=== PATIENT | male | born 1960 | race Caucasian/White ===

== ENCOUNTER 2017-12-11 11:40 | Outpatient (CLI) | payer BC, SELFPAY ==
[2017-12-11 12:21] LABS: Abs Immature Grans 0.02 k/cumm (0.0-0.09); Absolute Basophil Count 0.03 k/cumm (0.0-0.2); Absolute Eosinophil Count 0.34 k/cumm (0.0-0.7); Absolute Monocyte Count 0.47 k/cumm (0.11-0.7); Absolute Neutrophil Count 3.47 k/cumm (1.2-6.7); Basophils % 0.5; Eosinophils % 5.6; HCT 42.6 % (40.0-50.0); HGB 14.7 g/dL (13.5-17.5); Immature Grans % 0.3; Lymphocytes % 28.2; Mean Corp. HGB Concentration 34.5 g/dL (32.0-36.0); Mean Corpuscular Hemoglobin 29.2 pg (27.0-33.0); Mean Corpuscular Volume 84.5 fL (80-95); Mean Platelet Volume 9.6 fL (8.0-11.0); Monocytes % 7.8; Neutrophils % 57.6; Platelet Count 201 x1000/uL (130-400); RBC 5.04 m/cumm (4.50-6.00); RBC Distribution Width 13.1 % (11.8-14.1); White Blood Cell Count 6.03 k/cumm (4.4-10.8)
[2017-12-11 12:29] LABS: ALT 43 U/L (12-78); AST 27 U/L (15-37); Albumin 3.4 g/dL (3.4-5.0); Alkaline Phosphatase 74 U/L (46-116); Anion Gap 10.7 mmol/L (3-11); BUN 16 mg/dL (7-18); Bilirubin, Total 0.4 mg/dL (0.2-1.0); CO2 25.3 mmol/L (21.0-32.0); CREATININE 1.02 mg/dL (0.70-1.30); Calcium 8.6 mg/dL (8.5-10.1); Chloride 103 mmol/L (98-107); Glucose 123 mg/dL (70-100); Potassium 3.4 mmol/L (3.5-5.1); Sodium 139 mmol/L (136-145)
[2017-12-12 10:39] LABS: PSA, Diagnostic 0.3 ng/ml (0-3.5)
== END 2017-12-11 12:00 ==
PROVIDERS: PCP Emergency Medicine; Visit Provider Internal Medicine
DX: C61 Malignant neoplasm of prostate (principal)
CPT/HCPCS: 36415; 80053; 84153; 85025

== ENCOUNTER 2018-10-04 11:16 | Emergency (ER) | payer BC, SELFPAY ==
[2018-10-04 11:27] VITALS: BP 130/84; PULSE 79; RESP 18; TEMP 36.7; O2SAT 95
--- NOTE | 2018-10-04 12:09 | W.ED.GENAD ---
Discharge Plan Disposition Patient Disposition: HOME Condition: Stable Discharge Details Chief Complaint: Cellulitis Clinical Impression: Dyshidrotic eczema Primary Care Provider: Mamadou Ruiz ED Provider: Andre French Home Meds and New Rx's Prescriptions: New prednisone 20 mg tablet 20 mg PO DAILY Qty: 23 RF: 0 amoxicillin 500 mg capsule 500 mg PO TID 5 Days Qty: 15 RF: 0 No Action multivitamin 1 EACH capsule 1 ea PO DAILY Qty: 2 RF: 0 Discharge Instructions Instructions: Dyshidrotic Eczema (ED), Dermatitis (ED) Additional Instructions: Please follow-up with your primary care provider for reassessment in 1 week. Feel free to return the emergency department for any new or significant worsening of symptoms otherwise take medications as prescribed. Referrals: Mamadou Ruiz, [Primary Care Provider] - 1 week Discharge Data Discharge Date/Time-TO BE ENTERED AT DEPARTURE: 10/04/18 13:05 Medical Decision Making Patient presents emergency department chief complaint of bilateral foot rash. Patient states that this started after power washing a chimney. Patient has right vesicles with clear drainage, some cracking and fissuring of the bilateral lateral aspects of the foot, desquamination of the tissue around the dorsal aspect. Dyshidrotic of the feet with possible cellulitis. Given exposure to wet moist environment also concern for fungal infection. Reviewed patient's previous records given that he states that this occurred approximately 10 years ago and was very difficult to treat. Review of those records shows that patient was on steroids which helped his symptoms. Plan to place patient on prednisone, treat cellulitis with amoxicillin 500 mg 3 times daily, and give patient single dose of fluconazole. Return precautions discussed. after discussion of diagnosis and plan of care patient has no further needs, questions, or concerns and states clear understanding to return to the emergency department for any worsening symptoms. HPI General Mode of arrival: ambulatory. Date/Time Provider Initiated Documentation: 10/04/18 11:36. Limitations to Documentation: no limitations. Information obtained by: patient and RN notes reviewed. History of Present Illness 58 year old M presents to the emergency department with the chief complaint of foot rash, described as severe, with intensity rated at 7. Quality is described as burning (itching) and aching, and is localized to the lower extremity. Patient started experiencing this week(s) (1) and it has been constant. Patient notes no other symptoms.. Patient did receive the following treatments prior to arrival, none Related Data Home Medications Medication Instructions Recorded Confirmed multivitamin 1 ea PO DAILY #2 11/17/13 10/04/18 amoxicillin 500 mg PO TID 5 Days #15 cap 10/04/18 prednisone 20 mg PO DAILY #23 tab 10/04/18 Previous Rx's Medication Instructions Recorded amoxicillin 500 mg PO TID 5 Days #15 cap 10/04/18 prednisone 20 mg PO DAILY #23 tab 10/04/18 Allergies Allergy/AdvReac Type Severity Reaction Status Date / Time Iodinated Contrast Media Allergy Severe Anaphylaxsi Unverified 10/04/18 11:31 [Iodinated Contrast Media - s IV Dye] shellfish derived Allergy Severe Anaphylaxsi Unverified 10/04/18 11:31 s Sulfa (Sulfonamide Allergy Intermediate Skin Rash Unverified 10/04/18 11:31 Antibiotics) General Stated Complaint: Cellulitis ELISA: 3 Review of Systems Constitutional Denies fever(s) Cardiovascular Denies chest pain Respiratory Denies cough Integumentary/Breasts Reports as per HPI [facility] Medical History Malignant neoplasm prostate Sciatica Surgical History Steroid Injection Social History Smoking/Tobacco Use Status: Former Tobacco Use Alcohol Intake: former Drug use: Never Substance use type: does not use Do you feel safe at home: Yes Exam Const General: cooperative, no acute distress and not ill appearing Orientation: alert, awake and oriented x3 HENMT Mouth: moist mucous membranes Resp Effort & Inspection: normal respiratory effort, able to speak in complete sentences and no respiratory distress Cardio Rate: regular rate Rhythm: regular rhythm Skin Rashes: rashes noted lichenification bilateral plantar foot arrangement, borders irregular, color red, surface erythematous, flaking, peeling, scaly and with discharge and tender Extrem General: normal exam except as noted Course Vital Signs Temperature 36.7 C 10/04/18 11:27 Pulse 79 10/04/18 11:27 Respiratory Rate 18 10/04/18 11:27 Blood Pressure 130/84 10/04/18 11:27 Pulse Oximetry 95 10/04/18 11:27 Temperature 36.7 C 10/04/18 11:27 Temperature Source Skin 10/04/18 11:27 Pulse 79 10/04/18 11:27 Respiratory Rate 18 10/04/18 11:27 Respiratory Effort Non-Labored 10/04/18 11:31 Blood Pressure 130/84 10/04/18 11:27 Blood Pressure Position Sitting 10/04/18 11:27 Pulse Oximetry 95 10/04/18 11:27 Oxygen Delivery Method Room Air 10/04/18 11:27 Oxygen Flow Rate 0 10/04/18 11:27 Pain Level 4 10/04/18 11:27
[2018-10-04] MEDS: Fluconazole 150 MG TAB PO (12:47)
[2018-10-04] MEDS: Amoxicillin 500 MG CAP PO (12:47)
[2018-10-04] MEDS: predniSONE 20 MG TAB 60 MG PO (12:47)
== END 2018-10-04 13:05 | disposition home or self-care (01) ==
PROVIDERS: Emergency Provider Nurse Practitioner Family; PCP Emergency Medicine
DX: L30.1 Dyshidrosis [pompholyx] (principal)
CPT/HCPCS: 99283; J7512

== ENCOUNTER 2018-10-24 19:48 | Emergency (ER) | payer BC, SELFPAY ==
[2018-10-24 19:55] VITALS: BP 148/76; PULSE 110; RESP 18; TEMP 37.9; O2SAT 99
--- NOTE | 2018-10-24 20:06 | W.ED.GENAD ---
Discharge Plan Disposition Patient Disposition: HOME Condition: Stable Discharge Details Chief Complaint: Cellulitis Clinical Impression: Cellulitis of leg, right Primary Care Provider: Mamadou Ruiz ED Provider: Peter Fitzpatrick Home Meds and New Rx's Prescriptions: New amoxicillin-pot clavulanate [Augmentin] 875-125 mg tablet 1 tab PO BID Qty: 14 RF: 0 prednisone 20 mg tablet 60 mg PO DAILY 5 Days Qty: 15 RF: 0 No Action multivitamin 1 EACH capsule 1 ea PO DAILY Qty: 2 RF: 0 Discharge Instructions Instructions: Cellulitis (ED) Additional Instructions: follow up with your primary care provider within 1 week if redness spreads up the leg, you have severe pain, weakness or persistent high fevers return to the emergency department Medical Decision Making 58 yo male who denies chronic medical problems comes in with red rash on right mid lower leg since yesterday. He was tx'd with prednisone, fluconazole and amoxicillin for a rash on his left foot that has improved but still has some scaling rash on the left foot. He is on his feet a lot at work and his shoes seem very worn down. I suspect some time of contact dermatitis of the left foot. Starting yesterday he began with a red rash on his right mid leg that is warm, red and is about 5x6cm in size. He has no crepitus or severe pain with palpation to the area to suggest nec fasc. Could be dermatitis but given warmth will tx as cellulitis. He is noted to have a temperature here and states he was working hard all day so could be from this but will obtain lab work and give IVF and dose of IV abx while this is pending. pt feeling better and HR on my exma no 80 and bp 130/82. His labs show mild wbc of 14 and lactate 2.0. He feels well and would like to be discharged. Given HD stability and lactate not over 2 and wbc could be from recent prednisone feel this is reasonable, I will start on augmentin and advised f/u with pcp next week and return if worsening. He understands these instructions and knows to return if he has worsening pain weakness or redness that is spreading. Differential Diagnosis cellulitis, fungal infection, abscess, contact dermatitis Medical Records Medical records reviewed: Yes I reviewed the patient's medical records. Lab Data Lab results reviewed: Yes I reviewed the patient's lab results. HPI General Mode of arrival: ambulatory. Date/Time Provider Initiated Documentation: 10/24/18 19:53. Limitations to Documentation: no limitations. Information obtained by: patient. History of Present Illness 58 year old M presents to the emergency department with the chief complaint of right leg rash, described as moderate, Quality is described as aching, Patient reports no radiation. Patient started experiencing this day(s) (1) and it has been constant. No relieving factors improve symptom(s), No exacerbating factors reported . Patient did receive the following treatments prior to arrival, none Related Data Home Medications Medication Instructions Recorded Confirmed multivitamin 1 ea PO DAILY #2 11/17/10/24/18 amoxicillin-pot clavulanate 1 tab PO BID #14 tab 10/24/18 [Augmentin] prednisone 60 mg PO DAILY 5 Days #15 tab 10/24/18 Previous Rx's Medication Instructions Recorded amoxicillin-pot clavulanate 1 tab PO BID #14 tab 10/24/18 [Augmentin] prednisone 60 mg PO DAILY 5 Days #15 tab 10/24/18 Allergies Allergy/AdvReac Type Severity Reaction Status Date / Time Iodinated Contrast Media Allergy Severe Anaphylaxsi Unverified 10/24/18 19:54 [Iodinated Contrast Media - s IV Dye] shellfish derived Allergy Severe Anaphylaxsi Unverified 10/24/18 19:54 s Sulfa (Sulfonamide Allergy Intermediate Skin Rash Unverified 10/24/18 19:54 Antibiotics) General Stated Complaint: Cellulitis ELISA: 3 Review of Systems Review of Systems All systems reviewed & are unremarkable except as noted in HPI and below Constitutional Denies chills and Denies fever(s) Cardiovascular Denies chest pain and Denies dyspnea Respiratory Denies cough and Denies dyspnea Gastrointestinal Denies abdominal pain, Denies nausea and Denies vomiting Genitourinary Denies dysuria Musculoskeletal Denies joint swelling [facility] Social History Smoking/Tobacco Use Status: Former Tobacco Use Alcohol Intake: former Drug use: Never Substance use type: does not use Do you feel safe at home: Yes Do you feel safe in your relationship?: Yes Exam Const General: no acute distress Orientation: alert HENMT Head: normal to inspection Ears: external ears normal General nose exam: external nose normal Mouth: moist mucous membranes Eyes General: appearance normal, both eyes and all related structures Neck Neck: normal visual inspection Resp Effort & Inspection: normal respiratory effort and able to speak in complete sentences Cardio Rate: regular rate Skin General skin exam: elasticity normal Neuro General: alert and oriented x3 Extrem General: normal to inspection Psych Mental Status: mental status grossly normal Course Vital Signs Temperature 37.9 C H 10/24/18 19:55 Pulse 110 H 10/24/18 19:55 Respiratory Rate 18 10/24/18 19:55 Blood Pressure 148/76 H 10/24/18 19:55 Pulse Oximetry 99 10/24/18 19:55 Temperature 37.9 C H 10/24/18 19:55 Temperature Source Skin 10/24/18 19:55 Pulse 110 H 10/24/18 19:55 Respiratory Rate 18 10/24/18 19:55 Respiratory Effort Non-Labored 10/24/18 19:58 Blood Pressure 148/76 H 10/24/18 19:55 Blood Pressure Position Sitting 10/24/18 19:55 Pulse Oximetry 99 10/24/18 19:55 Oxygen Delivery Method Room Air 10/24/18 19:55 Oxygen Flow Rate 0 10/24/18 19:55 Pain Level 6 10/24/18 19:55
[2018-10-24] MEDS: Acetaminophen 500 MG TAB 1000 MG PO (20:12)
[2018-10-24] MEDS: Normal Saline 1,000 ML 1000 ML IV (20:34)
[2018-10-24 20:47] LABS: Abs Immature Grans 0.04 k/cumm (0.0-0.09); Absolute Basophil Count 0.03 k/cumm (0.0-0.2); Absolute Eosinophil Count 0.04 k/cumm (0.0-0.7); Absolute Lymphocyte Count 1.02 k/cumm (1.2-3.4); Absolute Monocyte Count 0.72 k/cumm (0.11-0.7); Absolute Neutrophil Count 12.77 k/cumm (1.2-6.7); Basophils % 0.2; Eosinophils % 0.3; HCT 44.5 % (40.0-50.0); HGB 15.3 g/dL (13.5-17.5); Immature Grans % 0.3; Mean Corp. HGB Concentration 34.4 g/dL (32.0-36.0); Mean Corpuscular Hemoglobin 29.5 pg (27.0-33.0); Mean Corpuscular Volume 85.9 fL (80-95); Monocytes % 4.9; Neutrophils % 87.3; Platelet Count 189 x1000/uL (130-400); RBC 5.18 m/cumm (4.50-6.00); RBC Distribution Width 13.4 % (11.8-14.1); White Blood Cell Count 14.63 k/cumm (4.4-10.8)
[2018-10-24 20:54] LABS: PTT Activated 23.4 sec (21.0-31.4); Prothrombin Time 10.3 sec (9.3-11.0)
[2018-10-24 20:57] LABS: ALT 30 U/L (16-63); AST 23 U/L (15-37); Albumin 3.5 g/dL (3.4-5.0); Alkaline Phosphatase 75 U/L (46-116); Anion Gap 10.1 mmol/L (3-11); BUN 16 mg/dL (7-18); Bilirubin, Total 0.4 mg/dL (0.2-1.0); CO2 25.9 mmol/L (21.0-32.0); CREATININE 1.41 mg/dL (0.70-1.30); Calcium 8.9 mg/dL (8.5-10.1); Chloride 104 mmol/L (98-107); Estimated GFR 51.27 (mL/min/1.73m2); Glucose 106 mg/dL (70-100); Potassium 3.7 mmol/L (3.5-5.1); Sodium 140 mmol/L (136-145); Total Protein 7.5 g/dL (6.4-8.2)
[2018-10-24] MEDS: cefTRIAXone 2 GM/50 ML BAG IVPB (20:57)
[2018-10-24 21:38] VITALS: BP 132/71; PULSE 99; RESP 16; TEMP 38.6; O2SAT 99
[2018-10-24] MEDS: Ibuprofen 600 MG TAB PO (21:42)
== END 2018-10-24 21:45 | disposition home or self-care (01) ==
PROVIDERS: Emergency Provider Emergency Medicine; PCP Emergency Medicine
DX: L03.115 Cellulitis of right lower limb (principal); R50.9 Fever, unspecified
CPT/HCPCS: 36415; 80053; 87040; 96361; 96365; 99284; 83605; 83735; 85025; 85610; 85730; J3490

== ENCOUNTER 2018-11-10 17:38 | Inpatient (IN) | payer BC, SELFPAY ==
[2018-11-10 17:40] VITALS: BP 156/86; PULSE 104; RESP 16; TEMP 36.9; O2SAT 97
--- NOTE | 2018-11-10 17:47 | ED.GENADUL_ITS ---
Discharge Plan Disposition Patient Disposition: [facility] INPATIENT Condition: Fair Discharge Details Chief Complaint: Cellulitis Clinical Impression: Cellulitis Primary Care Provider: Mamadou Ruiz ED Provider: Alexa Song Home Meds and New Rx's Prescriptions: No Action multivitamin 1 EACH capsule 1 ea PO DAILY Qty: 2 RF: 0 Medical Decision Making Patient rosa 58 year old male with hx of prostate ca, presenting today with c/c of recurrent RLE cellulitis. Patient states that he was feeling poorly this weekend, no known fevers, and then began noting small area of erythema to anterior RLE last night. Reports that today around 1600, he had to stop working secondary to the pain right lower extremity. He was at that time they noted swelling and circumferential erythema and discomfort to the right lower extremity. None exam, patient appears nontoxic. To be tachycardic at 104. He does have circumferential erythema and tenderness to palpation. No area of fluctuance. No crepitus palpated. Has 2+ distal pulses, sensation is intact. He does have bilateral peeling of the feet. There are cracks that are open on the dorsal aspect of the right foot which may be the area of source of infection. However, the area of erythema does seem to skip the dorsum of the foot. Given the progression of the cellulitis, I am concerned for possible aggressive source. I do not see any evidence at this time for necrotizing fasciitis but again, given the rapid progression I feel that imaging is appropriate. Plan for x-ray and laboratory evaluation. Patient will begin on IV clindamycin. Reviewed labs when the patient is here recently. At that time, his white count was elevated at 14, lactate was elevated 2. He was also noted to have a bump in his creatinine to 1.4 which is very atypical for the patient. Patient received IV hydration, IV clindamycin. White count is normal, normal lactate. Again the creatinine is noted to be elevated at 1.54. We will UA to evaluate for any albuminuria lower proteins. Consulted with hospitalist regarding admission for cellulitis. He agrees to admission. Patient agrees to admission as well. Patient transferred to the medical surgical floor for continued IV antibiotics and monitoring. HPI General Mode of arrival: ambulatory . Date/Time Provider Initiated Documentation: 11/10/18 17:47 . Limitations to Documentation: no limitations . Information obtained by: patient and RN notes reviewed . History of Present Ill ness 58 year old M presents to the emergency department with the chief complaint of RLE pain, erythema, described as moderate, Quality is described as aching, and is localized to the right and lower extremity. Patient started experiencing this day(s) (1) and it has been constant. No relieving factors improve symptom(s), Movement worsens symptoms . Patient notes no other symptoms.. Patient did receive the following treatments prior to arrival, none Related Data Home Medications Medication Instructions Recorded Confirmed multivitamin 1 ea PO DAILY #2 11/17/13 11/10/18 Allergies Allergy/AdvReac Type Severity Reaction Status Date / Time Iodinated Contrast Media Allergy Severe Anaphylaxsi Unverified 11/10/18 17:44 [Iodinated Contrast Media - s IV Dye] shellfish derived Allergy Severe Anaphylaxsi Unverified 11/10/18 17:44 s Sulfa (Sulfonamide Allergy Intermediate Skin Rash Unverified 11/10/18 17:44 Antibiotics) General Stated Complaint: Cellulitis ELISA: 3 Review of Systems Constitutional Constitutional: Reports as per HPI, Denies chills, Denies fever(s), Denies headache(s) and Denies weakness ENT Ears, Nose, Mouth, and Throat: Denies headache(s) Cardiovascular Cardiovascular: Reports as per HPI Respiratory Respiratory: Reports as per HPI and Denies cough Musculoskeletal Musculoskeletal: Reports as per HPI and Denies tingling Integumentary/Breasts Skin/Breast: Reports as per HPI, Reports erythema, Reports rash and Denies wounds Neurologic Neurologic: Reports as per HPI, Denies headache(s), Denies tingling, Denies pare sthesias and Denies weakness [facility] Medical History Malignant neoplasm prostate Sciatica Surgical History Steroid Injection [facility];Lumbar epidural steroid injection;04/04/17 Social History Smoking/Tobacco Use Status: Current every day Tobacco Type: smokeless tobacco Alcohol Intake: former Drug use: Never Substance use type: does not use Do you feel safe at home: Yes Do you feel safe in your relationship?: Yes Exam Const General: cooperative, healthy appearing, comfortable, no acute distress, well developed and well groomed Nutritional Appearance: average body habitus and well nourished Orientation: alert and awake Resp Effort & Inspection: normal respiratory effort, able to speak in complete sentences and no respiratory distress Auscultation: clear to auscultation bilaterally Cardio Rate: regular rate Rhythm: regular rhythm Heart Sounds: S1 normal and S2 normal Skin General skin exam: crusts (bilateral feet L>R with superficial open cracks to the dorsal right foot), erythema (erythema to RLE as drawn below), no fluctuance and no induration Full body images: 1. 2. area of erythema, warmth, tenderness. Neuro General: alert and awake Cognition: normal cognition Speech: speech normal Gait: normal gait Motor: muscle tone normal throughout Sensory Exam: no sensory deficits noted Extrem Right lower extremity: abnormal to inspection (as above, 2+ distal pulses, sensation intact) Psych Appearance: grossly normal and well kempt Mental Status: mental status grossly normal Speech and Movement: speech and movement normal Course Vital Signs Vital signs: Vital Signs Temperature 36.9 C 11/10/18 17:40 Pulse 104 H 11/10/18 17:40 Respiratory Rate 16 11/10/18 17:40 Blood Pressure 156/86 H 11/10/18 17:40 Pulse Oximetry 97 11/10/18 17:40 Temperature 36.9 C 11/10/18 17:40 Temperature Source Skin 11/10/18 17:40 Pulse 104 H 11/10/18 17:40 Respiratory Rate 16 11/10/18 17:40 Respiratory Effort Non-Labored 11/10/18 17:42 Blood Pressure 156/86 H 11/10/18 17:40 Blood Pressure Position Sitting 11/10/18 17:40 Pulse Oximetry 97 11/10/18 17:40 Oxygen Delivery Method Room Air 11/10/18 17:40 Oxygen Flow Rate 0 11/10/18 17:40
--- NOTE | 2018-11-10 18:08 | DI.RAD_ITS ---
EXAM: XR TIB/FIB RT INDICATION: cellulitis. TECHNIQUE: 2D digital imaging was performed. FINDINGS: There is no evidence of an acute fracture or dislocation. The soft tissues are normal. Note is made o f vascular calcifications. IMPRESSION: No definite bony abnormality is seen.
[2018-11-10 18:27] LABS: Lactate 1.3 mmol/L (0.6-1.4)
[2018-11-10] MEDS: CLINDAMYCIN 600 MG/50 ML BAG 100 MG IVPB (18:29)
[2018-11-10] MEDS: Normal Saline 1,000 ML 1000 ML IV (18:29)
[2018-11-10 18:30] LABS: Abs Immature Grans 0.01 k/cumm (0.0-0.09); Absolute Basophil Count 0.04 k/cumm (0.0-0.2); Absolute Eosinophil Count 0.14 k/cumm (0.0-0.7); Absolute Monocyte Count 0.85 k/cumm (0.11-0.7); Absolute Neutrophil Count 6.56 k/cumm (1.2-6.7); Basophils % 0.4; Eosinophils % 1.5; HCT 43.8 % (40.0-50.0); Immature Grans % 0.1; Lymphocytes % 17.4; Mean Corp. HGB Concentration 34.2 g/dL (32.0-36.0); Mean Corpuscular Hemoglobin 29.2 pg (27.0-33.0); Mean Corpuscular Volume 85.4 fL (80-95); Mean Platelet Volume 9.6 fL (8.0-11.0); Monocytes % 9.2; Neutrophils % 71.4; Platelet Count 275 x1000/uL (130-400); RBC 5.13 m/cumm (4.50-6.00); RBC Distribution Width 13.2 % (11.8-14.1)
--- NOTE | 2018-11-10 18:52 | DI.VRAD_ITS ---
Addendum created by Pieter Horn MD on 11/10/2018 7:28:01 PM EDT Soft tissue calcifications and the radiographs are essentially unchanged from a prior study dated 03/07/2012. Initial report created on 11/10/2018 6:52:18 PM EDT PROCEDURE INFORMATION: Exam: XR Right Tibia and Fibula Exam date and time: 11/10/2018 6:10 PM Clinical history: 58 years old, male; Other: Cellulitis TECHNIQUE: Imaging protocol: XR Right tibia and fibula. Views: 2 views. COMPARISON: CR RIGHT TIB/FIB 03/07/2012 10:39 AM FINDINGS: Bones/joints: No recent fracture or dislocation is identified. Soft tissues: Normal. Vasculature: Vascular calcifications are present. IMPRESSION: No definite osseous abnormality is identified. Dictated and Authenticated by: Pieter Horn MD. Ordering:SILVANO Liu MD
[2018-11-10 18:53] LABS: ALT 32 U/L (16-63); AST 20 U/L (15-37); Albumin 3.6 g/dL (3.4-5.0); Alkaline Phosphatase 74 U/L (46-116); Anion Gap 9.9 mmol/L (3-11); BUN 19 mg/dL (7-18); Bilirubin, Total 0.3 mg/dL (0.2-1.0); CO2 24.1 mmol/L (21.0-32.0); CREATININE 1.54 mg/dL (0.70-1.30); Calcium 8.9 mg/dL (8.5-10.1); Chloride 106 mmol/L (98-107); Estimated GFR 46.31 (mL/min/1.73m2); Glucose 86 mg/dL (70-100); Potassium 3.7 mmol/L (3.5-5.1); Sodium 140 mmol/L (136-145); Total Protein 8.1 g/dL (6.4-8.2)
[2018-11-10 19:49] VITALS: BP 130/76; PULSE 80; RESP 18; O2SAT 99
--- NOTE | 2018-11-10 20:49 | W.PM.HP.N ---
Date of service: 11/10/18 Time of Service: 20:49 Assessment and Plan Assessment and plan (1) Cellulitis of leg, right: Start date: 11/10/18 Status: Acute Assessment and plan: Patient has had recurrent cellulitis of the right leg over the last 3 weeks now with an acute onset of painful swelling his right mid calf involving the skin and not appearing to have advancing necrotizing fasciitis at this time with quick response to IV clindamycin. The source of his infection might be the severe eczema of his feet. We will continue IV clindamycin high dose and convert to oral thrapy once he stabilizes. It appears he will not require surgical consultation at this time. (2) Chronic eczema of foot: Status: Chronic Assessment and plan: This is been recurrent over the last several months and the patient needs to consider dermatological evaluation. History of Present Illness History of Present Illness Chief Complaint: Painful swollen right calf and leg, sudden onset Narrative: This is a 58-year-old gentleman who does pravin who had a red swollen leg about 2 to 3 weeks ago for which she was seen in the ED and treated with Augmentin and prednisone. This seemed to clear and had improved for several days but then began to recur the evening prior to admission with a red spot on his leg which became very painful with acute hard swelling above the level of his sock on the right leg with circumferential reddness around his entire mid calf. He does have scaly and slightly ulcerated soles of his feet which began this last winter when the snow fell into his boot and rubbed him raw. He also has a history of possible eczema. He is on minimal meds with a history of prostate cancer but with no history of diabetes or peripheral vascular disease. In the ED there was some concern of early necrotizing fasciitis but the patient did respond well to his first dose of IV clindamycin. His pain was decreasing and the rash was softer with less hard swelling at the time I saw him. 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 He denied any fever or chills. He did feel poorly this weekend. Review of Systems Review of Systems Narrative: 13 point review of systems otherwise unrevealing or stable. [facility] Medical History Malignant neoplasm prostate Sciatica Surgical History Steroid Injection Pain Clinic;Lumbar epidural steroid injection;04/04/17 Social History Smoking/Tobacco Use Status: Current every day Tobacco Type: smokeless tobacco Alcohol Intake: former Drug use: Never Substance use type: does not use Do you feel safe at home: Yes Do you feel safe in your relationship?: Yes Meds Home Medications and Allergies Home Medications Medication Instructions Recorded Confirmed Type multivitamin 1 ea PO DAILY #2 11/17/13 11/10/18 History Allergies Allergy/AdvReac Type Severity Reaction Status Date / Time Iodinated Contrast Media Allergy Severe Anaphylaxsi Unverified 11/10/18 17:44 [Iodinated Contrast Media - s IV Dye] shellfish derived Allergy Severe Anaphylaxsi Unverified 11/10/18 17:44 s Sulfa (Sulfonamide Allergy Intermediate Skin Rash Unverified 11/10/18 17:44 Antibiotics) Exam Narrative Exam Narrative: General: Patient appears older than stated age and is unkempt but in no acute distress and alert and oriented x3. HEENT: Normocephalic with eyes revealing pupils equal and reactive to light symmetrically and extraocular movement intact. Oral mucosa is pink and moist. He has poor dentition. Neck: Supple without JVD. Back: No CVA tenderness. Lungs: Fair aeration with no focalizing rales or rhonchi. Heart: Regular rate and rhythm without murmurs or gallops. Abdomen: Soft, nontender with no palpable masses or hepatosplenomegaly. Bowel sounds positive in all quadrants. Genitalia/rectal: Not examined. Extremities: Right calf has edema which is less hard and less erythematous but tender to touch over the tibial area and medial calf centrally. Negative Homans sign. Peripheral pulses intact. No clubbing or cyanosis. No swelling over left calf and foot. Both feet have scaly, slightly ulcerative and thickened skin on the soles. No bleeding. Joints have fair range of motion. Skin: Erythema and tenderness over right leg as described with scaly soles of the feet bilaterally. No other rashes noted but unkempt skin. Warm and dry. Neuro: Motor without focalizing deficits and cranial nerves II through XII grossly intact. Psych: Normal thought processes with remote and recent memory intact. Mood normal. Results Imaging Imaging Studies: Exam(s) Addendum created by Pieter Horn MD on 11/10/2018 7:28:01 PM EDT Soft tissue calcifications and the radiographs are essentially unchanged from a prior study dated 03/07/2012. Initial report created on 11/10/2018 6:52:18 PM EDT PROCEDURE INFORMATION: Exam: XR Right Tibia and Fibula Exam date and time: 11/10/2018 6:10 PM Clinical history: 58 years old, male; Other: Cellulitis TECHNIQUE: Imaging protocol: XR Right tibia and fibula. Views: 2 views. COMPARISON: CR RIGHT TIB/FIB 03/07/2012 10:39 AM FINDINGS: Bones/joints: No recent fracture or dislocation is identified. Soft tissues: Normal. Vasculature: Vascular calcifications are present. IMPRESSION: No definite osseous abnormality is identified. Dictated and Authenticated by: Pieter Horn MD. Labs Result diagrams: 11/10/18 18:19 11/10/18 18:19 Labs: Laboratory Results - last 24 hr 11/10/18 11/10/18 11/10/18 18:19 18:19 18:19 WBC 9.20 RBC 5.13 Hgb 15.0 Hct 43.8 MCV 85.4 MCH 29.2 MCHC 34.2 RDW 13.2 Plt Count 275 MPV 9.6 Immature Gran % 0.1 Neutrophils % 71.4 Lymphocytes % 17.4 Monocytes % 9.2 Eosinophils % 1.5 Basophils % 0.4 Absolute Neutrophils 6.56 Absolute Lymphocytes 1.60 Absolute Monocytes 0.85 H Absolute Eosinophils 0.14 Absolute Basophils 0.04 Sodium 140 Potassium 3.7 Chloride 106 Carbon Dioxide 24.1 Anion Gap 9.9 BUN 19 H Creatinine 1.54 H Estimated GFR/1.73 m2 46.31 Glucose 86 Lactate 1.3 Calcium 8.9 Total Bilirubin 0.3 AST 20 ALT 32 Alkaline Phosphatase 74 Total Protein 8.1 Albumin 3.6 Last Vital Signs Temp 36.9 C 11/10/18 17:40 Pulse 80 11/10/18 19:49 Resp 18 11/10/18 19:49 BP 130/76 11/10/18 19:49 Pulse Ox 99 11/10/18 19:49
[2018-11-10 21:06] LABS: Bilirubin Negative (Negative); Blood Negative (Negative); Clarity Clear (Clear); Glucose Negative (Negative); Ketones Negative (Negative); Leukocyte Esterase Negative (Negative); Nitrite Negative (Negative); Specific Gravity >= 1.030 (1.005-1.025); Urobilinogen 0.2 EU/dL (Up TO 0.2); pH 5.5 (5-8)
[2018-11-10 21:14] LABS: Magnesium 2.3 mg/dL (1.8-2.4)
[2018-11-10 21:18] LABS: Epithelial Cells Negative HPF (Negative); RBC 0-2 (0-2); WBC Negative HPF (0-5)
[2018-11-10 21:19] LABS: Bacteria Negative HPF (Negative); C & S Indicated? No; Casts Negative LPF (Negative); Crystals Few Calcium Oxalate HPF (Negative); Mucus Heavy (Negative)
[2018-11-10 21:34] VITALS: BP 129/80; PULSE 83; RESP 18; TEMP 36.7; O2SAT 97
[2018-11-10 21:50] VITALS: BP 129/80; PULSE 83; RESP 18; TEMP 36.7; O2SAT 97
[2018-11-10 22:27] VITALS: BP 129/80; PULSE 83; RESP 18; TEMP 36.7; O2SAT 97
[2018-11-10] MEDS: Heparin 5,000 UNITS/ML VIAL 5000 UNITS SC (23:35)
[2018-11-10] MEDS: Normal Saline 1,000 ML 125 ML IV (23:35)
[2018-11-11] MEDS: CLINDAMYCIN 600 MG/50 ML BAG 100 MG IVPB ×4 (01:23→18:16)
[2018-11-11 04:41] VITALS: BP 98/59; PULSE 59; RESP 16; TEMP 35.8; O2SAT 96
[2018-11-11 06:56] LABS: HCT 37.6 % (40.0-50.0); HGB 12.8 g/dL (13.5-17.5); Mean Corpuscular Hemoglobin 29.8 pg (27.0-33.0); Mean Corpuscular Volume 87.4 fL (80-95); Mean Platelet Volume 9.8 fL (8.0-11.0); Platelet Count 230 x1000/uL (130-400); RBC Distribution Width 13.1 % (11.8-14.1)
[2018-11-11] MEDS: Heparin 5,000 UNITS/ML VIAL 5000 UNITS SC ×3 (06:56→21:16)
[2018-11-11 07:00] VITALS: BP 116/72; PULSE 48; RESP 18; TEMP 36.6; O2SAT 97
[2018-11-11 07:16] LABS: ALT 25 U/L (16-63); AST 16 U/L (15-37); Albumin 2.6 g/dL (3.4-5.0); Alkaline Phosphatase 55 U/L (46-116); Anion Gap 8.5 mmol/L (3-11); BUN 16 mg/dL (7-18); Bilirubin, Total 0.4 mg/dL (0.2-1.0); CO2 22.5 mmol/L (21.0-32.0); CREATININE 1.02 mg/dL (0.70-1.30); Calcium 7.9 mg/dL (8.5-10.1); Chloride 109 mmol/L (98-107); Glucose 99 mg/dL (70-100); Potassium 3.9 mmol/L (3.5-5.1); Sodium 140 mmol/L (136-145); Total Protein 6.2 g/dL (6.4-8.2)
[2018-11-11] MEDS: Normal Saline 1,000 ML 125 ML IV ×2 (08:58→17:37)
[2018-11-11 11:00] VITALS: BP 115/74; PULSE 58; RESP 16; TEMP 35.9; O2SAT 95
--- NOTE | 2018-11-11 11:28 | PHARADMIT ---
Admission Pharmacy Clinical Review cellulitis right lower extremity Code Status Full Code Current Weight 86.636 kg Renally Cleared and Narrow Therapeutic Index Meds Crcl ~79 mL/min current meds okay QTc Value / Action Taken n/a BP Control, Fever BP 116/72 afebrile Electrolytes reviewed Cl 109 DVT Prophylaxis heparin Opiate Usage / Scheduled Bowel Regimen Ordered prn/prn Plt/SCr for Heparin / Enoxaparin plt 230 SCr 1.02 INR for Warfarin n/a H/H stable, WBC/Bands h/h 12.8/37.6 Antibiotic appropriateness clindamycin Cultures and Sensitivities none Surgical ABX d/c within 24 hr n/a DM control / Insulin Dosing BG 99 none Heart Failure (Check EF%) (CANDE's, B-Block, Diuretics) none IV to PO Switch n/a Home Meds Reviewed yes Home Meds Not Ordered multivitamin Comments failed out pt tx per morning report pt reports pain with ambulation but refusing pain meds per nursing report
[2018-11-11 15:35] VITALS: BP 131/87; PULSE 53; RESP 18; TEMP 36.2; O2SAT 99
--- NOTE | 2018-11-11 16:16 | CHAPLAIN ---
I had a short visit with Altaf. He was resting in bed. He said he didn't ask any friends or relatives to visit because he wasn't sure how long he'd be here. He hasn't spoke with the physician yet today and is waiting to do that.
--- NOTE | 2018-11-11 17:54 | W.PM.PROGNOT ---
Date of Service Date of service: 11/11/18 Time of Service: 17:55 Assessment and Plan Assessment and plan (1) Cellulitis of leg, right: Status: Acute Assessment and plan: Having failed outpatient therapy (augmentin, prednisone). Improving with clindamycin IV. Continue clindamycin and add probiotics. (2) Chronic eczema of foot: Status: Suspected Assessment and plan: I am not sure this is eczema. Podiatry is being consulted for wound care recommendations. Will need dermatology referral. Subjective Subjective Interval history since last seen: Mr Payne states he feels a lot better. Denies dizziness, chest pain, shortness of breath, nausea, vomiting. RLE is not as red, swollen, or hurt as much. Exam Narrative Exam Narrative: General: middle-aged male, A&Ox3, laying comfortably in bed HEENT: EOMI, MMM Heart: RRR, no m/r/g Lungs: CTAB GI: abdomen is soft, nontender, nondistended Extremities: RLE with erythema over tibial surface and calf, signficantly receded from previously circumscribed borders. Psoriatic-appearing plaque over R knee. B feet with wounds, L>R, none appearing infected, but nonhealing. Objective Objective Clinical Data: Abnormal lab results 11/10/18 11/10/18 11/10/18 Range/Units 18:19 18: 20:50 RBC (4.50-6.00) m/cumm Hgb (13.5-17.5) g/dL Hct (40.0-50.0) % Absolute Monocytes 0.85 H (0.11-0.7) k/cumm Chloride (98-107) mmol/L BUN 19 H (7-18) mg/dL Creatinine 1.54 H (0.70-1.30) mg/dL Calcium (8.5-10.1) mg/dL Total Protein (6.4-8.2) g/dL Albumin (3.4-5.0) g/dL Ur Specific [place] >= 1.030 H (1.005-1.025) Urine Protein 30 H (Negative) mg/dL 11/11/18 11/11/18 Range/Units 06:20 06:30 RBC 4.30 L (4.50-6.00) m/cumm Hgb 12.8 L D (13.5-17.5) g/dL Hct 37.6 L (40.0-50.0) % Absolute Monocytes (0.11-0.7) k/cumm Chloride 109 H (98-107) mmol/L BUN (7-18) mg/dL Creatinine (0.70-1.30) mg/dL Calcium 7.9 L (8.5-10.1) mg/dL Total Protein 6.2 L (6.4-8.2) g/dL Albumin 2.6 L (3.4-5.0) g/dL Ur Specific [place] (1.005-1.025) Urine Protein (Negative) mg/dL Vital Signs Temperature 36.2 C L 11/11/18 15:35 Temperature Source Tympanic 11/11/18 15:35 Pulse 53 L 11/11/18 15:35 Pulse Rhythm Regular 11/11/18 08:18 Respiratory Rate 18 11/11/18 15:35 Respiratory Effort 11/11/18 08:18 Respiratory Depth Normal 11/11/18 08:18 Respiratory Pattern Normal 11/11/18 08:18 Blood Pressure 131/87 11/11/18 15:35 Blood Pressure Position Sitting 11/10/18 17:40 Pulse Oximetry 99 11/11/18 15:35 Oxygen Delivery Method Room Air 11/11/18 15:35 Oxygen Flow Rate 0 11/11/18 15:35 Pain Level 0 11/11/18 11:00 Intake & Output 11/10/18 11/11/18 11/11/18 23:59 11:59 23:59 Intake Total 1050 / 1050 1580 / 2820 1240 / 2820 Balance 1050 / 1050 1580 / 2820 1240 / 2820 Weight 86.636 kg Intake: IV 1050 / 1050 1100 / 2100 1000 / 2100 Oral 480 / 720 240 / 720 Other: Urine Appearance Clear Clear Laboratory Results WBC 5.30 k/cumm (4.4-10.8) D 11/11/18 06:20 RBC 4.30 m/cumm (4.50-6.00) L 11/11/18 06:20 Hgb 12.8 g/dL (13.5-17.5) L D 11/11/18 06:20 Hct 37.6 % (40.0-50.0) L 11/11/18 06:20 MCV 87.4 fL (80-95) 11/11/18 06:20 MCH 29.8 pg (27.0-33.0) 11/11/18 06:20 MCHC 34.0 g/dL (32.0-36.0) 11/11/18 06:20 RDW 13.1 % (11.8-14.1) 11/11/18 06:20 Plt Count 230 x1000/uL (130-400) 11/11/18 06:20 MPV 9.8 fL (8.0-11.0) 11/11/18 06:20 Immature Gran % 0.1 11/10/18 18:19 Neutrophils % 71.4 11/10/18 18:19 Lymphocytes % 17.4 11/10/18 18:19 Monocytes % 9.2 11/10/18 18:19 Eosinophils % 1.5 11/10/18 18: Basophils % 0.4 11/10/18 18:19 Absolute Neutrophils 6.56 k/cumm (1.2-6.7) 11/10/18 18:19 Absolute Lymphocytes 1.60 k/cumm (1.2-3.4) 11/10/18 18:19 Absolute Monocytes 0.85 k/cumm (0.11-0.7) H 11/10/18 18:19 Absolute Eosinophils 0.14 k/cumm (0.0-0.7) 11/10/18 18: Absolute Basophils 0.04 k/cumm (0.0-0.2) 11/10/18 18:19 Sodium 140 mmol/L (136-145) 11/11/18 06:30 Potassium 3.9 mmol/L (3.5-5.1) 11/11/18 06:30 Chloride 109 mmol/L (98-107) H 11/11/18 06:30 Carbon Dioxide 22.5 mmol/L (21.0-32.0) 11/11/18 06:30 Anion Gap 8.5 mmol/L (3-11) 11/11/18 06:30 BUN 16 mg/dL (7-18) 11/11/18 06:30 Creatinine 1.02 mg/dL (0.70-1.30) D 11/11/18 06:30 Estimated GFR/1.73 m2 >= 60.00 (mL/min/1.73m2) 11/11/18 06:30 Glucose 99 mg/dL (70-100) 11/11/18 06:30 Lactate 1.3 mmol/L (0.6-1.4) 11/10/18 18:19 Calcium 7.9 mg/dL (8.5-10.1) L 11/11/18 06:30 Magnesium 2.3 mg/dL (1.8-2.4) 11/10/18 18:10 Total Bilirubin 0.4 mg/dL (0.2-1.0) 11/11/18 06:30 AST 16 U/L (15-37) 11/11/18 06:30 ALT 25 U/L (16-63) 11/11/18 06:30 Alkaline Phosphatase 55 U/L (46-116) 11/11/18 06:30 Total Protein 6.2 g/dL (6.4-8.2) L 11/11/18 06:30 Albumin 2.6 g/dL (3.4-5.0) L 11/11/18 06:30 Urine Color Yellow (Yellow) 11/10/18 20:50 Urine Clarity Clear (Clear) 11/10/18 20:50 Urine pH 5.5 (5-8) 11/10/18 20:50 Ur Specific [place] >= 1.030 (1.005-1.025) H 11/10/18 20:50 Urine Protein 30 mg/dL (Negative) H 11/10/18 20:50 Urine Ketones Negative mg/dL (Negative) 11/10/18 20:50 Urine Blood Negative (Negative) 11/10/18 20:50 Urine Nitrite Negative (Negative) 11/10/18 20:50 Urine Bilirubin Negative (Negative) 11/10/18 20:50 Urine Urobilinogen 0.2 EU/dL (Up TO 0.2) 11/10/18 20:50 Ur Leukocyte Esterase Negative (Negative) 11/10/18 20:50 Urine RBC 0-2 (0-2) 11/10/18 20:50 Urine WBC Negative HPF (0-5) 11/10/18 20:50 Ur Epithelial Cells Negative HPF (Negative) 11/10/18 20:50 Urine Crystals Few calcium oxalate HPF (Negative) 11/10/18 20:50 Urine Bacteria Negative HPF (Negative) 11/10/18 20:50 Urine Casts Negative LPF (Negative) 11/10/18 20:50 Urine Mucus Heavy (Negative) 11/10/18 20:50 Ur Culture Indicated? No 11/10/18 20:50 Urine Glucose Negative mg/dL (Negative) 11/10/18 20:50
--- NOTE | 2018-11-11 18:42 | W.PODCONSULT ---
Date of service: 11/11/18 Time of Service: 18:42 History of Present Illness History of Present Illness Chief Complaint: Chronic rash both feet Narrative: 58-year-old white male who was admitted through the ER for cellulitis of his right leg receiving IV antibiotics bedrest. I have been asked to evaluate 9 healing chronic dermatitis both feet. Altaf indicates that he has had this problem in his feet for approximately 10 to 12 years. He has been seen previously by dermatology possibly Dr. Adkins. He believes he was diagnosed with psoriasis. He has been treated previously with multiple creams with improvement over time. He is complaining of pain associated with a fissure under the left great toe and along the medial aspect of the left heel. He indicates that the activity between his toes has only recently started and does cause some itching. 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 [facility] Medical History Malignant neoplasm prostate Sciatica Surgical History Steroid Injection Pain Clinic;Lumbar epidural steroid injection;04/04/17 Social History Smoking/Tobacco Use Status: Current every day Tobacco Type: smokeless tobacco Alcohol Intake: former Drug use: Never Substance use type: does not use Do you feel safe at home: Yes Do you feel safe in your relationship?: Yes Exam Narrative Exam Narrative: Altaf is seen at bedside. He is resting comfortably. He states he is feeling much better since his admission. He is receiving clindamycin 600 mg IV every 6 hours. Vitals appear stable with a BP of 131/87, pulse 53, respiration 18, temp 36.2, O2 sat 99% room air. Labs reveal normal WBC at 5.3, RBCs low at 4.3 hemoglobin low at 12.8 hematocrit low at 37.6 Vascular exam: DP and PT pulses are easily palpable at the ankle graded 2/4. No peripheral edema or is noted in the left lower extremity. Erythema and warmth is noted affecting the midportion of the right calf circumferentially but apparently has shown significant regression of infection based on indelible markings. His calves is soft to palpation although very tender. No fluid accumulations are appreciated. RUDY studies were performed earlier and are elevated in the 1.22 and 1.23 respectively consistent with radiologic evidence of calcification of blood vessels. He has good capillary return within the toes themselves and there is no clinical findings of ischemia. Dermatologic exam toenails are generally benign with the exception of the right great nail which shows yellowish discoloration and thickness possibly consistent with onychomycosis. He has crusting peeling and superficial fissuring affecting the flexion crease of his left hallux and along the plantar and medial aspects of his left heel and arch. Similar findings are noted dorsally on the right foot and to a lesser extent medial arch and heel of his right lower extremity. There is no active drainage or signs of bacterial infection. v he does have crusting and some maceration of the webspaces right foot greater than left. n no active signs of bacterial infection at this level. He has scaling appreciated over both knees right greater than left with a silvery appearance. Negative findings on his elbows or periauricular regions. Muscular exam: Muscle groups of 5 out of 5 bilaterally. Skeletal exam is grossly benign at this time without any acute findings. Radiograph was noted from his right lower extremity which is free of any fractures or dislocations the ankle appears to be well-maintained. Neurologically he appears to be grossly intact, toes are downgoing. Impressions: Chronic dermatitis. Differential includes chronic eczema. Contact dermatitis from chemical exposure Tinea pedis Plan: Definitive diagnosis can be obtained through punch biopsies of his lesions but based on his current infection in his right leg I have opted not to open his skin. We will begin with empiric treatment utilizing ketoconazole for what I believed to be tinea pedis between the toes and betamethasone valerate for the eczematous dermatitis. We should start to see improvement within 48 to 72 hours if indeed I have chosen the best agents for him. I will continue to check on him episodically while he remains in house happy to see him in the office upon discharge. Thank you for the consultation. Results Last Vital Signs Temp 36.2 C L 11/11/18 15:35 Pulse 53 L 11/11/18 15:35 Resp 18 11/11/18 15:35 BP 131/87 11/11/18 15:35 Pulse Ox 99 11/11/18 15:35 Labs Result diagrams: 11/11/18 06:20 11/11/18 06:30 Labs: Laboratory Results - last 24 hr 11/10/18 11/10/18 11/10/18 18:10 18:19 20:50 WBC RBC Hgb Hct MCV MCH MCHC RDW Plt Count MPV Sodium 140 Potassium 3.7 Chloride 106 Carbon Dioxide 24.1 Anion Gap 9.9 BUN 19 H Creatinine 1.54 H Estimated GFR/1.73 m2 46.31 Glucose 86 Calcium 8.9 Magnesium 2.3 Total Bilirubin 0.3 AST 20 ALT 32 Alkaline Phosphatase 74 Total Protein 8.1 Albumin 3.6 Urine Color Yellow Urine Clarity Clear Urine pH 5.5 Ur Specific [place] >= 1.030 H Urine Protein 30 H Urine Ketones Negative Urine Blood Negative Urine Nitrite Negative Urine Bilirubin Negative Urine Urobilinogen 0.2 Ur Leukocyte Esterase Negative Urine RBC 0-2 Urine WBC Negative Ur Epithelial Cells Negative Urine Crystals Few calcium oxalate Urine Bacteria Negative Urine Casts Negative Urine Mucus Heavy Ur Culture Indicated? No Urine Glucose Negative 11/11/18 11/11/18 06:20 06:30 WBC 5.30 D RBC 4.30 L Hgb 12.8 L D Hct 37.6 L MCV 87.4 MCH 29.8 MCHC 34.0 RDW 13.1 Plt Count 230 MPV 9.8 Sodium 140 Potassium 3.9 Chloride 109 H Carbon Dioxide 22.5 Anion Gap 8.5 BUN 16 Creatinine 1.02 D Estimated GFR/1.73 m2 >= 60.00 Glucose 99 Calcium 7.9 L Magnesium Total Bilirubin 0.4 AST 16 ALT 25 Alkaline Phosphatase 55 Total Protein 6.2 L Albumin 2.6 L Urine Color Urine Clarity Urine pH Ur Specific [place] Urine Protein Urine Ketones Urine Blood Urine Nitrite Urine Bilirubin Urine Urobilinogen Ur Leukocyte Esterase Urine RBC Urine WBC Ur Epithelial Cells Urine Crystals Urine Bacteria Urine Casts Urine Mucus Ur Culture Indicated? Urine Glucose
[2018-11-11 19:02] VITALS: BP 131/87; PULSE 74; RESP 18; TEMP 36.2; O2SAT 99
--- NOTE | 2018-11-11 19:07 | INITIAL_ITS ---
- If Service Date Differs Date of service: 11/11/18 Time of Service: 19:07 Care Management Initial Assess REASON FOR HOSPITALIZATION:: Cellulitis right LE PAST MEDICAL HISTORY/PAST SURGICAL HISTORY:: Malignant neoplasm prostate. Sciatica. Pain Clinic;Lumbar epidural steroid injection;04/04/17 PREVIOUS FUNCTIONAL STATUS/SOCIAL/FAMILY SUPPORTS:: Altaf lives in his own home with his son and his son's family in [place], [place]. He works fulltime for [employer]. He is independent with ADL's and all activities including transportation. CURRENT FUNCTIONAL STATUS:: Altaf is alert and engaged he states he was on oral abx for seven days he completed them. He states then the swelling reoccured and he returned to the ED for treatment. He is now on IV abx and the redness has improved. He wants to return to work as soon as he is able. ADVANCE DIRECTIVES:: None on file he is interested in reviewing the forms. CM to provide and offered to assist in completion when he is ready. Has patient been provided with information about the portal?: Yes Did the patient sign up for the portal?: No CODE STATUS:: Full Code INSURANCE COVERAGE / FINANCIAL ISSUES:: BCBS CURRENT HOME/COMMUNITY SERVICES/EQUIPMENT:: None PRIMARY CARE PHYSICIAN:: POTENTIAL DISCHARGE NEEDS:: Follow up with primary care as directed. PATIENT/FAMILY EDUCATION NEEDS:: Discharge education, limitations and follow up plan of care including ask me three and self management. ANTICIPATED BARRIERS TO DISCHARGE:: None TRANSPORTATION:: Altaf's car is at [facility] and he will transport himself home. PLAN:: Altaf is rec. IV abx. He will be discharged home when medically ready. Anticipate no additional services at time of discharge. CM to continue to provide support.
[2018-11-11 23:34] VITALS: BP 116/65; PULSE 63; RESP 17; TEMP 36.9; O2SAT 97
[2018-11-12] MEDS: CLINDAMYCIN 600 MG/50 ML BAG 100 MG IVPB ×4 (00:02→17:31)
[2018-11-12 03:50] VITALS: BP 113/60; PULSE 60; RESP 16; TEMP 36.7; O2SAT 98
[2018-11-12] MEDS: Heparin 5,000 UNITS/ML VIAL 5000 UNITS SC ×3 (06:11→21:42)
[2018-11-12 07:32] LABS: Abs Immature Grans 0.01 k/cumm (0.0-0.09); Absolute Basophil Count 0.05 k/cumm (0.0-0.2); Absolute Eosinophil Count 0.32 k/cumm (0.0-0.7); Absolute Lymphocyte Count 1.45 k/cumm (1.2-3.4); Absolute Monocyte Count 0.37 k/cumm (0.11-0.7); Basophils % 1.3; HCT 37.8 % (40.0-50.0); HGB 12.8 g/dL (13.5-17.5); Immature Grans % 0.3; Lymphocytes % 36.3; Mean Corp. HGB Concentration 33.9 g/dL (32.0-36.0); Mean Corpuscular Hemoglobin 29.6 pg (27.0-33.0); Mean Corpuscular Volume 87.3 fL (80-95); Mean Platelet Volume 10.1 fL (8.0-11.0); Monocytes % 9.3; Neutrophils % 44.8; Platelet Count 221 x1000/uL (130-400); RBC 4.33 m/cumm (4.50-6.00); RBC Distribution Width 13.4 % (11.8-14.1)
[2018-11-12 07:34] LABS: Absolute Neutrophil Count 1.79 k/cumm (1.2-6.7)
[2018-11-12 07:35] VITALS: BP 111/75; PULSE 58; RESP 17; TEMP 36.1; O2SAT 97
[2018-11-12 07:52] LABS: Anion Gap 7.2 mmol/L (3-11); BUN 12 mg/dL (7-18); CO2 23.8 mmol/L (21.0-32.0); CREATININE 0.99 mg/dL (0.70-1.30); Calcium 8.2 mg/dL (8.5-10.1); Chloride 108 mmol/L (98-107); Glucose 91 mg/dL (70-100); Sodium 139 mmol/L (136-145)
[2018-11-12] MEDS: Ketoconazole 2% CREAM 15 GM TUBE TP (08:25)
[2018-11-12 11:25] VITALS: BP 125/79; PULSE 57; RESP 16; TEMP 36.9; O2SAT 96
[2018-11-12] MEDS: Normal Saline Flush 10 ML SYR IVP (12:31)
[2018-11-12 16:00] VITALS: BP 118/70; PULSE 60; RESP 18; TEMP 36.7; O2SAT 98
--- NOTE | 2018-11-12 19:45 | PGE_ITS ---
Date of Service Date of service: 11/12/18 Time of Service: 19:45 Assessment and Plan Assessment and plan (1) Cellulitis of leg, right: Status: Acute Assessment and plan: Having failed outpatient therapy (augmentin, prednisone). Continue clindamycin IV as he is improving. Would benefit from at least 24-48 hours more of IV antibiotics. (2) Chronic eczema of foot: Status: Suspected Assessment and plan: Appreciate podiatry help. Agree with antifungals as well as betamethasone. Will need follow up with dermatology as outpatient. Subjective Subjective Interval history since last seen: Mr Payne states his leg is doing better. It is itchy, but not to the point that it's driving him crazy. He denies dizziness, chest pain, shortness of breath, nausea, vomiting. Exam Narrative Exam Narrative: General: middle-aged male, A&Ox3, sitting up in bed enjoying his dinner; family is at bedside HEENT: EOMI, MMM Heart: RRR, no m/r/g Lungs: CTAB GI: abdomen is soft, nontender, nondistended Extremities: RLE with erythema over tibial surface and calf, improved. Objective Objective Clinical Data: Abnormal lab results 11/12/18 11/12/18 Range/Units 07:02 07:02 WBC 4.00 L (4.4-10.8) k/cumm RBC 4.33 L (4.50-6.00) m/cumm Hgb 12.8 L (13.5-17.5) g/dL Hct 37.8 L (40.0-50.0) % Chloride 108 H (98-107) mmol/L Calcium 8.2 L (8.5-10.1) mg/dL Vital Signs Temperature 36.7 C 11/12/18 16:00 Temperature Source Tympanic 11/12/18 16:00 Pulse 60 11/12/18 16:00 Pulse Rhythm Regular 11/12/18 17:04 Respiratory Rate 18 11/12/18 16:00 Respiratory Effort 11/12/18 17:04 Respiratory Depth Normal 11/12/18 17:04 Respiratory Pattern Normal 11/12/18 17:04 Blood Pressure 118/70 11/12/18 16:00 Blood Pressure Position Sitting 11/10/18 17:40 Pulse Oximetry 98 11/12/18 16:00 Oxygen Delivery Method Room Air 11/12/18 16:00 Oxygen Flow Rate 0 11/12/18 16:00 Pain Level 0 11/12/18 16:00 Comment 11/12/18 03:50 Intake & Output 11/11/18 11/12/18 11/12/18 23:59 11:59 23:59 Intake Total 1340 / 2920 1470 / 1770 300 / 1770 Balance 1340 / 2920 1470 / 1770 300 / 1770 Intake: IV 1100 / 2200 1100 / 1150 50 / 1150 Oral 240 / 720 370 / 620 250 / 620 Other: Urine Appearance Clear Clear Clear Comment Pt voiding ad terry. Pt denies discomfort. Voiding Methods Toilet Laboratory Results WBC 4.00 k/cumm (4.4-10.8) L 11/12/18 07:02 RBC 4.33 m/cumm (4.50-6.00) L 11/12/18 07:02 Hgb 12.8 g/dL (13.5-17.5) L 11/12/18 07:02 Hct 37.8 % (40.0-50.0) L 11/12/18 07:02 MCV 87.3 fL (80-95) 11/12/18 07:02 MCH 29.6 pg (27.0-33.0) 11/12/18 07:02 MCHC 33.9 g/dL (32.0-36.0) 11/12/18 07:02 RDW 13.4 % (11.8-14.1) 11/12/18 07:02 Plt Count 221 x1000/uL (130-400) 11/12/18 07:02 MPV 10.1 fL (8.0-11.0) 11/12/18 07:02 Immature Gran % 0.3 11/12/18 07:02 Neutrophils % 44.8 11/12/18 07:02 Lymphocytes % 36.3 11/12/18 07:02 Monocytes % 9.3 11/12/18 07:02 Eosinophils % 8.0 11/12/18 07:02 Basophils % 1.3 11/12/18 07:02 Absolute Neutrophils 1.79 k/cumm (1.2-6.7) 11/12/18 07:02 Absolute Lymphocytes 1.45 k/cumm (1.2-3.4) 11/12/18 07:02 Absolute Monocytes 0.37 k/cumm (0.11-0.7) 11/12/18 07:02 Absolute Eosinophils 0.32 k/cumm (0.0-0.7) 11/12/18 07:02 Absolute Basophils 0.05 k/cumm (0.0-0.2) 11/12/18 07:02 Sodium 139 mmol/L (136-145) 11/12/18 07:02 Potassium 4.0 mmol/L (3.5-5.1) 11/12/18 07:02 Chloride 108 mmol/L (98-107) H 11/12/18 07:02 Carbon Dioxide 23.8 mmol/L (21.0-32.0) 11/12/18 07:02 Anion Gap 7.2 mmol/L (3-11) 11/12/18 07:02 BUN 12 mg/dL (7-18) 11/12/18 07:02 Creatinine 0.99 mg/dL (0.70-1.30) 11/12/18 07:02 Estimated GFR/1.73 m2 >= 60.00 (mL/min/1.73m2) 11/12/18 07:02 Glucose 91 mg/dL (70-100) 11/12/18 07:02 Lactate 1.3 mmol/L (0.6-1.4) 11/10/18 18:19 Calcium 8.2 mg/dL (8.5-10.1) L 11/12/18 07:02 Magnesium 2.0 mg/dL (1.8-2.4) 11/12/18 07:02 Total Bilirubin 0.4 mg/dL (0.2-1.0) 11/11/18 06:30 AST 16 U/L (15-37) 11/11/18 06:30 ALT 25 U/L (16-63) 11/11/18 06:30 Alkaline Phosphatase 55 U/L (46-116) 11/11/18 06:30 Total Protein 6.2 g/dL (6.4-8.2) L 11/11/18 06:30 Albumin 2.6 g/dL (3.4-5.0) L 11/11/18 06:30 Urine Color Yellow (Yellow) 11/10/18 20:50 Urine Clarity Clear (Clear) 11/10/18 20:50 Urine pH 5.5 (5-8) 11/10/18 20:50 Ur Specific [place] >= 1.030 (1.005-1.025) H 11/10/18 20:50 Urine Protein 30 mg/dL (Negative) H 11/10/18 20:50 Urine Ketones Negative mg/dL (Negative) 11/10/18 20:50 Urine Blood Negative (Negative) 11/10/18 20:50 Urine Nitrite Negative (Negative) 11/10/18 20:50 Urine Bilirubin Negative (Negative) 11/10/18 20:50 Urine Urobilinogen 0.2 EU/dL (Up TO 0.2) 11/10/18 20:50 Ur Leukocyte Esterase Negative (Negative) 11/10/18 20:50 Urine RBC 0-2 (0-2) 11/10/18 20:50 Urine WBC Negative HPF (0-5) 11/10/18 20:50 Ur Epithelial Cells Negative HPF (Negative) 11/10/18 20:50 Urine Crystals Few calcium oxalate HPF (Negative) 11/10/18 20:50 Urine Bacteria Negative HPF (Negative) 11/10/18 20:50 Urine Casts Negative LPF (Negative) 11/10/18 20:50 Urine Mucus Heavy (Negative) 11/10/18 20:50 Ur Culture Indicated? No 11/10/18 20:50 Urine Glucose Negative mg/dL (Negative) 11/10/18 20:50
[2018-11-12 20:22] VITALS: BP 143/87; PULSE 69; RESP 18; TEMP 37; O2SAT 98
--- NOTE | 2018-11-12 20:26 | PDOC.CMPRO ---
- If Service Date Differs Date of service: 11/12/18 Time of Service: 20:27 Care Management Progress Note S/O: Altaf remains inpatient level of care with no change in status. He remains on IV abx and will be discharged once he is medically stable. Altaf declines the need for any additional services at time of discharge. A: Altaf is a 58 year old male admitted with right LE cellulitis P: Altaf is rec. IV abx. He will be discharged home when medically ready. Anticipate no additional services at time of discharge. CM to continue to provide support. Altaf will will drive himself home at time of discharge.
[2018-11-12 23:40] VITALS: BP 116/72; PULSE 72; RESP 18; TEMP 37.1; O2SAT 99
[2018-11-13] MEDS: Normal Saline Flush 10 ML SYR IVP ×3 (00:25→11:25)
[2018-11-13] MEDS: CLINDAMYCIN 600 MG/50 ML BAG 100 MG IVPB ×4 (00:25→17:19)
[2018-11-13] MEDS: diphenhydrAMINE 25 MG CAP PO (00:51)
[2018-11-13 03:40] VITALS: BP 107/62; PULSE 60; RESP 18; TEMP 36.5; O2SAT 98
[2018-11-13] MEDS: Heparin 5,000 UNITS/ML VIAL 5000 UNITS SC ×2 (05:44→13:34)
[2018-11-13] MEDS: Ketoconazole 2% CREAM 15 GM TUBE TP (08:28)
[2018-11-13 08:30] VITALS: BP 114/74; PULSE 67; RESP 18; TEMP 36.6; O2SAT 97
[2018-11-13 11:21] VITALS: BP 114/66; RESP 18; TEMP 37.1; O2SAT 97
[2018-11-13 11:40] VITALS: BP 114/74; PULSE 53; RESP 15; TEMP 36; O2SAT 97
--- NOTE | 2018-11-13 15:29 | PDOC.CMPRO ---
- If Service Date Differs Date of service: 11/13/18 Time of Service: 15:29 Care Management Progress Note S/O: Altaf was sitting up in his bed when CM met with him. He stated that he was feeling ok and that he wants to go home. He reported that he is independent and would like to get back to work. CM asked if he knew what his plan of care was, which he stated that once his cellulitis improves enough he will return home with no additional services. A: Altaf is a 58 year old male admitted on 11/10/18 with right LE cellulitis P: Altaf is receiving IV antibiotics currently. Anticipate he will return home with no additional services when medically cleared. Altaf will drive himself home when he is ready. CM will continue to provide support.
--- NOTE | 2018-11-13 16:33 | DSE_ITS ---
Date of service: 11/13/18 Time of Service: 16:34 DS: Diagnosis Discharge Diagnosis (1) Cellulitis of leg, right: Status: Acute (2) Chronic eczema of foot: Status: Suspected Discharge Plan Disposition Patient Disposition: HOME Condition: Good Discharge Details Chief Complaint: Cellulitis Clinical Impression: Cellulitis Reason For Visit: CELLULITIS R LWR EXTREMITY Admit Date/Time: 11/10/18 20:49 Admit Provider: Karson Darden Attending Provider: Karson Darden Primary Care Provider: Mamadou Ruiz ED Provider: Alexa Song [facility] Course Hospital Course: Mr Payne is a 58 year old male, admitted to [facility] on 11/10/18 for recurrent cellulitis of RLE after having completed outpatient therapy. The patient was initiated on IV clindamycin with very rapid improvement of symptoms. Today, the erythema of his RLE is much better, though still present. He is getting discharged home today with PO clindamycin for 7 more days, instructions to take probiotics and eat yogurt twice a day for at least one week after stopping antibiotics. He was seen by Dr Hines of podiatry for the lesions on his feet. There does appear to be an eczematous dermatitis, but the patient also has a plaque on his right knee which is more consistent in its appearance with psoria sis. He also appears to have tinea pedis, for which he was initiated on ketoconazole. He would benefit from follow up with both podiatry and dermatology as outpatient. He is medically stable for discharge home today. The care for patient as well as preparation of his discharge summary took 45 minutes on the day of discharge. Home Meds and New Rx's Prescriptions: New Betamethasone V 1 % topical BID Qty: 1 RF: 1 ketoconazole 2 % Cream 1 applic topical DAILY Qty: 30 RF: 1 clindamycin HCl 300 mg capsule 300 mg PO Q6H Qty: 28 RF: 0 Lactobacillus acidophilus Capsule 1,000 mmu cells PO DAILY Qty: 30 RF: 0 Continued multivitamin 1 EACH capsule 1 ea PO DAILY Qty: 2 RF: 0 Discharge Instructions Instructions: Clindamycin (By mouth), Cellulitis (DC) Additional Instructions: Return to the hospital with any fever, bleeding, chest pain, or shortness of breath. Take probiotics and eat yogurt twice a day while on antibiotics and for at least 1 week after. If you start to have foul smelling diarrhea, contact your PCP or go to ER. Stand Alone Forms: Nursing Discharge Form Referrals: Mamadou Ruiz, [Primary Care Provider] - 11/19/18 2:20 pm Activity:: Activity as Tolerated Equipment/Supplies:: No Equipment Needed Diet:: As Tolerated Discharge Orders Discharge Orders: Discharge Order (Routine); Ordered 11/13/18 Ordered By: Diane Valdez DS: Summary Status at Discharge Functional status at discharge: independent ambulation Overall status at discharge: patient is back to baseline Mental Status: mental status grossly normal Speech and Movement: speech and movement normal Mood: congruent mood Affect: normal affect Exam Narrative Exam Narrative: General: middle-aged male, A&Ox3, sitting in a chair HEENT: EOMI, MMM Heart: RRR, no m/r/g Lungs: CTAB GI: abdomen is soft, nontender, nondistended Extremities: RLE with erythema over tibial surface and calf, improved. Psych Mental Status: mental status grossly normal Speech and Movement: speech and movement normal Mood: congruent mood Affect: normal affect DS: Data Vitals/I&O Vitals and I&O: Vital Signs Temperature 36 C L 11/13/18 11:40 Temperature Source Tympanic 11/13/18 11:40 Pulse 53 L 11/13/18 11:40 Pulse Rhythm Regular 11/13/18 09:50 Respiratory Rate 15 11/13/18 11:40 Respiratory Effort Non-Labored 11/13/18 09:50 Respiratory Depth Normal 11/13/18 09:50 Respiratory Pattern Normal 11/13/18 09:50 Blood Pressure 114/74 11/13/18 11:40 Blood Pressure Position Sitting 11/10/18 17:40 Pulse Oximetry 97 11/13/18 11:40 Oxygen Delivery Method Room Air 11/13/18 11:40 Oxygen Flow Rate 0 11/13/18 11:40 Pain Level 0 11/13/18 11:40 Comment 11/13/18 03:40 Intake & Output 11/12/18 11/13/18 11/13/18 23:59 11:59 23:59 Intake Total 350 / 1820 480 / 490 10 490 Balance 350 / 1820 480 / 490 10 Weight 86.2 kg Intake: IV 100 / 1200 120 / 130 10 / 130 Oral 250 / 620 360 / 360 Other: Urine Appearance Clear Clear Voiding Methods Toilet Data Completed and Pending Completed studies during hospitalization [Text1]: XR tib/fib 11/10/18: No definite bony abnormality is seen. [facility] Medical History Malignant neoplasm prostate Sciatica Surgical History Steroid Injection [facility];Lumbar epidural steroid injection;04/04/17 Social History Smoking/Tobacco Use Status: Current every day Tobacco Type: smokeless tobacco Alcohol Intake: former Drug use: Never Substance use type: does not use Do you feel safe at home: Yes Do you feel safe in your relationship?: Yes
[2018-11-13 17:15] VITALS: BP 135/82; PULSE 68; RESP 14; TEMP 36.6; O2SAT 97
== END 2018-11-13 18:24 | disposition home or self-care (01) | DRG 603 ==
LOC: ER 21:29 → MS 21:33
PROVIDERS: Admitting Provider Family Medicine; Emergency Provider Physician Assistant; PCP Emergency Medicine; Visit Provider Internal Medicine
DX: L03.115 Cellulitis of right lower limb (principal); L30.8 Other specified dermatitis; F17.220 Nicotine dependence, chewing tobacco, uncomplicated; B35.3 Tinea pedis
CPT/HCPCS: 36415; 80048; 80053; 85027; 96361; 96365; 99222; 99231; 99239; 99285; 73590; 81003; 81015; 83605; 83735; 85025; 99284; J1644; J3490

== ENCOUNTER 2018-12-04 12:26 | Emergency (ER) | payer BC, SELFPAY ==
[2018-12-04 12:32] VITALS: BP 132/82; PULSE 99; RESP 16; TEMP 36.5; O2SAT 98
--- NOTE | 2018-12-04 13:04 | ED.GENADUL_ITS ---
Discharge Plan Disposition Patient Disposition: HOME Discharge Details Chief Complaint: Cellulitis Clinical Impression: Cellulitis of foot, left Primary Care Provider: Mamadou Ruiz ED Provider: Sterling Truong Home Meds and New Rx's Prescriptions: New ciprofloxacin HCl 500 mg tablet 500 mg PO BID 7 Days Qty: 14 RF: 0 No Action clindamycin HCl 300 mg capsule 300 mg PO Q6H Qty: 12 RF: 0 multivitamin 1 EACH capsule 1 ea PO DAILY Qty: 2 RF: 0 Betamethasone V 1 % topical BID Qty: 1 RF: 1 ketoconazole 2 % Cream 1 applic topical DAILY Qty: 30 RF: 1 Lactobacillus acidophilus Capsule 1,000 mmu cells PO DAILY Qty: 30 RF: 0 Discharge Instructions Instructions: Cellulitis (ED) Additional Instructions: Your work-up today is concerning for cellulitis of your left foot. I would like you to return to the emergency department in 48 hours for recheck. Contact your primary care provider for follow-up. Return should you develop fever, vomiting or severe worsening pain. Referrals: Mamadou Ruiz, [Primary Care Provider] - 1 day Discharge Data Discharge Date/Time-TO BE ENTERED AT DEPARTURE: 12/04/18 15:36 Medical Decision Making This is a nontoxic-appearing 58-year-old gentleman with apparent left foot cellulitis which started 3 days ago. Physical exam is significant for macerated tissue along the plantar aspect of the foot and extending erythema to the dorsum. Area is tender and raised. He has no fevers but admits to chills and nausea. Labs reflect a slightly elevated white count, CRP and sed rate. IV antibiotics ciprofloxacin 400 mg given for concern for Pseudomonas. Will send home on p.o. antibiotics. He will follow-up with his primary care in the next 24 hours for repeat evaluation. Return precautions provided in detail. HPI General Date/Time Provider Initiated Documentation: 12/04/18 12:27 . HPI Narrative: Patient is a 58-year-old male who presents with 3 days of worsening left foot redness pain and swelling. Patient states that he had similar presentations in the past. He has a history of chronic cellulitis. He has notable tissue maceration on the plantar aspect of his foot. He states that his feet sweat a lot. He has been on antibiotics most recently as 10 days prior to arrival. He denies any fevers, however, he has felt nauseous and had chills. Related Data Home Medications Medication Instructions Recorded Confirmed multivitamin 1 ea PO DAILY #2 11/17/13 12/04/18 Betamethasone Valerate 0.1 Percent 1 % TOPICAL BID #1 tube 11/13/18 12/04/18 Cream Lactobacillus acidophilus 1,000 mmu cells PO DAILY #30 cap 11/13/18 12/04/18 ketoconazole 1 applic TOPICAL DAILY #30 gm 11/13/18 12/04/18 clindamycin HCl 300 mg capsule 300 mg PO Q6H #12 cap 11/19/18 12/04/18 ciprofloxacin HCl 500 mg PO BID 7 Days #14 tab 12/04/18 Previous Rx's Medication Instructions Recorded Betamethasone Valerate 0.1 Percent 1 % TOPICAL BID #1 tube 11/13/18 Cream Lactobacillus acidophilus 1,000 mmu cells PO DAILY #30 cap 11/13/18 ketoconazole 1 applic TOPICAL DAILY #30 gm 11/13/18 clindamycin HCl 300 mg capsule 300 mg PO Q6H #12 cap 11/19/18 ciprofloxacin HCl 500 mg PO BID 7 Days #14 tab 12/04/18 Allergies Allergy/AdvReac Type Severity Reaction Status Date / Time Iodinated Contrast Media Allergy Severe Anaphylaxsi Verified 12/04/18 12:35 [Iodinated Contrast Media - s IV Dye] shellfish derived Allergy Severe Anaphylaxsi Verified 12/04/18 12:35 s Sulfa (Sulfonamide Allergy Intermediate Skin Rash Verified 12/04/18 12:35 Antibiotics) General Stated Complaint: Cellulitis ELISA: 3 Review of Systems Constitutional Constitutional: Reports chills, Reports fatigue, Denies fever(s), Denies malaise and Denies weakness Cardiovascular Cardiovascular: Denies chest pain, Denies edema, Denies leg ulcers, Denies leg edema, Denies lightheadedness and Denies dyspnea Respiratory Respiratory: Denies dyspnea Gastrointestinal Gastrointestinal: Reports nausea and Denies vomiting Musculoskeletal Musculoskeletal: Denies arthralgias and Denies joint swelling Integumentary/Breasts Skin/Breast: Reports erythema, Reports rash, Reports skin pain, Reports skin swelling and Reports sores Neurologic Neurologic: Denies weakness Endocrine Endocrine: Reports fatigue PFSH Medical History Malignant neoplasm prostate Sciatica Surgical History Steroid Injection [facility];Lumbar epidural steroid injection;04/04/17 Social History Smoking/Tobacco Use Status: Current every day Tobacco Type: smokeless tobacco Alcohol Intake: former Drug use: Never Substance use type: does not use Do you feel safe at home: Yes Do you feel safe in your relationship?: Yes Exam Const General: cooperative, comfortable and no acute distress Orientation: alert, awake and oriented x3 HENMT Head: normal to inspection Face and sinus: normal facial exam Eyes General: appearance normal, both eyes and all related structures Chest Chest: normal inspection of the chest Resp Effort & Inspection: normal respiratory effort and able to speak in complete sentences Cardio Pulses: normal peripheral pulses Skin Other: Noticeable tissue maceration and skin sloughing along the plantar medial aspect of the left foot. Erythema extends from the macerated tissue up to the dorsum of the foot. Area is warm and tender to touch. He has notable ankle and calf tenderness. No edema noted. Course Vital Signs Vital signs: Vital Signs Temperature 36.5 C 12/04/18 12:32 Pulse 99 H 12/04/18 12:32 Respiratory Rate 16 12/04/18 12:32 Blood Pressure 132/82 12/04/18 12:32 Pulse Oximetry 98 12/04/18 12:32 Temperature 36.5 C 12/04/18 12:32 Temperature Source Skin 12/04/18 12:32 Pulse 99 H 12/04/18 12:32 Respiratory Rate 16 12/04/18 12:32 Respiratory Effort Non-Labored 12/04/18 12:32 Blood Pressure 132/82 12/04/18 12:32 Blood Pressure Position Supine 12/04/18 12:32 Pulse Oximetry 98 12/04/18 12:32 Pain Level 7 12/04/18 12:32
[2018-12-04 13:31] LABS: Abs Immature Grans 0.02 k/cumm (0.0-0.09); Absolute Basophil Count 0.02 k/cumm (0.0-0.2); Absolute Eosinophil Count 0.44 k/cumm (0.0-0.7); Absolute Lymphocyte Count 1.49 k/cumm (1.2-3.4); Absolute Monocyte Count 0.82 k/cumm (0.11-0.7); Basophils % 0.2; Eosinophils % 3.8; HCT 43.2 % (40.0-50.0); HGB 14.5 g/dL (13.5-17.5); Immature Grans % 0.2; Lactate 0.9 mmol/L (0.6-1.4); Lymphocytes % 12.9; Mean Corp. HGB Concentration 33.6 g/dL (32.0-36.0); Mean Corpuscular Hemoglobin 28.8 pg (27.0-33.0); Mean Corpuscular Volume 85.9 fL (80-95); Mean Platelet Volume 9.7 fL (8.0-11.0); Monocytes % 7.1; Neutrophils % 75.8; Platelet Count 231 x1000/uL (130-400); RBC 5.03 m/cumm (4.50-6.00); RBC Distribution Width 13.1 % (11.8-14.1); White Blood Cell Count 11.55 k/cumm (4.4-10.8)
[2018-12-04 13:34] LABS: Absolute Neutrophil Count 8.75 k/cumm (1.2-6.7)
[2018-12-04 13:50] LABS: ALT 22 U/L (16-63); AST 19 U/L (15-37); Albumin 3.4 g/dL (3.4-5.0); Alkaline Phosphatase 74 U/L (46-116); Anion Gap 7.7 mmol/L (3-11); BUN 15 mg/dL (7-18); Bilirubin, Total 0.6 mg/dL (0.2-1.0); C-Reactive Protein 2.11 mg/dL (0.0-0.3); CO2 27.3 mmol/L (21.0-32.0); CREATININE 0.97 mg/dL (0.70-1.30); Calcium 8.5 mg/dL (8.5-10.1); Chloride 106 mmol/L (98-107); Glucose 96 mg/dL (70-100); Potassium 3.8 mmol/L (3.5-5.1); Sodium 141 mmol/L (136-145); Total Protein 7.3 g/dL (6.4-8.2)
[2018-12-04] MEDS: CIPROFLOXACIN 400 MG/200 ML BAG 200 MG IVPB (14:23)
[2018-12-04] MEDS: Normal Saline Flush 10 ML SYR IVP (14:23)
[2018-12-04 15:18] LABS: ESR 30 mm/hr (1-20)
[2018-12-04 15:36] VITALS: BP 132/82; PULSE 99; RESP 16; TEMP 36.5; O2SAT 98
== END 2018-12-04 15:36 | disposition home or self-care (01) ==
PROVIDERS: Emergency Provider Physician Assistant; PCP Emergency Medicine
DX: L03.116 Cellulitis of left lower limb (principal)
CPT/HCPCS: 36415; 80053; 85652; 96365; 99284; 83605; 85025; 86140; J0744

== ENCOUNTER 2018-12-07 12:44 | Emergency (ER) | payer BC, SELFPAY ==
[2018-12-07 12:51] VITALS: BP 135/75; PULSE 97; RESP 16; TEMP 36.9; O2SAT 98
[2018-12-07 13:46] LABS: Lactate 1.7 mmol/L (0.6-1.4)
[2018-12-07 13:48] LABS: HCT 43.8 % (40.0-50.0); HGB 14.9 g/dL (13.5-17.5); Mean Corpuscular Hemoglobin 29.4 pg (27.0-33.0); Mean Corpuscular Volume 86.6 fL (80-95); Mean Platelet Volume 9.8 fL (8.0-11.0); Platelet Count 235 x1000/uL (130-400); RBC 5.06 m/cumm (4.50-6.00); RBC Distribution Width 13.4 % (11.8-14.1)
[2018-12-07 14:02] LABS: ALT 21 U/L (16-63); AST 20 U/L (15-37); Albumin 3.2 g/dL (3.4-5.0); Alkaline Phosphatase 71 U/L (46-116); Anion Gap 8.2 mmol/L (3-11); BUN 15 mg/dL (7-18); Bilirubin, Total 0.3 mg/dL (0.2-1.0); C-Reactive Protein 1.19 mg/dL (0.0-0.3); CO2 26.8 mmol/L (21.0-32.0); CREATININE 1.07 mg/dL (0.70-1.30); Calcium 8.8 mg/dL (8.5-10.1); Chloride 108 mmol/L (98-107); Glucose 101 mg/dL (70-100); Potassium 3.7 mmol/L (3.5-5.1); Sodium 143 mmol/L (136-145); Total Protein 7.1 g/dL (6.4-8.2)
[2018-12-07 14:03] LABS: Absolute Eosinophil Count 0.78 k/cumm (0.0-0.7); Absolute Lymphocyte Count 1.75 k/cumm (1.2-3.4); Absolute Monocyte Count 0.39 k/cumm (0.11-0.7); Absolute Neutrophil Count 6.79 k/cumm (1.2-6.7); Atypical Lymphocytes % 2; Diff Comment Manual Differential; RBC Morphology Normal
--- NOTE | 2018-12-07 14:08 | ED.GENADUL_ITS ---
Discharge Plan Disposition Patient Disposition: HOME Condition: Stable Discharge Details Chief Complaint: Cellulitis Clinical Impression: Cellulitis of left foot Primary Care Provider: Mamadou Ruiz ED Provider: Carmen Vinsno Home Meds and New Rx's Prescriptions: New doxycycline hyclate 100 mg tablet 100 mg PO BID 7 Days Qty: 14 RF: 0 Continued multivitamin 1 EACH capsule 1 ea PO DAILY Qty: 2 RF: 0 Betamethasone V 1 % topical BID Qty: 1 RF: 1 ketoconazole 2 % Cream 1 applic topical DAILY Qty: 30 RF: 1 ciprofloxacin HCl 500 mg tablet 500 mg PO BID 7 Days Qty: 14 RF: 0 Discharge Instructions Instructions: Cellulitis (ED) Additional Instructions: Take your oral antibiotics until finished. Use your topical medications as directed. Followup with your scheduled appointment with your primary care doctor and for results of your wound culture from [facility] on Saturday. Return immediately to the emergency department if you develop any worsening or new concerning symptoms such as fever, increased pain, redness or swelling. Discharge Data Discharge Date/Time-TO BE ENTERED AT DEPARTURE: 12/07/18 16:22 Discharge Physician: Carmen Vinson Medical Decision Making 58yo M who presents to the ED w/ a c/o L foot pain redness and swelling for the past few days, becoming progressively worse. He was seen here 3 days ago for the same complaint and started on Cipro but states his symptoms are improving. He also saw dermatology at [facility] 2 days ago and was started on mupirocin. Patient is already using betamethasone, ketoconazole topical to his left foot. Patient has dorsal foot erythema with scaling and sloughing of epidermis on sole of foot. There is no obvious abscess. He is neurovascular intact. 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 He was admitted here last month for cellulitis of his right leg treated with clindamycin which completely resolved. His records note a history of eczema but he denies any chronic skin changes of his left foot. Suspect his left foot skin changes are due to a tinea pedis that is secondarily infected with bacteria. He has been taking at the skin in addition. Screening labs checked and notes a normal white blood cell count which may be due to current antibiotics. ESR 36, CRP 1.19 which is decreased from 3 days ago, lactate 1.7. Left foot x-ray unremarkable. Will add broader coverage for MRSA. Patient was treated with clindamycin last month and he is allergic to sulfa so will start doxycycline. 1 dose of IV doxycycline given here. Patient declined admission for IV antibiotics and stated he would rather go home and return if symptoms worsen. Review of clindamycin note that it can cause exfoliative dermatitis. Presentation and history not consistent with Espinosa-Chucky syndrome or toxic epidermal necrolysis. He has an appointment with his primary care doctor on Saturday for reevaluation and states his wound cultures obtained with dermatology at [facility] will be available Saturday. It was discussed that if his symptoms do not improve or worsen before Saturday to return immediately to the emergency department for reevaluation. He is advised to continue his Cipro, will start oral doxycycline, as well as continue his betamethasone, ketoconazole and mupirocin. He is also instructed in the importance of rest and elevation of his left foot to decrease inflammation and improve blood flow. Medical Records Medical records reviewed: Yes I reviewed the patient's medical records. Imaging Data Radiologic Study: Radiologist's impression: XR FOOT LT COMPLETE CLINICAL HISTORY: L foot redness/pain/swelling, r/o osteomyelitis TECHNIQUE: COMPARISON: No exams were available for comparison FINDINGS: Three views were obtained. No fracture seen. No gross erosive or destructive lesion identified. If there is a high clinical suspicion of osteomyelitis additional evaluation with MRI or three-phase bone scan may be considered. Lab Data Lab results reviewed: Yes I reviewed the patient's lab results. Labs: Laboratory Tests Range/Units 12/07/18 12/07/18 12/07/18 13:37 13:37 13:37 WBC (4.4-10.8) k/cumm 9.70 RBC (4.50-6.00) m/cumm 5.06 Hgb (13.5-17.5) g/dL 14.9 Hct (40.0-50.0) % 43.8 MCV (80-95) fL 86.6 MCH (27.0-33.0) pg 29.4 MCHC (32.0-36.0) g/dL 34.0 RDW (11.8-14.1) % 13.4 Plt Count (130-400) x1000/uL 235 MPV (8.0-11.0) fL 9.8 Immature Gran % 0.0 Neutrophils % 69.0 Band Neutrophils % % 1.0 Lymphocytes % 16.0 Atypical Lymphs % 2 Monocytes % 4.0 Eosinophils % 8.0 Basophils % 0.0 Absolute Neutrophils (1.2-6.7) k/cumm 6.79 H Absolute Lymphocytes (1.2-3.4) k/cumm 1.75 Absolute Monocytes (0.11-0.7) k/cumm 0.39 Absolute Eosinophils (0.0-0.7) k/cumm 0.78 H Absolute Basophils (0.0-0.2) k/cumm 0.00 Differential Comment Manual differential RBC Morphology Normal ESR (1-20) mm/hr 36 H Sodium (136-145) mmol/L 143 Potassium (3.5-5.1) mmol/L 3.7 Chloride (98-107) mmol/L 108 H Carbon Dioxide (21.0-32.0) mmol/L 26.8 Anion Gap (3-11) mmol/L 8.2 BUN (7-18) mg/dL 15 Creatinine (0.70-1.30) mg/dL 1.07 Estimated GFR/1.73 m2 (mL/min/1.73m2) >= 60.00 Glucose (70-100) mg/dL 101 H Lactate (0.6-1.4) mmol/L 1.7 H Calcium (8.5-10.1) mg/dL 8.8 Total Bilirubin (0.2-1.0) mg/dL 0.3 AST (15-37) U/L 20 ALT (16-63) U/L 21 Alkaline Phosphatase (46-116) U/L 71 C-Reactive Protein (0.0-0.3) mg/dL 1.19 H Total Protein (6.4-8.2) g/dL 7.1 Albumin (3.4-5.0) g/dL 3.2 L HPI General Mode of arrival: ambulatory . Date/Time Provider Initiated Documentation: 12/07/18 12:50 . Limitations to Documentation: no limitations . Information obtained by: patient . HPI Narrative: Pt is a 58yo M who presents to the ED w/ a c/o L foot redness, swelling, and pain for the past few days. Patient was seen here 3 days ago for the same complaint and started on Cipro and discharged home. He states his symptoms have gotten worse since then. He states he saw [facility] dermatology for this 2 days ago and was started on mupirocin topical ointment. He states the wound cultures were obtained at that time which will be available Saturday. He denies any fever, nausea, vomiting, injury. He states he has been picking the skin from the bottom of his feet. He denies any other recent new meds or NSAID use. Related Data Home Medications Medication Instructions Recorded Confirmed multivitamin 1 ea PO DAILY #2 11/17/13 12/07/18 Betamethasone Valerate 0.1 Percent 1 % TOPICAL BID #1 tube 11/13/18 12/07/18 Cream ketoconazole 1 applic TOPICAL DAILY #30 gm 11/13/18 12/07/18 ciprofloxacin HCl 500 mg PO BID 7 Days #14 tab 12/04/18 12/07/18 doxycycline hyclate 100 mg PO BID 7 Days #14 tab 12/07/18 Previous Rx's Medication Instructions Recorded Betamethasone Valerate 0.1 Percent 1 % TOPICAL BID #1 tube 11/13/18 Cream ketoconazole 1 applic TOPICAL DAILY #30 gm 11/13/18 ciprofloxacin HCl 500 mg PO BID 7 Days #14 tab 12/04/18 doxycycline hyclate 100 mg PO BID 7 Days #14 tab 12/07/18 Allergies Allergy/AdvReac Type Severity Reaction Status Date / Time Iodinated Contrast Media Allergy Severe Anaphylaxsi Verified 12/07/18 13:02 [Iodinated Contrast Media - s IV Dye] shellfish derived Allergy Severe Anaphylaxsi Verified 12/07/18 13:02 s Sulfa (Sulfonamide Allergy Intermediate Skin Rash Verified 12/07/18 13:02 Antibiotics) General Stated Complaint: Cellulitis ELISA: 3 Review of Systems Review of Systems ROS Unobtainable: All systems reviewed & are unremarkable except as noted in HPI and below Constitutional Constitutional: Reports as per HPI, Denies chills and Denies fever(s) Eyes Eyes: Denies blurry vision ENT Ears, Nose, Mouth, and Throat: Denies dizziness, Denies sore throat and Denies throat swelling Cardiovascular Cardiovascular: Denies chest pain and Denies dyspnea Respiratory Respiratory: Denies cough and Denies dyspnea Gastrointestinal Gastrointestinal: Denies abdominal pain, Denies diarrhea and Denies vomiting Genitourinary Genitourinary: Denies hematuria and Denies dysuria Musculoskeletal Musculoskeletal: Denies back pain and Denies numbness Integumentary/Breasts Skin/Breast: Reports lesions and Denies rash Neurologic Neurologic: Denies dizziness, Denies focal weakness and Denies numbness Allergic/Immunologic Allergic/Immunologic: Denies throat swelling [facility] Medical History Malignant neoplasm prostate Sciatica Surgical History (Updated 12/07/18 @ 18:37 by Carmen Vinson DO) History of hernia repair (Chronic) History of knee surgery (Acute) History of surgery on arm (Acute) History of surgery on wrist (Acute) Steroid Injection [facility];Lumbar epidural steroid injection;04/04/17 Social History Smoking/Tobacco Use Status: Current every day Tobacco Type: smokeless tobacco Alcohol Intake: former Drug use: Never Substance use type: does not use Do you feel safe at home: Yes Do you feel safe in your relationship?: Yes Exam Const General: cooperative, healthy appearing and no acute distress HENMT Head: normal to inspection Face and sinus: normal facial exam Eyes General: appearance normal, both eyes and all related structures EOM: EOM intact bilaterally Neck Neck: normal visual inspection and No submandibular swelling Lymphatic: no lymphadenopathy noted Chest Chest: normal inspection of the chest and no tenderness Resp Effort & Inspection: normal respiratory effort and able to speak in complete sentences Auscultation: clear to auscultation bilaterally Cardio Rate: regular rate Rhythm: regular rhythm GI Inspection: normal to inspection Palpation: soft, not firm, not rigid and nontender Auscultation: normal bowel sounds Neuro General: alert, awake and oriented x3 Cognition: normal cognition Speech: speech normal Motor: muscle tone normal throughout Sensory Exam: no sensory deficits noted Extrem Other: L foot erythema/edema with scaling of skin on sole of foot with scattered open wounds consistent with areas where skin removed or peeled off. No active bleeding, fluctuance, induration or discharge. Left DP/PT pulses intact. Minimal scattered faint erythematous papules noted extending up from left foot to left thigh. There is no erythema, edema, induration or fluctuance noted to the remainder of the leg. Psych Appearance: grossly normal Mental Status: mental status grossly normal Speech and Movement: speech and movement normal Affect: normal affect Course Vital Signs Vital signs: Vital Signs Temperature 98.4 F 12/07/18 12:51 Pulse 97 H 12/07/18 12:51 Respiratory Rate 16 12/07/18 12:51 Blood Pressure 135/75 12/07/18 12:51 Pulse Oximetry 98 12/07/18 12:51 Temperature 98.4 F 12/07/18 12:51 Temperature Source Temporal Artery Scan 12/07/18 12:51 Pulse 97 H 12/07/18 12:51 Respiratory Rate 16 12/07/18 12:51 Respiratory Effort 12/07/18 13:09 Blood Pressure 135/75 12/07/18 12:51 Pulse Oximetry 98 12/07/18 12:51 Oxygen Delivery Method Room Air 12/07/18 12:51 Oxygen Flow Rate 0 12/07/18 12:51 Pain Level 6 12/07/18 12:51 Lab/Test Results Lab/Test Results: Laboratory Tests Range/Units 12/07/18 12/07/18 13:37 13:37 WBC (4.4-10.8) k/cumm 9.70 RBC (4.50-6.00) m/cumm 5.06 Hgb (13.5-17.5) g/dL 14.9 Hct (40.0-50.0) % 43.8 MCV (80-95) fL 86.6 MCH (27.0-33.0) pg 29.4 MCHC (32.0-36.0) g/dL 34.0 RDW (11.8-14.1) % 13.4 Plt Count (130-400) x1000/uL 235 MPV (8.0-11.0) fL 9.8 Immature Gran % 0.0 Neutrophils % 69.0 Band Neutrophils % % 1.0 Lymphocytes % 16.0 Atypical Lymphs % 2 Monocytes % 4.0 Eosinophils % 8.0 Basophils % 0.0 Absolute Neutrophils (1.2-6.7) k/cumm 6.79 H Absolute Lymphocytes (1.2-3.4) k/cumm 1.75 Absolute Monocytes (0.11-0.7) k/cumm 0.39 Absolute Eosinophils (0.0-0.7) k/cumm 0.78 H Absolute Basophils (0.0-0.2) k/cumm 0.00 Differential Comment Manual differential RBC Morphology Normal Lactate (0.6-1.4) mmol/L 1.7 H
--- NOTE | 2018-12-07 14:27 | DI.RAD_ITS ---
EXAM: XR FOOT LT COMPLETE CLINICAL HISTORY: L foot redness/pain/swelling, r/o osteomyelitis TECHNIQUE: COMPARISON: No exams were available for comparison FINDINGS: Three views were obtained. No fracture seen. No gross erosive or destructive lesion identified. If there is a high clinical suspicion of osteomyelitis additional evaluation with MRI or three-phase saqib ne scan may be considered. IMPRESSION:
[2018-12-07] MEDS: DOXYCYCLINE 100 MG in Normal Saline 100 ML IVPB (14:28)
[2018-12-07 14:31] LABS: ESR 36 mm/hr (1-20)
[2018-12-07 16:18] VITALS: BP 129/81; PULSE 92; RESP 16; TEMP 36.4; O2SAT 97
== END 2018-12-07 16:22 | disposition home or self-care (01) ==
PROVIDERS: Emergency Provider Physician Assistant; PCP Emergency Medicine
DX: L03.116 Cellulitis of left lower limb (principal)
CPT/HCPCS: 80053; 85652; 96365; 99284; 73630; 83605; 85025; 86140

== ENCOUNTER 2019-01-15 15:01 | Emergency (ER) | payer BC, SELFPAY ==
[2019-01-15 15:03] VITALS: BP 138/80; PULSE 109; RESP 18; TEMP 36.7; O2SAT 100
--- NOTE | 2019-01-15 15:22 | ED.GENADUL_ITS ---
Discharge Plan Disposition Patient Disposition: HOME Condition: Stable Discharge Details Chief Complaint: Cellulitis Clinical Impression: Rash Primary Care Provider: Mamadou Ruiz ED Provider: Peter Fitzpatrick Home Meds and New Rx's Prescriptions: New doxycycline hyclate 100 mg tablet 100 mg PO BID Qty: 14 RF: 0 prednisone 20 mg tablet 60 mg PO DAILY 4 Days Qty: 12 RF: 0 Continued multivitamin 1 EACH capsule 1 ea PO DAILY Qty: 2 RF: 0 Betamethasone V 1 % topical BID Qty: 1 RF: 1 Discharge Instructions Additional Instructions: Your rash has the appearance of a dermatitis or vasculitis and not of cellulitis (skin infection) start taking the prednisone. 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 Denies falls, fevers or other trauma. Several months ago he had a red rash in similar spot that was treated as possible cellulitis. He then had another rash on his left leg in same spot again treated as possible cellulitis and both improved after a week or so. He has a mildly erythematous 3x4 area on mid right tibia that is not fluctuance or warm to touch. It doesn't have the appearance or feel of a cellulitis, abscess or nec fasc. I feel with his recurrent rashes he likely has some type of dermatitis vs vasculatitis. He is not systemically ill and appears well so doubt entities such as anaphylaxis or sepsis. Will start him on steroids and prescribe abx but advised only to fill this if worsening despite prednisone. I [place] advised he needs to f/u with his pcp and derm for possible vasculitis eval. Return precautions given Differential Diagnosis Differential Diagnosis: vasculitis, dermatitis, cellulitis HPI General Mode of arrival: ambulatory . Date/Time Provider Initiated Documentation: 01/15/19 15:02 . Limitations to Documentation: no limitations . Information obtained by: patient . History of Present Illness 58 year old M presents to the emergency department with the chief complaint of rash, and it has been constant. No relieving factors improve symptom(s), No exacerbating factors reported . Patient did receive the following treatments prior to arrival, none Related Data Home Medications Medication Instructions Recorded Confirmed multivitamin 1 ea PO DAILY #2 11/17/13 01/15/19 Betamethasone Valerate 0.1 Percent 1 % TOPICAL BID #1 tube 11/13/18 01/15/19 Cream doxycycline hyclate 100 mg PO BID #14 tab 01/15/19 prednisone 60 mg PO DAILY 4 Days #12 tab 01/15/19 Previous Rx's Medication Instructions Recorded Betamethasone Valerate 0.1 Percent 1 % TOPICAL BID #1 tube 11/13/18 Cream doxycycline hyclate 100 mg PO BID #14 tab 01/15/19 prednisone 60 mg PO DAILY 4 Days #12 tab 01/15/19 Allergies Allergy/AdvReac Type Severity Reaction Status Date / Time Iodinated Contrast Media Allergy Severe Anaphylaxsi Verified 01/15/19 15:07 [Iodinated Contrast Media - s IV Dye] shellfish derived Allergy Severe Anaphylaxsi Verified 01/15/19 15:07 s Sulfa (Sulfonamide Allergy Intermediate Skin Rash Verified 01/15/19 15:07 Antibiotics) General Stated Complaint: Cellulitis ELISA: 3 Review of Systems All systems reviewed & are unremarkable except as noted in HPI and below Constitutional Constitutional: Denies chills and Denies fever(s) ENT Ears, Nose, Mouth, and Throat: Denies change in voice Cardiovascular Cardiovascular: Denies chest pain and Denies dyspnea Respiratory Respiratory: Denies cough and Denies dyspnea Gastrointestinal Gastrointestinal: Denies abdominal pain, Denies nausea and Denies vomiting [facility] Medical History Malignant neoplasm prostate Sciatica Surgical History (Updated 12/07/18 @ 18:37 by Carmen Vinson DO) History of hernia repair (Chronic) History of knee surgery (Acute) History of surgery on arm (Acute) History of surgery on wrist (Acute) Steroid Injection [facility];Lumbar epidural steroid injection;04/04/17 Social History Smoking/Tobacco Use Status: Former Tobacco Use Alcohol Intake: former Drug use: Never Substance use type: does not use Do you feel safe at home: Yes Do you feel safe in your relationship?: Yes Exam Const General: no acute distress Orientation: alert HENMT Head: normal to inspection Ears: external ears normal General nose exam: external nose normal Mouth: moist mucous membranes Eyes General: appearance normal, both eyes and all related structures Neck Neck: normal visual inspection Resp Effort & Inspection: normal respiratory effort and able to speak in complete sentences Cardio Rate: regular rate Skin General skin exam: elasticity normal Neuro General: alert and oriented x3 Extrem General: full ROM and normal capillary refill Psych Mental Status: mental status grossly normal Course Vital Signs Vital signs: Vital Signs Temperature 36.7 C 01/15/19 15:03 Pulse 109 H 01/15/19 15:03 Respiratory Rate 18 01/15/19 15:03 Blood Pressure 138/80 01/15/19 15:03 Pulse Oximetry 100 01/15/19 15:03 Temperature 36.7 C 01/15/19 15:03 Temperature Source Skin 01/15/19 15:03 Pulse 109 H 01/15/19 15:03 Respiratory Rate 18 01/15/19 15:03 Respiratory Effort Non-Labored 01/15/19 15:07 Blood Pressure 138/80 01/15/19 15:03 Blood Pressure Position Sitting 01/15/19 15:03 Pulse Oximetry 100 01/15/19 15:03 Oxygen Delivery Method Room Air 01/15/19 15:03 Oxygen Flow Rate 0 01/15/19 15:03
[2019-01-15] MEDS: predniSONE 20 MG TAB 60 MG PO (15:25)
[2019-01-15] MEDS: Doxycycline Hyclate 100 MG CAP 200 MG PO (15:25)
== END 2019-01-15 15:31 | disposition home or self-care (01) ==
PROVIDERS: Emergency Provider Emergency Medicine; PCP Emergency Medicine
DX: R21 Rash and other nonspecific skin eruption (principal)
CPT/HCPCS: 99283; J7512

== ENCOUNTER 2019-05-27 16:41 | Emergency (ER) | payer BC, SELFPAY ==
[2019-05-27] VITALS (26 sets, daily range): BP systolic 123–154; BP diastolic 71–88; PULSE 61–95; RESP 12–30; TEMP 37–37.1; O2SAT 94–98
--- NOTE | 2019-05-27 16:49 | W.ED.GENAD ---
Discharge Plan Discharge Details Chief Complaint: SOB Primary Care Provider: Mamadou Ruiz ED Provider: Butch Juárez Home Meds and New Rx's Prescriptions: No Action Otezla 30 mg tablet 30 mg PO BID RF: 0 multivitamin 1 EACH capsule 1 ea PO DAILY Qty: 2 RF: 0 Medical Decision Making 59-year-old male presents from home complaining of 2 to 3 hours of the onset of a mild sore throat and slight pressure sensation across his chest that he grades 2 out of 10. Associated with mild shortness of breath. States this is happened to him in the past and was labeled as anxiety attacks. He states he is not had fever, cough, recent travel or known sick contacts. Patient arrives to the ER with a mildly elevated blood pressure 154/83, he is afebrile, normal oxygenation with a pulse of 85. Differential diagnosis is broad including ACS, PE, pleurisy, pneumonitis, viral syndrome, gastritis. Patient IV access established, present for screening blood work, EKG, chest x-ray. Laboratories are reassuring with normal white blood cell count, unremarkable chemistries, negative troponin and a d-dimer of 372. Chest x-ray with no acute pulmonary findings. Patient given GI cocktail. Discussed with patient further monitoring and repeat troponin which he wishes to decline. States he is feeling improved. I do feel he ought to have outpatient coronavirus testing which I will order. Lab Data Lab results reviewed: Yes I reviewed the patient's lab results. Labs: Laboratory Results - last 24 hr 05/27/19 05/27/19 05/27/19 17:00 17:00 17:00 WBC 8.14 RBC 5.67 Hgb 16.3 Hct 47.2 MCV 83.2 MCH 28.7 MCHC 34.5 RDW 12.8 Plt Count 252 MPV 10.0 Immature Gran % 0.2 Neutrophils % 56.0 Lymphocytes % 27.5 Monocytes % 11.2 Eosinophils % 4.9 Basophils % 0.2 Absolute Neutrophils 4.55 Absolute Lymphocytes 2.24 Absolute Monocytes 0.91 H Absolute Eosinophils 0.40 Absolute Basophils 0.02 D-Dimer 372 Sodium 138 Potassium 3.6 Chloride 102 Carbon Dioxide 26.7 Anion Gap 9.3 BUN 18 Creatinine 1.23 Estimated GFR/1.73 m2 59.82 Glucose 128 H Calcium 9.3 Magnesium 2.1 Total Bilirubin 0.4 AST 18 ALT 36 Alkaline Phosphatase 82 Troponin I < 0.05 Total Protein 8.1 Albumin 3.8 ECG Data Attestation: I personally reviewed and interpreted this ECG (s) as follows: Prior ECG tracings: available for review Interpretation: Normal sinus rhythm, rate of 71, the QRS is narrow, there is no ST segment elevation, the QTC is 389. Today's tracing is similar to that obtained June 28, 2017 HPI General Mode of arrival: ambulatory. Date/Time Provider Initiated Documentation: 05/27/19 16:42. Limitations to Documentation: no limitations. Information obtained by: patient. History of Present Illness 59 year old M presents to the emergency department with the chief complaint of Sore throat and chest discomfort, described as mild, Quality is described as dull and constant, and is localized to the mouth, neck and chest. Patient reports no radiation. Patient started experiencing this hour(s) and it has been constant. No relieving factors improve symptom(s), No exacerbating factors reported . Patient notes other (No travel, no leg pain or swelling, no known sick contacts. Patient states she has been self quarantining at home.); denies cough and fever/chills. Patient did receive the following treatments prior to arrival, none Related Data Home Medications Medication Instructions Recorded Confirmed multivitamin 1 ea PO DAILY #2 11/17/13 05/27/19 apremilast 30 mg tablet 30 mg PO BID 01/23/19 05/27/19 Allergies Allergy/AdvReac Type Severity Reaction Status Date / Time Iodinated Contrast Media Allergy Severe Anaphylaxsi Verified 05/27/19 16:51 [Iodinated Contrast Media - s IV Dye] shellfish derived Allergy Severe Anaphylaxsi Verified 05/27/19 16:51 s Sulfa (Sulfonamide Allergy Intermediate Skin Rash Verified 05/27/19 16:51 Antibiotics) General ELISA: 3 Review of Systems Narrative: 6 systems reviewed and otherwise negative [facility] Medical History Malignant neoplasm prostate Sciatica Surgical History (Updated 12/07/18 @ 18:37 by Carmen Vinson DO) History of hernia repair (Chronic) History of knee surgery (Acute) History of surgery on arm (Acute) History of surgery on wrist (Acute) [facility];Lumbar epidural steroid injection;04/04/17 Social History Smoking/Tobacco Use Status: Former Tobacco Use Tobacco: How many years used: 20 Alcohol Intake: former Drug use: Never Substance use type: does not use Caregiver/Support person: No Housing: house Communication Needs: Corrective Lenses Do you need help understanding health information?: Rarely Pets and animals: Yes Pets and animals: dog(s) Sexually active: No Do you think of yourself as: straight/heterosexual Current gender identity: female What is your relationship status?: How often do you talk on the phone with friends or family?: three or more times per week How often do you get together with friends or relatives?: once per week How often do you attend spiritism or samaritan services?: decline to answer Do you belong to any clubs or organized social groups?: no Panel score (0-1 are the most socially isolated patients): 1 What type of physical activity do you participate in: other Details: active on job Honey/Anglican: No preference Special honey needs: No Seatbelt use: always Helmet use: Yes Helmet use: always 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 Pleasant, well groomed, interactive. HEAD: Normocephalic, atraumatic ENT: Mucous membranes moist, oropharynx unremarkable, External ear exam unremarkable EYES: PERRL, EOMI NECK: Full ROM, no HOMERO, no menigismus CHEST/RESP: Nontender, clear to auscultation bilateral, no wheeze/rhonchi/rales CARDIOVASCULAR: RRR, no murmur, rub geovany. 2+ Rad pulse bilateral ABDOMEN: Soft, nontender, no mass. +Bowel sounds EXT: Full ROM, no edema, no rash Neuro: Grossly normal neurologic exam, conversant, interactive. Psych: Speech fluent, thoughts congruent, affect normal
--- NOTE | 2019-05-27 17:00 | DI.RAD_ITS ---
EXAM: XR PORTABLE CHEST AP CLINICAL HISTORY: Chest discomfort, sore throat TECHNIQUE: 2D digital imaging was performed. COMPARISON: No exams were available for comparison FINDINGS: MEDIASTINUM: Normal. HEART: Normal. PULMONARY VASCULATURE: Normal. LUNGS: Clear. PLEURAL SPACE: No pleural effusion or pneumothorax. BONE:Normal. OTHER FINDINGS:Normal. IMPRESSION: No acute pulmonary findings. DATA REPOSITORY: RADIATION DOSE DELIVERED:
[2019-05-27 17:25] LABS: Abs Immature Grans 0.02 k/cumm (0.0-0.09); Absolute Basophil Count 0.02 k/cumm (0.0-0.2); Absolute Lymphocyte Count 2.24 k/cumm (1.2-3.4); Absolute Monocyte Count 0.91 k/cumm (0.11-0.7); Absolute Neutrophil Count 4.55 k/cumm (1.2-6.7); Basophils % 0.2; Eosinophils % 4.9; HCT 47.2 % (40.0-50.0); HGB 16.3 g/dL (13.5-17.5); Immature Grans % 0.2 %; Lymphocytes % 27.5; Mean Corp. HGB Concentration 34.5 g/dL (32.0-36.0); Mean Corpuscular Hemoglobin 28.7 pg (27.0-33.0); Mean Corpuscular Volume 83.2 fL (80-95); Monocytes % 11.2; Platelet Count 252 x1000/uL (130-400); RBC 5.67 m/cumm (4.50-6.00); RBC Distribution Width 12.8 % (11.8-14.1); White Blood Cell Count 8.14 k/cumm (4.4-10.8)
[2019-05-27 17:41] LABS: ALT 36 U/L (16-63); AST 18 U/L (15-37); Albumin 3.8 g/dL (3.4-5.0); Alkaline Phosphatase 82 U/L (46-116); Anion Gap 9.3 mmol/L (3-11); BUN 18 mg/dL (7-18); Bilirubin, Total 0.4 mg/dL (0.2-1.0); CO2 26.7 mmol/L (21.0-32.0); CREATININE 1.23 mg/dL (0.70-1.30); Calcium 9.3 mg/dL (8.5-10.1); Chloride 102 mmol/L (98-107); Estimated GFR 59.82 (mL/min/1.73m2); Glucose 128 mg/dL (74-106); Magnesium 2.1 mg/dL (1.8-2.4); Potassium 3.6 mmol/L (3.5-5.1); Sodium 138 mmol/L (136-145); Total Protein 8.1 g/dL (6.4-8.2)
[2019-05-27 17:48] LABS: Troponin I < 0.05 ng/Ml (<0.06)
[2019-05-27 17:52] LABS: D-Dimer 372 ng/mlFEU (<500)
[2019-05-27] MEDS: Normal Saline Flush 10 ML SYR IVP (18:16)
--- NOTE | 2019-05-27 18:23 | DI.VRAD_ITS ---
PROCEDURE INFORMATION: Exam: XR Chest, 1 View Exam date and time: 05/27/2019 6:05 PM Age: 59 years old Clinical indication: Chest pain; Type not specified; Patient HX: Chest discomfort, sore throat; Additional info: Pui for covid 19 TECHNIQUE: Imaging protocol: XR of the chest Views: 1 view. COMPARISON: CT CHEST ABD PELVIS WO CONTRAST 09/20/2017 08:46 FINDINGS: Lungs: Unremarkable. No consolidation. Pleural space: Unremarkable. No pleural effusion. No pneumothorax. Heart/Mediastinum: Unremarkable. No cardiomegaly. Bones/joints: Unremarkable for patient's age. IMPRESSION: No acute cardiopulmonary findings. Dictated and Authenticated by: Zofia Painting MD. Ordering:IVETT Rae MD
== END 2019-05-27 19:25 | disposition home or self-care (01) ==
PROVIDERS: Emergency Provider Emergency Medicine; PCP Emergency Medicine
DX: R06.02 Shortness of breath (principal); R07.9 Chest pain, unspecified; J02.9 Acute pharyngitis, unspecified
CPT/HCPCS: 36415; 80053; 93005; 99285; 71045; 83735; 84484; 85025; 85379; 93010; 99284

== ENCOUNTER 2019-05-28 08:30 | Outpatient (CLI) | payer BC, SELFPAY ==
[2019-05-31 12:34] LABS: SARS-CoV-2 RNA Undetected (Undetected); SARS-CoV-2 Specimen Source Nasopharynx
== END 2019-05-28 08:50 ==
PROVIDERS: PCP Emergency Medicine; Visit Provider Emergency Medicine
DX: Z11.59 Encounter for screening for other viral diseases (principal)
CPT/HCPCS: U0003

== ENCOUNTER 2019-07-05 18:15 | Emergency (ER) | payer BC, SELFPAY ==
[2019-07-05 18:19] VITALS: BP 130/80; PULSE 89; RESP 17; TEMP 36.9; O2SAT 95
--- NOTE | 2019-07-05 18:33 | W.ED.GENAD ---
Discharge Plan Disposition Patient Disposition: HOME Condition: Stable Discharge Details Chief Complaint: RashLesion Clinical Impression: Rash Primary Care Provider: Mamadou Ruiz ED Provider: Carmen Vinson Home Meds and New Rx's Prescriptions: New amoxicillin-pot clavulanate [Augmentin] 875-125 mg tablet 1 tab PO BID 10 Days Qty: 20 RF: 0 prednisone 20 mg tablet See Rx Instructions .ROUTE .COMPLEX Qty: 18 RF: 0 Continued Otezla 30 mg tablet 30 mg PO BID RF: 0 multivitamin 1 EACH capsule 1 ea PO DAILY Qty: 2 RF: 0 Discharge Instructions Instructions: Acute Rash (ED) Additional Instructions: Drink plenty of fluids and get plenty of rest. Elevate your legs as much as possible. Be sure to wear thick but breathable cotton socks throughout the day and change them frequently if become soiled or damp. Take the antibiotics and steroids until finished. Call [facility] dermatology to schedule a follow-up appointment for reevaluation. Return to the emergency department if you develop any worsening or new concerning symptoms. 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 Rash on bilateral feet appears consistent with eczema. Patient states this actually appears better than his baseline since being on Otezla. He denies any fever. Right leg rash appears most likely consistent with a vasculitis exacerbation as it is curvilinear and patchy and associated with pain. Does not appear consistent with DVT. Differential diagnosis could also include bug bite, contact dermatitis or early cellulitis. Will treat with p.o. steroids and Augmentin. Patient advised to continue to attempt to obtain appointment with dermatology at [facility] for reevaluation. Usual and customary return precautions given prior to discharge. Medical Records Medical records reviewed: Yes I reviewed the patient's medical records. HPI General Mode of arrival: ambulatory. Date/Time Provider Initiated Documentation: 07/05/19 18:16. Limitations to Documentation: no limitations. Information obtained by: patient. HPI Narrative: Pt is a 59yo M who presents to the ED w/ a c/o painful rash to his right leg that started this afternoon after gardening. Patient states he was wearing pants as well as socks and sneakers. Patient states he has had a similar rash occurring 5 times previously in the past few years. Patient states he has been seen by dermatology in the past at [facility] and told this is likely a vasculitis. Patient also has chronic eczema to his feet for which he takes otezla. He denies any fever, known bug bite or exposure to known poison ignacio or another plant. Related Data Home Medications Medication Instructions Recorded Confirmed multivitamin 1 ea PO DAILY #2 11/17/13 07/05/19 apremilast 30 mg tablet 30 mg PO BID 01/23/19 07/05/19 amoxicillin-pot clavulanate 1 tab PO BID 10 Days #20 tab 07/05/19 [Augmentin] prednisone See Rx Instructions .ROUTE 07/05/19 .COMPLEX #18 tab Previous Rx's Medication Instructions Recorded amoxicillin-pot clavulanate 1 tab PO BID 10 Days #20 tab 07/05/19 [Augmentin] prednisone See Rx Instructions .ROUTE 07/05/19 .COMPLEX #18 tab Allergies Allergy/AdvReac Type Severity Reaction Status Date / Time Iodinated Contrast Media Allergy Severe Anaphylaxsi Verified 07/05/19 18:25 [Iodinated Contrast Media - s IV Dye] shellfish derived Allergy Severe Anaphylaxsi Verified 07/05/19 18:25 s Sulfa (Sulfonamide Allergy Intermediate Skin Rash Verified 07/05/19 18:25 Antibiotics) General Stated Complaint: RashLesion ELISA: 4 Review of Systems All systems reviewed & are unremarkable except as noted in HPI and below Constitutional Constitutional: Reports as per HPI, Denies chills and Denies fever(s) Eyes Eyes: Denies blurry vision ENT Ears, Nose, Mouth, and Throat: Denies dizziness, Denies sore throat and Denies throat swelling Cardiovascular Cardiovascular: Denies chest pain and Denies dyspnea Respiratory Respiratory: Denies cough and Denies dyspnea Gastrointestinal Gastrointestinal: Denies abdominal pain, Denies diarrhea and Denies vomiting Genitourinary Genitourinary: Denies hematuria and Denies dysuria Musculoskeletal Musculoskeletal: Denies back pain and Denies numbness Integumentary/Breasts Skin/Breast: Reports lesions and Reports rash Neurologic Neurologic: Denies dizziness, Denies localized weakness and Denies numbness Allergic/Immunologic Allergic/Immunologic: Denies throat swelling [facility] Surgical History (Updated 12/07/18 @ 18:37 by Carmen Vinson DO) History of hernia repair (Chronic) History of knee surgery (Acute) History of surgery on arm (Acute) History of surgery on wrist (Acute) [facility];Lumbar epidural steroid injection;04/04/17 Social History Smoking/Tobacco Use Status: Former Tobacco Use Tobacco: How many years used: 20 Alcohol Intake: former Drug use: Never Substance use type: does not use Caregiver/Support person: No Housing: house Communication Needs: Corrective Lenses Do you need help understanding health information?: Rarely Pets and animals: Yes Pets and animals: dog(s) Sexually active: No Do you think of yourself as: straight/heterosexual Current gender identity: female What is your relationship status?: How often do you talk on the phone with friends or family?: three or more times per week How often do you get together with friends or relatives?: once per week How often do you attend orthodox or zoroastrianism services?: decline to answer Do you belong to any clubs or organized social groups?: no Panel score (0-1 are the most socially isolated patients): 1 What type of physical activity do you participate in: other Details: active on job Honey/Sikh: No preference Special honey needs: No Seatbelt use: always Helmet use: Yes Helmet use: always Drive 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 lokie driver: No Do you feel safe at home: Yes Do you feel safe in your relationship?: Yes Exam Const General: cooperative, healthy appearing and no acute distress HENMT Head: normal to inspection Mouth: oral mucosae normal Eyes General: appearance normal, both eyes and all related structures Neck Neck: normal visual inspection Resp Effort & Inspection: normal respiratory effort and able to speak in complete sentences Cardio Rate: regular rate Skin Full body images: 1. Patchy blanching mildly tender erythematous rash, some areas noted to be curvilinear, some areas noted to be circular and patchy. No blisters, vesicles, bullae, drainage or bleeding. Neuro General: patient alert, patient awake and patient oriented x3 Motor: muscle tone normal throughout Extrem Other: Erythema and edema noted to both feet, worse on plantar aspect. Left plantar foot with tender extensive scaling and dryness, but no induration or fluctuance. Left foot toenails greenish discoloration are superficial and not obviously consistent with fungus. Bilateral DP/PT pulses intact. Psych Appearance: grossly normal Affect: normal affect Course Vital Signs Vital signs: Vital Signs Temperature 98.4 F 07/05/19 18:19 Pulse 89 07/05/19 18:19 Respiratory Rate 17 07/05/19 18:19 Blood Pressure 130/80 07/05/19 18:19 Pulse Oximetry 95 07/05/19 18:19 Temperature 98.4 F 07/05/19 18:19 Temperature Source Tympanic 07/05/19 18:19 Pulse 89 07/05/19 18:19 Respiratory Rate 17 07/05/19 18:19 Respiratory Effort 07/05/19 18:24 Blood Pressure 130/80 07/05/19 18:19 Pulse Oximetry 95 07/05/19 18:19 Oxygen Delivery Method Room Air 07/05/19 18:19 Oxygen Flow Rate 0 07/05/19 18:19 Pain Level 5 07/05/19 18:19
[2019-07-05 18:58] VITALS: BP 130/80; PULSE 89; RESP 17; TEMP 36.9; O2SAT 95
[2019-07-05] MEDS: Amoxicillin 875/Clav. 125 TAB PO (18:58)
[2019-07-05] MEDS: Amox. 875/Clav. 125, 2 TABS/BTL 1 TAB PO (18:58)
[2019-07-05] MEDS: predniSONE 20 MG TAB 60 MG PO (18:58)
--- NOTE | 2019-07-05 18:58 | NUR.NOTE ---
Nursing Note: Per provider, margins marked on inside of right calf with skin marker with date applied.
== END 2019-07-05 19:00 | disposition home or self-care (01) ==
PROVIDERS: Emergency Provider Physician Assistant; PCP Emergency Medicine
DX: R21 Rash and other nonspecific skin eruption (principal); L95.8 Other vasculitis limited to the skin; L30.9 Dermatitis, unspecified
CPT/HCPCS: 99283; J7512

== ENCOUNTER 2019-08-30 14:20 | Emergency (ER) | payer BC, SELFPAY ==
[2019-08-30 14:27] VITALS: BP 126/71; PULSE 77; RESP 20; TEMP 37.1; O2SAT 97
--- NOTE | 2019-08-30 14:39 | W.ED.GENAD ---
Discharge Plan Disposition Patient Disposition: HOME Condition: Good Discharge Details Chief Complaint: Cellulitis Clinical Impression: Cellulitis of leg, right Primary Care Provider: Mamadou Ruiz ED Provider: Alexa Song Home Meds and New Rx's Prescriptions: New clindamycin HCl 150 mg capsule 450 mg PO TID 7 Days Qty: 63 RF: 0 Continued Otezla 30 mg tablet 30 mg PO BID RF: 0 multivitamin 1 EACH capsule 1 ea PO DAILY Qty: 2 RF: 0 Discharge Instructions Instructions: Cellulitis (ED) Additional Instructions: Encourage hydration. Tylenol and ibuprofen as needed for discomfort. Please take clindamycin as prescribed. If symptoms improve, please take the entire course. Please take probiotic while on the clindamycin. Please contact primary care tomorrow to schedule follow-up appointment this week for reevaluation. If you develop fever/chills, spreading of the redness or other new/worsening symptom please seek care urgently once again. Referrals: Mamadou Ruiz, [Primary Care Provider] - Discharge Data Discharge Date/Time-TO BE ENTERED AT DEPARTURE: 08/30/19 15:25 Medical Decision Making Patient is a pleasant 59-year-old gentleman presenting today with chief complaint of right lower extremity erythema. He reports that erythema first was noted yesterday. He denies any fevers or chills. States this feels similar to when he has had cellulitis historically. Patient was treated a multitude of times last year for cellulitis on the right lower extremity. Is actually admitted for a few days. He was treated with various antibiotics throughout the course of the year. This is noted on chart review. Says the clindamycin that he was treated with his admission and subsequent discharge were quite well for him. He did tolerate this medication well. He denies any recent trauma. States that he initially noted some blotchy erythematous areas that then coalesced and began to spread. States that the erythema is very uncomfortable. Denies any posterior calf pain edema. On exam, patient has erythematous area to the medial and anterior aspect of the right lower extremity. He does have one area that is a more well-defined area of erythema centrally in this. The entire area is warm and tender. No swelling, fluctuance. Cord, no posterior calf pain. He is 2+ distal pulses. Sensation is intact. Exam is most consistent with cellulitis. Patient is hemodynamically stable. I see no evidence to suggest septicemia. I do feel that he is a good candidate for outpatient therapy at this point. We will place him on clindamycin. I did encourage it he use a probiotic. Patient was given very strict return precautions. I would like for him to be seen by his primary care this week for reevaluation. Advised elevation. Tylenol and/or ibuprofen as needed for discomfort. All his questions and concerns were addressed and he is in agreement this plan. Area of erythema was marked out. HPI General Mode of arrival: ambulatory. Date/Time Provider Initiated Documentation: 08/30/19 14:26. Limitations to Documentation: no limitations. Information obtained by: patient and RN notes reviewed. History of Present Illness described as moderate, with intensity rated at 4. Quality is described as aching, and is localized to the right and lower extremity. Patient reports no radiation. Patient started experiencing this day(s) (1) and it has been constant. No relieving factors improve symptom(s), No exacerbating factors reported . Patient notes no other symptoms.. Patient did receive the following treatments prior to arrival, none Related Data Home Medications Medication Instructions Recorded Confirmed multivitamin 1 ea PO DAILY #2 11/17/08/30/19 apremilast 30 mg tablet 30 mg PO BID 01/23/19 08/30/19 clindamycin HCl 450 mg PO TID 7 Days #63 cap 08/30/19 Previous Rx's Medication Instructions Recorded clindamycin HCl 450 mg PO TID 7 Days #63 cap 08/30/19 Allergies Allergy/AdvReac Type Severity Reaction Status Date / Time Iodinated Contrast Media Allergy Severe Anaphylaxsi Verified 08/30/19 14:30 [Iodinated Contrast Media - s IV Dye] shellfish derived Allergy Severe Anaphylaxsi Verified 08/30/19 14:30 s Sulfa (Sulfonamide Allergy Intermediate Skin Rash Verified 08/30/19 14:30 Antibiotics) General Stated Complaint: Cellulitis ELISA: 3 Review of Systems Constitutional Constitutional: Reports as per HPI, Denies chills, Denies fever(s), Denies headache(s) and Denies weakness ENT Ears, Nose, Mouth, and Throat: Denies headache(s) Cardiovascular Cardiovascular: Reports as per HPI Respiratory Respiratory: Reports as per HPI and Denies cough Musculoskeletal Musculoskeletal: Reports as per HPI and Denies tingling Integumentary/Breasts Skin/Breast: Reports as per HPI, Denies rash and Denies wounds Neurologic Neurologic: Reports as per HPI, Denies headache(s), Denies tingling, Denies paresthesias and Denies weakness [facility] Medical History (Updated 08/30/19 @ 15:10 by KIMBERLY Coker) Malignant neoplasm prostate Sciatica Surgical History (Updated 08/30/19 @ 14:32 by Oneyda Aguilera) History of back surgery (Acute) 2 broken discs History of hernia repair (Chronic) History of knee surgery (Acute) History of surgery on arm (Acute) History of surgery on wrist (Acute) Steroid Injection [facility];Lumbar epidural steroid injection;04/04/17 Social History Smoking/Tobacco Use Status: Former Tobacco Use Tobacco: How many years used: 20 Alcohol Intake: former Drug use: Never Substance use type: does not use Caregiver/Support person: No Housing: house Communication Needs: Corrective Lenses Do you need help understanding health information?: Rarely Pets and animals: Yes Pets and animals: dog(s) Sexually active: No Do you think of yourself as: straight/heterosexual Current gender identity: female What is your relationship status?: How often do you talk on the phone with friends or family?: three or more times per week How often do you get together with friends or relatives?: once per week How often do you attend tenriism or latter day services?: decline to answer Do you belong to any clubs or organized social groups?: no Panel score (0-1 are the most socially isolated patients): 1 What type of physical activity do you participate in: other Details: active on job Honey/Church: No preference Special honey needs: No Seatbelt use: always Helmet use: Yes Helmet use: always Drive 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 special needs bus driver: No Do you feel safe at home: Yes Do you feel safe in your relationship?: Yes Exam Const General: cooperative, healthy appearing, comfortable, no acute distress, well developed and well groomed Nutritional Appearance: average body habitus and well nourished Orientation: alert and awake Resp Effort & Inspection: normal respiratory effort, able to speak in complete sentences and no respiratory distress Cardio Rate: regular rate Rhythm: regular rhythm Skin General skin exam: erythema Neuro General: patient alert and patient awake Cognition: normal cognition Speech: speech normal Gait: normal gait Motor: muscle tone normal throughout Sensory Exam: no sensory deficits noted Extrem Ankle/foot/toe images: 1. Well-defined area of erythema, tenderness and warmth. There is a focal area of increased redness centrally. This is not ulcerated or open. No area to suggest fluctuance or abscess. No drainage. Patient has 2+ distal pulses. Posterior aspect lateral aspect of the calf was spared. There is well defined borders. Sensation is intact. Forward to motion of the ankle. Exam is most consistent with cellulitis. Psych Appearance: grossly normal and well kempt Mental Status: mental status grossly normal Speech and Movement: speech and movement normal Course Vital Signs Vital signs: Vital Signs Temperature 37.1 C 08/30/19 14:27 Pulse 77 08/30/19 14:27 Respiratory Rate 20 08/30/19 14:27 Blood Pressure 126/71 08/30/19 14:27 Pulse Oximetry 97 08/30/19 14:27 Temperature 37.1 C 08/30/19 14:27 Temperature Source Skin 08/30/19 14:27 Pulse 77 08/30/19 14:27 Respiratory Rate 20 08/30/19 14:27 Respiratory Effort Non-Labored 08/30/19 14:32 Blood Pressure 126/71 08/30/19 14:27 Blood Pressure Position Sitting 08/30/19 14:27 Pulse Oximetry 97 08/30/19 14:27 Oxygen Delivery Method Room Air 08/30/19 14:27 Oxygen Flow Rate 0 08/30/19 14:27 Pain Level 4 08/30/19 14:27
[2019-08-30] MEDS: Clindamycin 150 MG CAP 450 MG PO (15:17)
[2019-08-30 15:21] VITALS: BP 122/79; PULSE 74; RESP 18; TEMP 36.6; O2SAT 96
== END 2019-08-30 15:25 | disposition home or self-care (01) ==
PROVIDERS: Emergency Provider Physician Assistant; PCP Emergency Medicine
DX: L03.115 Cellulitis of right lower limb (principal)
CPT/HCPCS: 99283

== ENCOUNTER 2019-10-12 02:49 | Outpatient (CLI) | payer BC, SELFPAY ==
[2019-10-12 17:05] LABS: Abs Immature Grans 0.03 10^3/uL (0.0-0.06); Absolute Basophil Count 0.07 10^3/uL (0.0-0.2); Absolute Eosinophil Count 0.44 10^3/uL (0.0-0.7); Absolute Lymphocyte Count 2.94 10^3/uL (1.2-3.4); Absolute Monocyte Count 0.97 10^3/uL (0.1-0.8); Absolute Neutrophil Count 6.34 10^3/uL (1.2-6.7); Basophils % 0.6; Eosinophils % 4.1; HGB 15.4 g/dL (13.5-17.5); Immature Grans % 0.3; Lymphocytes % 27.2; MCH 28.4 pg (27.0-33.0); MCHC 33.5 % (32.0-36.0); MCV 84.9 fL (80-95); MPV 9.5 fL (8.0-11.0); Neutrophils % 58.8; Nucleated RBC 0 %; Platelet Count 266 10^3/uL (130-400); RBC 5.42 10^6/uL (4.36-5.78); RDW 12.7 % (11.8-14.1); RDW-SD 38.7 fL; WBC 10.79 10^3/uL (4.4-10.8)
[2019-10-12 17:50] LABS: ALT 31 U/L (16-63); AST 21 U/L (15-37); Albumin 4.1 g/dL (3.4-5.0); Alkaline Phosphatase 66 U/L (46-116); Anion Gap 11.7 mmol/L (3-11); BUN 19 mg/dL (7-18); Bilirubin, Total 0.3 mg/dL (0.2-1.0); CO2 23.3 mmol/L (21.0-32.0); CREATININE 1.35 mg/dL (0.70-1.30); Calcium 9.5 mg/dL (8.5-10.1); Chloride 104 mmol/L (98-107); Estimated GFR 53.73 (mL/min/1.73m2); Glucose 97 mg/dL (74-106); Potassium 3.9 mmol/L (3.5-5.1); Sodium 139 mmol/L (136-145); Total Protein 8.1 g/dL (6.4-8.2)
[2019-10-15 16:27] LABS: Testosterone, Total 201 ng/dL (240-950)
== END 2019-10-12 03:09 ==
PROVIDERS: PCP Emergency Medicine; Visit Provider Internal Medicine
DX: C61 Malignant neoplasm of prostate (principal)
CPT/HCPCS: 36415; 80053; 84153; 84403; 85025

== ENCOUNTER 2020-01-10 18:09 | Emergency (ER) | payer BC, SELFPAY ==
[2020-01-10 18:16] VITALS: BP 146/88; PULSE 81; TEMP 37.1; O2SAT 97
--- NOTE | 2020-01-10 18:38 | ED.GENADUL_ITS ---
Discharge Plan Disposition Patient Disposition: HOME Condition: Improving Discharge Details Clinical Impression: Acute bronchospasm Primary Care Provider: Mamadou Ruiz ED Provider: Butch Juárez Home Meds and New Rx's Prescriptions: New prednisone 50 mg tablet 50 mg PO DAILY 5 Days Qty: 5 RF: 0 Continued Otezla 30 mg tablet 30 mg PO BID RF: 0 multivitamin 1 EACH capsule 1 ea PO DAILY Qty: 2 RF: 0 Discharge Instructions Instructions: Bronchospasm (ED) Additional Instructions: May use the provided inhaler, with spacer, 2 puffs every 4-6 hours as needed for tightness of breath or persistent cough. We will ask our resident care provider to arrange an outpatient follow-up for you with Dr. Ruiz. As we discussed, I feel you would benefit from outpatient pulmonary function testing. Return if you develop fever, worsening cough, chest pain, worsening difficulty breathing, peripheral edema or weight gain, or any other acute concerns. Medical Decision Making 59-year-old male former smoker presents to the ER complaining of 1 month of a dry cough. It is irritating, sometimes worse at night. He has not had chest pain or palpitations. No fever. His review of systems is otherwise unremarkable. Patient is afebrile, oxygenating normally with unremarkable vital signs. His exam is notable for bilateral end expiratory wheezes. Further history will relate that the patient had a similar episode of dry cough last fall during change of season. He states it seems to begin with the use of the pellet stove and also that he has cats and dogs in their home. I do feel this is most consistent with reactive airway disease. Out of an abundance of caution, the patient underwent screening chest x-ray and COVID-19 testing. He was given oral prednisone & beta agonist inhaler with improvement. Chest x-ray unremarkable. Will ask care management to arrange a followup for the patient in primary care clinic. He would benefit from outpatient PFTs. I discussed this with him. He understands indications to return. HPI General Mode of arrival: ambulatory . Date/Time Provider Initiated Documentation: 01/10/20 18:09 . Limitations to Documentation: no limitations . Information obtained by: patient . History of Present Illness 59 year old M presents to the emergency department with the chief complaint of Dry irritated cough for 1 month, described as moderate, and is localized to the chest. Patient reports no radiation. Patient started experiencing this week(s) and it has been intermittent. No relieving factors improve symptom(s), No exacerbating factors reported . Patient notes cough; denies fever/chills and nausea/vomiting. Patient did receive the following treatments prior to arrival, none Related Data Home Medications Medication Instructions Recorded Confirmed multivitamin 1 ea PO DAILY #2 11/17/13 01/10/20 apremilast 30 mg tablet 30 mg PO BID 01/23/19 01/10/20 prednisone 50 mg PO DAILY 5 Days #5 tab 01/10/20 Previous Rx's Medication Instructions Recorded prednisone 50 mg PO DAILY 5 Days #5 tab 01/10/20 Allergies Allergy/AdvReac Type Severity Reaction Status Date / Time Iodinated Contrast Media Allergy Severe Anaphylaxsi Verified 01/10/20 18:22 [Iodinated Contrast Media - s IV Dye] shellfish derived Allergy Severe Anaphylaxsi Verified 01/10/20 18:22 s Sulfa (Sulfonamide Allergy Intermediate Skin Rash Verified 01/10/20 18:22 Antibiotics) General Stated Complaint: RespSymp ELISA: 4 Review of Systems Narrative: No chest pain, no palpitations, no leg pain or swelling. No known sick contacts. No fever. 6 systems reviewed and otherwise negative [facility] Medical History Malignant neoplasm prostate Sciatica Surgical History (Updated 08/30/19 @ 14:32 by Oneyda Aguilera) History of back surgery 2 broken discs History of hernia repair History of knee surgery History of surgery on arm History of surgery on wrist [facility];Lumbar epidural steroid injection;04/04/17 Social History Smoking/Tobacco Use Status: Former Tobacco Use Tobacco: How many years used: 20 Smoking risk assessment performed?: Yes Alcohol Intake: former Drug use: Never Substance use type: does not use Caregiver/Support person: No Housing: house Communication Needs: Corrective Lenses Do you need help understanding health information?: Rarely Pets and animals: Yes Pets and animals: dog(s) Sexually active: No Do you think of yourself as: straight/heterosexual Current gender identity: female What is your relationship status?: How often do you talk on the phone with friends or family?: three or more times per week How often do you get together with friends or relatives?: once per week How often do you attend yazidi or restorationist services?: decline to answer Do you belong to any clubs or organized social groups?: no Panel score (0-1 are the most socially isolated patients): 1 What type of physical activity do you participate in: other Details: active on job Honye/Islam: No preference Special honey needs: No Seatbelt use: always Helmet use: Yes Helmet use: always Drive 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 otr flatbed 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 Pleasant, well groomed, interactive. Speaking in full sentences, no acute distress HEAD: Normocephalic, atraumatic ENT: Mucous membranes moist, oropharynx unremarkable, External ear exam unremarkable EYES: PERRL, EOMI NECK: Full ROM, no HOMERO, no menigismus CHEST/RESP: Nontender, bilateral end expiratory wheeze present throughout CARDIOVASCULAR: RRR, no murmur, rub geovany. 2+ Rad pulse bilateral ABDOMEN: Soft, nontender, no mass. +Bowel sounds EXT: Full ROM, no edema, no rash Neuro: Grossly normal neurologic exam, conversant, interactive. Psych: Speech fluent, thoughts congruent, affect normal Course Vital Signs Vital signs: Vital Signs Temperature 37.1 C 01/10/20 18:16 Pulse 81 01/10/20 18:16 Blood Pressure 146/88 H 01/10/20 18:16 Pulse Oximetry 97 01/10/20 18:16 Temperature 37.1 C 01/10/20 18:16 Temperature Source Temporal Artery Scan 01/10/20 18:16 Pulse 81 01/10/20 18:16 Respiratory Effort Non-Labored 01/10/20 18:19 Blood Pressure 146/88 H 01/10/20 18:16 Blood Pressure Position Sitting 01/10/20 18:16 Pulse Oximetry 97 01/10/20 18:16 Oxygen Delivery Method Room Air 01/10/20 18:16 Oxygen Flow Rate 0 01/10/20 18:16 Pain Level 0 01/10/20 18:16
[2020-01-10] MEDS: Albuterol HFA 8 GM 60 PUFF INH IH (18:53)
[2020-01-10] MEDS: predniSONE 20 MG TAB 60 MG PO (18:53)
--- NOTE | 2020-01-10 19:05 | DI.RAD_ITS ---
EXAM: XR PORTABLE CHEST AP CLINICAL HISTORY: wheezing TECHNIQUE: 2D digital imaging was performed. COMPARISON: CR,XR XR PORTABLE CHEST AP from 05/27/2019 FINDINGS: The lungs are suboptimally inflated. No infiltrate, effusion or pulmonary edema is seen. Heart size is normal. There is no evidence of pneumothorax. IMPRESSION: No acute pulmonary findings. DATA REPOSITORY: RADIATION DOSE DELIVERED:
--- NOTE | 2020-01-10 19:11 | DI.VRAD_ITS ---
PROCEDURE INFORMATION: Exam: XR Chest, 1 View Exam date and time: 01/10/2020 19:03 Age: 59 years old Clinical indication: Cough and wheezing TECHNIQUE: Imaging protocol: XR of the chest Views: 1 view. COMPARISON: CR XR PORTABLE CHEST AP 05/27/2019 18:01 FINDINGS: Lungs: No airspace consolidation. No significant interstitial disease for the degree of inflation. Pleural space: No significant pleural effusion. No pneumothorax. Heart/Mediastinum: No cardiomegaly. Bones/joints: No acute fracture. IMPRESSION: Negative portable chest. Dictated and Authenticated by: Bárbara Meier MD. Ordering:IVETT Rae MD
--- NOTE | 2020-01-11 01:03 | NUR.NOTE ---
REFERRAL FAXED TO PCP FOR FOLLOW-UP CARE FOLLOWING TODAY'S VISIT. Nursing Note:
[2020-01-12 20:29] LABS: SARS-CoV-2 RNA Undetected (Undetected); SARS-CoV-2 Specimen Source Nasal
--- NOTE | 2020-01-13 08:18 | NUR.NOTE ---
01/13/2020 @ 813 spoke with patient, verified his information and relayed negative covid test results to him.
== END 2020-01-10 19:30 | disposition home or self-care (01) ==
LOC: ER 19:32
PROVIDERS: Emergency Provider Emergency Medicine; PCP Emergency Medicine
DX: J98.01 Acute bronchospasm (principal); Z87.891 Personal history of nicotine dependence; Z11.59 Encounter for screening for other viral diseases
CPT/HCPCS: 99283; U0003; 71045; J7512

== ENCOUNTER 2020-05-02 11:53 | Emergency (ER) | payer BC, SELFPAY ==
[2020-05-02 12:15] VITALS: BP 142/87; PULSE 89; RESP 16; TEMP 36.5; O2SAT 94
--- NOTE | 2020-05-02 12:45 | DI.RAD_ITS ---
EXAM: XR SHOULDER LT COMPLETE 2+V CLINICAL HISTORY: pain left shoulder. TECHNIQUE: 2D digital imaging was performed. COMPARISON: CR,XR XR PORTABLE CHEST AP from 01/10/2020 FINDINGS: There is no evidence fracture or dislocation no abnormal soft tissue calcifications in the subacromia l space. Mild degenerative changes are noted in the glenohumeral joint. No significant osseous lesi ons. No os acromiale. IMPRESSION: No fracture. Some degenerative changes are noted in the glenohumeral joint. DATA REPOSITORY: RADIATION DOSE DELIVERED:
--- NOTE | 2020-05-02 13:29 | ED.GENADUL_ITS ---
Discharge Plan Disposition Patient Disposition: HOME Condition: Good Discharge Details Clinical Impression: Left shoulder pain Primary Care Provider: Mamadou Ruiz ED Provider: Edel Leach Home Meds and New Rx's Prescriptions: New diclofenac sodium [Voltaren] 1 % gel 4 g topical QID Qty: 100 RF: 0 lidocaine [Lidoderm] 5 % adhesive patch,medicated 1 patch topical DAILY Qty: 15 RF: 0 hydrocodone-acetaminophen 5-325 mg tablet 1 tab PO Q6H PRNQty: 4 RF: 0 No Action albuterol sulfate [ProAir HFA] 90 mcg/actuation HFA aerosol inhaler 2 puff inhalation Q6H PRN (Reason: shortness of breath or wheezing) Qty: 6.7 RF: 4 montelukast [Singulair] 10 mg tablet 10 mg PO DAILY Qty: 90 RF: 4 Otezla 30 mg tablet 30 mg PO BID RF: 0 multivitamin 1 EACH capsule 1 ea PO DAILY Qty: 2 RF: 0 Discharge Instructions Instructions: Shoulder Pain (ED) Additional Instructions: Please follow-up with your primary care physician in 1 to 2 days for reevaluation Return earlier should you have new or worsening complaints Take ibuprofen 400 to 600 mg every 8 hours with food for no longer than 3 days Return earlier should you have chest pain, shortness of breath, or the Medical Decision Making Reproducible pain with decreased range of motion in left shoulder No chest pain or shortness of breath, I did consider pulmonary embolism given patient's recent long drive, however aside from age he is PERC and Wells criteria negative for pulmonary embolism Also he has no chest pain or shortness of breath without history of coronary artery disease, my suspicion for angina is quite low X-ray does not show acute pathology per my interpretation, pending radiology review I did offer patient , I discussed the risk of frozen shoulder There is no evidence of secondary infection clinically Patient does have decreased range of motion, he is aware of frozen shoulder and need for close outpatient follow-up I did give him a prescription for Bosler No. 4, I discussed the risk of addiction He was given Lidoderm patches Voltaren gel He is given a threshold to return should he have new or worsening complaints Recheck in 24 to 48 hours recommended Differential Diagnosis Differential Diagnosis: Septic arthritis, tendinitis, pulmonary embolism, angina Medical Records Medical records reviewed: Yes I reviewed the patient's medical records. Lab Data Lab results reviewed: Yes I reviewed the patient's lab results. HPI This 60-year-old gentleman presents with left-sided shoulder pain. He states that the pain started while he was shopping yesterday. He states that it came on abruptly after driving back from [place]. She denies any chest pain or shortness of breath He states that he is unable to move his shoulder secondary to discomfort. He denies prior history of similar pain in the past. He is right-hand dominant. He denies any radiation of discomfort. He states he is able to reproduce the pain on palpation. He denies fever or chills. General Date/Time Provider Initiated Documentation: 05/02/20 12:57 . Related Data Home Medications Medication Instructions Recorded Confirmed multivitamin 1 ea PO DAILY #2 11/17/13 05/02/20 apremilast 30 mg tablet 30 mg PO BID 01/23/19 05/02/20 albuterol sulfate 90 mcg/actuation 2 puff INHALATION Q6H PRN #6.7 g 01/21/20 05/02/20 aerosol inhaler montelukast 10 mg tablet 10 mg PO DAILY #90 tab 01/21/20 05/02/20 diclofenac sodium [Voltaren] 4 g TOPICAL QID #100 g 05/02/20 hydrocodone-acetaminophen 1 tab PO Q6H PRN #4 tab 05/02/20 lidocaine [Lidoderm] 1 patch TOPICAL DAILY #15 ea 05/02/20 Previous Rx's Medication Instructions Recorded albuterol sulfate 90 mcg/actuation 2 puff INHALATION Q6H PRN #6.7 g 01/21/20 aerosol inhaler montelukast 10 mg tablet 10 mg PO DAILY #90 tab 01/21/20 diclofenac sodium [Voltaren] 4 g TOPICAL QID #100 g 05/02/20 hydrocodone-acetaminophen 1 tab PO Q6H PRN #4 tab 05/02/20 lidocaine [Lidoderm] 1 patch TOPICAL DAILY #15 ea 05/02/20 Allergies Allergy/AdvReac Type Severity Reaction Status Date / Time Iodinated Contrast Media Allergy Severe Anaphylaxsi Verified 05/02/20 12:20 [Iodinated Contrast Media - s IV Dye] shellfish derived Allergy Severe Anaphylaxsi Verified 05/02/20 12:20 s Sulfa (Sulfonamide Allergy Intermediate Skin Rash Verified 05/02/20 12:20 Antibiotics) General Stated Complaint: Orthopedic ELISA: 4 Review of Systems Narrative: Review of systems obtained x7 aside from where indicated in HPI [facility] Medical History Malignant neoplasm prostate Sciatica Surgical History (Updated 08/30/19 @ 14:32 by Oneyda Aguilera) History of back surgery 2 broken discs History of hernia repair History of knee surgery History of surgery on arm History of surgery on wrist Steroid Injection [facility];Lumbar epidural steroid injection;04/04/17 Social History Smoking/Tobacco Use Status: Former Tobacco Use Tobacco: How many years used: 20 Smoking risk assessment performed?: Yes Alcohol Intake: former Drug use: Never Substance use type: does not use Caregiver/Support person: No Housing: house Communication Needs: Corrective Lenses Do you need help understanding health information?: Rarely Pets and animals: Yes Pets and animals: dog(s) Sexually active: No Do you think of yourself as: straight/heterosexual Current gender identity: female What is your relationship status?: How often do you talk on the phone with friends or family?: three or more times per week How often do you get together with friends or relatives?: once per week How often do you attend taoist or samaritan services?: decline to answer Do you belong to any clubs or organized social groups?: no Panel score (0-1 are the most socially isolated patients): 1 What type of physical activity do you participate in: other Details: active on job Honey/Druze: No preference Special honey needs: No Seatbelt use: always Helmet use: Yes Helmet use: always Drive 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 Do you feel safe at home: Yes Do you feel safe in your relationship?: Yes Exam Const General: healthy appearing and no acute distress Neck Other: No midline tenderness Resp Effort & Inspection: normal respiratory effort Auscultation: clear to auscultation bilaterally Cardio Rate: regular rate Rhythm: regular rhythm Neuro General: patient alert Other: Sensation intact distally Extrem Other: Tenderness to palpation to left shoulder No tenderness to palpation to left elbow Neurovascularly intact, no tenderness with palpation to Course Vital Signs Vital signs: Vital Signs Temperature 36.5 C 05/02/20 12:15 Pulse 89 03/15/21 12:15 Respiratory Rate 16 05/02/20 12:15 Blood Pressure 142/87 H 05/02/20 12:15 Pulse Oximetry 94 05/02/20 12:15 Temperature 36.5 C 05/02/20 12:15 Temperature Source Oral 05/02/20 12:15 Pulse 89 05/02/20 12:15 Respiratory Rate 16 05/02/20 12:15 Respiratory Effort Non-Labored 05/02/20 12:15 Blood Pressure 142/87 H 05/02/20 12:15 Blood Pressure Position Sitting 05/02/20 12:15 Pulse Oximetry 94 05/02/20 12:15 Oxygen Delivery Method Room Air 05/02/20 12:15 Oxygen Flow Rate 0 05/02/20 12:15 Pain Level 8 05/02/20 13:22
== END 2020-05-02 14:16 | disposition home or self-care (01) ==
PROVIDERS: Emergency Provider Physician Assistant; PCP Emergency Medicine
DX: M25.512 Pain in left shoulder (principal)
CPT/HCPCS: 99283; 73030

== ENCOUNTER 2020-05-03 10:27 | Outpatient (CLI) | payer BC, SELFPAY ==
[2020-05-04 13:29] LABS: COVID-19 RT-PCR UVMMC Result Negative (Negative)
== END 2020-05-03 10:28 | disposition home or self-care (01) ==
LOC: LBO 10:27
PROVIDERS: PCP Emergency Medicine; Visit Provider Emergency Medicine
DX: Z20.822 Contact with and (suspected) exposure to COVID-19 (principal)
CPT/HCPCS: U0003

== ENCOUNTER 2020-05-13 15:48 | Emergency (ER) | payer BC, SELFPAY ==
[2020-05-13 15:59] VITALS: BP 141/79; PULSE 74; RESP 16; TEMP 36.6; O2SAT 94
--- NOTE | 2020-05-13 16:15 | DI.RAD_ITS ---
EXAM: XR WRIST LT COMPLETE CLINICAL HISTORY: fall, pain. TECHNIQUE: 2D digital imaging was performed. COMPARISON: CR XR WRIST RT COMPLETE from 05/13/2020 FINDINGS: No evidence of acute fracture nor carpal dislocation. No significant ulnar variance. No scaphoid fr acture. Scapholunate distance is normal. Small 2 millimeter cyst in the lunate. Tip of the ulnar s tyloid is intact. Incidentally noted are small calcific densities medial to the distal ulna. These do not have the appearance of acute fracture fragments. IMPRESSION: DATA REPOSITORY: RADIATION DOSE DELIVERED:
--- NOTE | 2020-05-13 16:15 | DI.RAD_ITS ---
EXAM: XR WRIST RT COMPLETE CLINICAL HISTORY: fall, pain. TECHNIQUE: 2D digital imaging was performed. COMPARISON: No exams were available for comparison FINDINGS: There is no evidence of fracture or dislocation nor significant ulnar variance. No scaphoid fracture . Scapholunate distance is normal. Bone density normal IMPRESSION: No fracture evident. DATA REPOSITORY: RADIATION DOSE DELIVERED:
--- NOTE | 2020-05-13 16:21 | ED.GENADUL_ITS ---
Discharge Plan Discharge Details Chief Complaint: Orthopedic Primary Care Provider: Mamadou Ruiz ED Provider: Edel Leach Home Meds and New Rx's Prescriptions: No Action albuterol sulfate [ProAir HFA] 90 mcg/actuation HFA aerosol inhaler 2 puff inhalation Q6H PRN (Reason: shortness of breath or wheezing) Qty: 6.7 RF: 4 montelukast [Singulair] 10 mg tablet 10 mg PO DAILY Qty: 90 RF: 4 Otezla 30 mg tablet 30 mg PO BID RF: 0 multivitamin 1 EACH capsule 1 ea PO DAILY Qty: 2 RF: 0 diclofenac sodium [Voltaren] 1 % gel 4 g topical QID Qty: 100 RF: 0 lidocaine [Lidoderm] 5 % adhesive patch,medicated 1 patch topical DAILY Qty: 15 RF: 0 hydrocodone-acetaminophen 5-325 mg tablet 1 tab PO Q6H PRNQty: 4 RF: 0 HPI General Date/Time Provider Initiated Documentation: 05/13/20 16:09 . Related Data Home Medications Medication Instructions Recorded Confirmed multivitamin 1 ea PO DAILY #2 11/17/13 05/02/20 apremilast 30 mg tablet 30 mg PO BID 01/23/19 05/02/20 albuterol sulfate 90 mcg/actuation 2 puff INHALATION Q6H PRN #6.7 g 01/21/20 05/02/20 aerosol inhaler montelukast 10 mg tablet 10 mg PO DAILY #90 tab 01/21/20 05/02/20 diclofenac sodium [Voltaren] 4 g TOPICAL QID #100 g 05/02/20 hydrocodone-acetaminophen 1 tab PO Q6H PRN #4 tab 05/02/20 lidocaine [Lidoderm] 1 patch TOPICAL DAILY #15 ea 05/02/20 Previous Rx's Medication Instructions Recorded albuterol sulfate 90 mcg/actuation 2 puff INHALATION Q6H PRN #6.7 g 01/21/20 aerosol inhaler montelukast 10 mg tablet 10 mg PO DAILY #90 tab 01/21/20 diclofenac sodium [Voltaren] 4 g TOPICAL QID #100 g 05/02/20 hydrocodone-acetaminophen 1 tab PO Q6H PRN #4 tab 05/02/20 lidocaine [Lidoderm] 1 patch TOPICAL DAILY #15 ea 05/02/20 Allergies Allergy/AdvReac Type Severity Reaction Status Date / Time Iodinated Contrast Media Allergy Severe Anaphylaxsi Verified 05/13/20 16:02 [Iodinated Contrast Media - s IV Dye] shellfish derived Allergy Severe Anaphylaxsi Verified 05/13/20 16:02 s Sulfa (Sulfonamide Allergy Intermediate Skin Rash Verified 05/13/20 16:02 Antibiotics) General Stated Complaint: Orthopedic ELISA: 3 [facility] Medical History Malignant neoplasm prostate Sciatica Surgical History (Updated 08/30/19 @ 14:32 by Oneyda Aguilera) History of back surgery 2 broken discs History of hernia repair History of knee surgery History of surgery on arm History of surgery on wrist Steroid Injection [facility];Lumbar epidural steroid injection;04/04/17 Social History Smoking/Tobacco Use Status: Former Tobacco Use Tobacco: How many years used: 20 Smoking risk assessment performed?: Yes Alcohol Intake: former Drug use: Never Substance use type: does not use Caregiver/Support person: No Housing: house Communication Needs: Corrective Lenses Do you need help understanding health information?: Rarely Pets and animals: Yes Pets and animals: dog(s) Sexually active: No Do you think of yourself as: straight/heterosexual Current gender identity: female What is your relationship status?: How often do you talk on the phone with friends or family?: three or more times per week How often do you get together with friends or relatives?: once per week How often do you attend yazidism or bahai services?: decline to answer Do you belong to any clubs or organized social groups?: no Panel score (0-1 are the most socially isolated patients): 1 What type of physical activity do you participate in: other Details: active on job Honey/Latter-Day: No preference Special honey needs: No Seatbelt use: always Helmet use: Yes Helmet use: always Drive 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 Do you feel safe at home: Yes Do you feel safe in your relationship?: Yes Course Vital Signs Vital signs: Vital Signs Temperature 36.6 C 05/13/20 15:59 Pulse 74 05/13/20 15:59 Respiratory Rate 16 05/13/20 15:59 Blood Pressure 141/79 H 05/13/20 15:59 Pulse Oximetry 94 05/13/20 15:59 Temperature 36.6 C 05/13/20 15:59 Temperature Source Skin 05/13/20 15:59 Pulse 74 05/13/20 15:59 Respiratory Rate 16 05/13/20 15:59 Blood Pressure 141/79 H 05/13/20 15:59 Blood Pressure Position Sitting 05/13/20 15:59 Pulse Oximetry 94 05/13/20 15:59 Oxygen Delivery Method Room Air 05/13/20 15:59 Oxygen Flow Rate 0 05/13/20 15:59 Pain Level 8 05/13/20 15:59
--- NOTE | 2020-05-13 17:47 | DI.VRAD_ITS ---
PROCEDURE INFORMATION: Exam: XR Right Wrist Exam date and time: 05/13/2020 5:16 PM Age: 60 years old Clinical indication: Injury or trauma; Fall; Sprain or strain; Wrist; Right TECHNIQUE: Imaging protocol: XR Right wrist. Views: 3 or more views. COMPARISON: None. FINDINGS: Bones/joints: Osseous mineralization is normal. There are no inflammatory osseous erosive changes. There are no acute displaced fractures or subluxations. The joint spaces are maintained without degenerative changes. There is mild chronic appearing deformity of the distal aspect of the 5th metacarpal suggesting old healed fracture. Soft tissues: Findings suggest mild soft tissue swelling along the dorsum of the right hand and wrist. IMPRESSION: 1. No acute displaced fractures or subluxations. If an occult nondisplaced fracture is clinically suspected, follow-up films in 7-10 days could be obtained. 2. Old healed 5th metacarpal fracture. Dictated and Authenticated by: Leonardo Bryant MD. Ordering:FELIPA Hollingsworth MD
[2020-05-13 17:58] VITALS: BP 134/87; PULSE 76; RESP 18; TEMP 36.8; O2SAT 100
--- NOTE | 2020-05-13 17:59 | DI.VRAD_ITS ---
PROCEDURE INFORMATION: Exam: XR Left Wrist Exam date and time: 05/13/2020 5:16 PM Age: 60 years old Clinical indication: Injury or trauma; Fall; Sprain or strain; Wrist; Left TECHNIQUE: Imaging protocol: XR Left wrist. Views: 3 or more views. COMPARISON: None. FINDINGS: Bones/joints: Osseous mineralization is normal. There are no inflammatory osseous erosive changes. There is [id number] narrowing of the radiocarpal joint at the level of the lunate, likely degenerative. The other joint spaces are maintained without degenerative change. There are no acute displaced fractures or subluxations. No focal osseous lesions are identified. Soft tissues: There is no soft tissue swelling or soft tissue air. There are few tiny soft tissue calcifications medial to the distal ulna which may be sequela of old trauma. IMPRESSION: 1. No acute displaced fracture or subluxation. 2. [id number] degenerative change of the radiocarpal joint. Dictated and Authenticated by: Leonardo Bryant MD. Ordering:FELIPA Hollingsworth MD
[2020-05-13 18:23] LABS: Abs Immature Grans 0.02 10^3/uL (0.0-0.06); Absolute Basophil Count 0.05 10^3/uL (0.0-0.2); Absolute Eosinophil Count 0.43 10^3/uL (0.0-0.7); Absolute Lymphocyte Count 1.56 10^3/uL (1.2-3.4); Absolute Monocyte Count 0.81 10^3/uL (0.1-0.8); Absolute Neutrophil Count 3.47 10^3/uL (1.2-6.7); Basophils % 0.8; Eosinophils % 6.8; HCT 41.2 % (40.0-50.0); HGB 13.7 g/dL (13.5-17.5); Immature Grans % 0.3; Lymphocytes % 24.6; MCH 28.1 pg (27.0-33.0); MCHC 33.3 % (32.0-36.0); MCV 84.6 fL (80-95); MPV 9.1 fL (8.0-11.0); Monocytes % 12.8; Neutrophils % 54.7; Nucleated RBC 0 %; Platelet Count 261 10^3/uL (130-400); RBC 4.87 10^6/uL (4.36-5.78); RDW-SD 36.6 fL; WBC 6.34 10^3/uL (4.4-10.8)
[2020-05-13 18:35] LABS: Anion Gap 8.7 mmol/L (3-11); BUN 15 mg/dL (7-18); C-Reactive Protein 12.46 mg/dL (0.0-0.3); CO2 28.3 mmol/L (21.0-32.0); Chloride 103 mmol/L (98-107); Glucose 103 mg/dL (74-106); Potassium 3.6 mmol/L (3.5-5.1); Sodium 140 mmol/L (136-145)
[2020-05-13] MEDS: predniSONE 20 MG TAB 60 MG PO (19:12)
[2020-05-13 19:56] LABS: ESR 94 mm/hr (<or=20)
--- NOTE | 2020-05-13 20:17 | ED.GENADUL_ITS ---
Discharge Plan Disposition Patient Disposition: HOME Discharge Details Clinical Impression: Arthralgia Primary Care Provider: Mamadou Ruiz ED Provider: Edel Leach Home Meds and New Rx's Prescriptions: New prednisone 10 mg tablet 10 mg PO DAILY Qty: 41 RF: 0 lidocaine [Lidoderm] 5 % adhesive patch,medicated 1 patch topical DAILY Qty: 15 RF: 0 Continued albuterol sulfate [ProAir HFA] 90 mcg/actuation HFA aerosol inhaler 2 puff inhalation Q6H PRN (Reason: shortness of breath or wheezing) Qty: 6.7 RF: 4 montelukast [Singulair] 10 mg tablet 10 mg PO DAILY Qty: 90 RF: 4 Otezla 30 mg tablet 30 mg PO BID RF: 0 multivitamin 1 EACH capsule 1 ea PO DAILY Qty: 2 RF: 0 diclofenac sodium [Voltaren] 1 % gel 4 g topical QID Qty: 100 RF: 0 lidocaine [Lidoderm] 5 % adhesive patch,medicated 1 patch topical DAILY Qty: 15 RF: 0 hydrocodone-acetaminophen 5-325 mg tablet 1 tab PO Q6H PRNQty: 4 RF: 0 Discharge Instructions Additional Instructions: Follow-up with orthopedics on Saturday, if they do not call you call the office Start the prednisone taper tomorrow, you received the first dose this evening You may take 1 g of Tylenol every 6 hours for the next several days as needed for pain Wear your splint You may also use the Lidoderm patches Please return immediately should you have spreading redness, fever, worsening pain Discharge Data Discharge Date/Time-TO BE ENTERED AT DEPARTURE: 05/13/20 19:38 Medical Decision Making <KIMBERLY Godoy - Last Filed: 05/13/20 20:26> I did consider septic joint, however given patient history and clinical exam findings I suspect his symptoms are related to polyarthralgia He does have a markedly elevated CRP at 12, his sed rate is elevated at 94 His CBC and BMP are reassuring I did also consider gouty arthritis although this is lower on my differential list Patient is afebrile, no tachycardia, and denies fever or chills No visible sign of trauma X-rays do not show acute pathology, patient does have noted arthritis on his left wrist There is no soft tissue gas on the x-ray No indication for antibiotics at this time He did review the case with Dr. Botello, orthopedics who will see patient in close outpatient evaluation and patient was placed in a wrist splint and put on the prednisone taper after consultation with orthopedics given the specialist return should you have spreading redness, fever, worsening pain Differential Diagnosis Differential Diagnosis: Septic arthritis, gouty arthritis, osteoarthritis, fracture, polyarthralgia Medical Records Medical records reviewed: Yes I reviewed the patient's medical records. Lab Data Lab results reviewed: Yes I reviewed the patient's lab results. <Rene Garcia MD - Last Filed: 05/27/20 17:52> Patient seen, examined, and discussed with KIMBERLY Leach. I agree with treatment plan as discussed/documented. HPI <KIMBERLY Godoy - Last Filed: 05/13/20 20:26> This 66-year-old gentleman with history of psoriasis and dyshidrotic eczema, malignant neoplasm prostate, hypertension presents with report of right wrist swelling. He states that he took a fall approximately 5 days ago which was mechanical in nature. He fell down approximately 14 stairs but denies head injury or back pain. He has pain to his buttocks as he landed on his buttocks when he reached the bottom of the stairs. He has been ambulatory and otherwise feeling improved but states that now his right wrist is bothering him and this began on Saturday. He states that Saturday he developed left wrist pain and it was very similar presentation to his current right wrist pain. He states that he took ibuprofen and applied Lidoderm patches and the pain in his left wrist resolved completely. He states that he has not attempted any medications for his right wrist and presents today today for evaluation. He denies any fever or chills. He also notes that he has had some intermittent shoulder pain. He denies chest pain, shortness of breath, history of IV drug abuse, laceration to the affected area. States pain is exacerbated with movement of his wrist. General Date/Time Provider Initiated Documentation: 05/13/20 16:09 . Related Data Home Medications Medication Instructions Recorded Confirmed multivitamin 1 ea PO DAILY #2 11/17/13 05/02/20 apremilast 30 mg tablet 30 mg PO BID 01/23/19 05/02/20 albuterol sulfate 90 mcg/actuation 2 puff INHALATION Q6H PRN #6.7 g 01/21/20 05/02/20 aerosol inhaler montelukast 10 mg tablet 10 mg PO DAILY #90 tab 01/21/20 05/02/20 diclofenac sodium [Voltaren] 4 g TOPICAL QID #100 g 05/02/20 hydrocodone-acetaminophen 1 tab PO Q6H PRN #4 tab 05/02/20 lidocaine [Lidoderm] 1 patch TOPICAL DAILY #15 ea 05/02/20 lidocaine [Lidoderm] 1 patch TOPICAL DAILY #15 ea 05/13/20 prednisone 10 mg PO DAILY #41 tab 05/13/20 Previous Rx's Medication Instructions Recorded albuterol sulfate 90 mcg/actuation 2 puff INHALATION Q6H PRN #6.7 g 01/21/20 aerosol inhaler montelukast 10 mg tablet 10 mg PO DAILY #90 tab 01/21/20 diclofenac sodium [Voltaren] 4 g TOPICAL QID #100 g 05/02/20 hydrocodone-acetaminophen 1 tab PO Q6H PRN #4 tab 05/02/20 lidocaine [Lidoderm] 1 patch TOPICAL DAILY #15 ea 05/02/20 lidocaine [Lidoderm] 1 patch TOPICAL DAILY #15 ea 05/13/20 prednisone 10 mg PO DAILY #41 tab 05/13/20 Allergies Allergy/AdvReac Type Severity Reaction Status Date / Time Iodinated Contrast Media Allergy Severe Anaphylaxsi Verified 05/13/20 16:02 [Iodinated Contrast Media - s IV Dye] shellfish derived Allergy Severe Anaphylaxsi Verified 05/13/20 16:02 s Sulfa (Sulfonamide Allergy Intermediate Skin Rash Verified 05/13/20 16:02 Antibiotics) General Stated Complaint: Orthopedic ELISA: 3 <Rene Garcia MD - Last Filed: 05/27/20 17:52> This 66-year-old gentleman with history of psoriasis and dyshidrotic eczema, malignant neoplasm prostate, hypertension presents with report of right wrist swelling. He states that he took a fall approximately 5 days ago which was m echanical in nature. He fell down approximately 14 stairs but denies head injury or back pain. He has pain to his buttocks as he landed on his buttocks when he reached the bottom of the stairs. He has been ambulatory and otherwise feeling improved but states that now his right wrist is bothering him and this began on Saturday. He states that Saturday he developed left wrist pain and it was very similar presentation to his current right wrist pain. He states that he took ibuprofen and applied Lidoderm patches and the pain in his left wrist resolved completely. He states that he has not attempted any medications for his right wrist and presents today today for evaluation. He denies any fever or chills. He also notes that he has had some intermittent shoulder pain. He denies chest pain, shortness of breath, history of IV drug abuse, laceration to the affected area. States pain is exacerbated with movement of his wrist. Review of Systems <KIMBERLY Godoy - Last Filed: 05/13/20 20:26> Narrative: Review of systems obtained x7 aside from where indicated in HPI PFSH <KIMBERLY Godoy - Last Filed: 05/13/20 20:26> Medical History Malignant neoplasm prostate Sciatica Surgical History (Updated 08/30/19 @ 14:32 by Oneyda Aguilera) History of back surgery 2 broken discs History of hernia repair History of knee surgery History of surgery on arm History of surgery on wrist [facility];Lumbar epidural steroid injection;04/04/17 Social History Smoking/Tobacco Use Status: Former Tobacco Use Tobacco: How many years used: 20 Smoking risk assessment performed?: Yes Alcohol Intake: former Drug use: Never Substance use type: does not use Caregiver/Support person: No Housing: house Communication Needs: Corrective Lenses Do you need help understanding health information?: Rarely Pets and animals: Yes Pets and animals: dog(s) Sexually active: No Do you think of yourself as: straight/heterosexual Current gender identity: female What is your relationship status?: How often do you talk on the phone with friends or family?: three or more times per week How often do you get together with friends or relatives?: once per week How often do you attend roman catholic or amish services?: decline to answer Do you belong to any clubs or organized social groups?: no Panel score (0-1 are the most socially isolated patients): 1 What type of physical activity do you participate in: other Details: active on job Honey/Uatsdin: No preference Special honey needs: No Seatbelt use: always Helmet use: Yes Helmet use: always Drive 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 tow car driver: No Do you feel safe at home: Yes Do you feel safe in your relationship?: Yes Exam <KIMBERLY Godoy - Last Filed: 05/13/20 20:26> Neuro General: patient alert and patient oriented x3 Extrem Other: Right wrist with erythema and swelling to base of MCP and extending to mid wrist Neurovascularly intact No crepitus Clinically low suspicion for septic Course <KIMBERLY Godoy - Last Filed: 05/13/20 20:26> Vital Signs Vital signs: Vital Signs Temperature 36.6 C 05/13/20 15:59 Pulse 74 05/13/20 15:59 Respiratory Rate 16 05/13/20 15:59 Blood Pressure 141/79 H 05/13/20 15:59 Pulse Oximetry 94 05/13/20 15:59 Temperature 36.8 C 05/13/20 17:58 Temperature Source Skin 05/13/20 17:58 Pulse 76 05/13/20 17:58 Respiratory Rate 18 05/13/20 17:58 Respiratory Effort Non-Labored 05/13/20 18:13 Blood Pressure 134/87 05/13/20 17:58 Blood Pressure Position Sitting 05/13/20 15:59 Pulse Oximetry 100 05/13/20 17:58 Oxygen Delivery Method Room Air 05/13/20 17:58 Oxygen Flow Rate 0 05/13/20 17:58 Pain Level 8 05/13/20 15:59 Lab/Test Results Lab/Test Results: Laboratory Tests Range/Units 05/13/20 05/13/20 05/13/20 18:10 18:10 18:10 WBC (4.4-10.8) 10^3/uL 6.34 RBC (4.36-5.78) 10^6/uL 4.87 Hgb (13.5-17.5) g/dL 13.7 Hct (40.0-50.0) % 41.2 MCV (80-95) fL 84.6 MCH (27.0-33.0) pg 28.1 MCHC (32.0-36.0) % 33.3 RDW (11.8-14.1) % 12.0 Plt Count (130-400) 10^3/uL 261 MPV (8.0-11.0) fL 9.1 Immature Gran % 0.3 Neutrophils % 54.7 Lymphocytes % 24.6 Monocytes % 12.8 Eosinophils % 6.8 Basophils % 0.8 Nucleated RBC % % 0 Absolute Neutrophils (1.2-6.7) 10^3/uL 3.47 Absolute Lymphocytes (1.2-3.4) 10^3/uL 1.56 Absolute Monocytes (0.1-0.8) 10^3/uL 0.81 H Absolute Eosinophils (0.0-0.7) 10^3/uL 0.43 Absolute Basophils (0.0-0.2) 10^3/uL 0.05 ESR (<or=20) mm/hr 94 H Sodium (136-145) mmol/L 140 Potassium (3.5-5.1) mmol/L 3.6 Chloride (98-107) mmol/L 103 Carbon Dioxide (21.0-32.0) mmol/L 28.3 Anion Gap (3-11) mmol/L 8.7 BUN (7-18) mg/dL 15 Creatinine (0.70-1.30) mg/dL 1.0 Estimated GFR/1.73 m2 (mL/min/1.73m2) >= 60.00 Glucose (74-106) mg/dL 103 Calcium (8.5-10.1) mg/dL 9.0 C-Reactive Protein (0.0-0.3) mg/dL 12.46 H
== END 2020-05-13 19:38 | disposition home or self-care (01) ==
PROVIDERS: Emergency Provider Physician Assistant; PCP Emergency Medicine
DX: M25.531 Pain in right wrist (principal); M25.532 Pain in left wrist; M25.431 Effusion, right wrist; R79.82 Elevated C-reactive protein (CRP); R70.0 Elevated erythrocyte sedimentation rate
CPT/HCPCS: 29125; 36415; 80048; 85652; 99284; 73110; 85025; 86140; 99283; J7512

== ENCOUNTER 2020-07-11 20:27 | Emergency (ER) | payer BC, SELFPAY ==
[2020-07-11 20:32] VITALS: BP 122/83; PULSE 102; RESP 14; TEMP 37.5
--- NOTE | 2020-07-11 20:45 | DI.RAD_ITS ---
Exam(s) XR SHOULDER RT COMPLETE 2+V EXAM: XR SHOULDER RT COMPLETE 2+V CLINICAL HISTORY: Ant-lat pain. TECHNIQUE: 2D digital imaging was performed. COMPARISON: No exams were available for comparison FINDINGS: BONES: No acute fracture is present. There are cystic changes in the inferior glenoid. There is mil d periarticular spurring. JOINTS: No dislocation present. There is mild spurring at the AC joint. Bony density seen superior t o the AC joint which appears chronic. SOFT TISSUE: Normal. IMPRESSION: Degenerative changes of the glenohumeral joint with subchondral cysts of the glenoid. DATA REPOSITORY: RADIATION DOSE DELIVERED:
--- NOTE | 2020-07-11 20:51 | W.ED.GENAD ---
Discharge Plan Disposition Patient Disposition: HOME Condition: Improving Discharge Details Clinical Impression: Arthralgia, Pain, joint, shoulder, right Primary Care Provider: Mamadou Ruiz ED Provider: Butch Juárez Home Meds and New Rx's Prescriptions: New prednisone 50 mg tablet 50 mg PO DAILY 5 Days Qty: 5 RF: 0 oxycodone-acetaminophen [Percocet] 5-325 mg tablet 1 tab PO Q6H PRN (Reason: pain) Qty: 5 RF: 0 Continued albuterol sulfate [ProAir HFA] 90 mcg/actuation HFA aerosol inhaler 2 puff inhalation Q6H PRN (Reason: shortness of breath or wheezing) Qty: 6.7 RF: 4 Otezla 30 mg tablet 30 mg PO BID RF: 0 multivitamin 1 EACH capsule 1 ea PO DAILY Qty: 2 RF: 0 lidocaine [Lidoderm] 5 % adhesive patch,medicated 1 patch topical DAILY Qty: 15 RF: 0 diclofenac sodium [Voltaren] 1 % gel 4 g topical QID Qty: 100 RF: 0 Discontinued hydrocodone-acetaminophen 5-325 mg tablet 1 tab PO Q6H PRNQty: 4 RF: 0 Discharge Instructions Instructions: Shoulder Pain (ED) Additional Instructions: We will refer you to orthopedic clinic for follow-up. Please call the office at [phone] for an appointment time. Please wear sling 5 to 7 days as needed for comfort. Take prednisone as prescribed. May use provided Percocet as needed for severe/breakthrough pain. Do not take additional Tylenol or other pain medicines with this medication. See enclosed work note. Return to the ER for any acute concerns. Stand Alone Forms: Work Release Medical Decision Making 61-year-old male states he awoke this morning with right shoulder pain this and worse with movement throughout the day. No fever, denies fall or injury. Has had numerous arthralgias in the past. He arrives to ER afebrile, interactive, in some pain with elevated pulse of 100. His right anterolateral shoulder pain is reproducible. Differential diagnosis includes arthralgia, tendinitis, strain, bursitis. The patient offered analgesia and referred for x-ray. Radiograph: Cystic degenerative changes of the inferior glenoid. Soft tissue calcification cephalad to the AC joint. Patient with some improvement following analgesia. Most consistent with arthritic pain. No fever or rash. We will place on prednisone for its anti-inflammatory properties, sling, Lidoderm patch, oral analgesia as needed. We will have the patient follow-up in orthopedic clinic for recheck. He is stable at this time for outpatient management. HPI General Mode of arrival: ambulatory. Date/Time Provider Initiated Documentation: 07/11/20 20:28. Limitations to Documentation: no limitations. Information obtained by: patient. History of Present Illness 60 year old M presents to the emergency department with the chief complaint of Right shoulder pain, described as moderate, Quality is described as dull and constant, and is localized to the right and upper extremity. Patient started experiencing this hour(s) and it has been constant. Rest improves symptom(s), Movement worsens symptoms . Patient notes denies fever/chills and rash. Patient did receive the following treatments prior to arrival, other (Oral analgesic) Related Data Home Medications Medication Instructions Recorded Confirmed multivitamin 1 ea PO DAILY #2 11/17/07/11/20 apremilast 30 mg tablet 30 mg PO BID 01/23/19 07/11/20 albuterol sulfate 90 mcg/actuation 2 puff INHALATION Q6H PRN #6.7 g 01/21/20 05/02/20 aerosol inhaler diclofenac sodium [Voltaren] 4 g TOPICAL QID #100 g 05/02/20 07/11/20 lidocaine [Lidoderm] 1 patch TOPICAL DAILY #15 ea 05/13/20 07/11/20 oxycodone-acetaminophen [Percocet] 1 tab PO Q6H PRN #5 tab 07/11/20 prednisone 50 mg PO DAILY 5 Days #5 tab 07/11/20 Previous Rx's Medication Instructions Recorded albuterol sulfate 90 mcg/actuation 2 puff INHALATION Q6H PRN #6.7 g 01/21/20 aerosol inhaler diclofenac sodium [Voltaren] 4 g TOPICAL QID #100 g 05/02/20 lidocaine [Lidoderm] 1 patch TOPICAL DAILY #15 ea 05/13/20 oxycodone-acetaminophen [Percocet] 1 tab PO Q6H PRN #5 tab 07/11/20 prednisone 50 mg PO DAILY 5 Days #5 tab 07/11/20 Allergies Allergy/AdvReac Type Severity Reaction Status Date / Time Iodinated Contrast Media Allergy Severe Anaphylaxsi Verified 07/11/20 20:38 [Iodinated Contrast Media - s IV Dye] shellfish derived Allergy Severe Anaphylaxsi Verified 07/11/20 20:38 s Sulfa (Sulfonamide Allergy Intermediate Skin Rash Verified 07/11/20 20:38 Antibiotics) General Stated Complaint: Orthopedic ELISA: 4 Review of Systems Narrative: No fall or injury. 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 No chills or fever. No rash. 6 systems reviewed and otherwise negative [facility] [place] Medical History Malignant neoplasm prostate Sciatica Surgical History (Updated 08/30/19 @ 14:32 by Oneyda Aguilera) History of back surgery 2 broken discs History of hernia repair History of knee surgery History of surgery on arm History of surgery on wrist Steroid Injection [facility];Lumbar epidural steroid injection;04/04/17 Social History Smoking/Tobacco Use Status: Former Tobacco Use Tobacco: How many years used: 20 Smoking risk assessment performed?: Yes Alcohol Intake: former Drug use: Never Substance use type: does not use Caregiver/Support person: No Housing: house Communication Needs: Corrective Lenses Do you need help understanding health information?: Rarely Pets and animals: Yes Pets and animals: dog(s) Sexually active: No Do you think of yourself as: straight/heterosexual Current gender identity: female What is your relationship status?: How often do you talk on the phone with friends or family?: three or more times per week How often do you get together with friends or relatives?: once per week How often do you attend congregation or jainism services?: decline to answer Do you belong to any clubs or organized social groups?: no Panel score (0-1 are the most socially isolated patients): 1 What type of physical activity do you participate in: other Details: active on job Honey/Sabianist: No preference Special honey needs: No Seatbelt use: always Helmet use: Yes Helmet use: always Drive 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 fork truck 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 Pleasant, well groomed, interactive. HEAD: Normocephalic, atraumatic ENT: Mucous membranes moist, External ear exam unremarkable EYES: PERRL, EOMI NECK: Full ROM, no HOMERO, no menigismus CHEST/RESP: Nontender, clear to auscultation bilateral, no wheeze/rhonchi/rales CARDIOVASCULAR: RRR, no murmur, rub geovany. 2+ Rad pulse bilateral EXT: Limited range of motion right shoulder. Tender anterolateral glenohumeral joint. Distal motor function intact. Distal sensation normal. 2+ radial pulse bilateral upper extremity. Upper extremities otherwise unremarkable, no edema, no rash Neuro: Grossly normal neurologic exam, conversant, interactive. Psych: Speech fluent, thoughts congruent, affect normal Course Vital Signs Vital signs: Vital Signs Temperature 37.5 C 07/11/20 20:32 Pulse 102 H 07/11/20 20:32 Respiratory Rate 14 07/11/20 20:32 Blood Pressure 122/83 07/11/20 20:32 Temperature 37.5 C 07/11/20 20:32 Temperature Source Skin 07/11/20 20:32 Pulse 102 H 07/11/20 20:32 Respiratory Rate 14 07/11/20 20:32 Respiratory Effort Non-Labored 07/11/20 20:40 Blood Pressure 122/83 07/11/20 20:32 Blood Pressure Position Sitting 07/11/20 20:32 Oxygen Delivery Method Room Air 07/11/20 20:32 Oxygen Flow Rate 0 07/11/20 20:32 Pain Level 9 07/11/20 20:40
[2020-07-11] MEDS: oxyCODONE 10 MG TAB PO (21:15)
[2020-07-11] MEDS: Ketorolac 60 MG/2 ML VIAL IM (21:16)
--- NOTE | 2020-07-11 21:20 | DI.VRAD_ITS ---
PROCEDURE INFORMATION: Exam: XR Right Shoulder Exam date and time: 07/11/2020 8:50 PM Age: 60 years old Clinical indication: Shoulder; Right; Patient HX: Ant-lat pain TECHNIQUE: Imaging protocol: XR Right shoulder. Views: 2 or more views. COMPARISON: NM WHOLE BODY BONE SCAN 04/25/2017 11:34 AM FINDINGS: Bones/joints: Cystic degenerative change of the inferior glenoid, suggested on the comparison PET scan. No acute fracture or dislocation. Soft tissues: Soft tissue calcification cephalad to the acromioclavicular joint, suggesting prior soft tissue injury. IMPRESSION: Cystic changes of the inferior glenoid, likely degenerative in nature. Dictated and Authenticated by: Karson Javier MD. Ordering:IEVTT Rae MD
[2020-07-11] MEDS: Lidocaine 5% Patch 1 PATCH TP (21:53)
[2020-07-11] MEDS: predniSONE 20 MG TAB 60 MG PO (21:54)
[2020-07-11 22:04] VITALS: BP 127/70; PULSE 82; RESP 16; O2SAT 93
== END 2020-07-11 22:00 | disposition home or self-care (01) ==
PROVIDERS: Emergency Provider Emergency Medicine; PCP Emergency Medicine
DX: M25.511 Pain in right shoulder (principal)
CPT/HCPCS: 96372; 99284; 73030; 99283; J1885; J7512

== ENCOUNTER 2020-07-28 18:29 | Emergency (ER) | payer BC, SELFPAY ==
[2020-07-28 18:34] VITALS: BP 155/93; PULSE 101; RESP 20; TEMP 36.9; O2SAT 96
--- NOTE | 2020-07-28 18:45 | ED.GENADUL_ITS ---
Discharge Plan Disposition Patient Disposition: HOME Condition: Stable Discharge Details Clinical Impression: Hand pain, right Primary Care Provider: Mamadou Ruiz ED Provider: Peter Fitzpatrick Home Meds and New Rx's Prescriptions: New prednisone 20 mg tablet 60 mg PO DAILY 4 Days Qty: 12 RF: 0 amoxicillin-pot clavulanate [Augmentin] 875-125 mg tablet 1 tab PO BID Qty: 14 RF: 0 Continued albuterol sulfate [ProAir HFA] 90 mcg/actuation HFA aerosol inhaler 2 puff inhalation Q6H PRN (Reason: shortness of breath or wheezing) Qty: 6.7 RF: 4 Otezla 30 mg tablet 30 mg PO BID RF: 0 multivitamin 1 EACH capsule 1 ea PO DAILY Qty: 2 RF: 0 lidocaine [Lidoderm] 5 % adhesive patch,medicated 1 patch topical DAILY Qty: 15 RF: 0 prednisone 50 mg tablet 50 mg PO DAILY 5 Days Qty: 5 RF: 0 oxycodone-acetaminophen [Percocet] 5-325 mg tablet 1 tab PO Q6H PRN (Reason: pain) Qty: 5 RF: 0 diclofenac sodium [Voltaren] 1 % gel 4 g topical QID Qty: 100 RF: 0 Discharge Instructions Additional Instructions: I suspect arthritis based on your recurrent symptoms but am covering for possible skin infection follow up with your primary care provider if you have severe worsening pain, fevers, or feel more ill return to the emergency department Medical Decision Making 60 yo male comes in with pain and swelling on posterior right hand pain that he says he has had happened to him before. 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 He denies fevers or chills. He has posterior right hand pain and swelling and proximal thumb pain. There is no erythema but it is warm. Has normal sensation pulses and full range of motion of the hand and wrist. No swelling elsewhere on the arm. Suspect arthritis given recurrent issues but will xray to evaluate for possible stress fracture. Will treat with prednisone for likely arthritis and consider antibiotic to cover for cellulitis though feel this is less likely. No findings to suggest dvt. xray negative, I suspect arthritis given recurrent pain, will have him see his pcp in follow up and cover for possible cellulitis with augmentin. Will d/c and return precautions given Differential Diagnosis Differential Diagnosis: arthritis, cellulitis, sprain Imaging Data Radiologic Study: Attestation: I personally reviewed and interpreted this imaging study as follows: Imaging: X-Ray Radiologist's impression: PROCEDURE INFORMATION: Exam: XR Right Hand Exam date and time: 07/28/2020 6:44 PM Age: 60 years old Clinical indication: Hand; Right; Patient HX: Pain and swelling x1 day. Per PT, it happens on and off for the past several years. Previous FX 25+/- years ago. No known recent trauma. TECHNIQUE: Imaging protocol: XR Right hand. Views: 3 or more views. COMPARISON: [place] WHOLE BODY BONE SCAN 04/25/2017 11:34 AM FINDINGS: Bones/joints: Subluxation at the proximal interphalangeal joint of the 4th digit. Deformity of the distal aspect of the proximal phalanx of the 4th digit. Soft tissues: Grossly unremarkable. IMPRESSION: No acute displaced fracture identified. Subluxation at the proximal interphalangeal joint of the 4th digit with likely chronic deformity of the distal aspect of the proximal phalanx of the 4th digit of the right hand. Degenerative changes within proximal interphalangeal joint of the 4th digit HPI General Mode of arrival: ambulatory . Date/Time Provider Initiated Documentation: 07/28/20 18:31 . Limitations to Documentation: no limitations . Information obtained by: patient . History of Present Illness 60 year old M presents to the emergency department with the chief complaint of right hand pain, described as moderate, Quality is described as aching, and is localized to the right and upper extremity. Patient reports no radiation. Patient started experiencing this day(s) (1) and it has been constant. No relieving factors improve symptom(s), No exacerbating factors reported . Patient notes no other symptoms.. Patient did receive the following treatments prior to arrival, none Related Data Home Medications Medication Instructions Recorded Confirmed multivitamin 1 ea PO DAILY #2 11/17/13 07/28/20 apremilast 30 mg tablet 30 mg PO BID 01/23/19 07/28/20 albuterol sulfate 90 mcg/actuation 2 puff INHALATION Q6H PRN #6.7 g 01/21/20 07/28/20 aerosol inhaler diclofenac sodium [Voltaren] 4 g TOPICAL QID #100 g 05/02/20 07/28/20 lidocaine [Lidoderm] 1 patch TOPICAL DAILY #15 ea 05/13/20 07/28/20 oxycodone-acetaminophen [Percocet] 1 tab PO Q6H PRN #5 tab 07/11/20 prednisone 50 mg PO DAILY 5 Days #5 tab 07/11/20 amoxicillin-pot clavulanate 1 tab PO BID #14 tab 07/28/20 [Augmentin] prednisone 60 mg PO DAILY 4 Days #12 tab 07/28/20 Previous Rx's Medication Instructions Recorded albuterol sulfate 90 mcg/actuation 2 puff INHALATION Q6H PRN #6.7 g 01/21/20 aerosol inhaler diclofenac sodium [Voltaren] 4 g TOPICAL QID #100 g 05/02/20 lidocaine [Lidoderm] 1 patch TOPICAL DAILY #15 ea 05/13/20 oxycodone-acetaminophen [Percocet] 1 tab PO Q6H PRN #5 tab 07/11/20 prednisone 50 mg PO DAILY 5 Days #5 tab 07/11/20 amoxicillin-pot clavulanate 1 tab PO BID #14 tab 07/28/20 [Augmentin] prednisone 60 mg PO DAILY 4 Days #12 tab 07/28/20 Allergies Allergy/AdvReac Type Severity Reaction Status Date / Time Iodinated Contrast Media Allergy Severe Anaphylaxsi Verified 07/28/20 18:38 [Iodinated Contrast Media - s IV Dye] shellfish derived Allergy Severe Anaphylaxsi Verified 07/28/20 18:38 s Sulfa (Sulfonamide Allergy Intermediate Skin Rash Verified 07/28/20 18:38 Antibiotics) General Stated Complaint: Cellulitis ELISA: 3 Review of Systems All systems reviewed & are unremarkable except as noted in HPI and below Constitutional Constitutional: Denies chills and Denies fever(s) Cardiovascular Cardiovascular: Denies chest pain and Denies dyspnea Respiratory Respiratory: Denies cough and Denies dyspnea Gastrointestinal Gastrointestinal: Denies abdominal pain, Denies nausea and Denies vomiting Genitourinary Genitourinary: Denies dysuria [facility] Medical History Malignant neoplasm prostate Sciatica Surgical History (Updated 08/30/19 @ 14:32 by Oneyda Aguilera) History of back surgery 2 broken discs History of hernia repair History of knee surgery History of surgery on arm History of surgery on wrist Steroid [facility]jection [facility];Lumbar epidural steroid injection;04/04/17 Social History Smoking/Tobacco Use Status: Former Tobacco Use Tobacco: How many years used: 20 Smoking risk assessment performed?: Yes Alcohol Intake: former Drug use: Never Substance use type: does not use Caregiver/Support person: No Housing: house Communication Needs: Corrective Lenses Do you need help understanding health information?: Rarely Pets and animals: Yes Pets and animals: dog(s) Sexually active: No Do you think of yourself as: straight/heterosexual Current gender identity: female What is your relationship status?: How often do you talk on the phone with friends or family?: three or more times per week How often do you get together with friends or relatives?: once per week How often do you attend moravian or restorationist services?: decline to answer Do you belong to any clubs or organized social groups?: no Panel score (0-1 are the most socially isolated patients): 1 What type of physical activity do you participate in: other Details: active on job Honey/Taoism: No preference Special honey needs: No Seatbelt use: always Helmet use: Yes Helmet use: always Drive 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 entry level truck driver: No Do you feel safe at home: Yes Do you feel safe in your relationship?: Yes Exam Const General: no acute distress Orientation: alert HENHI Head: normal to inspection Ears: external ears normal General nose exam: external nose normal Mouth: moist mucous membranes Eyes General: appearance normal, both eyes and all related structures Neck Neck: normal visual inspection Resp Effort & Inspection: normal respiratory effort and able to speak in complete sentences Cardio Rate: regular rate Skin General skin exam: no rashes or lesions noted Neuro General: patient alert, patient oriented x3 and gait normal Extrem General: full ROM and capillary refill normal Psych Mental Status: mental status grossly normal Course Vital Signs Vital signs: Vital Signs Temperature 36.9 C 07/28/20 18:34 Pulse 101 H 07/28/20 18:34 Respiratory Rate 20 07/28/20 18:34 Blood Pressure 155/93 H 07/28/20 18:34 Pulse Oximetry 96 07/28/20 18:34 Temperature 36.9 C 07/28/20 18:34 Temperature Source Temporal Artery Scan 07/28/20 18:34 Pulse 101 H 07/28/20 18:34 Respiratory Rate 20 07/28/20 18:34 Respiratory Effort Non-Labored 07/28/20 18:41 Blood Pressure 155/93 H 07/28/20 18:34 Blood Pressure Position Sitting 07/28/20 18:34 Pulse Oximetry 96 07/28/20 18:34 Oxygen Delivery Method Room Air 07/28/20 18:34 Oxygen Flow Rate 0 07/28/20 18:34 Pain Level 8 07/28/20 18:34
[2020-07-28] MEDS: predniSONE 20 MG TAB 60 MG PO (18:48)
[2020-07-28] MEDS: Acetaminophen 500 MG TAB 1000 MG PO (18:48)
--- NOTE | 2020-07-28 19:19 | DI.RAD_ITS ---
Exam(s) XR HAND RT COMPLETE EXAM: XR HAND RT COMPLETE CLINICAL HISTORY: swelling and pain. TECHNIQUE: 2D digital imaging was performed. COMPARISON: No exams were available for comparison FINDINGS: BONES: No acute fracture is present. No bony destructive lesion is seen. JOINTS: Degenerative changes are seen in the right hand particularly at the PIP joint of the right ri ng finger. There is mild subluxation of the PIP joint of the ring finger. These findings are likely chronic. SOFT TISSUE: Normal. IMPRESSION: 1. No acute fracture is identified. 2. Degenerative changes in the right hand particularly at the ring finger. Findings at the PIP joint of the ring finger likely chronic. DATA REPOSITORY: RADIATION DOSE DELIVERED:
--- NOTE | 2020-07-28 19:48 | DI.VRAD_ITS ---
PROCEDURE INFORMATION: Exam: XR Right Hand Exam date and time: 07/28/2020 6:44 PM Age: 60 years old Clinical indication: Hand; Right; Patient HX: Pain and swelling x1 day. Per PT, it happens on and off for the past several years. Previous FX 25+/- years ago. No known recent trauma. TECHNIQUE: Imaging protocol: XR Right hand. Views: 3 or more views. COMPARISON: [place] WHOLE BODY BONE SCAN 04/25/2017 11:34 AM FINDINGS: Bones/joints: Subluxation at the proximal interphalangeal joint of the 4th digit. Deformity of the distal aspect of the proximal phalanx of the 4th digit. Soft tissues: Grossly unremarkable. IMPRESSION: No acute displaced fracture identified. Subluxation at the proximal interphalangeal joint of the 4th digit with likely chronic deformity of the distal aspect of the proximal phalanx of the 4th digit of the right hand. Degenerative changes within proximal interphalangeal joint of the 4th digit. Dictated and Authenticated by: Marcus Katz MD. Ordering:JOY Green MD
[2020-07-28] MEDS: Amoxicillin 875/Clav. 125 TAB PO (20:18)
[2020-07-28 20:19] VITALS: BP 146/86; PULSE 89; RESP 18; O2SAT 94
== END 2020-07-28 20:25 | disposition home or self-care (01) ==
PROVIDERS: Emergency Provider Emergency Medicine; PCP Emergency Medicine
DX: M79.641 Pain in right hand (principal)
CPT/HCPCS: 99283; 73130; J7512

== ENCOUNTER 2020-08-06 14:02 | Emergency (ER) | payer BC, SELFPAY ==
[2020-08-06 14:08] VITALS: BP 119/71; PULSE 108; RESP 18; O2SAT 97
--- NOTE | 2020-08-06 15:05 | W.ED.GENAD ---
Discharge Plan Disposition Patient Disposition: HOME Condition: Stable Discharge Details Clinical Impression: Bilateral hand pain Primary Care Provider: Mamadou Ruiz ED Provider: Waqar Bernal Home Meds and New Rx's Prescriptions: New naproxen [Naprosyn] 500 mg tablet 500 mg PO BID PRNQty: 20 RF: 0 prednisone 20 mg tablet 60 mg PO DAILY 5 Days Qty: 15 RF: 0 Continued albuterol sulfate [ProAir HFA] 90 mcg/actuation HFA aerosol inhaler 2 puff inhalation Q6H PRN (Reason: shortness of breath or wheezing) Qty: 6.7 RF: 4 Otezla 30 mg tablet 30 mg PO BID RF: 0 multivitamin 1 EACH capsule 1 ea PO DAILY Qty: 2 RF: 0 lidocaine [Lidoderm] 5 % adhesive patch,medicated 1 patch topical DAILY Qty: 15 RF: 0 amoxicillin-pot clavulanate [Augmentin] 875-125 mg tablet 1 tab PO BID Qty: 14 RF: 0 diclofenac sodium [Voltaren] 1 % gel 4 g topical QID Qty: 100 RF: 0 Discharge Instructions Instructions: Arthralgia (ED) Additional Instructions: Continue your medications as directed. Add on Naprosyn and prednisone as directed. Cool and/or warm compresses every 2 hours for 20 minutes. Please watch for new or worsening symptoms and return to the ER for any concerns. I would like you to contact your primary care provider on Saturday to discuss your ongoing symptoms, frustration, and that the rheumatology referral did not go through. I am placing you on our care management list to help you with the rheumatology referral as well Discharge Data Discharge Date/Time-TO BE ENTERED AT DEPARTURE: 08/06/20 15:13 Medical Decision Making This is a 60-year-old male with ongoing intermittent polyarthralgias, primarily in his bilateral hands, also reporting pain in his right shoulder at times. He has been seen in the ER, by his primary care provider, referred to orthopedics and rheumatology. Scheduled to begin physical therapy next week. Clinically he appears well, nontoxic, afebrile. Given his symptoms are recurring, he has already had a blood work and x-rays performed, I am not sure of what benefit of repeating these studies will be today. I did consider septic joint, however given patient history and clinical exam findings I suspect his symptoms are related to polyarthralgia. Examination is not consistent with cellulitis, arthritis, acute trauma, DVT. The rest of his arm examination is unremarkable.. Patient is afebrile, no tachycardia (108) in triage, in the high 80s during my evaluation, and denies fever or chills. No visible sign of trauma. I had a very candid conversation with the patient about his reoccurring symptoms and his expectations here in the ER today. I see no clear indication for antibiotic therapy. Patient does state that steroids have worked well in the past and he has not been on an oral anti-inflammatory medication. I will also place him on the care management list to help him expedite his outpatient follow-up care for his ongoing symptoms. Patient is comfortable with this plan and has no additional questions or concerns at this time. Medical Records Medical records reviewed: Yes I reviewed the patient's medical records. HPI General Mode of arrival: ambulatory. Date/Time Provider Initiated Documentation: 08/06/20 14:04. Limitations to Documentation: no limitations. Information obtained by: patient. HPI Narrative: This is a 60-year-old male, past medical history of sciatica, previous smoker, psoriasis, asthma, multiple joint pain, presenting to the ER today complaining of ongoing left hand pain and swelling, he is right-hand dominant. 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 He states that over the last few months he has had bilateral intermittent hand swelling, has been treated with steroids which seems to help, also antibiotics which seemed less helpful. He denies any obvious trauma or illness. Also is dealing with right shoulder pain. He has been seen in the ER and by his primary care provider. Referred to orthopedics and rheumatology. Patient is frustrated because he states that the pipe testing technician called back and said that he did not need to be seen by the specialty clinic. Patient states that he is simply not getting the answers he wants, has had blood work, x-rays, and is unsure what to do next. He denies any other joint pain at this time, fever, numbness, tingling, weakness. Patient has not been taking any [id number]-[id number] medication for his symptoms. Patient states the pain right now is mild and he wants to be aggressive treating it before it gets worse and he cannot work. Related Data Home Medications Medication Instructions Recorded Confirmed multivitamin 1 ea PO DAILY #2 11/17/13 08/06/20 apremilast 30 mg tablet 30 mg PO BID 01/23/19 08/06/20 albuterol sulfate 90 mcg/actuation 2 puff INHALATION Q6H PRN #6.7 g 01/21/20 08/06/20 aerosol inhaler diclofenac sodium [Voltaren] 4 g TOPICAL QID #100 g 05/02/20 08/06/20 lidocaine [Lidoderm] 1 patch TOPICAL DAILY #15 ea 05/13/20 08/06/20 amoxicillin-pot clavulanate 1 tab PO BID #14 tab 07/28/20 08/02/20 [Augmentin] naproxen [Naprosyn] 500 mg PO BID PRN #20 tab 08/06/20 prednisone 60 mg PO DAILY 5 Days #15 tab 08/06/20 Previous Rx's Medication Instructions Recorded albuterol sulfate 90 mcg/actuation 2 puff INHALATION Q6H PRN #6.7 g 01/21/20 aerosol inhaler diclofenac sodium [Voltaren] 4 g TOPICAL QID #100 g 05/02/20 lidocaine [Lidoderm] 1 patch TOPICAL DAILY #15 ea 05/13/20 amoxicillin-pot clavulanate 1 tab PO BID #14 tab 07/28/20 [Augmentin] naproxen [Naprosyn] 500 mg PO BID PRN #20 tab 08/06/20 prednisone 60 mg PO DAILY 5 Days #15 tab 08/06/20 Allergies Allergy/AdvReac Type Severity Reaction Status Date / Time Iodinated Contrast Media Allergy Severe Anaphylaxsi Verified 08/06/20 14:11 [Iodinated Contrast Media - s IV Dye] shellfish derived Allergy Severe Anaphylaxsi Verified 08/06/20 14:11 s Sulfa (Sulfonamide Allergy Intermediate Skin Rash Verified 08/06/20 14:11 Antibiotics) General Stated Complaint: Cellulitis ELISA: 4 Review of Systems Constitutional Constitutional: Denies fever(s) and Denies weakness Cardiovascular Cardiovascular: Denies chest pain and Denies dyspnea Respiratory Respiratory: Denies dyspnea Musculoskeletal Musculoskeletal: Denies deformity, Reports arthralgias, Denies numbness, Reports stiffness and Denies tingling Integumentary/Breasts Skin/Breast: Reports erythema Neurologic Neurologic: Denies numbness, Denies tingling and Denies weakness [facility] Medical History Malignant neoplasm prostate Sciatica Surgical History History of back surgery 2 broken discs History of hernia repair History of knee surgery History of surgery on arm History of surgery on wrist Steroid Injection [facility];Lumbar epidural steroid injection;04/04/17 Social History Smoking/Tobacco Use Status: Former Tobacco Use Tobacco: How many years used: 20 Smoking risk assessment performed?: Yes Alcohol Intake: former Drug use: Never Substance use type: does not use Caregiver/Support person: No Housing: house Communication Needs: Corrective Lenses Do you need help understanding health information?: Rarely Pets and animals: Yes Pets and animals: dog(s) Sexually active: No Do you think of yourself as: straight/heterosexual Current gender identity: female What is your relationship status?: How often do you talk on the phone with friends or family?: three or more times per week How often do you get together with friends or relatives?: once per week How often do you attend hinduism or presybeterian services?: decline to answer Do you belong to any clubs or organized social groups?: no Panel score (0-1 are the most socially isolated patients): 1 What type of physical activity do you participate in: other Details: active on job Honey/Denominational: No preference Special honey needs: No Seatbelt use: always Helmet use: Yes Helmet use: always Drive 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 non emergency services ambulance driver: No Do you feel safe at home: Yes Do you feel safe in your relationship?: Yes Exam Const General: cooperative, healthy appearing, comfortable and no acute distress Orientation: alert and awake [facility] Head: normal to inspection, normocephalic and atraumatic Face and sinus: normal facial exam Mouth: moist mucous membranes Eyes General: appearance normal, both eyes and all related structures Conjunctivae: conjunctivae normal Neck Neck: normal visual inspection, trachea midline and supple Resp Effort & Inspection: normal respiratory effort and able to speak in complete sentences Auscultation: clear to auscultation bilaterally Cardio Rate: regular rate Rhythm: regular rhythm Skin General skin exam: no ecchymosis and erythema Neuro General: patient alert, patient awake, moves all extremities and no focal motor deficits Sensory Exam: no sensory deficits noted Extrem General: full ROM and capillary refill normal Right upper extremity: normal to inspection, full ROM and normal capillary refill Left upper extremity: full ROM, normal capillary refill, elbow/forearm Details: normal to inspection and normal ROM; no tenderness and no swelling, wrist Details: normal to inspection and normal ROM; no tenderness and no swelling and hand Details: normal capillary refill, neuromotor exam normal, neurosensory exam normal, tendon exam normal, tenderness, normal ROM of fingers and swelling; no ecchymosis Hand/finger images: 1. Minimal erythema, tenderness, swelling. No ecchymosis or bony point tenderness. Neuro, vascular, tendon intact. Full range of motion. Normal radial pulse and capillary refill. Skin is intact. No deformity. Psych Appearance: grossly normal Mental Status: mental status grossly normal Course Vital Signs Vital signs: Vital Signs Pulse 108 H 08/06/20 14:08 Respiratory Rate 18 08/06/20 14:08 Blood Pressure 119/71 08/06/20 14:08 Pulse Oximetry 97 08/06/20 14:08 Pulse 108 H 08/06/20 14:08 Respiratory Rate 18 08/06/20 14:08 Respiratory Effort Non-Labored 08/06/20 14:13 Blood Pressure 119/71 08/06/20 14:08 Blood Pressure Position Sitting 08/06/20 14:08 Pulse Oximetry 97 08/06/20 14:08 Oxygen Delivery Method Room Air 08/06/20 14:08 Oxygen Flow Rate 0 08/06/20 14:08 Pain Level 7 08/06/20 14:08
--- NOTE | 2020-08-06 20:59 | NUR.NOTE ---
Referral to Care Management to expedite appt. with [place] [facility] states he can't get in for almost a year. Chronic joint pain.Nursing Note:
--- NOTE | 2020-08-08 14:12 | CMPROGNOTE_ITS ---
- If Service Date Differs Date of service: 08/08/20 Time of Service: 14:12 Care Management Progress Note Altaf is seen in the ED for bilateral hand pain. At the request of ED provider, CM coordinates a referral to [facility] Rheumatology for an evaluation and treatment.
== END 2020-08-06 15:13 | disposition home or self-care (01) ==
PROVIDERS: Emergency Provider Physician Assistant; PCP Emergency Medicine
DX: M79.642 Pain in left hand (principal); M79.641 Pain in right hand
CPT/HCPCS: 99283

== ENCOUNTER 2020-08-16 14:13 | Outpatient (CLI) | payer BC, SELFPAY ==
--- NOTE | 2020-08-16 14:00 | DI.RAD_ITS ---
Exam(s) XR SHOULDER RT 1V EXAM: XR SHOULDER RT 1V CLINICAL HISTORY: right shoulder pain TECHNIQUE: COMPARISON: CR,XR XR SHOULDER RT COMPLETE 2+V from 07/11/2020 FINDINGS: Single axillary view was obtained. Glenohumeral relationship appears grossly intact on this view. IMPRESSION: RADIATION DOSE DELIVERED: Total DLP
== END 2020-08-16 14:14 | disposition home or self-care (01) ==
LOC: DIORS 14:13
PROVIDERS: PCP Emergency Medicine; Referring Provider Emergency Medicine; Visit Provider Student in an Organized Health Care Education/Training Program
DX: M25.511 Pain in right shoulder (principal)
CPT/HCPCS: 73020

== ENCOUNTER 2020-08-23 04:21 | Emergency (ER) | payer BC, SELFPAY ==
[2020-08-23 04:25] VITALS: BP 129/81; PULSE 89; RESP 16; TEMP 36.8; O2SAT 100
--- NOTE | 2020-08-23 04:41 | ED.GENADUL_ITS ---
Discharge Plan Disposition Patient Disposition: HOME Condition: Good Discharge Details Clinical Impression: Reflex sympathetic dystrophy, Forearm pain Primary Care Provider: Mamadou Ruiz ED Provider: Samuel Cuellar Home Meds and New Rx's Prescriptions: New lidocaine [Lidoderm] 1 PATCH patch 1 patch Topical Q24H Qty: 4 RF: 0 prednisone 50 MG tablet 50 mg PO DAILY Qty: 5 RF: 0 Continued albuterol sulfate [ProAir HFA] 90 mcg/actuation HFA aerosol inhaler 2 puff inhalation Q6H PRN (Reason: shortness of breath or wheezing) Qty: 6.7 RF: 4 Otezla 30 mg tablet 30 mg PO BID RF: 0 multivitamin 1 EACH capsule 1 ea PO DAILY Qty: 2 RF: 0 lidocaine [Lidoderm] 5 % adhesive patch,medicated 1 patch topical DAILY Qty: 15 RF: 0 naproxen [Naprosyn] 500 mg tablet 500 mg PO BID PRNQty: 20 RF: 0 prednisone 20 mg tablet 60 mg PO DAILY 5 Days Qty: 15 RF: 0 diclofenac sodium [Voltaren] 1 % gel 4 g topical QID Qty: 100 RF: 0 Discharge Instructions Instructions: Complex Regional Pain Syndrome (DC) Additional Instructions: At this time your symptoms are concerning for reflex sympathetic dystrophy/complex regional pain syndrome. There is no evidence of life- threatening etiology, trauma, fracture, or other abnormality. Sometimes the nerves in the arm and body can respond in an atypical way causing this significant pain. Please take Tylenol and Motrin as needed for the pain. Please use the Lidoderm patches as directed. Please follow-up closely with your specialist for further assessment of the pain. If you notice any worsening of your symptoms, or any new symptoms such as vomiting, diarrhea, fever, chills, shortness of breath, chest pain, numbness, weakness, or fainting , please return immediately to the emergency department for reevaluation. Please follow up with your primary care provider as soon as possible for reassessment and reevaluation. As always, it was a pleasure participating in your medical care today. Stand Alone Forms: Work Release Referrals: Mamadou Ruiz, [Primary Care Provider] - Discharge Data Discharge Date/Time-TO BE ENTERED AT DEPARTURE: 08/23/20 05:06 Medical Decision Making 60-year-old male with a past medical history of wrist and shoulder chronically, sciatica, arthritis, who presents today for evaluation of left forearm pain. Patient states that for the last day and a half he has had pain in his left forearm which she describes as a tight/viselike sensation in his left forearm. He states it started in his wrist on the left, and traveled up his to his mid forearm. He states that the pain feels identical to the same pain that he regularly and intermittently feels in his wrists. He denies any chest pain, shoulder pain, shortness of breath, bandlike sensation around his chest, tearing or ripping sensation. He denies any trauma to his arm. He denies any numbness or tingling in his hand. He denies any other complaints at this time. He states he did take an NSAID, but this did not significantly change his pain. Physical exam demonstrates notably unremarkable forearm, radial pulse normal, sensation and capillary refill normal. Compartment is soft, no evidence of a tense compartment. Normal strength and movement. No evidence of rash. No evidence of DVT, radial or ulnar artery aneurysm on bedside ultrasound. Uncertain as to the exact etiology of the patient's pain. He states it feels identical to his previous symptoms that start in his wrist often and are attributed to polyarthralgias. He has not yet followed up with his new specialist for this. Reflex sympathetic dystrophy is definitely also on my differential is a causative agent for his symptoms. Uncertain as to what the instigating component is. With no evidence of cardiac etiology, no signs of vascular or neurologic compromise, no evidence of trauma, see no indication for imaging at this time. Will give Lidoderm patch, Toradol. Of note the patient is made very clear that he feels that steroids are very beneficial for this when he has had it in the past. With a low risk profile I do feel that short dose of 5 days of prednisone is reasonable. We will try this at his request. Discussed red flags which to return. I have extensively reviewed the treatment plan and discharge instructions with the patient. I have addressed all patient concerns at this time. The patient was made aware of what symptoms to monitor for that would warrant a return to the emergency department. Discussed the plan with the patient, they demonstrate verbal understanding and agreement with our assessment and plan at this time. The documentation in this chart was dictated using [employer] dictation software. Please excuse any dictation errors. HPI General Date/Time Provider Initiated Documentation: 08/23/20 04:22 . HPI Narrative: 60-year-old male with a past medical history of wrist and shoulder chronically, sciatica, arthritis, who presents today for evaluation of left forearm pain. Patient states that for the last day and a half he has had pain in his left forearm which she describes as a tight/viselike sensation in his left forearm. He states it started in his wrist on the left, and traveled up his to his mid forearm. He states that the pain feels identical to the same pain that he regularly and intermittently feels in his wrists. He denies any chest pain, shoulder pain, shortness of breath, bandlike sensation around his chest, tearing or ripping sensation. He denies any trauma to his arm. He denies any numbness or tingling in his hand. He denies any other complaints at this time. He states he did take an NSAID, but this did not significantly change his pain. Related Data Home Medications Medication Instructions Recorded Confirmed multivitamin 1 ea PO DAILY #2 11/17/13 08/23/20 apremilast 30 mg tablet 30 mg PO BID 01/23/19 08/23/20 albuterol sulfate 90 mcg/actuation 2 puff INHALATION Q6H PRN #6.7 g 01/21/20 08/23/20 aerosol inhaler diclofenac sodium [Voltaren] 4 g TOPICAL QID #100 g 05/02/20 08/23/20 lidocaine [Lidoderm] 1 patch TOPICAL DAILY #15 ea 05/13/20 08/23/20 naproxen [Naprosyn] 500 mg PO BID PRN #20 tab 08/06/20 prednisone 60 mg PO DAILY 5 Days #15 tab 08/06/20 08/23/20 lidocaine [Lidoderm] 1 patch TOPICAL Q24H #4 ea 08/23/20 prednisone 50 mg PO DAILY #5 tab 08/23/20 Previous Rx's Medication Instructions Recorded albuterol sulfate 90 mcg/actuation 2 puff INHALATION Q6H PRN #6.7 g 01/21/20 aerosol inhaler diclofenac sodium [Voltaren] 4 g TOPICAL QID #100 g 05/02/20 lidocaine [Lidoderm] 1 patch TOPICAL DAILY #15 ea 05/13/20 naproxen [Naprosyn] 500 mg PO BID PRN #20 tab 08/06/20 prednisone 60 mg PO DAILY 5 Days #15 tab 08/06/20 lidocaine [Lidoderm] 1 patch TOPICAL Q24H #4 ea 08/23/20 prednisone 50 mg PO DAILY #5 tab 08/23/20 Allergies Allergy/AdvReac Type Severity Reaction Status Date / Time Iodinated Contrast Media Allergy Severe Anaphylaxsi Verified 08/16/20 14:13 [Iodinated Contrast Media - s IV Dye] shellfish derived Allergy Severe Anaphylaxsi Verified 08/16/20 14:13 s Sulfa (Sulfonamide Allergy Intermediate Skin Rash Verified 08/16/20 14:13 Antibiotics) General Stated Complaint: Orthopedic ELISA: 4 Review of Systems All systems reviewed & are unremarkable except as noted in HPI and below PFSH Medical History Malignant neoplasm prostate Sciatica Surgical History History of back surgery 2 broken discs History of hernia repair History of knee surgery History of surgery on arm History of surgery on wrist [facility];Lumbar epidural steroid injection;04/04/17 Social History Smoking/Tobacco Use Status: Former Tobacco Use Tobacco: How many years used: 20 Smoking risk assessment performed?: Yes Alcohol Intake: former Drug use: Never Substance use type: does not use Caregiver/Support person: No Housing: house Communication Needs: Corrective Lenses Do you need help understanding health information?: Rarely Pets and animals: Yes Pets and animals: dog(s) Sexually active: No Do you think of yourself as: straight/heterosexual Current gender identity: female What is your relationship status?: How often do you talk on the phone with friends or family?: three or more times per week How often do you get together with friends or relatives?: once per week How often do you attend jain or church services?: decline to answer Do you belong to any clubs or organized social groups?: no Panel score (0-1 are the most socially isolated patients): 1 What type of physical activity do you participate in: other Details: active on job Honey/Confucianist: No preference Special honey needs: No Seatbelt use: always Helmet use: Yes Helmet use: always Drive 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 3.ENT: Atraumatic external nose and ears. Moist MM. Neck: Symmetric, trachea midline, No thyromegaly. 4.CVS: +S1/S2, No murmurs or gallops. Peripheral pulses 2+ and equal in all extremities. Brisk capillary refill in all extremities. 5.RESP: Unlabored respiratory effort. Clear to auscultation bilaterally. No wheezes rales or rhonchi 6.GI: Soft, Nontender/Nondistended, No hepatosplenomegaly. No guarding or rebound. 7.MSK: Normocephalic/Atraumatic, Extremities w/o deformity . Left forearm is unremarkable in appearance, no redness or swelling. Minimal swelling in the wrists bilaterally. Palpation of the forearm demonstrates minimal tenderness, it is notably nontense, no redness or edema. Bedside ultrasound shows no evidence of clot. No evidence of radial or ulnar artery aneurysm. Distal pulses are intact, capillary refill is less than 3 seconds. Sensation strength and movement normal. 8.Skin: Warm, Dry. No rashes or lesions. 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 Sensation grossly intact, no focal neurologic deficits. 10.Psych: (AAO) x3. Appropriate mood and affect Course Vital Signs Vital signs: Vital Signs Temperature 36.8 C 08/23/20 04:25 Pulse 89 08/23/20 04:25 Respiratory Rate 16 08/23/20 04:25 Blood Pressure 129/81 08/23/20 04:25 Pulse Oximetry 100 08/23/20 04:25 Temperature 36.8 C 08/23/20 04:25 Temperature Source Skin 08/23/20 04:25 Pulse 89 08/23/20 04:25 Respiratory Rate 16 08/23/20 04:25 Blood Pressure 129/81 08/23/20 04:25 Blood Pressure Position Sitting 08/23/20 04:25 Pulse Oximetry 100 08/23/20 04:25 Oxygen Delivery Method Room Air 08/23/20 04:25 Oxygen Flow Rate 0 08/23/20 04:25 Pain Level 8 08/23/20 04:25
[2020-08-23] MEDS: Lidocaine 5% Patch 1 PATCH TP (04:56)
[2020-08-23] MEDS: Ketorolac 30 MG/ML VIAL IM (04:57)
== END 2020-08-23 05:06 | disposition home or self-care (01) ==
PROVIDERS: Emergency Provider Student in an Organized Health Care Education/Training Program; PCP Emergency Medicine
DX: G90.512 Complex regional pain syndrome I of left upper limb (principal)
CPT/HCPCS: 96372; 99284; 99283; J1885

== ENCOUNTER 2020-08-31 01:36 | Emergency (ER) | payer BC, SELFPAY ==
[2020-08-31 01:39] VITALS: BP 165/94; PULSE 79; RESP 20; TEMP 36.4; O2SAT 98
--- NOTE | 2020-08-31 02:04 | ED.GENADUL_ITS ---
Discharge Plan Disposition Patient Disposition: HOME Condition: Improving Discharge Details Clinical Impression: Hand pain, right Primary Care Provider: Mamadou Ruiz ED Provider: Butch Juárez Home Meds and New Rx's Prescriptions: Continued albuterol sulfate [ProAir HFA] 90 mcg/actuation HFA aerosol inhaler 2 puff inhalation Q6H PRN (Reason: shortness of breath or wheezing) Qty: 6.7 RF: 4 Otezla 30 mg tablet 30 mg PO BID RF: 0 Discharge Instructions Additional Instructions: Wear your brace and avoid overuse of the right arm. You have been referred to rheumatology clinic at [facility] and should maintain this follow-up for September. Follow-up for your scheduled MRI this week. Home to rest today. No alcohol or driving while using the oxycodone. Stand Alone Forms: Work Release Medical Decision Making 60-year-old male presents with recurrent pain and swelling of the dorsum of his right hand. He states that he has had this recurrently over some months time including a visit to me in the emergency department in June. His follow-up with orthopedics as well as his primary care physician has pending follow-up to establish care with rheumatology. He is scheduled for outpatient MRI of his right upper extremity this week. 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 Patient is afebrile, well-appearing. Demonstrates swelling on the dorsum of the right hand. States he has had x-ray work-up and does not wish to have recurrent imaging or blood work. His most recent imaging did show evidence of degenerative changes. Differential diagnoses include acute exacerbation of chronic pain, arthritis. Patient was given IM analgesia. He was consented for the use of a small number of oral narcotic analgesics at home. He will follow up with rheumatology as planned, avoid overuse of the hand, and wear his brace previously recommended. HPI General Mode of arrival: ambulatory . Date/Time Provider Initiated Documentation: 08/31/20 01:47 . Limitations to Documentation: no limitations . Information obtained by: patient . History of Present Illness 60 year old M presents to the emergency department with the chief complaint of Recurrent right hand pain and swelling, described as severe, Quality is described as dull and constant, and is localized to the right and upper extremity. Patient reports no radiation. Patient started experiencing this hour(s) and it has been constant. No relieving factors improve symptom(s), No exacerbating factors reported . Patient notes denies fever/chills and rash. Patient did receive the following treatments prior to arrival, NSAID Related Data Home Medications Medication Instructions Recorded Confirmed apremilast 30 mg tablet 30 mg PO BID 01/23/19 08/31/20 albuterol sulfate 90 mcg/actuation 2 puff INHALATION Q6H PRN #6.7 g 01/21/20 08/23/20 aerosol inhaler Previous Rx's Medication Instructions Recorded albuterol sulfate 90 mcg/actuation 2 puff INHALATION Q6H PRN #6.7 g 01/21/20 aerosol inhaler Allergies Allergy/AdvReac Type Severity Reaction Status Date / Time Iodinated Contrast Media Allergy Severe Anaphylaxsi Verified 08/16/20 14:13 [Iodinated Contrast Media - s IV Dye] shellfish derived Allergy Severe Anaphylaxsi Verified 08/16/20 14:13 s Sulfa (Sulfonamide Allergy Intermediate Skin Rash Verified 08/16/20 14:13 Antibiotics) General Stated Complaint: Orthopedic ELISA: 4 Review of Systems Narrative: No fever or chills. Not wearing his brace. Began having pain after working today. No fall or other injury. [facility] Medical History Malignant neoplasm prostate Sciatica Surgical History History of back surgery 2 broken discs History of hernia repair History of knee surgery History of surgery on arm History of surgery on wrist Steroid [facility]jection [facility];Lumbar epidural steroid injection;04/04/17 Social History Smoking/Tobacco Use Status: Former Tobacco Use Tobacco: How many years used: 20 Smoking risk assessment performed?: Yes Alcohol Intake: former Drug use: Never Substance use type: does not use Caregiver/Support person: No Housing: house Communication Needs: Corrective Lenses Do you need help understanding health information?: Rarely Pets and animals: Yes Pets and animals: dog(s) Sexually active: No Do you think of yourself as: straight/heterosexual Current gender identity: female What is your relationship status?: How often do you talk on the phone with friends or family?: three or more times per week How often do you get together with friends or relatives?: once per week How often do you attend catholic or latter day services?: decline to answer Do you belong to any clubs or organized social groups?: no Panel score (0-1 are the most socially isolated patients): 1 What type of physical activity do you participate in: other Details: active on job Honey/Jewish: No preference Special honey needs: No Seatbelt use: always Helmet use: Yes Helmet use: always Drive 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 Pleasant, well groomed, interactive. HEAD: Normocephalic, atraumatic ENT: Mucous membranes moist, oropharynx unremarkable, External ear exam unremarkable EYES: PERRL, EOMI NECK: Full ROM, no HOMERO, no menigismus CHEST/RESP: Nontender, clear to auscultation bilateral, no wheeze/rhonchi/rales EXT: Full ROM, the dorsum of the right hand is swollen and tender. No significant pain with movement of the wrist or elbow joint. No erythema appreciated. Sensation and motor intact throughout. Neuro: Grossly normal neurologic exam, conversant, interactive. Psych: Speech fluent, thoughts congruent, affect normal Course Vital Signs Vital signs: Vital Signs Temperature 36.4 C L 08/31/20 01:39 Pulse 79 08/31/20 01:39 Respiratory Rate 20 08/31/20 01:39 Blood Pressure 165/94 H 08/31/20 01:39 Pulse Oximetry 98 08/31/20 01:39 Temperature 36.4 C L 08/31/20 01:39 Temperature Source Tympanic 08/31/20 01:39 Pulse 79 08/31/20 01:39 Respiratory Rate 20 08/31/20 01:39 Respiratory Effort Non-Labored 08/31/20 01:44 Blood Pressure 165/94 H 08/31/20 01:39 Blood Pressure Position Supine 08/31/20 01:39 Pulse Oximetry 98 08/31/20 01:39 Oxygen Delivery Method Room Air 08/31/20 01:39 Oxygen Flow Rate 0 08/31/20 01:39 Pain Level 9 08/31/20 01:39
[2020-08-31] MEDS: HYDROmorphone 2 MG/ML VIAL 1 MG IM (02:10)
== END 2020-08-31 02:30 | disposition home or self-care (01) ==
PROVIDERS: Emergency Provider Emergency Medicine; PCP Emergency Medicine
DX: M79.641 Pain in right hand (principal)
CPT/HCPCS: 96372; 99284; 99283

== ENCOUNTER 2020-09-02 03:02 | Outpatient (CLI) | payer BC, SELFPAY ==
--- NOTE | 2020-09-02 08:50 | DI.MRI_ITS ---
Exam(s) MR UPPER JOINT RT WO EXAM: MR UPPER JOINT RT WO CLINICAL HISTORY: TENDINITIS RT SHOULDER,RT ROTATOR CUFF TEAR,PAIN,M75.21,M75.101. TECHNIQUE: Multiplanar multisequence MRI was performed. COMPARISON: None. FINDINGS: Bones: There is no fracture or contusion pattern. The acromioclavicular joint shows mild spurring and fluid. The bony densities seen superior to the AC joint. Glenohumeral joint: There is cartilage thinning and multiple subchondral cysts in the glenoid. A small amount of fluid is seen in the subacromial, a nd subcoracoid bursa. No glenohumeral joint fluid is seen.. There is some thickening of the coracoa cromial ligament. Rotator Cuff: The supraspinatus and infraspinatus tendons are intact. The subscapularis and teres minor are normal. There is no significant muscle atrophy. Labrum and biceps anchor: The biceps tendon is located. The anchor is well maintained. The labrum shows degenerative changes IMPRESSION: Degenerative changes of the glenohumeral joint. Fluid in the subacromial subdeltoid bursa could diana sukumar bursitis. No evidence of tendon tear. DATA REPOSITORY:
== END 2020-09-02 03:22 ==
LOC: DI 03:02
PROVIDERS: PCP Emergency Medicine; Visit Provider Student in an Organized Health Care Education/Training Program
DX: M75.101 Unspecified rotator cuff tear or rupture of right shoulder, not specified as traumatic (principal); M75.81 Other shoulder lesions, right shoulder; M19.011 Primary osteoarthritis, right shoulder; M25.411 Effusion, right shoulder
CPT/HCPCS: 73221

== ENCOUNTER 2020-09-06 07:55 | Emergency (ER) | payer BC, SELFPAY ==
[2020-09-06 08:14] VITALS: BP 133/88; PULSE 87; RESP 18; TEMP 37.1; O2SAT 97
--- NOTE | 2020-09-06 08:20 | W.ED.GENAD ---
Discharge Plan Disposition Patient Disposition: HOME Condition: Stable Discharge Details Clinical Impression: Bilateral wrist pain, Ankle pain Primary Care Provider: Mamadou Ruiz ED Provider: Waqar Bernal Home Meds and New Rx's Prescriptions: New methylprednisolone [Medrol (Flo)] 4 mg tablets,dose pack See Rx Instructions .ROUTE .COMPLEX Qty: 21 RF: 0 Continued albuterol sulfate [ProAir HFA] 90 mcg/actuation HFA aerosol inhaler 2 puff inhalation Q6H PRN (Reason: shortness of breath or wheezing) Qty: 6.7 RF: 4 Otezla 30 mg tablet 30 mg PO BID RF: 0 Discharge Instructions Instructions: Arthralgia (ED) Additional Instructions: Splint for your left wrist has been applied, wear as tolerated. A single dose of Toradol given here in the ER and I am providing you with a Medrol Dosepak, take as directed. [id number] Tylenol and/or Motrin as directed for discomfort. Cool and/or warm compresses every 2 hours for 20 minutes. Please watch for new or worsening symptoms and return to the ER for any concerns. I would like you to contact your primary care provider to discuss your ongoing symptoms and need for outpatient reevaluation. Please follow-up with rheumatology at [facility] as scheduled, attempt to be seen sooner if at all possible. Medical Decision Making This is a 60-year-old gentleman currently awaiting rheumatology appointment at [facility] on September 28, being worked up for polyarthralgias, concern for reflux sympathetic dystrophy. Patient is presenting for acute on chronic pain, right hand, left wrist, right foot, left ankle. Denies recent illness or trauma. Denies erythema, warmth, calf pain, chest pain, shortness of breath. Patient has taken Tylenol with little relief. Clinically he appears well, nontoxic. He is wearing a right wrist splint and using crutches for ambulation. Discussed options, he does not want any imaging of any of his joints nor is he interested in an ultrasound to either lower extremity, I believe this is reasonable as there has been no recent trauma and examination is not consistent with DVT. I tried to have a realistic expectation conversation with the patient as he has been seen in the ER multiple times, evaluate by his primary care provider, and continues to have the same symptoms. Patient would like a splint for his left wrist, splint ordered and applied. He will be provided with 60 IM Toradol here in the ER and I will provide him a prescription for a Medrol Dosepak. He is encouraged to rest, elevate, cool and/or warm compresses, [id number] Tylenol and/or Motrin. I did express the importance of outpatient follow-up both through his primary care provider and through wheel blocker at [facility]. Patient is afebrile, no evidence of septic joint. Patient is agreeable to this plan and has no additional questions or concerns. Medical Records Medical records reviewed: Yes I reviewed the patient's medical records. HPI General Mode of arrival: ambulatory. Date/Time Provider Initiated Documentation: 09/06/20 08:11. Limitations to Documentation: no limitations. Information obtained by: patient. HPI Narrative: This is a 60-year-old gentleman, past medical history that includes prostate CA, sciatica, eczema, hypertension, multiple arthralgias,, currently being worked up for potential reflex sympathetic dystrophy, presenting to the ER for acute on chronic bilateral hand and lower extremity pain. Patient states that he has been dealing with this for several months, he is scheduled to see rheumatology on September 28, but is having increased pain in his left wrist, right foot and ankle, and left lower extremity. He denies any recent illness or trauma. Denies fever, rash, chest pain, shortness of breath, calf pain, lower extremity erythema or swelling. Patient states that he has been seen in the ER multiple times, by his primary care provider, is not getting any specific answers, and is extremely frustrated. Patient states that he did take Tylenol with little relief. Patient states that he is here for pain control, reports that steroids has helped her the most in the past. He also has been wearing a splint on his right hand and wrist, wonders if a splint on the left side would help. 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 He was able to work yesterday. Related Data Home Medications Medication Instructions Recorded Confirmed apremilast 30 mg tablet 30 mg PO BID 01/23/19 09/06/20 albuterol sulfate 90 mcg/actuation 2 puff INHALATION Q6H PRN #6.7 g 01/21/20 09/06/20 aerosol inhaler methylprednisolone [Medrol (Flo)] See Rx Instructions .ROUTE 09/06/20 .COMPLEX #21 dose pk Previous Rx's Medication Instructions Recorded albuterol sulfate 90 mcg/actuation 2 puff INHALATION Q6H PRN #6.7 g 01/21/20 aerosol inhaler methylprednisolone [Medrol (Flo)] See Rx Instructions .ROUTE 09/06/20 .COMPLEX #21 dose pk Allergies Allergy/AdvReac Type Severity Reaction Status Date / Time Iodinated Contrast Media Allergy Severe Anaphylaxsi Verified 09/06/20 08:19 [Iodinated Contrast Media - s IV Dye] shellfish derived Allergy Severe Anaphylaxsi Verified 09/06/20 08:19 s Sulfa (Sulfonamide Allergy Intermediate Skin Rash Verified 09/06/20 08:19 Antibiotics) General Stated Complaint: Orthopedic ELISA: 4 Review of Systems Constitutional Constitutional: Denies fever(s) Cardiovascular Cardiovascular: Denies chest pain and Denies dyspnea Respiratory Respiratory: Denies dyspnea Musculoskeletal Musculoskeletal: Denies deformity, Reports arthralgias, Denies numbness, Reports stiffness and Denies tingling Integumentary/Breasts Skin/Breast: Denies erythema Neurologic Neurologic: Denies numbness and Denies tingling [facility] Medical History Malignant neoplasm prostate Sciatica Surgical History History of back surgery 2 broken discs History of hernia repair History of knee surgery History of surgery on arm History of surgery on wrist Steroid Injection [facility];Lumbar epidural steroid injection;04/04/17 Social History Smoking/Tobacco Use Status: Former Tobacco Use Tobacco: How many years used: 20 Smoking risk assessment performed?: Yes Alcohol Intake: former Drug use: Never Substance use type: does not use Caregiver/Support person: No Housing: house Communication Needs: Corrective Lenses Do you need help understanding health information?: Rarely Pets and animals: Yes Pets and animals: dog(s) Sexually active: No Do you think of yourself as: straight/heterosexual Current gender identity: female What is your relationship status?: How often do you talk on the phone with friends or family?: three or more times per week How often do you get together with friends or relatives?: once per week How often do you attend mosque or yazidi services?: decline to answer Do you belong to any clubs or organized social groups?: no Panel score (0-1 are the most socially isolated patients): 1 What type of physical activity do you participate in: other Details: active on job Honey/Shinto: No preference Special honey needs: No Seatbelt use: always Helmet use: Yes Helmet use: always 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 Do you feel safe at home: Yes Do you feel safe in your relationship?: Yes Exam Const General: cooperative, healthy appearing, comfortable and no acute distress Orientation: alert, awake and oriented x3 HENMT Head: normal to inspection, normocephalic and atraumatic Eyes General: appearance normal, both eyes and all related structures Conjunctivae: conjunctivae normal Neck Neck: normal visual inspection, full ROM, trachea midline and supple Resp Effort & Inspection: normal respiratory effort and able to speak in complete sentences Cardio Rate: regular rate Rhythm: regular rhythm Skin General skin exam: no rashes or lesions noted Neuro General: patient alert, patient awake, moves all extremities and no focal motor deficits Cognition: normal cognition Speech: speech normal Gait: antalgic and gait assisted Method: crutches Motor: muscle tone normal throughout and strength 5/5 throughout Sensory Exam: no sensory deficits noted Extrem General: full ROM and capillary refill normal Other: Patient wearing a right universal wrist splint. Joints are without warmth or erythema. Right hand dorsal aspect with minimal swelling, left wrist dorsal swelling, right foot dorsal aspect mild swelling, and left ankle diffuse with mild swelling. Limited range of motion all joints secondary to discomfort. Normal radial and dorsalis pedal pulse. Normal capillary refill throughout. Neuro, vascular, tendon intact. No deformity. Diffuse discomfort without bony point tenderness. Psych Appearance: grossly normal Mental Status: mental status grossly normal Course Vital Signs Vital signs: Vital Signs Temperature 37.1 C 09/06/20 08:14 Pulse 87 09/06/20 08:14 Respiratory Rate 18 09/06/20 08:14 Blood Pressure 133/88 09/06/20 08:14 Pulse Oximetry 97 09/06/20 08:14 Temperature 37.1 C 09/06/20 08:14 Temperature Source Skin 09/06/20 08:14 Pulse 87 09/06/20 08:14 Respiratory Rate 18 09/06/20 08:14 Respiratory Effort 09/06/20 08:18 Blood Pressure 133/88 09/06/20 08:14 Blood Pressure Position Sitting 09/06/20 08:14 Pulse Oximetry 97 09/06/20 08:14 Oxygen Delivery Method Room Air 09/06/20 08:14 Oxygen Flow Rate 0 09/06/20 08:14 Pain Level 5 09/06/20 08:14
[2020-09-06] MEDS: Ketorolac 60 MG/2 ML VIAL IM (08:49)
== END 2020-09-06 09:07 | disposition home or self-care (01) ==
PROVIDERS: Emergency Provider Physician Assistant; PCP Emergency Medicine
DX: M25.532 Pain in left wrist (principal); M25.531 Pain in right wrist; M25.572 Pain in left ankle and joints of left foot; M79.671 Pain in right foot
CPT/HCPCS: 29125; 96372; 99284; 99283; J1885

== ENCOUNTER 2020-09-13 13:12 | Outpatient (CLI) | payer BC, SELFPAY ==
[2020-09-13 15:50] LABS: Abs Immature Grans 0.02 10^3/uL (0.0-0.06); Absolute Basophil Count 0.05 10^3/uL (0.0-0.2); Absolute Eosinophil Count 0.36 10^3/uL (0.0-0.7); Absolute Lymphocyte Count 1.97 10^3/uL (1.2-3.4); Absolute Monocyte Count 0.77 10^3/uL (0.1-0.8); Absolute Neutrophil Count 3.94 10^3/uL (1.2-6.7); Basophils % 0.7; Eosinophils % 5.1; HCT 43.5 % (40.0-50.0); HGB 14.4 g/dL (13.5-17.5); Immature Grans % 0.3; Lymphocytes % 27.7; MCH 27.5 pg (27.0-33.0); MCHC 33.1 % (32.0-36.0); MPV 9.2 fL (8.0-11.0); Monocytes % 10.8; Neutrophils % 55.4; Nucleated RBC 0 %; Platelet Count 285 10^3/uL (130-400); RBC 5.24 10^6/uL (4.36-5.78); RDW 13.2 % (11.8-14.1); RDW-SD 39.3 fL; WBC 7.11 10^3/uL (4.4-10.8)
[2020-09-13 17:01] LABS: ALT 23 U/L (16-63); AST 11 U/L (15-37); Albumin 3.5 g/dL (3.4-5.0); Alkaline Phosphatase 82 U/L (46-116); Anion Gap 10.8 mmol/L (3-11); BUN 17 mg/dL (7-18); Bilirubin, Total 0.4 mg/dL (0.2-1.0); CO2 25.2 mmol/L (21.0-32.0); CREATININE 1.1 mg/dL (0.70-1.30); Calcium 9.3 mg/dL (8.5-10.1); Chloride 105 mmol/L (98-107); Glucose 96 mg/dL (74-106); Potassium 4.2 mmol/L (3.5-5.1); Sodium 141 mmol/L (136-145); Total Protein 7.3 g/dL (6.4-8.2)
[2020-09-14 17:05] LABS: PSA, Ultrasensitive 0.78 ng/mL (<= 4.5)
== END 2020-09-13 13:13 | disposition home or self-care (01) ==
LOC: LBO 13:13
PROVIDERS: PCP Emergency Medicine; Visit Provider Internal Medicine
DX: C61 Malignant neoplasm of prostate (principal)
CPT/HCPCS: 36415; 80053; 84153; 84403; 85025

== ENCOUNTER 2020-10-06 20:16 | Observation (INO) | payer BC, SELFPAY ==
[2020-10-06] VITALS (24 sets, daily range): BP systolic 157; BP diastolic 83; PULSE 83–113; RESP 4–22; TEMP 36.3; O2SAT 92–99
--- NOTE | 2020-10-06 20:15 | RT.EKG_ITS ---
APPROVED REPORT Exam: Resting ECG Reason for Exam: short of breath Patient Location: E HR:81 bpm ECG Measurements Heart Rate 81 AXIS [place] 139 P 65 QRSd 91 QRS 70 QT 363 T 27 QTc 421 Conclusion Sinus rhythm...normal P axis, V-rate 60- 99 Normal [place] Normal Electrocardiogram
--- NOTE | 2020-10-06 20:30 | DI.RAD_ITS ---
Exam(s) XR PORTABLE CHEST AP EXAM: XR PORTABLE CHEST AP CLINICAL HISTORY: cough, SOB TECHNIQUE: 2D digital imaging was performed. COMPARISON: CR,XR XR PORTABLE CHEST AP from 01/10/2020 FINDINGS: MEDIASTINUM: Normal. HEART: Normal. PULMONARY VASCULATURE: Normal. LUNGS: Clear. PLEURAL SPACE: No pleural effusion or pneumothorax. BONE:Within normal limits for the patient's age. OTHER FINDINGS:Normal. IMPRESSION: No acute pulmonary findings. DATA REPOSITORY: RADIATION DOSE DELIVERED:
--- NOTE | 2020-10-06 20:34 | W.ED.GENAD ---
Discharge Plan Disposition Patient Disposition: [facility] INPATIENT Condition: Fair Discharge Details Clinical Impression: Acute asthma exacerbation Primary Care Provider: Mamadou Ruiz ED Provider: Josué Shi Home Meds and New Rx's Prescriptions: No Action albuterol sulfate [ProAir HFA] 90 mcg/actuation HFA aerosol inhaler 2 puff inhalation Q6H PRN (Reason: shortness of breath or wheezing) Qty: 6.7 RF: 4 acetaminophen [Tylenol] 325 mg capsule 325 mg PO DAILY PRNRF: 0 Otezla 30 mg tablet 30 mg PO BID RF: 0 Medical Decision Making Patient presenting with 3-day history of cough, shortness of breath, wheezing which responds to inhaler but precursor it has been getting worse. Denies fever. Denies chest pain per se. His EKG is normal. He is fully vaccinated against Covid. We will proceed with DuoNeb followed by albuterol neb. IV established and laboratory studies obtained. Solu-Medrol ordered. Portable chest x-ray ordered. Patient feels a little bit better. Chest x-ray negative for pneumonia. Laboratory studies unremarkable. Still has diffuse wheezing throughout. Peak flow is 250. Will give 2 more albuterol nebs and recheck peak flow. Peak flow did not improve significantly after 2 more albuterol nebs. Patient still feels short of breath and still has wheezing. Covid swab obtained and pending. Case discussed with hospitalist. Patient to be admitted observation status overnight for continued management of asthma exacerbation. Lab Data Lab results reviewed: Yes I reviewed the patient's lab results. ECG Data Attestation: I personally reviewed and interpreted this ECG (s) as follows: Prior ECG tracings: available for review Interpretation: Normal, see EKG. HPI General Mode of arrival: ambulatory. Date/Time Provider Initiated Documentation: 10/06/20 20:30. Limitations to Documentation: no limitations. Information obtained by: patient, RN notes reviewed and old records reviewed. HPI Narrative: Patient presents to ED with increasing shortness of breath, cough, tightness for the last 3 days. He reports being diagnosed with asthma and has an albuterol inhaler which he has been using with relief but symptoms recur. He was okay for the most part during today. This evening feels worse. Denies any fever that he is aware of. Has headache from coughing. Denies congestion or sore throat. Denies chest pain but does feel tight and unable to take a deep breath. Can hear the wheezing inside. Denies any GI symptoms. Denies any leg pain or leg swelling. He is fully vaccinated against Covid. He has had no known Covid exposures. Related Data Home Medications Medication Instructions Recorded Confirmed apremilast 30 mg tablet 30 mg PO BID 01/23/19 10/06/20 albuterol sulfate 90 mcg/actuation 2 puff INHALATION Q6H PRN #6.7 g 01/21/20 10/06/20 aerosol inhaler acetaminophen 325 mg capsule 325 mg PO DAILY PRN cap 09/13/20 10/06/20 Previous Rx's Medication Instructions Recorded albuterol sulfate 90 mcg/actuation 2 puff INHALATION Q6H PRN #6.7 g 01/21/20 aerosol inhaler Allergies Allergy/AdvReac Type Severity Reaction Status Date / Time Iodinated Contrast Media Allergy Severe Anaphylaxsi Verified 10/06/20 20:29 [Iodinated Contrast Media - s IV Dye] shellfish derived Allergy Severe Anaphylaxsi Verified 10/06/20 20:29 s Sulfa (Sulfonamide Allergy Intermediate Skin Rash Verified 10/06/20 20:29 Antibiotics) General Stated Complaint: RespSymp ELISA: 3 Review of Systems Narrative: As documented in HPI otherwise negative as below. Const: no fever, chills, weakness Resp: no pleuritic pain CV: no CP, diaphoresis, edema, syncope GI: no abdominal pain, nausea, vomiting, diarrhea Neuro: no numbness, focal weakness, confusion PFSH Medical History Malignant neoplasm prostate Sciatica Surgical History History of back surgery 2 broken discs History of hernia repair History of knee surgery History of surgery on arm History of surgery on wrist Steroid Injection [facility];Lumbar epidural steroid injection;04/04/17 Social History Smoking/Tobacco Use Status: Former Tobacco Use Tobacco: How many years used: 20 Smoking risk assessment performed?: Yes Alcohol Intake: former Drug use: Never Substance use type: does not use Caregiver/Support person: No Housing: house Communication Needs: Corrective Lenses Do you need help understanding health information?: Rarely Pets and animals: Yes Pets and animals: dog(s) Sexually active: No Do you think of yourself as: straight/heterosexual Current gender identity: female What is your relationship status?: How often do you talk on the phone with friends or family?: three or more times per week How often do you get together with friends or relatives?: once per week How often do you attend congregation or restoration services?: decline to answer Do you belong to any clubs or organized social groups?: no Panel score (0-1 are the most socially isolated patients): 1 What type of physical activity do you participate in: other Details: active on job Honey/Moravian: No preference Special honey needs: No Seatbelt use: always Helmet use: Yes Helmet use: always 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 HEENT: NC/AT. Normal facial exam. Eyes: Normal conjunctiva and sclera. Neck: Supple. Trachea midline. Lungs: Normal respiratory effort. Lungs with diffuse wheezing and rhonchi throughout. Cor: RRR without murmur/gallop. Good radial pulses. GI: Soft. NT/ND. No guarding or rebound. Neuro: A+O x 3. Normal speech, mentation, gait. Cranial nerves II - XII grossly intact. No gross motor or sensory deficit. Ext: No C/C/E. No calf tenderness. Skin: Warm and dry without rash. Course Vital Signs Vital signs: Vital Signs Temperature 97.3 F L 10/06/20 20:24 Pulse 89 10/06/20 20:24 Respiratory Rate 16 10/06/20 20:24 Blood Pressure 157/83 H 10/06/20 20:24 Pulse Oximetry 95 10/06/20 20:24 Temperature 97.3 F L 10/06/20 20:24 Pulse 89 10/06/20 20:24 Respiratory Rate 16 10/06/20 20:24 Respiratory Effort Non-Labored 10/06/20 20:28 Blood Pressure 157/83 H 10/06/20 20:24 Blood Pressure Position Sitting 10/06/20 20:24 Pulse Oximetry 95 10/06/20 20:24 Oxygen Delivery Method Room Air 10/06/20 20:24 Oxygen Flow Rate 0 10/06/20 20:24 Pain Level 0 10/06/20 20:24
[2020-10-06] MEDS: Albuterol 2.5 MG/3 ML INH SOLN VIAL UPD (20:53)
[2020-10-06] MEDS: methylPREDNISolone SUCC 125 MG VIAL IVP (20:53)
[2020-10-06 21:15] LABS: Abs Immature Grans 0.01 10^3/uL (0.0-0.06); Absolute Basophil Count 0.04 10^3/uL (0.0-0.2); Absolute Eosinophil Count 0.76 10^3/uL (0.0-0.7); Absolute Lymphocyte Count 1.66 10^3/uL (1.2-3.4); Absolute Monocyte Count 0.59 10^3/uL (0.1-0.8); Absolute Neutrophil Count 1.67 10^3/uL (1.2-6.7); Basophils % 0.8; Eosinophils % 16.1; HCT 42.5 % (40.0-50.0); HGB 13.9 g/dL (13.5-17.5); Immature Grans % 0.2; Lymphocytes % 35.1; MCH 27.6 pg (27.0-33.0); MCHC 32.7 % (32.0-36.0); MCV 84.3 fL (80-95); MPV 9.3 fL (8.0-11.0); Monocytes % 12.5; Neutrophils % 35.3; Nucleated RBC 0 %; Platelet Count 233 10^3/uL (130-400); RBC 5.04 10^6/uL (4.36-5.78); RDW 13.2 % (11.8-14.1); RDW-SD 40.5 fL; WBC 4.73 10^3/uL (4.4-10.8)
[2020-10-06] MEDS: Albuterol/Ipratropium 3 ML UPD VIAL UPD (21:15)
[2020-10-06 21:32] LABS: Anion Gap 9.5 mmol/L (3-11); BUN 18 mg/dL (7-18); CO2 25.5 mmol/L (21.0-32.0); Calcium 8.9 mg/dL (8.5-10.1); Chloride 106 mmol/L (98-107); Glucose 94 mg/dL (74-106); Magnesium 2.3 mg/dL (1.8-2.4); Potassium 3.8 mmol/L (3.5-5.1); Sodium 141 mmol/L (136-145); Troponin I < 0.05 ng/mL (<0.06)
--- NOTE | 2020-10-06 21:43 | DI.VRAD_ITS ---
PROCEDURE INFORMATION: Exam: XR Chest Exam date and time: 10/06/2020 8:44 PM Age: 60 years old Clinical indication: Other: SOB TECHNIQUE: Imaging protocol: XR of the chest. Views: 1 view. COMPARISON: CR XR PORTABLE CHEST AP 01/10/2020 6:52 PM FINDINGS: Lungs: Unremarkable. No consolidation. Pleural spaces: Unremarkable. No pleural effusion. No pneumothorax. Heart/Mediastinum: Unremarkable. No cardiomegaly. Bones/joints: Unremarkable. IMPRESSION: No acute findings. Dictated and Authenticated by: Peter Lima MD. Ordering:VALENTE Moses MD
[2020-10-06] MEDS: Albuterol 2.5 MG/3 ML INH SOLN VIAL 5 MG UPD (22:22)
[2020-10-06 23:29] LABS: Source Nasal/Nares
[2020-10-07] VITALS (12 sets, daily range): BP systolic 109–157; BP diastolic 69–83; PULSE 83–120; RESP 1–21; TEMP 36.3–36.5; O2SAT 93–96
[2020-10-07 00:18] LABS: COVID-19 PCR Negative (Negative)
--- NOTE | 2020-10-07 00:18 | HPE_ITS ---
Date of service: 10/07/20 Time of Service: 06:26 Assessment and Plan Assessment and plan (1) Acute asthma exacerbation: Status: Acute Assessment and plan: He carries a presumptive dx of asthma. Uses albuterol MDI prn. No formal pulmonary function tests have been performed in the past. Former smoker. CXR showed no acute processes but appears to show hyperinflation. Pulmonary medicine consulted. Will need PFTs when back to baseline. Xopenex Q2hr prn Duonebs scheduled Q6H IV solumedrol 40mg BID Budesonide UPD 0.5mg BID. Likely exacerbated by allergies. He endorses sneezing on most days when he gets to work. 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 No previous allergy testing. Flonase 2 puffs each nostril daily Consider Singulair. (2) High blood pressure: Status: Chronic Assessment and plan: He has had high readings according to previous clinic notes; systolic BP in the 140-150's range. This AM, SBP in the 110-120's range. Monitor. Qualifiers: Hypertension type: unspecified Qualified Code(s): I10 - Essential (primary) hypertension (3) Psoriasis: Status: Chronic Assessment and plan: He takes Otezla 30mg po BID (4) Perennial allergic rhinitis: Status: Acute Assessment and plan: Presumptive given his described symptoms. Nasal steroid initiated. Consider Singulair. History of Present Illness History of Present Illness Chief Complaint: Shortness of breath, cough Narrative: This is a 60 yo male with a PMH of psoriasis, elevated blood pressure readings, arthralgias, presumptive dx of asthma. He presented to the ED with appx a week long history of cough with white foamy sputum and increasing shortness of air and dyspnea on exertion. + chest tightness but no pain. No F/C. His cough was worse at night. He developed a right sided rib cage pain from coughing as well as an intermittent ARIAS. He endorsed audible wheezing. He has not had PFTs. He endorses sneezing most days. Previously on Singulair but not currently. He has never had formal allergy testing and has not used antihistamines regularly or a nasal steroid. In the ED his labs were unremarkable. EKG normal. CXR was negative for any ac [place] findings. Covid negative. After a Duoneb and 3 albuterol nebs his WPF remained low at 250. He did feel slightly better. He was given 125mg IV solumedrol in the ED. Review of Systems All systems reviewed & are unremarkable except as noted in HPI and below PFSH Medical History Malignant neoplasm prostate Sciatica Surgical History History of back surgery 2 broken discs History of hernia repair History of knee surgery History of surgery on arm History of surgery on wrist Steroid Injection [facility];Lumbar epidural steroid injection;04/04/17 Social History Smoking/Tobacco Use Status: Former Tobacco Use Tobacco: How many years used: 20 Smoking risk assessment performed?: Yes Alcohol Intake: former Drug use: Never Substance use type: does not use Caregiver/Support person: No Housing: house Communication Needs: Corrective Lenses Do you need help understanding health information?: Rarely Pets and animals: Yes Pets and animals: dog(s) Sexually active: No Do you think of yourself as: straight/heterosexual Current gender identity: female What is your relationship status?: How often do you talk on the phone with friends or family?: three or more times per week How often do you get together with friends or relatives?: once per week How often do you attend latter-day or congregational services?: decline to answer Do you belong to any clubs or organized social groups?: no Panel score (0-1 are the most socially isolated patients): 1 What type of physical activity do you participate in: other Details: active on job Honey/Mandaeism: No preference Special honey needs: No Seatbelt use: always Helmet use: Yes Helmet use: always 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 Do you feel safe at home: Yes Do you feel safe in your relationship?: Yes Meds Allergies and Home Medications Allergies Allergy/AdvReac Type Severity Reaction Status Date / Time Iodinated Contrast Media Allergy Severe Anaphylaxsi Verified 10/06/20 20:29 [Iodinated Contrast Media - s IV Dye] shellfish derived Allergy Severe Anaphylaxsi Verified 10/06/20 20:29 s Sulfa (Sulfonamide Allergy Intermediate Skin Rash Verified 10/06/20 20:29 Antibiotics) Home Medications Medication Instructions Recorded Confirmed Type apremilast 30 mg tablet 30 mg PO BID 01/23/19 10/06/20 History albuterol sulfate 90 mcg/actuation 2 puff INHALATION Q6H PRN #6.7 g 01/21/20 10/06/20 Rx aerosol inhaler acetaminophen 325 mg capsule 325 mg PO DAILY PRN cap 09/13/20 10/06/20 History Exam Narrative Exam Narrative: Pt had paroxysms of cough frequently during the exam; initiated by talking. He did expectorate clear to white sputum with one coughing bout. Const General: cooperative and acute distress mild (During coughing paroxysms.) Nutritional Appearance: overweight Orientation: alert and oriented x3 Eyes General: appearance normal, both eyes and all related structures Sclera: sclerae normal Pupils: PERRL Neck Neck: full ROM and no JVD Resp Effort & Inspection: normal respiratory effort Auscultation: clear to auscultation bilaterally and diminished lung sounds bilaterally in the lower lung liu Cardio Rate: tachycardic Rhythm: regular rhythm Heart Sounds: S1 normal and S2 normal GI Palpation: soft and nontender Skin General skin exam: no rashes or lesions noted Extrem General: no pedal edema and no calf tenderness Results Labs Result diagrams: 10/06/20 20:42 10/06/20 20:42 Labs: Laboratory Results - last 24 hr 10/06/20 10/06/20 10/06/20 20:42 20:42 23:25 WBC 4.73 RBC 5.04 Hgb 13.9 Hct 42.5 MCV 84.3 MCH 27.6 MCHC 32.7 RDW 13.2 Plt Count 233 MPV 9.3 Immature Gran % 0.2 Neutrophils % 35.3 Lymphocytes % 35.1 Monocytes % 12.5 Eosinophils % 16.1 Basophils % 0.8 Nucleated RBC % 0 Absolute Neutrophils 1.67 Absolute Lymphocytes 1.66 Absolute Monocytes 0.59 Absolute Eosinophils 0.76 H Absolute Basophils 0.04 Sodium 141 Potassium 3.8 Chloride 106 Carbon Dioxide 25.5 Anion Gap 9.5 BUN 18 Creatinine 1.0 Estimated GFR/1.73 m2 >= 60.00 Glucose 94 Calcium 8.9 Magnesium 2.3 Troponin I < 0.05 COVID-19 Source Nasal/Nares Last Vital Signs Temp 36.3 C L 10/06/20 20:24 Pulse 83 10/06/20 20:26 Resp 21 10/06/20 23:00 BP 157/83 H 10/06/20 20:26 Pulse Ox 94 10/06/20 23:08
[2020-10-07] MEDS: Albuterol/Ipratropium 3 ML UPD VIAL UPD ×2 (02:43→08:23)
--- NOTE | 2020-10-07 07:10 | PUCON_ITS ---
General Date Of Service Date of service: 10/07/20 Time of Service: 08:00 Requesting physician: Robin Elliott Reason for Consult: Bronchospasm Assessment and Plan Assessment and plan (1) Acute asthma exacerbation: Status: Acute Assessment and plan: This is a 60-year-old gentleman with recently diagnosed asthma who was previously well controlled with just a as needed albuterol inhaler who now presents in an asthma exacerbation. It seems as though his trigger has been the heat and humidity that has been around this week. I do wonder about a trigger present at his home as he feels as though his breathing is worse at home when compared to his work. Clinically he appears to be in an asthma exacerbation with drastic improvement with this air provided thus far. He should have pulmonary follow-up with more complete testing to assess the severity of his disease. Asthma Exacerbation - recommend discontinuing methylpred 40mg IV bid - recommend giving him prednisone 40mg daily with the following taper: 40mg for 5 days, 30mg for 3 days, 20mg for 3 days, 10mg for 3 days, 5mg for 3 days - recommend increasing his Symbicort to 160-4.5 from 80-4.5, 2 puffs twice daily - recommend discontinuing Duoneb therapy - recommend schedule albuterol nebs tid and q6 prn - I will set him up to see me in clinic Qualifiers: Asthma severity: mild Asthma persistence: intermittent Qualified Code(s): J45.21 - Mild intermittent asthma with (acute) exacerbation History of Present Illness History of Present Illness Chief Complaint: SOB Narrative: This is a 60-year-old gentleman who has a recent diagnosis of asthma last year who presents for severe shortness of breath was found to be in an asthma exacerbation. He had been feeling ill for approximately a week and was using his albuterol rescue inhaler that he had been prescribed that did seem to help initially however eventually his shortness of breath became too overwhelming and he reported to the emergency department. He feels as though t he weather, specifically the humidity has been worsening his breathing and he does note that his breathing is worse at home when compared to at work. His Covid test was negative and his chest x-ray was normal along with a normal EKG. This morning he states he is doing much better after receiving steroids and nebulizer treatments. Review of Systems All systems reviewed & are unremarkable except as noted in HPI and below Constitutional Constitutional: Reports difficulty sleeping Eyes Eyes: Denies itchy eyes ENT Ears, Nose, Mouth, and Throat: Denies tongue swelling Cardiovascular Cardiovascular: Reports dyspnea, Reports dyspnea on exertion and Reports orthopnea Respiratory Respiratory: Reports cough, Denies hemoptysis, Reports pain with cough, Reports dyspnea, Reports dyspnea on exertion and Reports wheezing Allergic/Immunologic Allergic/Immunologic: Denies itchy eyes, Denies seasonal rhinorrhea, Denies tongue swelling and Reports wheezing PFSH Medical History Malignant neoplasm prostate Sciatica Surgical History History of back surgery 2 broken discs History of hernia repair History of knee surgery History of surgery on arm History of surgery on wrist Steroid Injection Pain Clinic;Lumbar epidural steroid injection;04/04/17 Social History Smoking/Tobacco Use Status: Former Tobacco Use Tobacco: How many years used: 20 Smoking risk assessment performed?: Yes Alcohol Intake: former Drug use: Never Substance use type: does not use Caregiver/Support person: No Housing: house Communication Needs: Corrective Lenses Do you need help understanding health information?: Rarely Pets and animals: Yes Pets and animals: dog(s) Sexually active: No Do you think of yourself as: straight/heterosexual Current gender identity: female What is your relationship status?: How often do you talk on the phone with friends or family?: three or more times per week How often do you get together with friends or relatives?: once per week How often do you attend confucianism or rastafari services?: decline to answer Do you belong to any clubs or organized social groups?: no Panel score (0-1 are the most socially isolated patients): 1 What type of physical activity do you participate in: other Details: active on job Honey/Synagogue: No preference Special honey needs: No Seatbelt use: always Helmet use: Yes Helmet use: always Drive 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 boat driver: No Do you feel safe at home: Yes Do you feel safe in your relationship?: Yes Visit Medication and Allergies Active Medications Generic Name Dose Route Start Last Admin Trade Name Freq PRN Reason Stop Dose Admin Acetaminophen 650 mg 10/07/20 00:01 Acetaminophen 325 Mg Tab PO Q4H PRN PRN Al Hydrox/Mg Hydrox/Simethicone 30 ml 10/07/20 00:01 Mylanta Suspension 30 Ml Cup PO Q2H PRN PRN Albuterol/Ipratropium 3 ml 10/07/20 03:00 10/07/20 02:43 Albuterol/Ipratropium 3 Ml Upd Vial UPD 3 ml Q6H JABIER Administration Budesonide 0.5 mg 10/07/20 08:30 Budesonide 0.5 Mg/2 Ml Upd Vial UPD BID JABIER Device 1 each 10/07/20 01:00 Inhaler, Assist Device MC DIRECTED [facility] Dimethicone/Zinc Oxide 0 gm 10/07/20 00:01 Ivy Protect Cream 142 Gm Tube TP PRN PRN Diphenhydramine HCl 25 mg 10/07/20 00:07 Diphenhydramine 25 Mg Cap PO Q4H PRN PRN Fluticasone Propionate 0 gm 10/07/20 08:30 Fluticasone Nasal [place] 16 Gm Btl NS DAILY [facility] Sodium Chloride 500 mls @ 0 mls/hr 10/06/20 20:42 Saline 500ml Bag IV PRN PRN As Directed IV Miscellaneous Supplies 1 each 10/06/20 20:45 Iv Access IV DIRECTED [facility] Levalbuterol HCl 0.63 mg 10/07/20 00:22 Levalbuterol 0.63 Mg/3 Ml Upd Vial UPD Q2H PRN PRN Magnesium Hydroxide 30 ml 10/07/20 00:01 Milk Of Magnesia 30 Ml Cup PO DAILY PRN PRN Methylprednisolone Sodium Succinate 40 mg 10/07/20 08:30 Methylprednisolone Succ 40 Mg Vial IVP BID [facility] Non-Formulary Medication 30 mg 10/07/20 08:30 Apremilast [Otezla] PO BID [facility] Polyethylene Glycol 17 gm 10/07/20 00:01 Polyethylene Glycol 3350 17 Gm Packet PO DAILY PRN PRN Constipation Prednisone 40 mg 10/07/20 08:30 Prednisone 20 Mg Tab PO DAILY [facility] Sodium Chloride 0 ml 10/06/20 20:42 Normal Saline Flush 10 Ml Syr IVP PRN PRN Allergies Iodinated Contrast Media [Iodinated Contrast Media - IV Dye] Allergy (Severe, Verified 10/06/20 20:29) Anaphylaxsis shellfish derived Allergy (Severe, Verified 10/06/20 20:29) Anaphylaxsis Sulfa (Sulfonamide Antibiotics) Allergy (Intermediate, Verified 10/06/20 20:29) Skin Rash Exam Const General: no acute distress Nutritional Appearance: well nourished [facility] Head: normocephalic Ears: external ears normal General nose exam: nasal mucous membranes and turbinates normal Face and sinus: sinuses nontender Mouth: oropharynx normal and moist mucous membranes Teeth and gingiva: dentition normal Eyes General: appearance normal, both eyes and all related structures Pupils: PERRL Neck Neck: normal visual inspection and no lymphadenopathy Chest Chest: normal inspection of the chest Resp Effort & Inspection: normal respiratory effort Auscultation: no rales, no rhonchi and wheezes (bilaterally) expiratory wheezes Cardio Rate: regular rate Rhythm: regular rhythm Heart Sounds: S1 normal, S2 normal and no murmurs Pulses: radial pulses present bilaterally GI Inspection: normal to inspection Palpation: soft Skin General skin exam: no rashes or lesions noted Neuro General: patient alert, patient awake and patient oriented x3 Extrem General: no clubbing, cyanosis or edema Psych Mental Status: mental status grossly normal Affect: normal affect Attitude: cooperative Results Last Vital Signs Temp 36.5 C 10/07/20 00:50 Pulse 120 H 10/07/20 03:16 Resp 20 10/07/20 03:16 BP 121/69 10/07/20 03:16 Pulse Ox 93 10/07/20 03:16 Labs Result diagrams: 10/06/20 20:42 10/06/20 20:42 Labs: Laboratory Results - last 24 hr 10/06/20 10/06/20 10/06/20 20:42 20:42 23:25 WBC 4.73 RBC 5.04 Hgb 13.9 Hct 42.5 MCV 84.3 MCH 27.6 MCHC 32.7 RDW 13.2 Plt Count 233 MPV 9.3 Immature Gran % 0.2 Neutrophils % 35.3 Lymphocytes % 35.1 Monocytes % 12.5 Eosinophils % 16.1 Basophils % 0.8 Nucleated RBC % 0 Absolute Neutrophils 1.67 Absolute Lymphocytes 1.66 Absolute Monocytes 0.59 Absolute Eosinophils 0.76 H Absolute Basophils 0.04 Sodium 141 Potassium 3.8 Chloride 106 Carbon Dioxide 25.5 Anion Gap 9.5 BUN 18 Creatinine 1.0 Estimated GFR/1.73 m2 >= 60.00 Glucose 94 Calcium 8.9 Magnesium 2.3 Troponin I < 0.05 COVID-19 Source Nasal/Nares SARS-CoV-2 (PCR) Negative
[2020-10-07 07:45] LABS: BUN 16 mg/dL (7-18); CREATININE 1.4 mg/dL (0.70-1.30); Calcium 9.2 mg/dL (8.5-10.1); Chloride 104 mmol/L (98-107); Estimated GFR 51.35 (mL/min/1.73m2); Glucose 159 mg/dL (74-106); Potassium 4.2 mmol/L (3.5-5.1); Sodium 140 mmol/L (136-145)
[2020-10-07] MEDS: Normal Saline Flush 10 ML SYR IVP ×2 (08:15→21:23)
[2020-10-07] MEDS: predniSONE 20 MG TAB 40 MG PO (08:16)
[2020-10-07] MEDS: Fluticasone NASAL SPRAY 16 GM BTL NS (08:17)
[2020-10-07] MEDS: methylPREDNISolone SUCC 40 MG VIAL IVP (08:18)
[2020-10-07] MEDS: Budesonide/Formoterol 80/4.5 6.9 GM 60 PUFF INH IH (11:14)
--- NOTE | 2020-10-07 11:34 | INITIAL_ITS ---
- If Service Date Differs Date of service: 10/07/20 Time of Service: 11:34 Care Management Initial Assess REASON FOR HOSPITALIZATION:: Acute asthma exacerbation PAST MEDICAL HISTORY/PAST SURGICAL HISTORY:: Medical History . Malignant neoplasm prostate. Sciatica. Surgical History . History of back surgery. 2 broken discs. History of hernia repair. History of knee surgery. History of surgery on arm. History of surgery on wrist. Steroid Injection. Pain Clinic;Lumbar epidural steroid injection;04/04/17 PREVIOUS FUNCTIONAL STATUS/SOCIAL/FAMILY SUPPORTS:: Altaf lives in his own home with his son and his son's family in [place], [place]. He also has 2 daughters. Altaf has a [place] [facility] girlfriend who currently lives in [place]. He adler with her in [place] from January through April. 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 He is independent with ADL's and all activities including transportation. CURRENT FUNCTIONAL STATUS:: Altaf was sitting up on the side of his bed when CM met with him. He was pleasant and agreeable to conversation. Altaf informed CM that he had been diagnosed with stage IV prostate cancer 10 years ago and was given only months to live. He proudly recounted the details of his diagnosis and treatment and the fact that he is here to tell the tale. 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 He is hopeful that his symptoms can be namanaged and that he will be able to return to work soon. ADVANCE DIRECTIVES:: none on file Has patient been provided with info about the portal/API?: Yes Did the patient sign up for the portal?: No CODE STATUS:: Full Code INSURANCE COVERAGE / FINANCIAL ISSUES:: [employer] CURRENT HOME/COMMUNITY SERVICES/EQUIPMENT:: none PRIMARY CARE PHYSICIAN:: Mamadou Ruiz POTENTIAL DISCHARGE NEEDS:: Follow up with PCP and discharge plan of care PATIENT/FAMILY EDUCATION NEEDS:: Review of discharge instructions, limitations, medications, follow up care, Ask Me Three TRANSPORTATION:: via private vehicle with family PLAN:: Altaf will likely be discharged home with no new services. He will follow up with his PCP, Pulmonology and plan of care and transport with family. CM will continue to support Altaf and assess for discharge planning needs.
--- NOTE | 2020-10-07 12:06 | W.PM.PROGNOT ---
Date of Service Date of service: 10/07/20 Time of Service: 12:06 Assessment and Plan Assessment and plan (1) Acute asthma exacerbation: Status: Acute Assessment and plan: seen by pulmonary with following recommendations: - recommend discontinuing methylpred 40mg IV bid - recommend giving him prednisone 40mg daily with the following taper: 40mg for 5 days, 30mg for 3 days, 20mg for 3 days, 10mg for 3 days, 5mg for 3 days - recommend increasing his Symbicort to 160-4.5 from 80-4.5, 2 puffs twice daily - recommend discontinuing Duoneb therapy - recommend schedule albuterol nebs tid and q6 prn - will be followed in outpatient clinic Qualifiers: Asthma persistence: intermittent Asthma severity: mild Qualified Code(s): J45.21 - Mild intermittent asthma with (acute) exacerbation (2) High blood pressure: Status: Chronic Assessment and plan: He has had high readings according to previous clinic notes; systolic BP in the 140-150's range. This AM, SBP in the 110-120's range. Monitor. Qualifiers: Hypertension type: unspecified Qualified Code(s): I10 - Essential (primary) hypertension (3) Psoriasis: Status: Chronic Assessment and plan: He takes Otezla 30mg po BID (4) Perennial allergic rhinitis: Status: Acute Assessment and plan: Presumptive given his described symptoms. Nasal steroid initiated. Consider Singulair. discussed with Dr Cook Subjective Subjective Patient reports: shortness of breath Exam Const General: cooperative Nutritional Appearance: overweight Orientation: alert and oriented x3 Eyes Sclera: sclerae normal Neck Neck: full ROM and no JVD Resp Effort & Inspection: normal respiratory effort Auscultation: clear to auscultation bilaterally and diminished lung sounds bilaterally in the lower lung liu Cardio Rhythm: regular rhythm GI Palpation: soft and nontender Skin General skin exam: no rashes or lesions noted Extrem General: no pedal edema and no calf tenderness Objective Last Vital Signs Temp 36.5 C 10/07/20 00:50 Pulse 98 H 10/07/20 07:49 Resp 17 10/07/20 07:49 BP 132/70 10/07/20 07:49 Pulse Ox 94 10/07/20 09:02 Laboratory Results - last 24 hr 10/06/20 10/06/20 10/06/20 20:42 20:42 23:25 WBC 4.73 RBC 5.04 Hgb 13.9 Hct 42.5 MCV 84.3 MCH 27.6 MCHC 32.7 RDW 13.2 Plt Count 233 MPV 9.3 Immature Gran % 0.2 Neutrophils % 35.3 Lymphocytes % 35.1 Monocytes % 12.5 Eosinophils % 16.1 Basophils % 0.8 Nucleated RBC % 0 Absolute Neutrophils 1.67 Absolute Lymphocytes 1.66 Absolute Monocytes 0.59 Absolute Eosinophils 0.76 H Absolute Basophils 0.04 Sodium 141 Potassium 3.8 Chloride 106 Carbon Dioxide 25.5 Anion Gap 9.5 BUN 18 Creatinine 1.0 Estimated GFR/1.73 m2 >= 60.00 Glucose 94 Calcium 8.9 Magnesium 2.3 Troponin I < 0.05 COVID-19 Source Nasal/Nares SARS-CoV-2 (PCR) Negative 10/07/20 06:22 WBC RBC Hgb Hct MCV MCH MCHC RDW Plt Count MPV Immature Gran % Neutrophils % Lymphocytes % Monocytes % Eosinophils % Basophils % Nucleated RBC % Absolute Neutrophils Absolute Lymphocytes Absolute Monocytes Absolute Eosinophils Absolute Basophils Sodium 140 Potassium 4.2 Chloride 104 Carbon Dioxide 20.0 L Anion Gap 16.0 H BUN 16 Creatinine 1.4 H Estimated GFR/1.73 m2 51.35 Glucose 159 H Calcium 9.2 Magnesium Troponin I COVID-19 Source SARS-CoV-2 (PCR)
[2020-10-07] MEDS: Albuterol 2.5 MG/3 ML INH SOLN VIAL UPD ×2 (16:26→21:18)
[2020-10-07] MEDS: Melatonin 3 MG TAB 6 MG PO (21:18)
[2020-10-07] MEDS: Budesonide/Formoterol 160/4.5 6 GM 60 PUFF INH IH (21:19)
[2020-10-08] MEDS: Albuterol 2.5 MG/3 ML INH SOLN VIAL UPD ×2 (06:21→14:44)
[2020-10-08 07:48] VITALS: BP 125/67; PULSE 83; RESP 19; TEMP 36.5; O2SAT 96
[2020-10-08 08:11] LABS: Anion Gap 9.4 mmol/L (3-11); BUN 24 mg/dL (7-18); CO2 24.6 mmol/L (21.0-32.0); CREATININE 1.1 mg/dL (0.70-1.30); Calcium 9.2 mg/dL (8.5-10.1); Chloride 104 mmol/L (98-107); Glucose 103 mg/dL (74-106); Potassium 4.3 mmol/L (3.5-5.1); Sodium 138 mmol/L (136-145)
[2020-10-08] MEDS: predniSONE 20 MG TAB 40 MG PO (09:03)
[2020-10-08] MEDS: Normal Saline Flush 10 ML SYR IVP (09:14)
[2020-10-08] MEDS: Budesonide/Formoterol 160/4.5 6 GM 60 PUFF INH IH (10:08)
[2020-10-08] MEDS: Fluticasone NASAL SPRAY 16 GM BTL NS (10:40)
--- NOTE | 2020-10-08 12:41 | W.PM.DS.N ---
Date of service: 10/08/20 Time of Service: 12:41 DS: Diagnosis Discharge Diagnosis (1) Acute asthma exacerbation: Status: Acute (2) High blood pressure: Status: Chronic (3) Psoriasis: Status: Chronic (4) Perennial allergic rhinitis: Status: Acute Discharge Plan Disposition Patient Disposition: HOME Condition: Improving Discharge Details Reason For Visit: Asthma Exacerbation Admit Date/Time: 10/07/20 00:02 Admit Provider: Robin Elliott Attending Provider: Robin Elliott Primary Care Provider: Mamadou Ruiz [facility] Course Hospital Course: This is a 60 yo male with a PMH of psoriasis, elevated blood pressure readings, arthralgias, presumptive asthma who presented to the ED with a week long history of cough with white foamy sputum and increasing shortness of air and dyspnea on exertion. He has never had PFTs. He endorses sneezing most days. Previously on Singulair but not currently. He has never had formal allergy testing and has not used antihistamines regularly or a nasal steroid. In the ED his labs were unremarkable. EKG normal. CXR was negative for any acute findings. Covid negative. After a Duoneb and 3 albuterol nebs his WPF remained low at 250. He did feel slightly better. He was given 125mg IV solumedrol in the ED and admitted to the hospitalist services for further management. Pulmonary was consulted with the following recommendations. - discontinuing methylpred 40mg IV bid - prednisone 40mg daily with the following taper: 40mg for 5 days, 30mg for 3 days, 20mg for 3 days, 10mg for 3 days, 5mg for 3 days - Symbicort 160-4.5 from 80-4.5, 2 puffs twice daily - discontinuing Duoneb therapy - schedule albuterol nebs tid and q6 prn - Outpatient follow up in pulmonary clinic. He responded slowly to the above recommendations. He had no oxygen requirements and remained hemodynamically stable. He is ready for discharge to home discharge discussed with Dr Elliott. Home Meds and New Rx's Prescriptions: New budesonide-formoterol [Symbicort] 160-4.5 mcg/actuation Hfa Aerosol Inhaler 2 puff inhalation BID Qty: 10.2 RF: 0 prednisone 20 mg Tablet 40 mg PO DAILY Qty: 20 RF: 0 Inhaler, Assist Devices [Pocket Chamber] 1 ea miscellaneous DIRECTED Qty: 0 RF: 0 Continued albuterol sulfate [ProAir HFA] 90 mcg/actuation HFA aerosol inhaler 2 puff inhalation Q6H PRN (Reason: shortness of breath or wheezing) Qty: 6.7 RF: 4 acetaminophen [Tylenol] 325 mg capsule 325 mg PO DAILY PRNRF: 0 Otezla 30 mg tablet 30 mg PO BID RF: 0 Discharge Instructions Instructions: Asthma (DC) Additional Instructions: prednisone 40mg daily with the following taper: 40mg for 5 days, 30mg for 3 days, 20mg for 3 days, 10mg for 3 days, 5mg for 3 day drink 6-8 glasses of water daily to stay well hydrated. Referrals: Ashley Ferreira MD [ [facility] STAFF PHYSICIAN] - (Please call Saturday to make a follow up. [phone]) Activity:: Activity as Tolerated Equipment/Supplies:: No Equipment Needed Diet:: As Tolerated Discharge Orders Discharge Orders: Discharge Order (Routine); Ordered 10/08/20 Ordered By: Leelee Helton DS: Summary Time Spent with Patient providing and/or coordinating discharge services: Less than 30 minutes Status at Discharge Functional status at discharge: independent ambulation Overall status at discharge: patient is progressing back to baseline Mental Status: mental status grossly normal Speech and Movement: speech and movement normal Mood: congruent mood Affect: normal affect Exam Const General: cooperative Nutritional Appearance: overweight Orientation: alert and oriented x3 Eyes Sclera: sclerae normal Neck Neck: full ROM and no JVD Resp Effort & Inspection: normal respiratory effort Auscultation: clear to auscultation bilaterally and diminished lung sounds bilaterally in the lower lung liu Cardio Rhythm: regular rhythm GI Palpation: soft and nontender Skin General skin exam: no rashes or lesions noted Extrem General: no pedal edema and no calf tenderness Psych Mental Status: mental status grossly normal Speech and Movement: speech and movement normal Mood: congruent mood Affect: normal affect DS: Data Vitals/I&O Vitals and I&O: Vital Signs Temperature 36.5 C 10/08/20 07:48 Temperature Source Tympanic 10/08/20 07:48 Pulse 83 10/08/20 07:48 Pulse Rhythm Regular 10/08/20 10:26 Pulse 102 H 10/07/20 07:49 Respiratory Rate 19 10/08/20 07:48 Respiratory Effort 10/08/20 10:26 Respiratory Depth Normal 10/08/20 10:26 Respiratory Pattern Normal 10/08/20 10:26 Blood Pressure 125/67 10/08/20 07:48 Blood Pressure Mean 84 10/07/20 07:49 Blood Pressure Position Sitting 10/06/20 20:24 Pulse Oximetry 96 10/08/20 07:48 Oxygen Delivery Method Room Air 10/08/20 07:48 Oxygen Flow Rate 0 10/08/20 07:48 Pain Level 0 10/08/20 07:48 Intake & Output 10/07/20 10/08/20 10/08/20 23:59 11:59 23:59 Intake Total 640 / 940 300 / 940 Balance 440 640 / 940 300 / 940 Weight 91.399 kg Intake: IV Oral 640 / 940 300 / 940 Other: Urine Color Yellow Urine Appearance Clear Clear Urine Odor Normal Comment pt voids independently in toilet Stool Size Moderate Stool Characteristics Soft Data Completed and Pending Labs on day of discharge: Labs from last 24 hours 10/08/20 06:45 Sodium 138 Potassium 4.3 Chloride 104 Carbon Dioxide 24.6 Anion Gap 9.4 BUN 24 H Creatinine 1.1 Estimated GFR/1.73 m2 >= 60.00 Glucose 103 D Calcium 9.2 PFSH Medical History Malignant neoplasm prostate Sciatica Surgical History History of back surgery 2 broken discs History of hernia repair History of knee surgery History of surgery on arm History of surgery on wrist Steroid Injection Pain Clinic;Lumbar epidural steroid injection;04/04/17 Social History Smoking/Tobacco Use Status: Former Tobacco Use Tobacco: How many years used: 20 Smoking risk assessment performed?: Yes Alcohol Intake: former Drug use: Never Substance use type: does not use Caregiver/Support person: No Housing: house Communication Needs: Corrective Lenses Do you need help understanding health information?: Rarely Pets and animals: Yes Pets and animals: dog(s) Sexually active: No Do you think of yourself as: straight/heterosexual Current gender identity: female What is your relationship status?: How often do you talk on the phone with friends or family?: three or more times per week How often do you get together with friends or relatives?: once per week How often do you attend amish or catholic services?: decline to answer Do you belong to any clubs or organized social groups?: no Panel score (0-1 are the most socially isolated patients): 1 What type of physical activity do you participate in: other Details: active on job Honey/Synagogue: No preference Special honey needs: No Seatbelt use: always Helmet use: Yes Helmet use: always Drive 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 driver manager: No Do you feel safe at home: Yes Do you feel safe in your relationship?: Yes
[2020-10-08 14:45] VITALS: PULSE 97; RESP 18; O2SAT 96
== END 2020-10-08 15:20 | disposition home or self-care (01) ==
LOC: ER 10-07 00:11 → ICU 10-07 00:32 → MS 10-07 12:15
PROVIDERS: Nurse Practitioner Acute Care; Admitting Provider Family Medicine; Emergency Provider Emergency Medicine; PCP Emergency Medicine; Visit Provider Family Medicine
DX: J45.901 Unspecified asthma with (acute) exacerbation (principal); I10 Essential (primary) hypertension; L40.9 Psoriasis, unspecified; R51.9 Headache, unspecified; M54.30 Sciatica, unspecified side; C61 Malignant neoplasm of prostate; Z20.822 Contact with and (suspected) exposure to COVID-19; Z87.891 Personal history of nicotine dependence; Z79.899 Other long term (current) drug therapy; J30.9 Allergic rhinitis, unspecified
CPT/HCPCS: 36415; 80048; 87635; 93005; 94640; 96374; 99285; 71045; 83735; 84484; 85025; 93010; 99217; 99220; G0378; J2930; J7512; J7613; J7620

== ENCOUNTER 2020-10-24 01:21 | Outpatient (CLI) | payer BC, SELFPAY ==
[2020-10-24] MEDS: Albuterol HFA 18 GM 200 PUFF INH IH (14:30)
[2020-10-24] MEDS: Inhaler, Assist Device 1 EACH MC (14:31)
--- NOTE | 2020-10-25 13:47 | W.PFT ---
Date of service: 10/24/20 Time of Service: 13:07 Pulmonary Function Test Result Requesting Provider Jhon Indications: Recent asthma hospitalization Interpretation Spirometry: There is no airflow limitation. Technically there is not a significant bronchodilator effect however his FEV1 increased over 200 cc and 11% after receiving albuterol. Lung Volumes: Lung volumes are normal. Diffusion Capacity: The diffusion is normal. Airway Pressure: Airways resistance is normal. Impression Normal pulmonary function testing however there is likely a bronchodilator response present. Clinical Correlation therefore is recommended.
== END 2020-10-24 01:22 | disposition home or self-care (01) ==
LOC: RT 01:22
PROVIDERS: PCP Emergency Medicine; Visit Provider Student in an Organized Health Care Education/Training Program
DX: J45.998 Other asthma (principal)
CPT/HCPCS: 94060; 94726; 94729

== ENCOUNTER 2020-10-28 18:49 | Emergency (ER) | payer BC, SELFPAY ==
[2020-10-28 18:59] VITALS: BP 131/79; PULSE 90; RESP 16; TEMP 37.3; O2SAT 96
[2020-10-28 19:02] VITALS: RESP 16
--- NOTE | 2020-10-28 19:30 | DI.RAD_ITS ---
Exam(s) XR HAND RT COMPLETE EXAM: XR HAND RT COMPLETE CLINICAL HISTORY: Right dorsal hand swelling. TECHNIQUE: 2D digital imaging was performed. COMPARISON: CR,XR XR HAND RT COMPLETE from 07/28/2020 FINDINGS: BONES: No acute fracture is present. No bony destructive lesion is seen. JOINTS: No dislocation present. Arthritic changes are seen in the interphalangeal joints of the 2nd t hrough 5th fingers. SOFT TISSUE: There is generalized soft tissue swelling of the entire hand. IMPRESSION: Soft tissue swelling of the entire hand. No acute fracture or dislocation. DATA REPOSITORY: RADIATION DOSE DELIVERED:
--- NOTE | 2020-10-28 19:30 | DI.RAD_ITS ---
Exam(s) XR ANKLE LT COMPLETE EXAM: XR ANKLE LT COMPLETE CLINICAL HISTORY: Swelling, pain TECHNIQUE: 2D digital imaging was performed. COMPARISON: No exams were available for comparison FINDINGS: BONES: No acute fracture is present. No bony destructive lesion is seen. There is a well corticated o sseous density inferior to the fibula likely reflecting an old injury or accessory ossicle. JOINTS:The ankle mortise is normally aligned. SOFT TISSUE: Soft tissue swelling about the ankle. IMPRESSION: No acute fracture or dislocation. DATA REPOSITORY: RADIATION DOSE DELIVERED:
--- NOTE | 2020-10-28 19:35 | ED.GENADUL_ITS ---
Discharge Plan Disposition Patient Disposition: HOME Condition: Stable Discharge Details Clinical Impression: Arthralgia, Hand pain, right Primary Care Provider: Mamadou Ruiz ED Provider: Dena Andujar Home Meds and New Rx's Prescriptions: New ketorolac 10 mg tablet 10 mg PO TID PRN5 Days Qty: 10 RF: 0 No Action albuterol sulfate [ProAir HFA] 90 mcg/actuation HFA aerosol inhaler 2 puff inhalation Q6H PRN (Reason: shortness of breath or wheezing) Qty: 6.7 RF: 4 acetaminophen [Tylenol] 325 mg capsule 325 mg PO DAILY PRNRF: 0 Otezla 30 mg tablet 30 mg PO BID RF: 0 budesonide-formoterol [Symbicort] 160-4.5 mcg/actuation Hfa Aerosol Inhaler 2 puff inhalation BID Qty: 10.2 RF: 0 Inhaler, Assist Devices [Pocket Chamber] 1 ea miscellaneous DIRECTED Qty: 0 RF: 0 Discharge Instructions Instructions: Arthralgia (ED), Arthritis (ED) Additional Instructions: Rest ice compression elevation. Take the medications as directed as needed for moderate to severe pain. Do not take longer than 7 days. Follow up with primary care provider in 3-5 days. Return to ED sooner if any worsening or concerns. Increase oral fluids. Please take Tylenol or Ibuprofen with food every 4-6 hours as needed for pain and swelling. Follow-up with orthopedics within 1 to 2 weeks as needed. Return to the ER for any worsening redness, swelling, fever, chills or any concerns. Referrals: Mamadou Ruiz DO [Primary Care Provider] - 5 days Nicola Armenta MD [ [facility] STAFF PHYSICIAN] - Medical Decision Making 60-year-old male presents to the ER chief complaint of right dorsal hand swe lling and left ankle swelling which began suddenly 2 days ago. Patient denies any injury. He does report having flareups like this in the past and has been seen by a specialist at [facility]. He has never been officially diagnosed with gout. He last took some Tylenol at 2 PM. He denies any fever chills or myalgias. Does have a history of arthritis Labs ordered including CBC, CMP, uric acid x-rays ordered of right hand left ankle. CBC shows no leukocytosis, CMP largely within normal limits. Uric acid within normal limits. Imaging protocol: XR Right hand. Views: 3 or more views. COMPARISON: MR UPPER JOINT RT WO 09/02/2020 8:20 AM FINDINGS: There is soft tissue swelling about the hand. There are arthritic changes involving the PIP joints of the 2nd through 5th fingers. These are not well visualized due to the fingers being flexed. There likely are some arthritic changes of the DIP joints as well. There is no evidence of fracture. There is no periarticular osteopenia. There are no bony erosions. There is normal alignment of the carpal bones. IMPRESSION: 1. Soft tissue swelling. 2. Degenerative changes as described Imaging protocol: XR Left ankle. Views: 3 or more views. COMPARISON: NM WHOLE BODY BONE SCAN 04/25/2017 11:34 AM FINDINGS: There is soft tissue swelling about the ankle. There is a well corticated bony density distal to the fibula which may represent an old avulsion fracture or accessory ossicle. The ankle mortise appears intact. The talar dome and subtalar joint are normal. Plantar and Achilles tendon spurs of the calcaneus are present. IMPRESSION: 1. Soft tissue swelling about the ankle. 2. No acute fracture or bony destruction. Discussed labs and x-rays with patient who verbalized understanding. Patient sent home with 2 mg Toradol tablets. Upon reevaluation he is feeling improved after fluids and Toradol. Kev wrap supplied. Instructed to follow-up with orthopedics and/or PCP and keep his rheumatology appointment. HPI General Mode of arrival: ambulatory . Date/Time Provider Initiated Documentation: 10/28/20 18:52 . Limitations to Documentation: no limitations . Information obtained by: patient and RN notes reviewed . HPI Narrative: 60-year-old male presents to the ER chief complaint of right dorsal hand swelling and left ankle swelling which began suddenly 2 days ago. Patient denies any injury. He does report having flareups like this in the past and has been seen by a specialist at [facility]. He has never been officially diagnosed with gout. He last took some Tylenol at 2 PM. He denies any fever chills or myalgias. Does have a history of arthritis Related Data Home Medications Medication Instructions Recorded Confirmed apremilast 30 mg tablet 30 mg PO BID 01/23/19 10/28/20 albuterol sulfate 90 mcg/actuation 2 puff INHALATION Q6H PRN #6.7 g 01/21/20 10/28/20 aerosol inhaler acetaminophen 325 mg capsule 325 mg PO DAILY PRN cap 09/13/20 10/28/20 Inhaler, Assist Devices [Pocket 1 ea MISCELLANEOUS DIRECTED #0 10/08/20 10/28/20 Chamber] budesonide-formoterol [Symbicort] 2 puff INHALATION BID #10.2 g 10/08/20 10/28/20 ketorolac 10 mg PO TID PRN 5 Days #10 tab 10/28/20 Previous Rx's Medication Instructions Recorded albuterol sulfate 90 mcg/actuation 2 puff INHALATION Q6H PRN #6.7 g 01/21/20 aerosol inhaler Inhaler, Assist Devices [Pocket 1 ea MISCELLANEOUS DIRECTED #0 10/08/20 Chamber] budesonide-formoterol [Symbicort] 2 puff INHALATION BID #10.2 g 10/08/20 ketorolac 10 mg PO TID PRN 5 Days #10 tab 10/28/20 Allergies Allergy/AdvReac Type Severity Reaction Status Date / Time Iodinated Contrast Media Allergy Severe Anaphylaxsi Verified 10/28/20 19:09 [Iodinated Contrast Media - s IV Dye] shellfish derived Allergy Severe Anaphylaxsi Verified 10/28/20 19:09 s Sulfa (Sulfonamide Allergy Intermediate Skin Rash Verified 10/28/20 19:09 Antibiotics) General Stated Complaint: GenMedical ELISA: 3 Review of Systems All systems reviewed & are unremarkable except as noted in HPI and below Musculoskeletal Musculoskeletal: Denies abnormal gait, Denies myalgias, Reports arthralgias, Reports joint swelling and Denies numbness Neurologic Neurologic: Denies abnormal gait and Denies numbness [facility] Medical History (Updated 10/28/20 @ 21:29 by Dena Andujar) Acute asthma exacerbation Malignant neoplasm prostate Sciatica Surgical History History of back surgery 2 broken discs History of hernia repair History of knee surgery History of surgery on arm History of surgery on wrist Steroid Injection [facility];Lumbar epidural steroid injection;04/04/17 Social History Smoking/Tobacco Use Status: Former Tobacco Use Tobacco: How many years used: 20 Smoking risk assessment performed?: Yes Alcohol Intake: former Drug use: Never Substance use type: does not use Caregiver/Support person: No Housing: house Communication Needs: Corrective Lenses Do you need help understanding health information?: Rarely Pets and animals: Yes Pets and animals: dog(s) Sexually active: No Do you think of yourself as: straight/heterosexual Current gender identity: female What is your relationship status?: How often do you talk on the phone with friends or family?: three or more times per week How often do you get together with friends or relatives?: once per week How often do you attend sabianist or scientologist services?: decline to answer Do you belong to any clubs or organized social groups?: no Panel score (0-1 are the most socially isolated patients): 1 What type of physical activity do you participate in: other Details: active on job Honey/Moravian: No preference Special honey needs: No Seatbelt use: always Helmet use: Yes Helmet use: always Drive 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 public transit trolley driver: No Do you feel safe at home: Yes Do you feel safe in your relationship?: Yes Exam Extrem Right upper extremity: hand (Dorsum erythema, swelling, tenderness) Details: tendon exam normal, tenderness, warmth and swelling Hand/finger images: 1. Erythema, warmth, swelling, Mild enlargement of PIP and DIP joints. FROM noted to wrist Left lower extremity: ankle Details: tenderness, swelling and warmth Ankle/foot/toe images: 1. Erythema, swelling Course Vital Signs Vital signs: Vital Signs Temperature 37.3 C 10/28/20 18:59 Pulse 90 10/28/20 18:59 Respiratory Rate 16 10/28/20 18:59 Blood Pressure 131/79 10/28/20 18:59 Pulse Oximetry 96 10/28/20 18:59 Temperature 37.3 C 10/28/20 18:59 Temperature Source Tympanic 10/28/20 18:59 Pulse 90 10/28/20 18:59 Respiratory Rate 16 10/28/20 19:02 Respiratory Effort Non-Labored 10/28/20 19:02 Blood Pressure 131/79 10/28/20 18:59 Blood Pressure Position Sitting 10/28/20 18:59 Pulse Oximetry 96 10/28/20 18:59 Oxygen Delivery Method Room Air 10/28/20 18:59 Oxygen Flow Rate 0 10/28/20 18:59 Pain Level 5 10/28/20 18:59
[2020-10-28] MEDS: Normal Saline 500 ML IV (20:01)
[2020-10-28] MEDS: Ketorolac 30 MG/ML VIAL IVP (20:01)
[2020-10-28 20:18] LABS: Abs Immature Grans 0.04 10^3/uL (0.0-0.06); HCT 37.6 % (40.0-50.0); HGB 12.2 g/dL (13.5-17.5); MCH 27.7 pg (27.0-33.0); MCHC 32.4 % (32.0-36.0); MCV 85.5 fL (80-95); MPV 9.6 fL (8.0-11.0); Nucleated RBC 0 %; Platelet Count 217 10^3/uL (130-400); RDW 13.3 % (11.8-14.1); RDW-SD 41.7 fL; WBC 6.99 10^3/uL (4.4-10.8)
[2020-10-28 20:38] LABS: Absolute Eosinophil Count 0.21 10^3/uL (0.0-0.7); Absolute Lymphocyte Count 1.26 10^3/uL (1.2-3.4); Absolute Neutrophil Count 4.82 10^3/uL (1.2-6.7); Atypical Lymphocytes % 3; Diff Comment Manual Differential; RBC Morphology Normal; Uric Acid 5.1 mg/dL (3.5-7.2)
[2020-10-28 20:41] LABS: ALT 25 U/L (16-63); AST 15 U/L (15-37); Albumin 2.7 g/dL (3.4-5.0); Alkaline Phosphatase 82 U/L (46-116); Anion Gap 8.8 mmol/L (3-11); BUN 13 mg/dL (7-18); Bilirubin, Total 0.5 mg/dL (0.2-1.0); CO2 26.2 mmol/L (21.0-32.0); Calcium 8.4 mg/dL (8.5-10.1); Chloride 103 mmol/L (98-107); Glucose 107 mg/dL (74-106); Potassium 3.5 mmol/L (3.5-5.1); Sodium 138 mmol/L (136-145); Total Protein 7.1 g/dL (6.4-8.2)
--- NOTE | 2020-10-28 20:43 | DI.VRAD_ITS ---
PROCEDURE INFORMATION: Exam: XR Left Ankle Exam date and time: 10/28/2020 7:35 PM Age: 60 years old Clinical indication: Pain; Ankle; Left TECHNIQUE: Imaging protocol: XR Left ankle. Views: 3 or more views. COMPARISON: NM WHOLE BODY BONE SCAN 04/25/2017 11:34 AM FINDINGS: There is soft tissue swelling about the ankle. There is a well corticated bony density distal to the fibula which may represent an old avulsion fracture or accessory ossicle. The ankle mortise appears intact. The talar dome and subtalar joint are normal. Plantar and Achilles tendon spurs of the calcaneus are present. IMPRESSION: 1. Soft tissue swelling about the ankle. 2. No acute fracture or bony destruction. Dictated and Authenticated by: Norman Landry MD. Ordering:TALON Fernandes MD
--- NOTE | 2020-10-28 20:43 | DI.VRAD_ITS ---
PROCEDURE INFORMATION: Exam: XR Right Hand Exam date and time: 10/28/2020 7:35 PM Age: 60 years old Clinical indication: Swelling; Hand; Right TECHNIQUE: Imaging protocol: XR Right hand. Views: 3 or more views. COMPARISON: MR UPPER JOINT RT WO 09/02/2020 8:20 AM FINDINGS: There is soft tissue swelling about the hand. There are arthritic changes involving the PIP joints of the 2nd through 5th fingers. These are not well visualized due to the fingers being flexed. There likely are some arthritic changes of the DIP joints as well. There is no evidence of fracture. There is no periarticular osteopenia. There are no bony erosions. There is normal alignment of the carpal bones. IMPRESSION: 1. Soft tissue swelling. 2. Degenerative changes as described . Dictated and Authenticated by: Nroman Landry MD. Ordering:TALON Fernandes MD
[2020-10-28 21:45] VITALS: BP 107/62; PULSE 69; RESP 18; TEMP 36.6; O2SAT 96
[2020-10-28] MEDS: Ketorolac 10 MG TAB PO (21:49)
== END 2020-10-28 21:53 | disposition home or self-care (01) ==
PROVIDERS: Emergency Provider Registered Nurse Emergency; PCP Emergency Medicine
DX: M79.89 Other specified soft tissue disorders (principal); M25.472 Effusion, left ankle
CPT/HCPCS: 29125; 36415; 80053; 96361; 96374; 99284; 73130; 73610; 84550; 85025; 99283; J1885

== ENCOUNTER 2020-11-23 07:01 | Emergency (ER) | payer BC, SELFPAY ==
--- NOTE | 2020-11-23 07:00 | DI.RAD_ITS ---
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 TECHNIQUE: 2D digital imaging was performed of the right shoulder. Images were obtained. AP, Gra james, Y-view and axillary views were obtained. COMPARISON: No exams were available for comparison FINDINGS: BONES: No acute fracture is present. No bony destructive lesion is seen. There is a well corticated o sseous density adjacent to the acromioclavicular joint which appears old. JOINTS: No dislocation present. Mild degenerative changes are seen at the acromioclavicular joint. S ubchondral cysts are seen in the glenoid. SOFT TISSUE: Normal. IMPRESSION: 1. No acute abnormality. 2. Results of this exam have been verbally communicated with provider. DATA REPOSITORY: RADIATION DOSE DELIVERED:
--- NOTE | 2020-11-23 07:00 | RT.EKG_ITS ---
APPROVED REPORT Exam: Resting ECG Reason for Exam: right shoulder pain Patient Location: E HR:81 bpm ECG Measurements Heart Rate 81 AXIS IA 151 P 64 QRSd 91 QRS 67 QT 358 T 11 QTc 415 Conclusion Sinus rhythm...normal P axis, V-rate 60- 99 Physician: Rate 81, intervals normal, sinus rhythm, no significant ST elevation or depression, no karina dence of STEMI. Q-wave noted in lead III. Unchanged from EKG on 10/07/2019
[2020-11-23 07:07] VITALS: BP 159/93; PULSE 94; RESP 16; TEMP 36; O2SAT 97
--- NOTE | 2020-11-23 07:14 | ED.GENADUL_ITS ---
Discharge Plan Disposition Patient Disposition: HOME Condition: Good Discharge Details Clinical Impression: Arthralgia of right shoulder region Primary Care Provider: Mamadou Ruiz ED Provider: Butch Juárez Home Meds and New Rx's Prescriptions: New prednisone 50 MG tablet 50 mg PO DAILY Qty: 5 RF: 0 Continued albuterol sulfate [ProAir HFA] 90 mcg/actuation HFA aerosol inhaler 2 puff inhalation Q6H PRN (Reason: shortness of breath or wheezing) Qty: 6.7 RF: 4 acetaminophen [Tylenol] 325 mg capsule 325 mg PO DAILY PRNRF: 0 Otezla 30 mg tablet 30 mg PO BID RF: 0 budesonide-formoterol [Symbicort] 160-4.5 mcg/actuation Hfa Aerosol Inhaler 2 puff inhalation BID Qty: 10.2 RF: 0 Inhaler, Assist Devices [Pocket Chamber] 1 ea miscellaneous DIRECTED Qty: 0 RF: 0 multivitamin Tablet 1 tab PO DAILY RF: 0 Discharge Instructions Instructions: Shoulder Pain (ED) Additional Instructions: Please take the prednisone as directed to help with your shoulder pain. It is been sent to your pharmacy on file. Please take Tylenol and Motrin in supplementation as needed for pain. Use ice on your shoulders to help with the swelling or irritation. If you notice any worsening of your symptoms, or any new symptoms such as vomiting, diarrhea, fever, chills, shortness of breath, chest pain, numbness, weakness, or fainting , please return immediately to the emergency department for reevaluation. Please follow up with your primary care provider as soon as possible for reassessment and reevaluation. As always, it was a pleasure participating in your medical care today. 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 Patient states that at 11 PM last night he began to notice significant soreness in his right shoulder. He denies any associated chest pain, chest heaviness, chest tightness, shortness of breath. He states that the right shoulder pain feels similar to his arthralgias that he gets in his other extremities. He denies any new numbness, tingling, or weakness. He denies any trauma. He does admit to putting on a big roof yesterday, this may have been an aggravating factor. Pain is made worse with movement in any direction for his right shoulder. Is often done well with a course of steroids for improving his symptoms. He has taken Tylenol without any significant improvement. He denies any other complaints at this time. No other modifying factors Physical exam demonstrates mild tenderness in the right shoulder for all movements in all directions, no redness or warmth. He has no associated chest tenderness, shortness of breath, or other symptoms concerning for ACS. Symptoms are clearly musculoskeletal. Out of an abundance of precaution the we will get a screening EKG. We will give IM Toradol, oral prednisone, and get an x-ray to make sure there is no evidence of acute process or fracture. Case will be signed out to my colleague Dr. Butch Juárez for reassessment after x-ray imaging results have returned. EKG 7: 24 Rate 81, intervals normal, sinus rhythm, no significant ST elevation or depression, no evidence of STEMI. Q-wave noted in lead III. Unchanged from EKG on 10/07/2019 <Butch Juárez MD - Last Filed: 11/23/20 08:12> X-ray unremarkable for acute process. Patient be discharged as per Dr. Cuellar's plan HPI <Samuel Cuellar DO - Last Filed: 11/23/20 07:31> General Date/Time Provider Initiated Documentation: 11/23/20 07:04 . 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 Patient states that at 11 PM last night he began to notice significant soreness in his right shoulder. He denies any associated chest pain, chest heaviness, chest tightness, shortness of breath. He states that the right shoulder pain feels similar to his arthralgias that he gets in his other extremities. He denies any new numbness, tingling, or weakness. He denies any trauma. He does admit to putting on a big roof yesterday, this may have been an aggravating factor. Pain is made worse with movement in any direction for his right shoulder. Is often done well with a course of steroids for improving his symptoms. He has taken Tylenol without any significant improvement. He denies any other complaints at this time. No other modifying factors Related Data Home Medications Medication Instructions Recorded Confirmed apremilast 30 mg tablet 30 mg PO BID 01/23/19 11/23/20 albuterol sulfate 90 mcg/actuation 2 puff INHALATION Q6H PRN #6.7 g 01/21/20 11/23/20 aerosol inhaler acetaminophen 325 mg capsule 325 mg PO DAILY PRN cap 09/13/20 11/23/20 Inhaler, Assist Devices [Pocket 1 ea MISCELLANEOUS DIRECTED #0 10/08/20 11/23/20 Chamber] budesonide-formoterol [Symbicort] 2 puff INHALATION BID #10.2 g 10/08/20 11/23/20 multivitamin 1 tab PO DAILY 11/23/20 11/23/20 prednisone 50 mg PO DAILY #5 tab 11/23/20 Previous Rx's Medication Instructions Recorded albuterol sulfate 90 mcg/actuation 2 puff INHALATION Q6H PRN #6.7 g 01/21/20 aerosol inhaler Inhaler, Assist Devices [Pocket 1 ea MISCELLANEOUS DIRECTED #0 10/08/20 Chamber] budesonide-formoterol [Symbicort] 2 puff INHALATION BID #10.2 g 10/08/20 prednisone 50 mg PO DAILY #5 tab 11/23/20 Allergies Allergy/AdvReac Type Severity Reaction Status Date / Time Iodinated Contrast Media Allergy Severe Anaphylaxsi Verified 10/28/20 19:09 [Iodinated Contrast Media - s IV Dye] shellfish derived Allergy Severe Anaphylaxsi Verified 10/28/20 19:09 s Sulfa (Sulfonamide Allergy Intermediate Skin Rash Verified 10/28/20 19:09 Antibiotics) General Stated Complaint: Orthopedic ELISA: 4 Review of Systems <Samuel Cuellar DO - Last Filed: 11/23/20 07:31> All systems reviewed & are unremarkable except as noted in HPI and below PFS <Samuel Cuellar DO - Last Filed: 11/23/20 07:31> Medical History Acute asthma exacerbation Malignant neoplasm prostate Sciatica Surgical History History of back surgery 2 broken discs History of hernia repair History of knee surgery History of surgery on arm History of surgery on wrist Steroid Injection [facility];Lumbar epidural steroid injection;04/04/17 Social History Smoking/Tobacco Use Status: Former Tobacco Use Tobacco: How many years used: 20 Smoking risk assessment performed?: Yes Alcohol Intake: former Drug use: Never Substance use type: does not use Caregiver/Support person: No Housing: house Communication Needs: Corrective Lenses Do you need help understanding health information?: Rarely Pets and animals: Yes Pets and animals: dog(s) Sexually active: No Do you think of yourself as: straight/heterosexual Current gender identity: female What is your relationship status?: How often do you talk on the phone with friends or family?: three or more times per week How often do you get together with friends or relatives?: once per week How often do you attend catholic or christian services?: decline to answer Do you belong to any clubs or organized social groups?: no Panel score (0-1 are the most socially isolated patients): 1 What type of physical activity do you participate in: other Details: active on job Honey/Confucianism: No preference Special honey needs: No Seatbelt use: always Helmet use: Yes Helmet use: always Drive 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 bus van driver: No Do you feel safe at home: Yes Do you feel safe in your relationship?: Yes Exam <Samuel Cuellar DO - Last Filed: 11/23/20 07:31> Narrative Exam Narrative: 1.Const: Well-nourished, Well-developed, appearing stated age 2.Eyes: PERRL, no conjunctival injection, and symmetrical lids. 3.ENT: Atraumatic external nose and ears. Moist MM. Neck: Symmetric, trachea midline, No thyromegaly. 4.CVS: +S1/S2, No murmurs or gallops. Peripheral pulses 2+ and equal in all extremities. Brisk capillary refill in all extremities. 5.RESP: Unlabored respiratory effort. Clear to auscultation bilaterally. No wheezes rales or rhonchi 6.GI: Soft, Nontender/Nondistended, No hepatosplenomegaly. No guarding or rebound. 7.MSK: Normocephalic/Atraumatic, right shoulder demonstrates mild swelling in comparison to the left. No warmth or redness. Pain is present with both external and internal rotation of the right shoulder as well as flexion extension, adduction and abduction. No swelling in the distal extremity, normal sensation throughout, radial pulse 2 bilaterally. Good sensation, good machine brusher 8.Skin: Warm, Dry. No rashes or lesions. 9.Neuro: director card II-XII grossly intact. Sensation grossly intact, no focal neurologic deficits. 10.Psych: (AAO) x3. Appropriate mood and affect Course <Samuel Cuellar DO - Last Filed: 11/23/20 07:31> Vital Signs Vital signs: Vital Signs Temperature 36.0 C L 11/23/20 07:07 Pulse 94 H 11/23/20 07:07 Respiratory Rate 16 11/23/20 07:07 Blood Pressure 159/93 H 11/23/20 07:07 Pulse Oximetry 97 11/23/20 07:07 Temperature 36.0 C L 11/23/20 07:07 Temperature Source Skin 11/23/20 07:07 Pulse 94 H 11/23/20 07:07 Respiratory Rate 16 11/23/20 07:07 Respiratory Effort Non-Labored 11/23/20 07:07 Blood Pressure 159/93 H 11/23/20 07:07 Pulse Oximetry 97 11/23/20 07:07 Oxygen Delivery Method Room Air 11/23/20 07:07 Oxygen Flow Rate 0 11/23/20 07:07 Pain Level 8 11/23/20 07:07 Sign Out <Samuel Cuellar DO - Last Filed: 11/23/20 07:31> Sign Out Data: Sign Out Comment: Pending x-ray results. Suspect arthritis. Stable for discharge Last updated by Samuel Cuellar DO at 11/23/20 07:31
[2020-11-23] MEDS: Ketorolac 30 MG/ML VIAL IM (07:25)
[2020-11-23] MEDS: predniSONE 20 MG TAB 60 MG PO (07:25)
[2020-11-23 08:11] VITALS: BP 147/88; PULSE 76; RESP 16; TEMP 35.9; O2SAT 98
== END 2020-11-23 08:20 | disposition home or self-care (01) ==
PROVIDERS: Emergency Provider Emergency Medicine; PCP Emergency Medicine
DX: M25.511 Pain in right shoulder (principal)
CPT/HCPCS: 93005; 96372; 99284; 73030; 93010; 99283; J1885; J7512

== ENCOUNTER 2021-01-12 04:12 | Emergency (ER) | payer BC, SELFPAY ==
--- NOTE | 2021-01-12 04:15 | RT.EKG_ITS ---
APPROVED REPORT Exam: Resting ECG Reason for Exam: chest tightness Patient Location: E HR:94 bpm ECG Measurements Heart Rate 94 AXIS TN 146 P 77 QRSd 93 QRS 84 QT 346 T 50 QTc 434 Conclusion Sinus rhythm...normal P axis, V-rate 60- 99 Normal [place] There are no significant changes compared to prior EKG performed on 11/23/2020 at 07:24.
[2021-01-12 04:16] VITALS: BP 148/84; PULSE 103; RESP 18; TEMP 36.4; O2SAT 97
--- NOTE | 2021-01-12 04:18 | ED.GENADUL_ITS ---
Discharge Plan Disposition Patient Disposition: HOME Condition: Improving Discharge Details Clinical Impression: Asthma exacerbation Primary Care Provider: Mamadou Ruiz ED Provider: Josué Shi Home Meds and New Rx's Prescriptions: New prednisone 20 mg tablet 40 mg PO DAILY Qty: 8 RF: 0 Continued acetaminophen [Tylenol] 325 mg capsule 325 mg PO DAILY PRNRF: 0 Otezla 30 mg tablet 30 mg PO BID RF: 0 budesonide-formoterol [Symbicort] 160-4.5 mcg/actuation Hfa Aerosol Inhaler 2 puff inhalation BID Qty: 10.2 RF: 0 Inhaler, Assist Devices [Pocket Chamber] 1 ea miscellaneous DIRECTED Qty: 0 RF: 0 multivitamin Tablet 1 tab PO DAILY RF: 0 Changed albuterol sulfate [ProAir HFA] 90 mcg/actuation HFA aerosol inhaler 2 puff inhalation Q4H PRN (Reason: shortness of breath or wheezing) Qty: 6.7 RF: 4 Discharge Instructions Instructions: Asthma (ED) Additional Instructions: Use your albuterol inhaler every 4-6 hours over the next few days until feeling better. I have refilled your Symbicort inhaler. Prednisone daily over the weekend. Follow-up with pulmonology as planned on Saturday. Return to ED for any increased shortness of breath, chest pain, fever, other concerns. Medical Decision Making Patient presenting with what is likely asthma exacerbation due to running out of maintenance inhaler last week. Does have diffuse wheezing though is in no distress. Endorses some tightness but no chest pain. We'll start with DuoNeb and albuterol neb as well as oral prednisone. Check EKG and reevaluate. Significant movement with breathing after neb treatments. Only a faint wheeze at this time. Patient feels much better. EKG with no change from previous. Plan prednisone over the next 4 days. Refill Symbicort inhaler. Patient to use albuterol inhaler every 4 hours over the next few days until feeling better. Follow-up with pulmonology on Saturday as planned. Return to ED for any worsening shortness of breath, chest pain, other concerns. ECG Data Attestation: I personally reviewed and interpreted this ECG (s) as follows: Prior ECG tracings: available for review Interpretation: see EKG HPI General Mode of arrival: ambulatory . Date/Time Provider Initiated Documentation: 01/12/21 04:14 . Limitations to Documentation: no limitations . Information obtained by: patient, RN notes reviewed and old records reviewed . HPI Narrative: Patient presents to ED with chest tightness, wheezing, shortness of breath. Patient reports needing to use rescue inhaler more over the last few days. Tonight two episodes of waking up not being able to breathe. Does endorse a cough but denies fever, runny nose, sore throat or other URI type symptoms. He is vaccinated against Covid. He denies chest pain. He ran out of his [employer] about 7 to 10 days ago. Is supposed to see pulmonology on Saturday and figured he would just get it refilled then. Did use his rescue inhaler prior to coming in which did help with his breathing. Related Data Home Medications Medication Instructions Recorded Confirmed apremilast 30 mg tablet 30 mg PO BID 01/23/19 01/12/21 acetaminophen 325 mg capsule 325 mg PO DAILY PRN cap 09/13/20 01/12/21 Inhaler, Assist Devices [Pocket 1 ea MISCELLANEOUS DIRECTED #0 10/08/20 12/13/20 Chamber] multivitamin 1 tab PO DAILY 11/23/20 01/12/21 albuterol sulfate [ProAir HFA] 2 puff INHALATION Q4H PRN #6.7 g 01/12/21 01/12/21 budesonide-formoterol [Symbicort] 2 puff INHALATION BID #10.2 g 01/12/21 prednisone 40 mg PO DAILY #8 tab 01/12/21 Previous Rx's Medication Instructions Recorded Inhaler, Assist Devices [Pocket 1 ea MISCELLANEOUS DIRECTED #0 10/08/20 Chamber] albuterol sulfate [ProAir HFA] 2 puff INHALATION Q4H PRN #6.7 g 01/12/21 budesonide-formoterol [Symbicort] 2 puff INHALATION BID #10.2 g 01/12/21 prednisone 40 mg PO DAILY #8 tab 01/12/21 Allergies Allergy/AdvReac Type Severity Reaction Status Date / Time Iodinated Contrast Media Allergy Severe Anaphylaxsi Verified 12/13/20 08:08 [Iodinated Contrast Media - s IV Dye] shellfish derived Allergy Severe Anaphylaxsi Verified 12/13/20 08:08 s Sulfa (Sulfonamide Allergy Intermediate Skin Rash Verified 12/13/20 08:08 Antibiotics) General ELISA: 4 Review of Systems Narrative: As documented in HPI otherwise negative as below. Const: no fever, chills, weakness Resp: no pleuritic pain CV: no CP, diaphoresis, edema, syncope GI: no abdominal pain, nausea, vomiting, diarrhea Neuro: no headache, numbness, focal weakness, confusion [facility] Active Problem List Arthralgia of right shoulder region (Acute) Perennial allergic rhinitis (Acute) Impingement syndrome of right shoulder (Acute) Bursitis of right shoulder (Acute) Reflex sympathetic dystrophy (Acute) Forearm pain (Acute) Bilateral wrist pain (Acute) Ankle pain (Acute) Tendonitis of long head of biceps brachii of right shoulder (Acute) Rotator cuff tear, right (Acute) Bilateral hand pain (Acute) Wrist pain (Acute) Right shoulder pain (Acute) Left shoulder pain (Acute) Arthralgia (Acute) Pain, joint, shoulder, right (Acute) Hand pain, right (Acute) High blood pressure (Chronic) Sciatica of left side (Acute 04/17/17) Malignant neoplasm prostate (Acute 09/20/10) Cellulitis of leg, right (Acute) Medical History Asthma Malignant neoplasm prostate Psoriasis Sciatica Surgical History History of back surgery 2 broken discs History of hernia repair History of knee surgery History of surgery on arm History of surgery on wrist [facility];Lumbar epidural steroid injection;04/04/17 Social History Smoking/Tobacco Use Status: Former Tobacco Use Tobacco: How many years used: 20 Smoking risk assessment performed?: Yes Alcohol Intake: former Drug use: Never Substance use type: does not use Caregiver/Support person: No Housing: house Communication Needs: Corrective Lenses Do you need help understanding health information?: Rarely Pets and animals: Yes Pets and animals: dog(s) Sexually active: No Do you think of yourself as: straight/heterosexual Current gender identity: female What is your relationship status?: How often do you talk on the phone with friends or family?: three or more times per week How often do you get together with friends or relatives?: once per week How often do you attend caodaism or advent services?: decline to answer Do you belong to any clubs or organized social groups?: no Panel score (0-1 are the most socially isolated patients): 1 What type of physical activity do you participate in: other Details: active on job Honey/Amish: No preference Special honey needs: No Seatbelt use: always Helmet use: Yes Helmet use: always Drive 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 HEENT: NC/AT. Normal facial exam. Eyes: Normal conjunctiva and sclera. Neck: Supple. Trachea midline. Lungs: Normal respiratory effort. Lungs with diffuse wheeze throughout. Cor: RRR without murmur/gallop. Good radial pulses. Neuro: A+O x 3. Normal speech, mentation, gait. Cranial nerves II - XII grossly intact. No gross motor or sensory deficit. Ext: No C/C/E. Skin: Warm and dry without rash.
[2021-01-12 04:26] VITALS: BP 145/84; PULSE 102; O2SAT 94
[2021-01-12 04:27] VITALS: O2SAT 94
[2021-01-12] MEDS: Albuterol/Ipratropium 3 ML UPD VIAL UPD (04:45)
[2021-01-12] MEDS: Albuterol 2.5 MG/3 ML INH SOLN VIAL UPD (04:45)
[2021-01-12] MEDS: predniSONE 20 MG TAB 60 MG PO (04:45)
[2021-01-12 05:23] VITALS: O2SAT 99
[2021-01-12 05:30] VITALS: O2SAT 98
[2021-01-12 05:31] VITALS: BP 126/73; PULSE 89; O2SAT 99
== END 2021-01-12 05:47 | disposition home or self-care (01) ==
PROVIDERS: Emergency Provider Emergency Medicine; PCP Emergency Medicine
DX: J45.901 Unspecified asthma with (acute) exacerbation (principal); R07.89 Other chest pain
CPT/HCPCS: 93005; 94640; 99283; 93010; 99284; J7512; J7613; J7620

== ENCOUNTER 2021-09-14 16:15 | Outpatient (CLI) | payer BC, SELFPAY ==
[2021-09-14 16:53] LABS: Abs Immature Grans 0.01 10^3/uL (0.0-0.06); Absolute Basophil Count 0.07 10^3/uL (0.0-0.2); Absolute Eosinophil Count 0.69 10^3/uL (0.0-0.7); Absolute Lymphocyte Count 2.18 10^3/uL (1.2-3.4); Absolute Monocyte Count 0.53 10^3/uL (0.1-0.8); Absolute Neutrophil Count 1.95 10^3/uL (1.2-6.7); Basophils % 1.3; Eosinophils % 12.7; HCT 43.2 % (40.0-50.0); HGB 14.7 g/dL (13.5-17.5); Immature Grans % 0.2; Lymphocytes % 40.1; MCH 28.2 pg (27.0-33.0); MCV 83 fL (80-95); MPV 9.8 fL (8.0-11.0); Monocytes % 9.8; Neutrophils % 35.9; Platelet Count 200 10^3/uL (130-400); RBC 5.21 10^6/uL (4.36-5.78); RDW 12.8 % (11.8-14.1); RDW-SD 38.5 fL; WBC 5.43 10^3/uL (4.4-10.8)
[2021-09-14 17:54] LABS: ALT 25 U/L (16-63); AST 18 U/L (15-37); Albumin 3.6 g/dL (3.4-5.0); Alkaline Phosphatase 79 U/L (46-116); Anion Gap 9.3 mmol/L (3-11); BUN 17 mg/dL (7-18); Bilirubin, Total 0.3 mg/dL (0.2-1.0); CO2 23.7 mmol/L (21.0-32.0); CREATININE 1.1 mg/dL (0.70-1.30); Calcium 8.7 mg/dL (8.5-10.1); Chloride 106 mmol/L (98-107); Glucose 109 mg/dL (74-106); Potassium 3.7 mmol/L (3.5-5.1); Sodium 139 mmol/L (136-145); Total Protein 7.1 g/dL (6.4-8.2)
[2021-09-22 10:25] LABS: Testosterone, Total 420 ng/dL (240-950)
== END 2021-09-14 16:16 | disposition home or self-care (01) ==
LOC: LBO 16:17
PROVIDERS: PCP Nurse Practitioner Family; Visit Provider Nurse Practitioner Family
DX: C61 Malignant neoplasm of prostate (principal)
CPT/HCPCS: 36415; 80053; 84153; 84403; 85025

== ENCOUNTER 2021-10-04 07:26 | Emergency (ER) | payer OTHER, SELFPAY ==
[2021-10-04 07:32] VITALS: BP 123/75; PULSE 75; RESP 12; O2SAT 97
--- NOTE | 2021-10-04 07:45 | DI.CT_ITS ---
Exam(s) CT CHEST/ABD/PEL WO EXAM: CT CHEST/ABD/PEL WO CLINICAL HISTORY: L back pain after 10ft fall TECHNIQUE: CT examination of the chest, abdomen, and pelvis was performed without contrast administr ation. COMPARISON: CT CHEST ABD PELVIS WO CONTRAST from 04/25/2017 FINDINGS: The lungs are clear except for minimal scattered areas of scarring or atelectasis in lung bases.. There is no pleural effusion seen. There is no mediastinal or hilar adenopathy. No thoracic aortic aneurysm. No gross mediastinal fluid collection. No bony abnormality seen in the thorax. Note is made of coronary artery calcifications. The liver is normal appearance. The gallbladder contains stones, bile ducts are CT normal. No abnormality seen involving the spleen. Pancreas appears intact. The adrenals are unremarkable in appearance. The kidneys appear intact with no evidence of hydroneph rosis or nephrolithiasis. Abdominal aorta and major visceral branches appear intact by noncontrast criteria. No significant abdominal wall hernia seen. No significant abdominal or pelvic adenopathy. No focal bowel pathology. No evidence of appendicitis or diverticulitis. Thoracic and lumbar spine reconstructions show no evidence of acute bony injury. IMPRESSION: No evidence of acute injury. Cholelithiasis and coronary artery calcifications noted.. RADIATION DOSE DELIVERED: 1,169.86mGy.cm Total DLP 1,169.86mGy.cm Total DLP !Error CTDIvol DATA REPOSITORY: All CT scans at this facility are submitted to the National Radiology Data Registry (NRDR) Dose Index Registry (DIR) with the [employer] (ACR). RADIATION OPTIMIZATION: All CT scans at this facility use at least one of these dose optimization te chniques: automated exposure control; mA and/or kV adjustment per patient size (includes targeted exa ms where dose is matched to clinical indication); or iterative reconstruction.
--- NOTE | 2021-10-04 07:48 | W.ED.GENAD ---
Discharge Plan Disposition Patient Disposition: HOME Condition: Improving Discharge Details Clinical Impression: Contusion of flank Primary Care Provider: Duglas Burton ED Provider: Butch Juárez Home Meds and New Rx's Prescriptions: New hydrocodone-acetaminophen 5-325 mg tablet 1 tab PO TID PRN (Reason: pain) Qty: 9 0RF Continued acetaminophen [Tylenol] 325 mg capsule 325 mg PO DAILY PRN Otezla 30 mg tablet 30 mg PO BID albuterol sulfate [ProAir HFA] 90 mcg/actuation HFA aerosol inhaler 2 puff inhalation Q4H PRN (Reason: shortness of breath or wheezing) Qty: 6.7 12RF budesonide-formoterol [Symbicort] 160-4.5 mcg/actuation HFA aerosol inhaler 2 puff inhalation BID Qty: 10.2 12RF Inhaler, Assist Devices [Pocket Chamber] 1 ea miscellaneous DIRECTED Qty: 0 0RF multivitamin Tablet 1 tab PO DAILY melatonin 5 mg Tablet 5 mg PO HS PRN Discharge Instructions Instructions: Contusion in Adults (ED) Additional Instructions: Off work today and tomorrow. Apply ice and/or moist heat to area to reduce discomfort. May use ibuprofen as needed for pain with the prescribed hydrocodone as needed for severe or breakthrough pain. You received hydromorphone today and we would caution against driving or operating equipment. No alcohol, driving, or equipment operation while using the hydrocodone. Return to the ER for worsening pain, difficulty breathing, or any other acute concerns. Your CAT scan today was read by Dr. Styles. 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 Saturday the patient fell from a ladder approximately 10 feet [address]. Did not lose consciousness. He landed on his left side. Minimal pain that day and was able to work yesterday. Now with significant left lower thorax/flank pain. No hematuria. Screening labs obtained and they are unremarkable. Patient is referred for CT imaging of the chest/abdomen/pelvis with no evidence of acute visceral or bony injury. Patient improved following analgesia. Consented him for the use of a small number of analgesics & we will provide him a work note for 2 days. Discussed with him indications to seek reevaluation HPI General Mode of arrival: ambulatory. Date/Time Provider Initiated Documentation: 10/04/21 07:29. Limitations to Documentation: no limitations. Information obtained by: patient. History of Present Illness 61 year old M presents to the emergency department with the chief complaint of Left back pain after 10 foot fall 1 day ago., described as moderate, Quality is described as dull and constant, and is localized to the chest and left. Patient reports no radiation. Patient started experiencing this hour(s) and it has been constant. Rest improves symptom(s), Movement worsens symptoms . Patient notes other (Denies back or abdominal pain, no neck pain. No loss of consciousness.); denies headaches, shortness of breath and syncope. Patient did receive the following treatments prior to arrival, NSAID Related Data Home Medications Medication Instructions Recorded Confirmed apremilast 30 mg tablet (Otezla) 30 mg PO BID 01/23/19 10/04/21 acetaminophen 325 mg capsule 325 mg PO DAILY PRN 09/13/20 10/04/21 (Tylenol) Inhaler, Assist Devices [Pocket 1 ea miscellaneous DIRECTED ##0 10/08/20 09/25/21 Chamber] multivitamin 1 tab PO DAILY 11/23/20 10/04/21 albuterol sulfate 90 mcg/actuation 2 puff inhalation Q4H PRN 09/25/21 10/04/21 aerosol inhaler (ProAir HFA) shortness of breath or wheezing #6.7 grams budesonide-formoterol HFA 160 2 puff inhalation BID #10.2 grams 09/25/21 10/04/21 mcg-4.5 mcg/actuation aerosol inhaler (Symbicort) hydrocodone 5 mg-acetaminophen 325 1 tab PO TID PRN pain #9 tabs 10/04/21 mg tablet melatonin 5 mg tablet 5 mg PO HS PRN 10/04/21 10/04/21 Previous Rx's Medication Instructions Recorded Inhaler, Assist Devices [Pocket 1 ea miscellaneous DIRECTED ##0 10/08/20 Chamber] albuterol sulfate 90 mcg/actuation 2 puff inhalation Q4H PRN 09/25/21 aerosol inhaler (ProAir HFA) shortness of breath or wheezing #6.7 grams budesonide-formoterol HFA 160 2 puff inhalation BID #10.2 grams 09/25/21 mcg-4.5 mcg/actuation aerosol inhaler (Symbicort) hydrocodone 5 mg-acetaminophen 325 1 tab PO TID PRN pain #9 tabs 10/04/21 mg tablet Allergies Allergy/AdvReac Type Severity Reaction Status Date / Time Iodinated Contrast Media Allergy Severe Anaphylaxsi Verified 10/04/21 07:37 [Iodinated Contrast Media - s IV Dye] shellfish derived Allergy Severe Anaphylaxsi Verified 10/04/21 07:37 s Sulfa (Sulfonamide Allergy Intermediate Skin Rash Verified 10/04/21 07:37 Antibiotics) General Stated Complaint: Chest/Rib ELISA: 3 Review of Systems Narrative: See HPI, 8 systems were reviewed and otherwise negative PFSH All Active Problems (Updated 10/04/21 @ 09:18 by Butch Juárez MD) Contusion of flank (Acute) Asthma (Chronic) Shoulder pain (Acute) Asthma exacerbation (Acute) Arthralgia of right shoulder region (Acute) Perennial allergic rhinitis (Acute) Impingement syndrome of right shoulder (Acute) Bursitis of right shoulder (Acute) Reflex sympathetic dystrophy (Acute) Forearm pain (Acute) Bilateral wrist pain (Acute) Ankle pain (Acute) Tendonitis of long head of biceps brachii of right shoulder (Acute) Rotator cuff tear, right (Acute) Bilateral hand pain (Acute) Wrist pain (Acute) bilateral Right shoulder pain (Acute) Left shoulder pain (Acute) Arthralgia (Acute) Pain, joint, shoulder, right (Acute) Hand pain, right (Acute) High blood pressure (Chronic) Sciatica of left side (Acute 04/17/17) Malignant neoplasm prostate (Acute 09/20/10) [address] ([facility]) recurrent 03/07 Cellulitis of leg, right (Acute) Medical History Asthma Malignant neoplasm prostate Psoriasis Sciatica Surgical History History of back surgery 2 broken discs History of hernia repair History of knee surgery History of surgery on arm History of surgery on wrist Steroid Injection [facility];Lumbar epidural steroid injection;04/04/17 Social History Smoking/Tobacco Use Status: Former Tobacco Use Tobacco: How many years used: 20 Smoking risk assessment performed?: Yes Alcohol Intake: former Drug use: Never Substance use type: does not use Caregiver/Support person: No Housing: house Communication Needs: Corrective Lenses Do you need help understanding health information?: Rarely Pets and animals: Yes Pets and animals: dog(s) Sexually active: No Do you think of yourself as: straight/heterosexual Current gender identity: female What is your relationship status?: How often do you talk on the phone with friends or family?: three or more times per week How often do you get together with friends or relatives?: once per week How often do you attend sikhism or congregation services?: decline to answer Do you belong to any clubs or organized social groups?: no Panel score (0-1 are the most socially isolated patients): 1 What type of physical activity do you participate in: other Details: active on job Honey/Moravian: No preference Special honey needs: No Seatbelt use: always Helmet use: Yes Helmet use: always Drive 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 Pleasant, well groomed, interactive. HEAD: Normocephalic, atraumatic ENT: Mucous membranes moist, oropharynx unremarkable, External ear exam unremarkable EYES: PERRL, EOMI NECK: Full ROM, no HOMERO, no menigismus, nontender CHEST/RESP: Left lower posterior chest and flank is tender without evidence of ecchymosis., clear to auscultation bilateral, no wheeze/rhonchi/rales CARDIOVASCULAR: RRR, no murmur, rub geovany. 2+ Rad pulse bilateral ABDOMEN: Soft, nontender, no mass. +Bowel sounds Back: Nontender, no step-off or deformity in the midline. There is the previously mentioned left flank and lower chest tenderness EXT: Full ROM, no edema, no rash, ecchymosis right arm on the volar surface Neuro: Grossly normal neurologic exam, conversant, interactive. Psych: Speech fluent, thoughts congruent, affect normal Course Vital Signs Vital signs: Vital Signs Pulse 75 10/04/21 07:32 Respiratory Rate 12 10/04/21 07:32 Blood Pressure 123/75 10/04/21 07:32 Pulse Oximetry 97 10/04/21 07:32 Pulse 75 10/04/21 07:32 Respiratory Rate 12 10/04/21 07:32 Respiratory Effort Non-Labored 10/04/21 07:40 Respiratory Depth Normal 10/04/21 07:40 Respiratory Pattern Normal 10/04/21 07:40 Blood Pressure 123/75 10/04/21 07:32 Blood Pressure Position Sitting 10/04/21 07:32 Pulse Oximetry 97 10/04/21 07:32 Oxygen Delivery Method Room Air 10/04/21 07:32 Oxygen Flow Rate 0 10/04/21 07:32 Pain Level 8 10/04/21 07:40
[2021-10-04] MEDS: HYDROmorphone 2 MG/ML VIAL 1 MG IVP (07:52)
[2021-10-04 08:06] LABS: Abs Immature Grans 0.01 10^3/uL (0.0-0.06); Absolute Basophil Count 0.05 10^3/uL (0.0-0.2); Absolute Lymphocyte Count 1.57 10^3/uL (1.2-3.4); Absolute Monocyte Count 0.66 10^3/uL (0.1-0.8); Absolute Neutrophil Count 2.82 10^3/uL (1.2-6.7); Basophils % 0.9; Eosinophils % 5.5; HCT 44.4 % (40.0-50.0); Immature Grans % 0.2; MCH 28.1 pg (27.0-33.0); MCHC 33.8 % (32.0-36.0); MCV 83 fL (80-95); MPV 9.5 fL (8.0-11.0); Monocytes % 12.2; Neutrophils % 52.2; Platelet Count 204 10^3/uL (130-400); RBC 5.33 10^6/uL (4.36-5.78); RDW 13.2 % (11.8-14.1); RDW-SD 39.8 fL; WBC 5.41 10^3/uL (4.4-10.8)
[2021-10-04 08:20] LABS: ALT 25 U/L (16-63); AST 16 U/L (15-37); Albumin 3.9 g/dL (3.4-5.0); Alkaline Phosphatase 85 U/L (46-116); BUN 17 mg/dL (7-18); Bilirubin, Total 0.6 mg/dL (0.2-1.0); CREATININE 1.2 mg/dL (0.70-1.30); Calcium 8.9 mg/dL (8.5-10.1); Chloride 104 mmol/L (98-107); Glucose 116 mg/dL (74-106); Potassium 4.1 mmol/L (3.5-5.1); Sodium 139 mmol/L (136-145); Total Protein 8.1 g/dL (6.4-8.2)
[2021-10-04 09:25] VITALS: BP 110/67; PULSE 74; RESP 18; TEMP 35.8; O2SAT 100
== END 2021-10-04 09:29 | disposition home or self-care (01) ==
PROVIDERS: Emergency Provider Emergency Medicine; PCP Nurse Practitioner Family
DX: S30.1XXA Contusion of abdominal wall, initial encounter (principal); J45.909 Unspecified asthma, uncomplicated; Z87.891 Personal history of nicotine dependence; W11.XXXA Fall on and from ladder, initial encounter; Y92.480 Sidewalk as the place of occurrence of the external cause
CPT/HCPCS: 36415; 71250; 80053; 96361; 96374; 99284; 74176; 85025

== ENCOUNTER 2021-10-08 11:54 | Emergency (ER) | payer OTHER, BC, SELFPAY ==
[2021-10-08 11:58] VITALS: BP 163/72; PULSE 63; RESP 18; TEMP 36.3; O2SAT 96
--- NOTE | 2021-10-08 12:00 | DI.RAD_ITS ---
Exam(s) XR CHEST 2V PA LATERAL EXAM: XR CHEST 2V PA LATERAL CLINICAL HISTORY: left thorax pain, s/p fall TECHNIQUE: COMPARISON: CR,XR XR PORTABLE CHEST AP from 10/06/[address] CHEST/ABD/PEL WO from 10/04/2021 FINDINGS: The heart is not enlarged. There are areas of apparent bibasilar atelectasis. No pneumothorax or he mothorax identified. Mediastinal contours appear intact. IMPRESSION: Findings consistent with bibasilar atelectasis. This finding was also noted on recent post trauma ab dominal CT of October 04. RADIATION DOSE DELIVERED: Total DLP
--- NOTE | 2021-10-08 12:32 | W.ED.GENAD ---
Discharge Plan Disposition Patient Disposition: HOME Condition: Stable Discharge Details Clinical Impression: Chest wall contusion Primary Care Provider: Duglas Burton ED Provider: Edel Leach Home Meds and New Rx's Prescriptions: New oxycodone 5 mg capsule 5 mg PO Q8H PRNQty: 10 0RF cyclobenzaprine 10 mg tablet 10 mg PO Q8H Qty: 14 0RF Continued acetaminophen [Tylenol] 325 mg capsule 325 mg PO DAILY PRN Otezla 30 mg tablet 30 mg PO BID albuterol sulfate [ProAir HFA] 90 mcg/actuation HFA aerosol inhaler 2 puff inhalation Q4H PRN (Reason: shortness of breath or wheezing) Qty: 6.7 12RF budesonide-formoterol [Symbicort] 160-4.5 mcg/actuation HFA aerosol inhaler 2 puff inhalation BID Qty: 10.2 12RF Inhaler, Assist Devices [Pocket Chamber] 1 ea miscellaneous DIRECTED Qty: 0 0RF multivitamin Tablet 1 tab PO DAILY melatonin 5 mg Tablet 5 mg PO HS PRN hydrocodone-acetaminophen 5-325 mg tablet 1 tab PO TID PRN (Reason: pain) Qty: 9 0RF Discharge Instructions Instructions: Contusion in Adults (ED) Additional Instructions: Take pain medication as needed, do not operate your vehicle for 8 hours after taking this medication It may cause constipation it is addictive You have been written for Flexeril, this is a muscle relaxant Please take Tylenol every 6 hours as needed for pain Return earlier should he have new or worsening She developed shortness of breath, fever, chills, or with any new or worsening complaints, please return to the emergency department Stand Alone Forms: Work Release Referrals: Duglas Burton, [employer] OPERATOR [Primary Care Provider] - Discharge Data Discharge Date/Time-TO BE ENTERED AT DEPARTURE: 10/08/21 13:23 Medical Decision Making This is patient's second visit for chest pain status post fall, chest x-ray does not show evidence of pneumothorax or any intrathoracic trauma See no indication for repeat CT scan at this time, vitals are stable No evidence of pneumonia on x-ray Small additional amount of opiate analgesia provided with risk of addiction reviewed Work note was continued for the remainder of the week Return precautions discussed and patient expressed understanding Reviewed from a tree and deep breathing and the importance of doing so to prevent pneumonia Medical Records Medical records reviewed: Yes I reviewed the patient's medical records. Lab Data Lab results reviewed: Yes I reviewed the patient's lab results. HPI General Date/Time Provider Initiated Documentation: 10/08/21 11:56. HPI Narrative: This 61-year-old gentleman presents 6 days status post fall 10 feet off a ladder. Had a normal CT scan for patient. Presents secondary to persistent pain and being unable to work secondary to discomfort. Sharp pain in his left posterior thorax. Exacerbated with movement and breathing. Denies any hemoptysis or new abdominal pain. Denies any new pain complaints states the pain is more persistent and concerned regarding Related Data Home Medications Medication Instructions Recorded Confirmed apremilast 30 mg tablet (Otezla) 30 mg PO BID 01/23/19 10/08/21 acetaminophen 325 mg capsule 325 mg PO DAILY PRN 09/13/20 10/08/21 (Tylenol) Inhaler, Assist Devices [Pocket 1 ea miscellaneous DIRECTED ##0 10/08/20 10/08/21 Chamber] multivitamin 1 tab PO DAILY 11/23/20 10/08/21 albuterol sulfate 90 mcg/actuation 2 puff inhalation Q4H PRN 09/25/21 10/08/21 aerosol inhaler (ProAir HFA) shortness of breath or wheezing #6.7 grams budesonide-formoterol HFA 160 2 puff inhalation BID #10.2 grams 09/25/21 10/08/21 mcg-4.5 mcg/actuation aerosol inhaler (Symbicort) hydrocodone 5 mg-acetaminophen 325 1 tab PO TID PRN pain #9 tabs 10/04/21 10/08/21 mg tablet melatonin 5 mg tablet 5 mg PO HS PRN 10/04/21 10/08/21 cyclobenzaprine 10 mg tablet 10 mg PO Q8H #14 tabs 10/08/21 oxycodone 5 mg capsule 5 mg PO Q8H PRN #10 caps 10/08/21 Previous Rx's Medication Instructions Recorded Inhaler, Assist Devices [Pocket 1 ea miscellaneous DIRECTED ##0 10/08/20 Chamber] albuterol sulfate 90 mcg/actuation 2 puff inhalation Q4H PRN 09/25/21 aerosol inhaler (ProAir HFA) shortness of breath or wheezing #6.7 grams budesonide-formoterol HFA 160 2 puff inhalation BID #10.2 grams 09/25/21 mcg-4.5 mcg/actuation aerosol inhaler (Symbicort) hydrocodone 5 mg-acetaminophen 325 1 tab PO TID PRN pain #9 tabs 10/04/21 mg tablet cyclobenzaprine 10 mg tablet 10 mg PO Q8H #14 tabs 10/08/21 oxycodone 5 mg capsule 5 mg PO Q8H PRN #10 caps 10/08/21 Allergies Allergy/AdvReac Type Severity Reaction Status Date / Time Iodinated Contrast Media Allergy Severe Anaphylaxsi Verified 10/04/21 07:37 [Iodinated Contrast Media - s IV Dye] shellfish derived Allergy Severe Anaphylaxsi Verified 10/04/21 07:37 s Sulfa (Sulfonamide Allergy Intermediate Skin Rash Verified 10/04/21 07:37 Antibiotics) General Stated Complaint: Nk/Back Pain ELISA: 4 Review of Systems All systems reviewed & are unremarkable except as noted in HPI and below PFSH All Active Problems (Updated 10/08/21 @ 13:15 by KIMBERLY Godoy) Contusion of flank (Acute) Chest wall contusion (Acute) Asthma (Chronic) Shoulder pain (Acute) Asthma exacerbation (Acute) Arthralgia of right shoulder region (Acute) Perennial allergic rhinitis (Acute) Impingement syndrome of right shoulder (Acute) Bursitis of right shoulder (Acute) Reflex sympathetic dystrophy (Acute) Forearm pain (Acute) Bilateral wrist pain (Acute) Ankle pain (Acute) Tendonitis of long head of biceps brachii of right shoulder (Acute) Rotator cuff tear, right (Acute) Bilateral hand pain (Acute) Wrist pain (Acute) bilateral Right shoulder pain (Acute) Left shoulder pain (Acute) Arthralgia (Acute) Pain, joint, shoulder, right (Acute) Hand pain, right (Acute) High blood pressure (Chronic) Sciatica of left side (Acute 04/17/17) Malignant neoplasm prostate (Acute 09/20/10) [address] ([facility]) recurrent 03/07 Cellulitis of leg, right (Acute) Medical History Asthma Malignant neoplasm prostate Psoriasis Sciatica Surgical History History of back surgery 2 broken discs History of hernia repair History of knee surgery History of surgery on arm History of surgery on wrist Ster[facility];Lumbar epidural steroid injection;04/04/17 Social History Smoking/Tobacco Use Status: Former Tobacco Use Tobacco: How many years used: 20 Smoking risk assessment performed?: Yes Alcohol Intake: former Drug use: Never Substance use type: does not use Caregiver/Support person: No Housing: house Communication Needs: Corrective Lenses Do you need help understanding health information?: Rarely Pets and animals: Yes Pets and animals: dog(s) Sexually active: No Do you think of yourself as: straight/heterosexual Current gender identity: female What is your relationship status?: How often do you talk on the phone with friends or family?: three or more times per week How often do you get together with friends or relatives?: once per week How often do you attend restoration or yazidi services?: decline to answer Do you belong to any clubs or organized social groups?: no Panel score (0-1 are the most socially isolated patients): 1 What type of physical activity do you participate in: other Details: active on job Honey/Mandaen: No preference Special honey needs: No Seatbelt use: always Helmet use: Yes Helmet use: always 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 Do you feel safe at home: Yes Do you feel safe in your relationship?: Yes Exam Const General: cooperative, comfortable and no acute distress Chest Other: Reproducible chest wall tenderness, no crepitus no visible evidence of trauma Resp Effort & Inspection: normal respiratory effort Auscultation: clear to auscultation bilaterally Cardio Rate: regular rate Rhythm: regular rhythm GI Other: No abdominal tenderness Neuro General: patient alert and patient oriented x3 Extrem Other: Distal pulses intact, no calf swelling or tenderness Course Vital Signs Vital signs: Vital Signs Temperature 36.3 C L 10/08/21 11:58 Pulse 63 10/08/21 11:58 Respiratory Rate 18 10/08/21 11:58 Blood Pressure 163/72 H 10/08/21 11:58 Pulse Oximetry 96 10/08/21 11:58 Temperature 36.3 C L 10/08/21 11:58 Temperature Source Temporal Artery Scan 10/08/21 11:58 Pulse 63 10/08/21 11:58 Respiratory Rate 18 10/08/21 11:58 Respiratory Effort Non-Labored 10/08/21 12:24 Blood Pressure 163/72 H 10/08/21 11:58 Blood Pressure Position Sitting 10/08/21 11:58 Pulse Oximetry 96 10/08/21 11:58 Oxygen Delivery Method Room Air 10/08/21 11:58 Oxygen Flow Rate 0 10/08/21 11:58 Pain Level 6 10/08/21 11:58
--- NOTE | 2021-10-08 12:59 | DI.VRAD_ITS ---
PROCEDURE INFORMATION: Exam: XR Chest Exam date and time: 10/08/2021 12:28 PM Age: 61 years old Clinical indication: Other: Left thorax pain, S/P fall TECHNIQUE: Imaging protocol: Radiologic exam of the chest. Views: 2 views. COMPARISON: CT CHEST/ABD/PEL WO 10/04/2021 8:51 AM FINDINGS: Lungs: Bibasilar subsegmental atelectasis. No focal consolidation. Pleural spaces: Unremarkable. No pleural effusion. No pneumothorax. Heart/Mediastinum: Unremarkable. No cardiomegaly. Bones/joints: Unremarkable. IMPRESSION: Bibasilar subsegmental atelectasis. No focal consolidation. Dictated and Authenticated by: Lidia Locke MD. Ordering:FELIPA Hollingsworth MD
== END 2021-10-08 13:23 | disposition home or self-care (01) ==
PROVIDERS: Emergency Provider Physician Assistant; PCP Nurse Practitioner Family
DX: S20.212A Contusion of left front wall of thorax, initial encounter (principal); Z87.891 Personal history of nicotine dependence; W11.XXXA Fall on and from ladder, initial encounter
CPT/HCPCS: 99283; 71046; 99284

== ENCOUNTER 2022-01-28 14:55 | Emergency (ER) | payer BC, SELFPAY ==
--- NOTE | 2022-01-28 14:45 | RT.EKG_ITS ---
APPROVED REPORT Exam: Resting ECG Reason for Exam: sob Patient Location: E HR:76 bpm ECG Measurements Heart Rate 76 AXIS IL 147 P 65 QRSd 89 QRS 74 QT 357 T 19 QTc 401 Conclusion Sinus rhythm...normal P axis, V-rate 60- 99
--- NOTE | 2022-01-28 15:00 | DI.RAD_ITS ---
Exam(s) XR PORTABLE CHEST AP EXAM: XR PORTABLE CHEST AP CLINICAL HISTORY: cough. TECHNIQUE: 2D digital imaging was performed. COMPARISON: CR,XR XR CHEST 2V PA LATERAL from 10/08/2021 FINDINGS: Single AP portable view. Heart size is upper normal. The mediastinum is not widened. Lungs are clear. No infiltrates nor obvious pleural effusions. IMPRESSION: No acute pulmonary findings on this single AP portable view of the chest. DATA REPOSITORY: RADIATION DOSE DELIVERED:
[2022-01-28 15:01] VITALS: BP 124/77; PULSE 92; RESP 18; O2SAT 98
[2022-01-28 15:03] VITALS: BP 124/77; PULSE 84
--- NOTE | 2022-01-28 15:11 | W.ED.GENAD ---
Discharge Plan Disposition Patient Disposition: Home Condition: Stable Discharge Details Clinical Impression: Shortness of breath Primary Care Provider: Duglas Burton ED Provider: Peter Fitzpatrick Home Meds and New Rx's Prescriptions: New prednisone 20 mg tablet 60 mg PO DAILY 4 Days Qty: 12 0RF Continued acetaminophen [Tylenol] 325 mg capsule 325 mg PO DAILY PRN Otezla 30 mg tablet 30 mg PO BID albuterol sulfate [ProAir HFA] 90 mcg/actuation HFA aerosol inhaler 2 puff inhalation Q4H PRN (Reason: shortness of breath or wheezing) Qty: 6.7 12RF budesonide-formoterol [Symbicort] 160-4.5 mcg/actuation HFA aerosol inhaler 2 puff inhalation BID Qty: 10.2 12RF oxycodone 5 mg capsule 5 mg PO Q8H PRNQty: 10 0RF cyclobenzaprine 10 mg tablet 10 mg PO Q8H Qty: 14 0RF Inhaler, Assist Devices [Pocket Chamber] 1 ea miscellaneous DIRECTED Qty: 0 0RF multivitamin Tablet 1 tab PO DAILY melatonin 5 mg Tablet 5 mg PO HS PRN hydrocodone-acetaminophen 5-325 mg tablet 1 tab PO TID PRN (Reason: pain) Qty: 9 0RF Discharge Instructions Instructions: Asthma (ED) Additional Instructions: your blood work and xray did not show concerning findings follow up as scheduled with your primary care provider Saturday if you feel more ill, have worsening shortness of breath or chest pain return to the emergency department Medical Decision Making 61 yo male with hx of asthma, psoriasis, who comes in with several days of worsening dyspnea with exertion. He states he also has had a dry cough and causes anterior chest pain when he does have a cough. He denies fevers, chills, leg swelling, calf pain. He arrives stable, no tachycardia or hypoxia. He is speaking in full sentences. HE does on lung exam have diffuse wheezing in both lungs in all liu, no jvd, no murmurs, no leg swelling or calf tenderness. Suspect asthma exacerbation but given the dyspnea on exertion will obtain ecg and troponin, obtain cxr to evaluate for infiltrate, and also obtain cbc, cmp, and fluvid. Will treat with duoneb and methylprednisolone. He has no evidence of dvt, no hypoxia or tachycardia so doubt PE pt feels significantly better, no longer has wheezing and labs and xray unremarkable, has had symptoms for over 3 hours so do not feel repeat troponin indicated. He is stable for d/c, will place on prednisone and have him f/u with pcp, return precautions given Differential Diagnosis Differential Diagnosis: asthma, pneumonia, covid Medical Records Medical records reviewed: Yes I reviewed the patient's medical records. Imaging Data Radiologic Study: Attestation: I personally reviewed and interpreted this imaging study as follows: Imaging: X-Ray My impression: no acute findings Lab Data Lab results reviewed: Yes I reviewed the patient's lab results. ECG Data Attestation: I personally reviewed and interpreted this ECG (s) as follows: Prior ECG tracings: available for review Interpretation: sinus rhythm, rate of 76, pr 147, no acute st t wave ischemic findings Sign Out No HPI General Mode of arrival: ambulatory. Date/Time Provider Initiated Documentation: 01/28/22 14:59. Limitations to Documentation: no limitations. Information obtained by: patient. History of Present Illness 61 year old M presents to the emergency department with the chief complaint of shortness of breath, described as moderate, Patient started experiencing this day(s) (3) and it has been constant. No relieving factors improve symptom(s), No exacerbating factors reported . Patient notes chest pain and cough; denies fever/chills. Patient did receive the following treatments prior to arrival, none Related Data Home Medications Medication Instructions Recorded Confirmed apremilast 30 mg tablet (Otezla) 30 mg PO BID 01/23/19 10/08/21 acetaminophen 325 mg capsule 325 mg PO DAILY PRN 09/13/20 10/08/21 (Tylenol) Inhaler, Assist Devices [Pocket 1 ea miscellaneous DIRECTED ##0 10/08/20 10/08/21 Chamber] multivitamin 1 tab PO DAILY 11/23/20 10/08/21 albuterol sulfate 90 mcg/actuation 2 puff inhalation Q4H PRN 09/25/21 10/08/21 aerosol inhaler (ProAir HFA) shortness of breath or wheezing #6.7 grams budesonide-formoterol HFA 160 2 puff inhalation BID #10.2 grams 09/25/21 10/08/21 mcg-4.5 mcg/actuation aerosol inhaler (Symbicort) hydrocodone 5 mg-acetaminophen 325 1 tab PO TID PRN pain #9 tabs 10/04/21 10/08/21 mg tablet melatonin 5 mg tablet 5 mg PO HS PRN 10/04/21 10/08/21 cyclobenzaprine 10 mg tablet 10 mg PO Q8H #14 tabs 10/08/21 oxycodone 5 mg capsule 5 mg PO Q8H PRN #10 caps 10/08/21 prednisone 20 mg tablet 60 mg PO DAILY 4 days #12 tabs 01/28/22 Previous Rx's Medication Instructions Recorded Inhaler, Assist Devices [Pocket 1 ea miscellaneous DIRECTED ##0 10/08/20 Chamber] albuterol sulfate 90 mcg/actuation 2 puff inhalation Q4H PRN 09/25/21 aerosol inhaler (ProAir HFA) shortness of breath or wheezing #6.7 grams budesonide-formoterol HFA 160 2 puff inhalation BID #10.2 grams 09/25/21 mcg-4.5 mcg/actuation aerosol inhaler (Symbicort) hydrocodone 5 mg-acetaminophen 325 1 tab PO TID PRN pain #9 tabs 10/04/21 mg tablet cyclobenzaprine 10 mg tablet 10 mg PO Q8H #14 tabs 10/08/21 oxycodone 5 mg capsule 5 mg PO Q8H PRN #10 caps 10/08/21 prednisone 20 mg tablet 60 mg PO DAILY 4 days #12 tabs 01/28/22 Allergies Allergy/AdvReac Type Severity Reaction Status Date / Time Iodinated Contrast Media Allergy Severe Anaphylaxsi Verified 10/04/21 07:37 [Iodinated Contrast Media - s IV Dye] shellfish derived Allergy Severe Anaphylaxsi Verified 10/04/21 07:37 s Sulfa (Sulfonamide Allergy Intermediate Skin Rash Verified 10/04/21 07:37 Antibiotics) General Stated Complaint: RespSymp ELISA: 3 Review of Systems All systems reviewed & are unremarkable except as noted in HPI and below Constitutional Constitutional: Denies chills, Denies fever(s) and Denies weakness Eyes Eyes: Denies loss of vision Gastrointestinal Gastrointestinal: Denies abdominal pain, Denies nausea and Denies vomiting Musculoskeletal Musculoskeletal: Denies joint swelling Integumentary/Breasts Skin/Breast: Denies rash Neurologic Neurologic: Denies loss of vision and Denies weakness PFSH All Active Problems (Updated 01/28/22 @ 16:50 by Peter Fitzpatrick MD) Shortness of breath (Acute) Asthma (Chronic) Shoulder pain (Acute) Asthma exacerbation (Acute) Arthralgia of right shoulder region (Acute) Perennial allergic rhinitis (Acute) Impingement syndrome of right shoulder (Acute) Bursitis of right shoulder (Acute) Reflex sympathetic dystrophy (Acute) Forearm pain (Acute) Bilateral wrist pain (Acute) Ankle pain (Acute) Tendonitis of long head of biceps brachii of right shoulder (Acute) Rotator cuff tear, right (Acute) Bilateral hand pain (Acute) Wrist pain (Acute) bilateral Right shoulder pain (Acute) Left shoulder pain (Acute) Arthralgia (Acute) Pain, joint, shoulder, right (Acute) Hand pain, right (Acute) High blood pressure (Chronic) Sciatica of left side (Acute 04/17/17) Malignant neoplasm prostate (Acute 09/20/10) [address] ([facility]) recurrent 03/07 Cellulitis of leg, right (Acute) Medical History Asthma Malignant neoplasm prostate Psoriasis Sciatica Surgical History History of back surgery 2 broken discs History of hernia repair History of knee surgery History of surgery on arm History of surgery on wrist Steroid Injection [facility];Lumbar epidural steroid injection;04/04/17 Social History Smoking/Tobacco Use Status: Former Tobacco Use Tobacco: How many years used: 20 Smoking risk assessment performed?: Yes Alcohol Intake: former Drug use: Never Substance use type: does not use Caregiver/Support person: No Housing: house Communication Needs: Corrective Lenses Do you need help understanding health information?: Rarely Pets and animals: Yes Pets and animals: dog(s) Sexually active: No Do you think of yourself as: straight/heterosexual Current gender identity: female What is your relationship status?: How often do you talk on the phone with friends or family?: three or more times per week How often do you get together with friends or relatives?: once per week How often do you attend roman catholic or orthodoxy services?: decline to answer Do you belong to any clubs or organized social groups?: no Panel score (0-1 are the most socially isolated patients): 1 What type of physical activity do you participate in: other Details: active on job Honey/Orthodox: No preference Special honey needs: No Seatbelt use: always Helmet use: Yes Helmet use: always Drive 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 Do you feel safe at home: Yes Do you feel safe in your relationship?: Yes Exam Const General: no acute distress Orientation: alert HENMT Head: normal to inspection Ears: external ears normal General nose exam: external nose normal Mouth: moist mucous membranes Eyes General: appearance normal, both eyes and all related structures Neck Neck: normal visual inspection Resp Effort & Inspection: normal respiratory effort, able to speak in complete sentences and audible wheezes Auscultation: wheezes Cardio Rate: regular rate Heart Sounds: no murmurs Skin General skin exam: no rashes or lesions noted Neuro General: patient alert and patient oriented x3 Course Vital Signs Vital signs: Vital Signs Pulse 92 H 01/28/22 15:01 Respiratory Rate 18 01/28/22 15:01 Blood Pressure 124/77 01/28/22 15:01 Pulse Oximetry 98 01/28/22 15:01 Pulse 92 H 01/28/22 15:01 Respiratory Rate 18 01/28/22 15:01 Blood Pressure 124/77 01/28/22 15:01 Blood Pressure Position Sitting 01/28/22 15:01 Pulse Oximetry 98 01/28/22 15:01 Oxygen Delivery Method Room Air 01/28/22 15:01 Oxygen Flow Rate 0 01/28/22 15:01
[2022-01-28] MEDS: methylPREDNISolone SUCC 125 MG VIAL IVP (15:32)
[2022-01-28 15:33] VITALS: PULSE 93; RESP 18; O2SAT 95
[2022-01-28] MEDS: Albuterol/Ipratropium 3 ML UPD VIAL UPD (15:33)
[2022-01-28 15:34] LABS: Abs Immature Grans 0.01 10^3/uL (0.0-0.06); Absolute Basophil Count 0.05 10^3/uL (0.0-0.2); Absolute Eosinophil Count 0.57 10^3/uL (0.0-0.7); Absolute Lymphocyte Count 1.65 10^3/uL (1.2-3.4); Absolute Monocyte Count 0.53 10^3/uL (0.1-0.8); Absolute Neutrophil Count 2.94 10^3/uL (1.2-6.7); Basophils % 0.9; Eosinophils % 9.9; HCT 46.2 % (40.0-50.0); HGB 15.5 g/dL (13.5-17.5); Immature Grans % 0.2; Lymphocytes % 28.7; MCH 28.5 pg (27.0-33.0); MCHC 33.5 % (32.0-36.0); MCV 85 fL (80-95); MPV 9.4 fL (8.0-11.0); Monocytes % 9.2; Neutrophils % 51.1; Platelet Count 225 10^3/uL (130-400); RBC 5.44 10^6/uL (4.36-5.78); RDW 12.6 % (11.8-14.1); RDW-SD 38.7 fL; WBC 5.75 10^3/uL (4.4-10.8)
[2022-01-28 15:53] LABS: ALT 18 U/L (16-63); AST 15 U/L (15-37); Albumin 3.6 g/dL (3.4-5.0); Alkaline Phosphatase 88 U/L (46-116); Anion Gap 7.4 mmol/L (3-11); BUN 20 mg/dL (7-18); Bilirubin, Total 0.4 mg/dL (0.2-1.0); CO2 25.6 mmol/L (21.0-32.0); CREATININE 1.3 mg/dL (0.70-1.30); Calcium 8.7 mg/dL (8.5-10.1); Chloride 104 mmol/L (98-107); Estimated GFR 61.73 (mL/min/1.73m2); Glucose 172 mg/dL (74-106); Magnesium 2.2 mg/dL (1.8-2.4); Potassium 4.2 mmol/L (3.5-5.1); Sodium 137 mmol/L (136-145); Total Protein 7.2 g/dL (6.4-8.2); Troponin I < 50 ng/L (<or=60)
[2022-01-28 16:03] LABS: COVID-19 PCR Negative (Negative); Influenza A PCR Negative (Negative); Influenza B PCR Negative (Negative); RSV PCR Negative (Negative)
[2022-01-28 16:05] LABS: Source Nasopharynx
--- NOTE | 2022-01-28 16:36 | DI.VRAD_ITS ---
PROCEDURE INFORMATION: Exam: XR Chest Exam date and time: 01/28/2022 3:58 PM Age: 61 years old Clinical indication: Cough TECHNIQUE: Imaging protocol: Radiologic exam of the chest. Views: 1 view. Other technique: Portable exam. COMPARISON: CR XR CHEST 2V PA LATERAL 10/08/2021 12:28 PM FINDINGS: Lungs: Unremarkable. No consolidation. Pleural spaces: Unremarkable. No pleural effusion. No pneumothorax. Heart/Mediastinum: Unremarkable. No cardiomegaly. Bones/joints: Unremarkable. IMPRESSION: No evidence for acute abnormality in the chest. Dictated and Authenticated by: Lyudmila Ledesma MD. Ordering:JOY Green MD
[2022-01-28 17:03] VITALS: BP 141/77; PULSE 89; RESP 18; O2SAT 97
== END 2022-01-28 17:08 | disposition home or self-care (01) ==
PROVIDERS: Emergency Provider Emergency Medicine; PCP Nurse Practitioner Family
DX: R06.02 Shortness of breath (principal); J45.909 Unspecified asthma, uncomplicated; L40.9 Psoriasis, unspecified; Z79.52 Long term (current) use of systemic steroids; Z20.822 Contact with and (suspected) exposure to COVID-19
CPT/HCPCS: 80053; 87637; 93005; 96374; 99284; 71045; 83735; 84484; 85025; 93010; 99285; J2930; J7620

== ENCOUNTER 2022-03-16 12:52 | Emergency (ER) | payer BC, SELFPAY ==
[2022-03-16 13:01] VITALS: BP 135/78; PULSE 91; RESP 18; TEMP 36.8; O2SAT 97
--- NOTE | 2022-03-16 15:00 | DI.RAD_ITS ---
Exam(s) XR SHOULDER RT COMPLETE 2+V EXAM: XR SHOULDER RT COMPLETE 2+V CLINICAL HISTORY: 3 days rt shoulder pain, lat/posterior, no trauma. TECHNIQUE: 2D digital imaging was performed of the right shoulder. Six images were obtained. AP, G rashey, Y-view and axillary views were obtained. COMPARISON: CR XR SHOULDER RT COMPLETE 2+V from 11/23/2020 FINDINGS: BONES: No acute fracture is present. No bony destructive lesion is seen. There is a well corticated o sseous density between the acromioclavicular joint. It appears old. JOINTS: No dislocation present. SOFT TISSUE: Normal. IMPRESSION: No acute abnormality. DATA REPOSITORY: RADIATION DOSE DELIVERED:
[2022-03-16] MEDS: Lidocaine 5% Patch 1 PATCH TP (15:14)
--- NOTE | 2022-03-16 15:33 | W.ED.GENAD ---
Discharge Plan Disposition Patient Disposition: Home Condition: Good Discharge Details Clinical Impression: Chronic pain in right shoulder Primary Care Provider: Duglas Burton ED Provider: Samuel Cuellar Home Meds and New Rx's Prescriptions: New lidocaine [Lidoderm] 5 % adhesive patch,medicated 1 patch Topical Q24H Qty: 15 0RF Continued acetaminophen [Tylenol] 325 mg capsule 325 mg PO DAILY PRN Otezla 30 mg tablet 30 mg PO BID albuterol sulfate [ProAir HFA] 90 mcg/actuation HFA aerosol inhaler 2 puff inhalation Q4H PRN (Reason: shortness of breath or wheezing) Qty: 6.7 12RF budesonide-formoterol [Symbicort] 160-4.5 mcg/actuation HFA aerosol inhaler 2 puff inhalation BID Qty: 10.2 12RF cyclobenzaprine 10 mg tablet 10 mg PO Q8H PRN prednisone 20 mg tablet 40 mg PO DAILY Inhaler, Assist Devices [Pocket Chamber] 1 ea miscellaneous DIRECTED Qty: 0 0RF multivitamin Tablet 1 tab PO DAILY melatonin 5 mg Tablet 10 mg PO HS PRN Discharge Instructions Instructions: Shoulder Pain (ED) Additional Instructions: At this time the x-ray shows no evidence of acute fracture. As we discussed together I suspect there is a component of rotator cuff injury as well as a potential for calcifications and chronic irritation causing frozen shoulder syndrome. Please use the Lidoderm patches as directed. They have been sent to your pharmacy on file. Please take Tylenol as needed for pain. We have placed a referral with the public affairs specialist. Please follow-up closely with them. You can use a sling only as needed for comfort, however please be aware that this will worsen your frozen shoulder syndrome. Ideally it would be best for you to move your shoulder as often as possible to keep it from having a reduced range of motion. Additionally you can apply topical Voltaren gel which is an ywye-lgt-zafyqye option to help with the pain. If you notice any worsening of your symptoms, or any new symptoms such as vomiting, diarrhea, fever, chills, shortness of breath, chest pain, numbness, weakness, or fainting , please return immediately to the emergency department for reevaluation. Please follow up with your primary care provider as soon as possible for reassessment and reevaluation. As always, it was a pleasure participating in your medical care today. Referrals: Nicola Armenta MD [ [facility] STAFF PHYSICIAN] - Medical Decision Making 62-year-old male with past medical history of previous right rotator cuff injury and subsequent surgery 1 year ago, who presents today for right shoulder pain. Patient states that 3 days ago he woke up and had pain and achiness in his right shoulder whenever he moved. Worse with movement. Improved with NSAIDs. Pain has continued and been persistent for the last 3 days. He denies any injury, excessive use, change in medications, or change in movement behaviors that he is willing to admit. His surgery was performed in [place], but he has seen Dr. Armenta in the past for her shoulder. He denies any chest pain. No numbness or tingling. No other complaints at this time. Physical exam demonstrates notable tenderness in the posterior and superior aspect of the shoulder. Notable restriction for range of motion in every direction. Notable exquisite pain with movement in every direction. No redness or warmth to suggest infection or cellulitis, no rash to suggest shingles. At this time I do suspect there may have been an injury or event that the patient has not yet divulged, however concern is for repeat rotator cuff injury, irritation from chronic calcifications, and at this point a component of frozen shoulder syndrome. We will get an x-ray, but likely the patient will need a nonemergent MRI or orthopedic evaluation on an outpatient basis. We will give a Lidoderm patch, monitor closely and reassess. 4:10 PM X-rays negative for acute process. I still suspect there is a component of frozen shoulder syndrome as well as mild rotator cuff injury and probably some calcifications causing his current irritation. We will place referral for outpatient orthopedic follow-up with Dr. Armenta. Recommend Lidoderm patch, topical Voltaren gel, and sling only as needed, however I did discuss with him the importance of continuing to move his shoulder to prevent any worsening of his frozen shoulder syndrome. I have extensively reviewed the treatment plan and discharge instructions with the patient. I have addressed all patient concerns at this time. The patient was made aware of what symptoms to monitor for that would warrant a return to the emergency department. Discussed the plan with the patient, they demonstrate verbal understanding and agreement with our assessment and plan at this time. The documentation in this chart was dictated using Urve[employer] dictation software. Please excuse any dictation errors. FINDINGS: BONES: No acute fracture is present. No bony destructive lesion is seen. There is a well corticated osseous density between the acromioclavicular joint. It appears old. JOINTS: No dislocation present. SOFT TISSUE: Normal. IMPRESSION: No acute abnormality. HPI General Date/Time Provider Initiated Documentation: 03/16/22 13:49. HPI Narrative: 62-year-old male with past medical history of previous right rotator cuff injury and subsequent surgery 1 year ago, who presents today for right shoulder pain. Patient states that 3 days ago he woke up and had pain and achiness in his right shoulder whenever he moved. Worse with movement. Improved with NSAIDs. Pain has continued and been persistent for the last 3 days. He denies any injury, excessive use, change in medications, or change in movement behaviors that he is willing to admit. His surgery was performed in [place], but he has seen Dr. Armenta in the past for her shoulder. He denies any chest pain. No numbness or tingling. No other complaints at this time. Related Data Home Medications Medication Instructions Recorded Confirmed apremilast 30 mg tablet (Otezla) 30 mg PO BID 01/23/19 03/16/22 acetaminophen 325 mg capsule 325 mg PO DAILY PRN 09/13/20 03/16/22 (Tylenol) Inhaler, Assist Devices [Pocket 1 ea miscellaneous DIRECTED ##0 10/08/20 03/16/22 Chamber] multivitamin 1 tab PO DAILY 11/23/20 03/16/22 albuterol sulfate 90 mcg/actuation 2 puff inhalation Q4H PRN 09/25/21 03/16/22 aerosol inhaler (ProAir HFA) shortness of breath or wheezing #6.7 grams melatonin 5 mg tablet 10 mg PO HS PRN 10/04/21 03/16/22 budesonide-formoterol HFA 160 2 puff inhalation BID #10.2 grams 02/05/22 03/16/22 mcg-4.5 mcg/actuation aerosol inhaler (Symbicort) cyclobenzaprine 10 mg tablet 10 mg PO Q8H PRN 03/16/22 03/16/22 lidocaine 5 % topical patch 1 patch topical Q24H #15 ea 01/27/23 (Lidoderm) prednisone 20 mg tablet 40 mg PO DAILY 03/16/22 03/16/22 Previous Rx's Medication Instructions Recorded Inhaler, Assist Devices [Pocket 1 ea miscellaneous DIRECTED ##0 10/08/20 Chamber] albuterol sulfate 90 mcg/actuation 2 puff inhalation Q4H PRN 09/25/21 aerosol inhaler (ProAir HFA) shortness of breath or wheezing #6.7 grams budesonide-formoterol HFA 160 2 puff inhalation BID #10.2 grams 02/05/22 mcg-4.5 mcg/actuation aerosol inhaler (Symbicort) lidocaine 5 % topical patch 1 patch topical Q24H #15 ea 03/16/22 (Lidoderm) Allergies Allergy/AdvReac Type Severity Reaction Status Date / Time Iodinated Contrast Media Allergy Severe Anaphylaxsi Verified 03/16/22 14:34 [Iodinated Contrast Media - s IV Dye] shellfish derived Allergy Severe Anaphylaxsi Verified 03/16/22 14:34 s Sulfa (Sulfonamide Allergy Intermediate Skin Rash Verified 03/16/22 14:34 Antibiotics) General Stated Complaint: Orthopedic ELISA: 3 Review of Systems All systems reviewed & are unremarkable except as noted in HPI and below PFSH All Active Problems (Updated 03/16/22 @ 16:04 by Samuel Cuellar DO) Chronic pain in right shoulder (Acute) Asthma (Chronic) Perennial allergic rhinitis (Acute) Impingement syndrome of right shoulder (Acute) Bursitis of right shoulder (Acute) Reflex sympathetic dystrophy (Acute) Forearm pain (Acute) left wrist pain Tendonitis of long head of biceps brachii of right shoulder (Acute) Rotator cuff tear, right (Acute) Right shoulder pain (Acute) Arthralgia (Acute) Pain, joint, shoulder, right (Acute) High blood pressure (Chronic) Malignant neoplasm prostate (Acute 09/20/10) [address] ([facility]) recurrent 03/07 Medical History Malignant neoplasm prostate Psoriasis Sciatica Surgical History History of back surgery 2 broken discs History of hernia repair Testicular History of knee surgery History of surgery on arm History of surgery on wrist Steroid Injection [facility];Lumbar epidural steroid injection;04/04/17 Social History Smoking/Tobacco Use Status: Former Tobacco Use Tobacco: How many years used: 20 Smoking risk assessment performed?: Yes Alcohol Intake: former Drug use: Never Substance use type: does not use Caregiver/Support person: No Housing: house Communication Needs: Corrective Lenses Do you need help understanding health information?: Rarely Pets and animals: Yes Pets and animals: dog(s) Sexually active: No Do you think of yourself as: straight/heterosexual Current gender identity: female What is your relationship status?: How often do you talk on the phone with friends or family?: three or more times per week How often do you get together with friends or relatives?: once per week How often do you attend scientologist or confucianist services?: decline to answer Do you belong to any clubs or organized social groups?: no Panel score (0-1 are the most socially isolated patients): 1 What type of physical activity do you participate in: other Details: active on job Honey/Jainism: No preference Special honey needs: No Seatbelt use: always Helmet use: Yes Helmet use: always Drive 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 [employer] delivery driver: No Do you feel safe at home: Yes Do you feel safe in your relationship?: Yes Exam Narrative Exam Narrative: 1.Const: Well-nourished, Well-developed, appearing stated age 2.Eyes: PERRL, no conjunctival injection, and symmetrical lids. 3.ENT: Atraumatic external nose and ears. Moist MM. Neck: Symmetric, trachea midline, No thyromegaly. 4.CVS: +S1/S2, No murmurs or gallops. Peripheral pulses 2+ and equal in all extremities. Brisk capillary refill in all extremities. 5.RESP: Unlabored respiratory effort. Clear to auscultation bilaterally. No wheezes rales or rhonchi 6.GI: Soft, Nontender/Nondistended, No hepatosplenomegaly. No guarding or rebound. 7.MSK: Right shoulder demonstrates tenderness on the posterior aspect of the shoulder, and the superior aspect by the AC joint. Minimal anterior tenderness. Notable tenderness with any movement of the shoulder in any direction. No redness or warmth. No evidence of rash or shingles. Notable restriction in movement in all directions. 8.Skin: Warm, Dry. No rashes or lesions. 9.Neuro: mainspring winder II-XII grossly intact. Sensation grossly intact, no focal neurologic deficits. 10.Psych: (AAO) x3. Appropriate mood and affect Course Vital Signs Vital signs: Vital Signs Temperature 36.8 C 03/16/22 13:01 Pulse 91 H 03/16/22 13:01 Respiratory Rate 18 03/16/22 13:01 Blood Pressure 135/78 03/16/22 13:01 Pulse Oximetry 97 03/16/22 13:01 Temperature 36.8 C 03/16/22 13:01 Temperature Source Tympanic 03/16/22 13:01 Pulse 91 H 03/16/22 13:01 Respiratory Rate 18 03/16/22 13:01 Respiratory Effort 03/16/22 13:07 Blood Pressure 135/78 03/16/22 13:01 Blood Pressure Position Sitting 03/16/22 13:01 Pulse Oximetry 97 03/16/22 13:01 Oxygen Delivery Method Room Air 03/16/22 13:01 Oxygen Flow Rate 0 03/16/22 13:01 Pain Level 7 03/16/22 13:01
[2022-03-16 16:10] VITALS: BP 133/79; PULSE 77; TEMP 36.4; O2SAT 96
--- NOTE | 2022-03-19 08:36 | NUR.NOTE ---
Nursing Note: Accessed chart for [facility] billing purposes.
== END 2022-03-16 17:09 | disposition home or self-care (01) ==
PROVIDERS: Emergency Provider Student in an Organized Health Care Education/Training Program; PCP Nurse Practitioner Family
DX: M25.511 Pain in right shoulder (principal); G89.29 Other chronic pain
CPT/HCPCS: 99283; 73030; 99284

== ENCOUNTER 2022-03-27 16:43 | Emergency (ER) | payer BC, SELFPAY ==
[2022-03-27] VITALS (53 sets, daily range): BP systolic 131–167; BP diastolic 74–86; PULSE 91–124; RESP 15–29; TEMP 37.4; O2SAT 94–100
--- NOTE | 2022-03-27 16:45 | RT.EKG_ITS ---
APPROVED REPORT Exam: Resting ECG Reason for Exam: chest pain Patient Location: E HR:93 bpm ECG Measurements Heart Rate 93 AXIS [place] 137 P 70 QRSd 95 QRS 71 QT 363 T 27 QTc 452 Conclusion Sinus rhythm...normal P axis, V-rate 60- 99
[2022-03-27 17:07] LABS: Abs Immature Grans 0.01 10^3/uL (0.0-0.06); Absolute Basophil Count 0.03 10^3/uL (0.0-0.2); Absolute Eosinophil Count 0.45 10^3/uL (0.0-0.7); Absolute Monocyte Count 0.72 10^3/uL (0.1-0.8); Absolute Neutrophil Count 2.27 10^3/uL (1.2-6.7); Basophils % 0.6; Eosinophils % 8.9; HCT 44.1 % (40.0-50.0); HGB 14.7 g/dL (13.5-17.5); Immature Grans % 0.2; Lymphocytes % 31.5; MCHC 33.3 % (32.0-36.0); MCV 84 fL (80-95); MPV 9.1 fL (8.0-11.0); Monocytes % 14.2; Neutrophils % 44.6; Platelet Count 221 10^3/uL (130-400); RBC 5.25 10^6/uL (4.36-5.78); RDW 12.8 % (11.8-14.1); RDW-SD 38.6 fL; WBC 5.08 10^3/uL (4.4-10.8)
[2022-03-27 17:33] LABS: ALT 21 U/L (16-63); AST 21 U/L (15-37); Albumin 3.7 g/dL (3.4-5.0); Alkaline Phosphatase 98 U/L (46-116); Anion Gap 8.8 mmol/L (3-11); BUN 17 mg/dL (7-18); Bilirubin, Total 0.4 mg/dL (0.2-1.0); CO2 27.2 mmol/L (21.0-32.0); CREATININE 1.3 mg/dL (0.70-1.30); Calcium 9.2 mg/dL (8.5-10.1); Chloride 105 mmol/L (98-107); Estimated GFR 61.35 (mL/min/1.73m2); Glucose 97 mg/dL (74-106); Magnesium 2.2 mg/dL (1.8-2.4); Potassium 3.8 mmol/L (3.5-5.1); Sodium 141 mmol/L (136-145); Troponin I < 50 ng/L (<or=60)
--- NOTE | 2022-03-27 17:42 | ED.GENADUL_ITS ---
Discharge Plan Disposition Patient Disposition: Home Condition: Stable Discharge Details Clinical Impression: Cough Primary Care Provider: Duglas Burton ED Provider: Waqar Bernal Home Meds and New Rx's Prescriptions: New prednisone 20 mg tablet 60 mg PO DAILY 5 Days Qty: 15 0RF benzonatate 200 mg capsule 200 mg PO BID-TID PRNQty: 20 0RF Continued acetaminophen [Tylenol] 325 mg capsule 325 mg PO DAILY PRN Otezla 30 mg tablet 30 mg PO BID albuterol sulfate [ProAir HFA] 90 mcg/actuation HFA aerosol inhaler 2 puff inhalation Q4H PRN (Reason: shortness of breath or wheezing) Qty: 6.7 12RF budesonide-formoterol [Symbicort] 160-4.5 mcg/actuation HFA aerosol inhaler 2 puff inhalation BID Qty: 10.2 12RF cyclobenzaprine 10 mg tablet 10 mg PO Q8H PRN lidocaine [Lidoderm] 5 % adhesive patch,medicated 1 patch Topical Q24H Qty: 15 0RF Inhaler, Assist Devices [Pocket Chamber] 1 ea miscellaneous DIRECTED Qty: 0 0RF multivitamin Tablet 1 tab PO DAILY melatonin 5 mg Tablet 10 mg PO HS PRN Discharge Instructions Instructions: Acute Cough (ED) Additional Instructions: Tessalon Perles and prednisone as directed. Continue your inhalers at home. Please watch for new or worsening symptoms and return to the ER for any concerns. Lastly, please contact your primary care provider tomorrow to discuss your ER visit need for outpatient reevaluation. Stand Alone Forms: Work Release Medical Decision Making 62-year-old male non-smoker, fully vaccinated, history of asthma, presents for 3-4-day history of cough, wheezing, shortness of breath, chest pain with coughing. Clinically this appears to be infectious in nature but given his complaint of chest pain with coughing will obtain EKG and single troponin. Will provide Solu-Medrol as well as a DuoNeb and albuterol neb. Patient received his 2 DuoNebs, heart rate is now 118 but subjectively he reports feeling significant improvement, he is now moving much more air and only has a very rare occasional wheeze. Chest x-ray clear. Laboratory values unremarkable. As above this certainly appears to be infectious in nature exacerbating his asthma. No clear indication to initiate antibiotic therapy. Will provide prescription for Tessalon Perles and burst dose of prednisone. Flu, COVID, RSV negative Standard discharge and return precautions were provided. Patient understands, is agreeable to this plan, and has no additional questions or concerns upon discharge. This documentation was generated using [employer] system, please disregard any oddities of phrase or misspellings. Medical Records Medical records reviewed: Yes I reviewed the patient's medical records. Imaging Data Radiologic Study: Attestation: I personally reviewed and interpreted this imaging study as follows: Imaging: X-Ray Radiologist's impression: PROCEDURE INFORMATION: Exam: XR Chest Exam date and time: 03/27/2022 5:20 PM Age: 62 years old Clinical indication: Cough TECHNIQUE: Imaging protocol: Radiologic exam of the chest. Views: 1 view. COMPARISON: XR PORTABLE CHEST AP 01/28/2022 3:58 PM FINDINGS: Lungs: No consolidation. Pleural spaces: No pleural effusion. No pneumothorax. Heart/Mediastinum: No cardiomegaly. Bones/joints: No acute fracture. A small ossicle is noted at the acromioclavicular joint, likely degenerative in nature. IMPRESSION: No acute findings. Lab Data Lab results reviewed: Yes I reviewed the patient's lab results. Labs: Laboratory Tests Range/Units 03/27/22 03/27/22 03/27/22 16:55 16:55 17:00 WBC (4.4-10.8) 10^3/uL 5.08 RBC (4.36-5.78) 10^6/uL 5.25 Hgb (13.5-17.5) g/dL 14.7 Hct (40.0-50.0) % 44.1 MCV (80-95) fL 84 MCH (27.0-33.0) pg 28.0 MCHC (32.0-36.0) % 33.3 RDW (11.8-14.1) % 12.8 Plt Count (130-400) 10^3/uL 221 MPV (8.0-11.0) fL 9.1 Immature Gran % 0.2 Neutrophils % 44.6 Lymphocytes % 31.5 Monocytes % 14.2 Eosinophils % 8.9 Basophils % 0.6 Nucleated RBC % (0.0-0.3) % 0.0 Absolute Neutrophils (1.2-6.7) 10^3/uL 2.27 Absolute Lymphocytes (1.2-3.4) 10^3/uL 1.60 Absolute Monocytes (0.1-0.8) 10^3/uL 0.72 Absolute Eosinophils (0.0-0.7) 10^3/uL 0.45 Absolute Basophils (0.0-0.2) 10^3/uL 0.03 Sodium (136-145) mmol/L 141 Potassium (3.5-5.1) mmol/L 3.8 Chloride (98-107) mmol/L 105 Carbon Dioxide (21.0-32.0) mmol/L 27.2 Anion Gap (3-11) mmol/L 8.8 BUN (7-18) mg/dL 17 Creatinine (0.70-1.30) mg/dL 1.3 Est GFR (CKD-EPI 2020) (mL/min/1.73m2) 61.35 Glucose (74-106) mg/dL 97 Calcium (8.5-10.1) mg/dL 9.2 Magnesium (1.8-2.4) mg/dL 2.2 Total Bilirubin (0.2-1.0) mg/dL 0.4 AST (15-37) U/L 21 ALT (16-63) U/L 21 Alkaline Phosphatase (46-116) U/L 98 Troponin I (<or=60) ng/L < 50 Total Protein (6.4-8.2) g/dL 8.0 Albumin (3.4-5.0) g/dL 3.7 COVID-19 Source Nasopharynx SARS-CoV-2 (PCR) (Negative) Negative Influenza Type A (PCR) (Negative) Negative Influenza Type B (PCR) (Negative) Negative RSV (PCR) (Negative) Negative ECG Data Attestation: I personally reviewed and interpreted this ECG (s) as follows: Interpretation: Sinus rhythm, ventricular of 93, no STEMI HPI General Mode of arrival: ambulatory . Date/Time Provider Initiated Documentation: 03/27/22 16:45 . Limitations to Documentation: no limitations . Information obtained by: patient . HPI Narrative: 62-year-old gentleman with a past medical history of asthma, not a smoker, presents to the ER for 4-day history of productive cough, shortness of breath, chest pain with coughing, nasal congestion, overall fatigue. Patient reports that he is fully vaccinated and denies any recent sick contacts. He has been taking his medications as directed. Reports that when this happens he typically requires neb treatments in the ER and steroids to go home. Denies hemoptysis. Related Data Home Medications Medication Instructions Recorded Confirmed apremilast 30 mg tablet (Otezla) 30 mg PO BID 01/23/19 03/27/22 acetaminophen 325 mg capsule 325 mg PO DAILY PRN 09/13/20 03/27/22 (Tylenol) Inhaler, Assist Devices [Pocket 1 ea miscellaneous DIRECTED ##0 10/08/20 03/16/22 Chamber] multivitamin 1 tab PO DAILY 11/23/20 03/27/22 albuterol sulfate 90 mcg/actuation 2 puff inhalation Q4H PRN 09/25/21 03/27/22 aerosol inhaler (ProAir HFA) shortness of breath or wheezing #6.7 grams melatonin 5 mg tablet 10 mg PO HS PRN 10/04/21 03/27/22 budesonide-formoterol HFA 160 2 puff inhalation BID #10.2 grams 02/05/22 03/27/22 mcg-4.5 mcg/actuation aerosol inhaler (Symbicort) cyclobenzaprine 10 mg tablet 10 mg PO Q8H PRN 03/16/22 03/16/22 lidocaine 5 % topical patch 1 patch topical Q24H #15 ea 03/16/22 03/27/22 (Lidoderm) benzonatate 200 mg capsule 200 mg PO BID-TID PRN #20 caps 03/27/22 prednisone 20 mg tablet 60 mg PO DAILY 5 days #15 tabs 03/27/22 Previous Rx's Medication Instructions Recorded Inhaler, Assist Devices [Pocket 1 ea miscellaneous DIRECTED ##0 10/08/20 Chamber] albuterol sulfate 90 mcg/actuation 2 puff inhalation Q4H PRN 09/25/21 aerosol inhaler (ProAir HFA) shortness of breath or wheezing #6.7 grams budesonide-formoterol HFA 160 2 puff inhalation BID #10.2 grams 02/05/22 mcg-4.5 mcg/actuation aerosol inhaler (Symbicort) lidocaine 5 % topical patch 1 patch topical Q24H #15 ea 03/16/22 (Lidoderm) benzonatate 200 mg capsule 200 mg PO BID-TID PRN #20 caps 03/27/22 prednisone 20 mg tablet 60 mg PO DAILY 5 days #15 tabs 03/27/22 Allergies Allergy/AdvReac Type Severity Reaction Status Date / Time Iodinated Contrast Media Allergy Severe Anaphylaxsi Verified 03/27/22 16:49 [Iodinated Contrast Media - s IV Dye] shellfish derived Allergy Severe Anaphylaxsi Verified 03/27/22 16:49 s Sulfa (Sulfonamide Allergy Intermediate Skin Rash Verified 03/27/22 16:49 Antibiotics) General Stated Complaint: SOB ELISA: 3 Review of Systems Constitutional Constitutional: Denies fever(s) and Denies weakness ENT Ears, Nose, Mouth, and Throat: Denies neck pain Cardiovascular Cardiovascular: Reports chest pain (with coughing) and Reports dyspnea Respiratory Respiratory: Reports cough and Reports dyspnea Gastrointestinal Gastrointestinal: Denies abdominal pain, Denies diarrhea, Denies nausea and Denies vomiting Musculoskeletal Musculoskeletal: Denies back pain and Denies neck pain Integumentary/Breasts Skin/Breast: Denies rash Neurologic Neurologic: Denies weakness PFSH All Active Problems Chronic pain in right shoulder (Acute) Cough (Acute) Asthma (Chronic) Perennial allergic rhinitis (Acute) Impingement syndrome of right shoulder (Acute) Bursitis of right shoulder (Acute) Reflex sympathetic dystrophy (Acute) Forearm pain (Acute) left wrist pain Tendonitis of long head of biceps brachii of right shoulder (Acute) Rotator cuff tear, right (Acute) Right shoulder pain (Acute) Arthralgia (Acute) Pain, joint, shoulder, right (Acute) High blood pressure (Chronic) Malignant neoplasm prostate (Acute 09/20/10) [address] ([facility]) recurrent 03/07 Medical History Malignant neoplasm prostate Psoriasis Sciatica Surgical History History of back surgery 2 broken discs History of hernia repair Testicular History of knee surgery History of surgery on arm History of surgery on wrist Steroid Injection [facility];Lumbar epidural steroid injection;04/04/17 Social History Smoking/Tobacco Use Status: Former Tobacco Use Tobacco: How many years used: 20 Smoking risk assessment performed?: Yes Alcohol Intake: former Drug use: Never Substance use type: does not use Caregiver/Support person: No Housing: house Communication Needs: Corrective Lenses Do you need help understanding health information?: Rarely Pets and animals: Yes Pets and animals: dog(s) Sexually active: No Do you think of yourself as: straight/heterosexual Current gender identity: female What is your relationship status?: How often do you talk on the phone with friends or family?: three or more times per week How often do you get together with friends or relatives?: once per week How often do you attend tenriism or jehovah's witness services?: decline to answer Do you belong to any clubs or organized social groups?: no Panel score (0-1 are the most socially isolated patients): 1 What type of physical activity do you participate in: other Details: active on job Honey/Spiritism: No preference Special honey needs: No Seatbelt use: always Helmet use: Yes Helmet use: always Drive 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 paratransit driver: No Do you feel safe at home: Yes Do you feel safe in your relationship?: Yes Exam Const General: cooperative, healthy appearing, comfortable and no acute distress Orientation: alert and awake [facility] Head: normal to inspection, normocephalic and atraumatic Face and sinus: normal facial exam Mouth: moist mucous membranes Eyes Conjunctivae: conjunctivae normal Neck Neck: normal visual inspection, full ROM, no meningeal signs, trachea midline and supple Resp Effort & Inspection: normal respiratory effort, able to speak in complete sentences and cough Auscultation: wheezes (Scattered, expiratory throughout) Cardio Rate: regular rate Rhythm: regular rhythm GI Palpation: soft and nontender Skin General skin exam: no rashes or lesions noted Neuro General: patient alert, patient awake, moves all extremities and no focal motor deficits Cognition: normal cognition Speech: speech normal Gait: normal gait Sensory Exam: no sensory deficits noted Extrem General: normal to inspection, full ROM, capillary refill normal, no pedal edema and no calf tenderness Psych Appearance: grossly normal Mental Status: mental status grossly normal Course Vital Signs Vital signs: Vital Signs Temperature 37.4 C 03/27/22 16:47 Pulse 96 H 03/27/22 16:47 Respiratory Rate 20 03/27/22 16:47 Blood Pressure 167/75 H 03/27/22 16:47 Pulse Oximetry 99 03/27/22 16:47 Temperature 37.4 C 03/27/22 16:47 Temperature Source Oral 03/27/22 16:47 Pulse 96 H 03/27/22 16:47 Respiratory Rate 20 03/27/22 17:02 Respiratory Effort 03/27/22 17:02 Respiratory Depth Normal 03/27/22 17:02 Respiratory Pattern Normal 03/27/22 17:02 Blood Pressure 167/75 H 03/27/22 16:47 Blood Pressure Position Sitting 03/27/22 16:47 Pulse Oximetry 99 03/27/22 16:47 Oxygen Delivery Method Room Air 03/27/22 16:47 Oxygen Flow Rate 0 03/27/22 16:47 Pain Level 6 03/27/22 16:47 Lab/Test Results Lab/Test Results: Laboratory Tests Range/Units 03/27/22 16:55 WBC (4.4-10.8) 10^3/uL 5.08 RBC (4.36-5.78) 10^6/uL 5.25 Hgb (13.5-17.5) g/dL 14.7 Hct (40.0-50.0) % 44.1 MCV (80-95) fL 84 MCH (27.0-33.0) pg 28.0 MCHC (32.0-36.0) % 33.3 RDW (11.8-14.1) % 12.8 Plt Count (130-400) 10^3/uL 221 MPV (8.0-11.0) fL 9.1 Immature Gran % 0.2 Neutrophils % 44.6 Lymphocytes % 31.5 Monocytes % 14.2 Eosinophils % 8.9 Basophils % 0.6 Nucleated RBC % (0.0-0.3) % 0.0 Absolute Neutrophils (1.2-6.7) 10^3/uL 2.27 Absolute Lymphocytes (1.2-3.4) 10^3/uL 1.60 Absolute Monocytes (0.1-0.8) 10^3/uL 0.72 Absolute Eosinophils (0.0-0.7) 10^3/uL 0.45 Absolute Basophils (0.0-0.2) 10^3/uL 0.03
--- NOTE | 2022-03-27 17:43 | DI.RAD_ITS ---
Exam(s) XR PORTABLE CHEST AP EXAM: XR PORTABLE CHEST AP CLINICAL HISTORY: cough TECHNIQUE: 2D digital imaging was performed of the chest. One image was obtained. An AP view was ob tained. COMPARISON: CR,XR XR PORTABLE CHEST AP from 01/28/2022 FINDINGS: MEDIASTINUM: Normal. HEART: Normal. PULMONARY VASCULATURE: Normal. LUNGS: Clear. PLEURAL SPACE: No pleural effusion or pneumothorax. BONE:Within normal limits for the patient's age. OTHER FINDINGS:Normal. IMPRESSION: No acute pulmonary findings. DATA REPOSITORY: RADIATION DOSE DELIVERED:
[2022-03-27 17:44] LABS: COVID-19 PCR Negative (Negative); Influenza A PCR Negative (Negative); Influenza B PCR Negative (Negative); RSV PCR Negative (Negative)
[2022-03-27 17:45] LABS: Source Nasopharynx
[2022-03-27] MEDS: Albuterol/Ipratropium 3 ML UPD VIAL UPD (17:45)
[2022-03-27] MEDS: Albuterol 2.5 MG/3 ML INH SOLN VIAL UPD (17:45)
--- NOTE | 2022-03-27 18:07 | DI.VRAD_ITS ---
PROCEDURE INFORMATION: Exam: XR Chest Exam date and time: 03/27/2022 5:20 PM Age: 62 years old Clinical indication: Cough TECHNIQUE: Imaging protocol: Radiologic exam of the chest. Views: 1 view. COMPARISON: XR PORTABLE CHEST AP 01/28/2022 3:58 PM FINDINGS: Lungs: No consolidation. Pleural spaces: No pleural effusion. No pneumothorax. Heart/Mediastinum: No cardiomegaly. Bones/joints: No acute fracture. A small ossicle is noted at the acromioclavicular joint, likely degenerative in nature. IMPRESSION: No acute findings. Dictated and Authenticated by: Charissa Puentes MD. Ordering:GILA Zavaleta MD
[2022-03-27] MEDS: methylPREDNISolone SUCC 125 MG VIAL IVP (18:15)
== END 2022-03-27 19:15 | disposition home or self-care (01) ==
PROVIDERS: Emergency Provider Physician Assistant; PCP Nurse Practitioner Family
DX: R05.9 Cough, unspecified (principal); J45.909 Unspecified asthma, uncomplicated; Z79.51 Long term (current) use of inhaled steroids; Z20.822 Contact with and (suspected) exposure to COVID-19
CPT/HCPCS: 36415; 80053; 87637; 93005; 96374; 99284; 71045; 83735; 84484; 85025; 93010; J2930; J7613; J7620

== ENCOUNTER 2022-04-17 00:31 | Outpatient (CLI) | payer BC, SELFPAY ==
--- NOTE | 2022-04-17 08:00 | DI.MRI_ITS ---
Exam(s) MR UPPER JOINT RT WO EXAM: MR UPPER JOINT RT WO CLINICAL HISTORY: shoulder pain,M25.511 TECHNIQUE: Multiplanar multisequence MRI of the shoulder was performed. COMPARISON: MR MR UPPER JOINT RT WO from 09/02/2020 CR XR SHOULDER RT COMPLETE 2+V from 03/16/2022 CR,XR XR PORTABLE CHEST AP from 03/27/2022 FINDINGS: MARROW:There is no evidence of fracture, Hill-Sachs deformity, nor ominous osseous lesions. There are multiple degenerative subarticular cysts in the glenoid fossa. Largest of these is located mid-infe riorly and measures 2.0 by 1.0 cm. A smaller degenerative subarticular cyst measuring 1.0 x 0.7 cm i s seen in the superior aspect of the osseous glenoid. ROTATOR CUFF MECHANISM: AC JOINT/ACROMIUM: There is some widening of the AC joint noted suspect possible previous decompressi on surgery. An independent osteophytic density measuring 7 x 5 millimeters seen in the superior aspe ct of the AC joint region. This is not in the subacromial space.. There is no evidence of os acromiale. Supraspinatus: There is signal abnormality in the supraspinatus tendon with some overlying fluid in t he subacromial-subdeltoid bursa. No retraction of the musculotendinous junction but there appears to be either multilevel partial-thickness tearing or an element of full-thickness tear. No retraction musculotendinous junction. No atrophy. Infraspinatus: Intact. No evidence of tear nor muscle atrophy. Teres Minor: Intact. No evidence of tear nor muscle atrophy. Subscapularis/anterior cuff: Intact. No abnormal signal at the level of the multipennate insertional fibers. No significant tear nor atrophy. BICEPS TENDON: Biceps tendon is not displaced from the intertubercular groove. However, the intra-ar ticular aspect of this structure is difficult to trace to the anterosuperior labrum. Probably indica chelle an element of intra-articular tearing. LABRUM: The superior labrum appears somewhat deficient. Posterior labrum exhibits intrasubstance sig nal consistent with tearing. The anterior labrum appears intact. There appears to be some tearing o f the inferior labrum. The inferior glenohumeral ligament appears intact. GLENOHUMERAL JOINT: There are some degenerative changes with loss of cartilage thickness ovarian to c lear surfaces. No osteophytes. Prominent degenerative subarticular cysts in the osseous glenoid. A lso some focal edema in the humeral head superior aspect. QUADRILATERAL SPACE: No evidence of mass in the region of the axillary nerve and dorsal circumflex hu meral vessels. Visualized triceps muscle at this level appears unremarkable. IMPRESSION: 1. Abnormal appearance of the supraspinatus tendon consistent with chronic tendinitis and multilevel partial-thickness tearing. This probably an element of full-thickness tearing here given that there is some fluid in the overlying this subdeltoid bursa. There is no obvious retraction musculotendinou s junction. The supraspinatus and teres minor are intact and there is no obvious tear of the anterio r cuff-subscapularis. There appears to been probable prior decompression surgery at the level of the AC joint. 2. 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 There also appear to be multilevel tears of the labrum. The intra-articular aspect of the biceps tendon appears perched on the lesser tuberosity and exhibits intrasubstance signal abnormality consistent with tearing. Below this level the biceps tendon is no t displaced from the intertubercular groove. 3. Large degenerative subarticular cysts are noted in the osseous glenoid. DATA REPOSITORY:
== END 2022-04-17 00:51 ==
LOC: DI 00:32
PROVIDERS: PCP Nurse Practitioner Family; Visit Provider Nurse Practitioner Family
DX: M75.31 Calcific tendinitis of right shoulder (principal); M75.101 Unspecified rotator cuff tear or rupture of right shoulder, not specified as traumatic
CPT/HCPCS: 73221

== ENCOUNTER 2022-09-16 12:43 | Emergency (ER) | payer BC, SELFPAY ==
[2022-09-16 13:02] VITALS: BP 124/72; PULSE 78; RESP 18; TEMP 37; O2SAT 100
--- NOTE | 2022-09-16 13:24 | W.ED.GENAD ---
Discharge Plan Disposition Patient Disposition: Home Discharge Details Clinical Impression: Inguinal lymphadenopathy, Cellulitis of right leg Primary Care Provider: Duglas Burton ED Provider: Leonardo Granado Home Meds and New Rx's Prescriptions: New cephalexin 500 mg capsule 500 mg PO QID 5 Days Qty: 20 0RF Continued acetaminophen [Tylenol] 325 mg capsule 325 mg PO DAILY PRN ipratropium-albuterol 0.5 mg-3 mg(2.5 mg base)/3 mL solution for nebulization 3 ml inhalation QID PRN (Reason: wheezing) Qty: 180 12RF Otezla 30 mg tablet 30 mg PO BID albuterol sulfate [ProAir HFA] 90 mcg/actuation HFA aerosol inhaler 2 puff inhalation Q4H PRN (Reason: shortness of breath or wheezing) Qty: 6.7 12RF Breztri Aerosphere 160-9-4.8 mcg/actuation HFA aerosol inhaler 2 inh inhalation BID Qty: 10.7 12RF cyclobenzaprine 10 mg tablet 10 mg PO Q8H PRN Patient Comments: pt states does not take anymore lidocaine [Lidoderm] 5 % adhesive patch,medicated 1 patch Topical Q24H Qty: 15 0RF benzonatate 200 mg capsule 200 mg PO BID-TID PRNQty: 20 0RF Patient Comments: pt states does not take anymore Inhaler, Assist Devices [Pocket Chamber] 1 ea miscellaneous DIRECTED Qty: 0 0RF multivitamin Tablet 1 tab PO DAILY melatonin 5 mg Tablet 10 mg PO HS PRN Discharge Instructions Additional Instructions: Please read all of the information that accompanies these instructions. You were seen in the emergency department for your right lower extremity pain. Your blood work and your limited bedside ultrasound did not show any signs of any DVTs. Please schedule an appointment with your primary care provider later this week. Your primary care provider has been asked to order you a right lower extremity ultrasound to be performed tomorrow. Please return to the emergency department if worsening pain shortness of breath or fevers. Discharge Data Discharge Date/Time-TO BE ENTERED AT DEPARTURE: 09/16/22 15:50 Medical Decision Making This is an overall very well-appearing normothermic and not tachycardic 62-year-old male with right lower extremity warmth and swelling concerning for cellulitis. No pain out of proportion to suggest necrotizing soft tissue infection. Negative limited bedside ultrasound. If patient is a positive D-dimer will plan on giving one-time dose of enoxaparin for 24 hours 1.5 mg/kg. If patient has had negative D-dimer, given negative limited bedside right lower extremity duplex study, will defer anticoagulation and request outpatient ultrasound to be performed tomorrow for right lower extremity. Given his tenderness cobblestoning and subjective chills we will treat for cellulitis with cephalexin as patient lacks risk factors for MRSA. Does have full range of motion in his right lower extremity and given his minor trauma I am not concerned for acute osseous abnormality so we will defer plain films at this point. Foot is warm and well-perfused so not concern for acute vascular insult so will defer CT angiogram. No signs of phlegmasia. Patient has reassuring vitals so I am not concerned for sepsis so I did not order empiric antibiotics blood cultures nor a lactate. Patient has been tolerating p.o. so I feel that he warrants an empiric trial of expectant outpatient management. Patient does have risk factors for DVT as he does have malignant neoplasm of his prostate. 2:45 PM CBC with no anemia thrombocytopenia nor leukocytosis. Reassuring basic metabolic panel with normal renal function and no WAYNE. No hypercalcemia. D-dimer pending. 3:05 PM D-dimer negative. I will ask health special investigation unit investigator to have the patient's primary care provider order him a right lower extremity duplex study to be performed on 09/17. Given his negative bedside echocardiogram duplex study and his negative D-dimer will defer anticoagulation at this point time. HPI General Date/Time Provider Initiated Documentation: 09/16/22 13:23. HPI Narrative: This is a 62-year-old male with a history of malignant neoplasm of his prostate now in the emergency department in setting of right lower extremity pain and redness. Patient reports that he inadvertently bumped into a piece of furniture yesterday. Subsequently he has had worsening pain in his right lower extremity and some upward spreading signs of infection. He also has pain in his right groin that began last night. He endorses chills but denies any fevers. He has never had a PE nor DVT. He has not had any changes in the range of motion in his right lower extremity. He denies fevers cough chest pain shortness of breath dysuria frequency abdominal pain nausea and vomiting. He denies routine tobacco, ethanol, and illicits. He has been ambulatory since his pain began yesterday. Related Data Home Medications Medication Instructions Recorded Confirmed apremilast 30 mg tablet (Otezla) 30 mg PO BID 01/23/19 09/16/22 acetaminophen 325 mg capsule 325 mg PO DAILY PRN 09/13/20 09/16/22 (Tylenol) Inhaler, Assist Devices [Pocket 1 ea miscellaneous DIRECTED ##0 10/08/20 09/16/22 Chamber] multivitamin 1 tab PO DAILY 11/23/20 09/16/22 albuterol sulfate 90 mcg/actuation 2 puff inhalation Q4H PRN 09/25/21 09/16/22 aerosol inhaler (ProAir HFA) shortness of breath or wheezing #6.7 grams melatonin 5 mg tablet 10 mg PO HS PRN 10/04/21 09/16/22 cyclobenzaprine 10 mg tablet 10 mg PO Q8H PRN 03/16/22 03/16/22 lidocaine 5 % topical patch 1 patch topical Q24H #15 ea 03/16/22 09/16/22 (Lidoderm) benzonatate 200 mg capsule 200 mg PO BID-TID PRN #20 caps 03/27/22 08/27/22 ipratropium 0.5 mg-albuterol 3 mg 3 ml inhalation QID PRN wheezing 05/28/22 09/16/22 (2.5 mg base)/3 mL nebulization #180 mL soln budesonide 160 mcg-glycopyr 9 2 inh inhalation BID #10.7 grams 07/11/22 09/16/22 mcg-formot 4.8 mcg/actuation HFA inhaler (Breztri Aerosphere) cephalexin 500 mg capsule 500 mg PO QID 5 days #20 caps 09/16/22 Previous Rx's Medication Instructions Recorded Inhaler, Assist Devices [Pocket 1 ea miscellaneous DIRECTED ##0 10/08/20 Chamber] albuterol sulfate 90 mcg/actuation 2 puff inhalation Q4H PRN 09/25/21 aerosol inhaler (ProAir HFA) shortness of breath or wheezing #6.7 grams lidocaine 5 % topical patch 1 patch topical Q24H #15 ea 03/16/22 (Lidoderm) benzonatate 200 mg capsule 200 mg PO BID-TID PRN #20 caps 03/27/22 ipratropium 0.5 mg-albuterol 3 mg 3 ml inhalation QID PRN wheezing 05/28/22 (2.5 mg base)/3 mL nebulization #180 mL soln budesonide 160 mcg-glycopyr 9 2 inh inhalation BID #10.7 grams 07/11/22 mcg-formot 4.8 mcg/actuation HFA inhaler (Breztri Aerosphere) cephalexin 500 mg capsule 500 mg PO QID 5 days #20 caps 09/16/22 Allergies Allergy/AdvReac Type Severity Reaction Status Date / Time Iodinated Contrast Media Allergy Severe Anaphylaxsi Verified 09/16/22 13:05 [Iodinated Contrast Media - s IV Dye] shellfish derived Allergy Severe Anaphylaxsi Verified 09/16/22 13:05 s Sulfa (Sulfonamide Allergy Intermediate Skin Rash Verified 09/16/22 13:05 Antibiotics) General Stated Complaint: GenMedical ELISA: 3 PFSH All Active Problems (Updated 09/16/22 @ 14:41 by Leonardo Granado MD) Inguinal lymphadenopathy (Acute) Cellulitis of right leg (Acute) Asthma (Chronic) Perennial allergic rhinitis (Acute) Impingement syndrome of right shoulder (Acute) Bursitis of right shoulder (Acute) Reflex sympathetic dystrophy (Acute) Forearm pain (Acute) left wrist pain Tendonitis of long head of biceps brachii of right shoulder (Acute) Rotator cuff tear, right (Acute) Right shoulder pain (Acute) Arthralgia (Acute) Pain, joint, shoulder, right (Acute) High blood pressure (Chronic) Malignant neoplasm prostate (Acute 09/20/10) [address] ([facility]) recurrent 03/07 Medical History Malignant neoplasm prostate Psoriasis Sciatica Surgical History History of back surgery 2 broken discs History of hernia repair Testicular History of knee surgery History of surgery on arm History of surgery on wrist [facility];Lumbar epidural steroid injection;04/04/17 Social History Smoking/Tobacco Use Status: Former Tobacco Use Tobacco: How many years used: 20 Smoking risk assessment performed?: Yes Alcohol Intake: former Drug use: Never Substance use type: does not use Caregiver/Support person: No Housing: house Communication Needs: Corrective Lenses Do you need help understanding health information?: Rarely Pets and animals: Yes Pets and animals: dog(s) Sexually active: No Do you think of yourself as: straight/heterosexual Current gender identity: female What is your relationship status?: How often do you talk on the phone with friends or family?: three or more times per week How often do you get together with friends or relatives?: once per week How often do you attend spiritism or lutheran services?: decline to answer Do you belong to any clubs or organized social groups?: no Panel score (0-1 are the most socially isolated patients): 1 What type of physical activity do you participate in: other Details: active on job Honey/Orthodox: No preference Special honey needs: No Seatbelt use: always Helmet use: Yes Helmet use: always Drive 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 Head: Normocephalic, atraumatic. Eye:Extraocular eye movements intact. No conjunctival injection. No scleral icterus. Ear, nose, mouth, throat: Grossly normal inspection. Normal voice, handling secretions normally. Neck: Trachea midline. Cardiovascular: Well-perfused distal extremities. Respiratory: Nonlabored respiration. Gastrointestinal: Nondistended abdomen. Musculoskeletal: Right lower extremity with erythema and tenderness to right calf, lower third. No crepitance. No pain out of proportion. Patient does have tenderness in his right inguinal crease with a palpable lymph node. No pain out of proportion in groin. No crepitance. Cap refill less than 2 seconds in the right toes. 2+ right PT and DP pulses. Skin: Normal for age and race, grossly normal temperature and turgor. No acute rash. Neurologic: Alert and appropriate, no apparent acute deficits. Psychiatric: Mood and manner are appropriate. Grooming and personal hygiene are appropriate. Course Vital Signs Vital signs: Vital Signs Temperature 37 C 09/16/22 13:02 Pulse 78 09/16/22 13:02 Respiratory Rate 18 09/16/22 13:02 Blood Pressure 124/72 09/16/22 13:02 Pulse Oximetry 100 09/16/22 13:02 Temperature 37 C 09/16/22 13:02 Temperature Source Skin 09/16/22 13:02 Pulse 78 09/16/22 13:02 Respiratory Rate 18 09/16/22 13:02 Respiratory Effort Normal 09/16/22 13:02 Blood Pressure 124/72 09/16/22 13:02 Blood Pressure Position Sitting 09/16/22 13:02 Pulse Oximetry 100 09/16/22 13:02 Oxygen Delivery Method Room Air 09/16/22 13:02 Oxygen Flow Rate 0 09/16/22 13:02 Pain Level 5 09/16/22 13:02 POCUS Exam (ED) Limited Soft Tissue Exam DATE OF EXAM: 09/16/22 TIME OF EXAM: 14:33 LOCATION OF EXAM: Lower extremity/right (Cobblestoning right lower extremity and calf. No signs of deeper fluid collection.) REASON FOR EXAM: Pain PERTINENT FINDINGS/IMPRESSION: Cellulitis right distal calf . Exam Complete Limited Vascular Exam DATE OF EXAM: 09/16/22 TIME OF EXAM: 14:32 Vascular Exam: Right lower extremity REASON FOR EXAM: Concern for DVT right lower extremity Exam Complete DIFFERENTIAL DIAGNOSES: Limited bedside ultrasound negative for DVT.
[2022-09-16 14:26] LABS: Abs Immature Grans 0.02 10^3/uL (0.0-0.06); Absolute Basophil Count 0.03 10^3/uL (0.0-0.2); Absolute Eosinophil Count 0.11 10^3/uL (0.0-0.7); Absolute Lymphocyte Count 1.23 10^3/uL (1.2-3.4); Absolute Monocyte Count 0.59 10^3/uL (0.1-0.8); Absolute Neutrophil Count 6.76 10^3/uL (1.2-6.7); Basophils % 0.3; Eosinophils % 1.3; HCT 44.9 % (40.0-50.0); HGB 14.9 g/dL (13.5-17.5); Immature Grans % 0.2; Lymphocytes % 14.1; MCH 27.3 pg (27.0-33.0); MCHC 33.2 % (32.0-36.0); MCV 82 fL (80-95); MPV 9.2 fL (8.0-11.0); Monocytes % 6.8; Neutrophils % 77.3; Platelet Count 166 10^3/uL (130-400); RBC 5.45 10^6/uL (4.36-5.78); RDW 14.3 % (11.8-14.1); RDW-SD 42.7 fL; WBC 8.74 10^3/uL (4.4-10.8)
[2022-09-16 14:36] LABS: Anion Gap 10.4 mmol/L (3-11); BUN 19 mg/dL (7-18); CO2 24.6 mmol/L (21.0-32.0); CREATININE 1.1 mg/dL (0.70-1.30); Calcium 8.7 mg/dL (8.5-10.1); Chloride 102 mmol/L (98-107); Estimated GFR 74.96 (mL/min/1.73m2); Glucose 122 mg/dL (74-106); Potassium 3.5 mmol/L (3.5-5.1); Sodium 137 mmol/L (136-145)
[2022-09-16] MEDS: Cephalexin 500 MG CAP PO (14:45)
[2022-09-16 15:01] LABS: D-Dimer 436 ng/mlFEU (<500)
[2022-09-16 15:41] VITALS: BP 125/81; PULSE 69; RESP 18; O2SAT 96
--- NOTE | 2022-09-16 15:48 | NUR.NOTE ---
Referral made by Dr. Granado for a follow up appt to have an outpatient ultrasound to rule out a DVT. The PCP needs to make the appt for the ultrasound to be done tomorrow on Sunday 09/17. Put the referral in the care manger's box for follow up assistance. Nursing Note:
== END 2022-09-16 15:50 | disposition home or self-care (01) ==
PROVIDERS: Emergency Provider Emergency Medicine; PCP Nurse Practitioner Family
DX: L03.115 Cellulitis of right lower limb (principal); R59.0 Localized enlarged lymph nodes
CPT/HCPCS: 76882; 80048; 93971; 99284; 85025; 85379

== ENCOUNTER 2022-09-28 17:48 | Emergency (ER) | payer BC, SELFPAY ==
[2022-09-28 17:56] VITALS: BP 129/76; PULSE 89; RESP 16; TEMP 37.2; O2SAT 97
--- NOTE | 2022-09-28 19:30 | ED.GENADUL_ITS ---
Discharge Plan Disposition Patient Disposition: Home Condition: Stable Discharge Details Clinical Impression: Cellulitis of leg, right Primary Care Provider: Duglas Burton ED Provider: Leelee Helton Home Meds and New Rx's Prescriptions: New levofloxacin 750 mg tablet 750 mg PO DAILY Qty: 7 0RF doxycycline hyclate 100 mg tablet 100 mg PO BID Qty: 14 0RF Continued acetaminophen [Tylenol] 325 mg capsule 325 mg PO DAILY PRN ipratropium-albuterol 0.5 mg-3 mg(2.5 mg base)/3 mL solution for nebulization 3 ml inhalation QID PRN (Reason: wheezing) Qty: 180 12RF Otezla 30 mg tablet 30 mg PO BID albuterol sulfate [ProAir HFA] 90 mcg/actuation HFA aerosol inhaler 2 puff inhalation Q4H PRN (Reason: shortness of breath or wheezing) Qty: 6.7 12RF Breztri Aerosphere 160-9-4.8 mcg/actuation HFA aerosol inhaler 2 inh inhalation BID Qty: 10.7 12RF cephalexin 500 mg capsule 500 mg PO QID 5 Days Qty: 20 0RF cyclobenzaprine 10 mg tablet 10 mg PO Q8H PRN Patient Comments: pt states does not take anymore lidocaine [Lidoderm] 5 % adhesive patch,medicated 1 patch Topical Q24H Qty: 15 0RF benzonatate 200 mg capsule 200 mg PO BID-TID PRNQty: 20 0RF Patient Comments: pt states does not take anymore Inhaler, Assist Devices [Pocket Chamber] 1 ea miscellaneous DIRECTED Qty: 0 0RF multivitamin Tablet 1 tab PO DAILY melatonin 5 mg Tablet 10 mg PO HS PRN Discharge Instructions Instructions: Cellulitis (ED) Additional Instructions: Continue elevation of the right lower extremity is much as possible throughout the day Referrals: Duglas Burton, TECHNICAL MAINTENANCE TECHNICIAN [Primary Care Provider] - Discharge Data Discharge Date/Time-TO BE ENTERED AT DEPARTURE: 09/28/22 19:44 Medical Decision Making Patient presents with ongoing right lower extremity erythema after completing a course of cephalexin. He did initially have improvement with elevation and erythema but the anterior aspect of his johnson has remained inflamed and painful to touch. He did have an ultrasound outpatient that demonstrated no evidence of DVT. As he has completed 10 days of cephalexin I think it is reasonable to broaden coverage and change drug class. He has no history of MRSA. Will prescribe levofloxacin 750 mg daily. He is advised to continue elevation of his extremity over the weekend. He has had no fevers or signs of systemic infection hemodynamically he is stable and again area has improved but not resolved and possibly worsening slightly so extending antibiotics seems reasonable as outp atient. Medical Records Medical records reviewed: Yes I reviewed the patient's medical records. HPI General Mode of arrival: ambulatory . Date/Time Provider Initiated Documentation: 09/28/22 18:22 . Limitations to Documentation: no limitations . Information obtained by: patient . HPI Narrative: Ongoing right lower extremity pain swelling and redness has had negative ultrasound has had a 10-day course of cephalexin no sign of systemic infection no fever Related Data Home Medications Medication Instructions Recorded Confirmed apremilast 30 mg tablet (Otezla) 30 mg PO BID 01/23/19 09/17/22 acetaminophen 325 mg capsule 325 mg PO DAILY PRN 09/13/20 09/17/22 (Tylenol) Inhaler, Assist Devices [Pocket 1 ea miscellaneous DIRECTED ##0 10/08/20 09/17/22 Chamber] multivitamin 1 tab PO DAILY 11/23/20 09/17/22 albuterol sulfate 90 mcg/actuation 2 puff inhalation Q4H PRN 09/25/21 09/17/22 aerosol inhaler (ProAir HFA) shortness of breath or wheezing #6.7 grams melatonin 5 mg tablet 10 mg PO HS PRN 10/04/21 09/17/22 cyclobenzaprine 10 mg tablet 10 mg PO Q8H PRN 03/16/22 09/17/22 lidocaine 5 % topical patch 1 patch topical Q24H #15 ea 03/16/22 09/17/22 (Lidoderm) benzonatate 200 mg capsule 200 mg PO BID-TID PRN #20 caps 03/27/22 09/17/22 ipratropium 0.5 mg-albuterol 3 mg 3 ml inhalation QID PRN wheezing 05/28/22 09/17/22 (2.5 mg base)/3 mL nebulization #180 mL soln budesonide 160 mcg-glycopyr 9 2 inh inhalation BID #10.7 grams 07/11/22 09/17/22 mcg-formot 4.8 mcg/actuation HFA inhaler (Breztri Aerosphere) cephalexin 500 mg capsule 500 mg PO QID 5 days #20 caps 09/17/22 09/17/22 doxycycline hyclate 100 mg tablet 100 mg PO BID #14 tabs 09/28/22 levofloxacin 750 mg tablet 750 mg PO DAILY #7 tabs 09/28/22 Previous Rx's Medication Instructions Recorded Inhaler, Assist Devices [Pocket 1 ea miscellaneous DIRECTED ##0 10/08/20 Chamber] albuterol sulfate 90 mcg/actuation 2 puff inhalation Q4H PRN 09/25/21 aerosol inhaler (ProAir HFA) shortness of breath or wheezing #6.7 grams lidocaine 5 % topical patch 1 patch topical Q24H #15 ea 03/16/22 (Lidoderm) benzonatate 200 mg capsule 200 mg PO BID-TID PRN #20 caps 03/27/22 ipratropium 0.5 mg-albuterol 3 mg 3 ml inhalation QID PRN wheezing 05/28/22 (2.5 mg base)/3 mL nebulization #180 mL soln budesonide 160 mcg-glycopyr 9 2 inh inhalation BID #10.7 grams 07/11/22 mcg-formot 4.8 mcg/actuation HFA inhaler (Breztri Aerosphere) cephalexin 500 mg capsule 500 mg PO QID 5 days #20 caps 09/17/22 doxycycline hyclate 100 mg tablet 100 mg PO BID #14 tabs 09/28/22 levofloxacin 750 mg tablet 750 mg PO DAILY #7 tabs 09/28/22 Allergies Allergy/AdvReac Type Severity Reaction Status Date / Time Iodinated Contrast Media Allergy Severe Anaphylaxsi Verified 09/17/22 12:09 [Iodinated Contrast Media - s IV Dye] shellfish derived Allergy Severe Anaphylaxsi Verified 09/17/22 12:09 s Sulfa (Sulfonamide Allergy Intermediate Skin Rash Verified 09/17/22 12:09 Antibiotics) General Stated Complaint: Recheck ELISA: 4 Review of Systems All systems reviewed & are unremarkable except as noted in HPI and below PFSH All Active Problems (Updated 09/28/22 @ 19:31 by Leelee Helton NP) Cellulitis of leg, right (Acute) Inguinal lymphadenopathy (Acute) Cellulitis of right leg (Acute) Asthma (Chronic) Perennial allergic rhinitis (Acute) Impingement syndrome of right shoulder (Acute) Bursitis of right shoulder (Acute) Reflex sympathetic dystrophy (Acute) Forearm pain (Acute) left wrist pain Tendonitis of long head of biceps brachii of right shoulder (Acute) Rotator cuff tear, right (Acute) Right shoulder pain (Acute) Arthralgia (Acute) Pain, joint, shoulder, right (Acute) High blood pressure (Chronic) Malignant neoplasm prostate (Acute 09/20/10) [address] ([facility]) recurrent 03/07 Medical History Malignant neoplasm prostate Psoriasis Sciatica Surgical History History of back surgery 2 broken discs History of hernia repair Testicular History of knee surgery History of surgery on arm History of surgery on wrist Steroid Injection [facility];Lumbar epidural steroid injection;04/04/17 Social History Smoking/Tobacco Use Status: Former Tobacco Use Tobacco: How many years used: 20 Smoking risk assessment performed?: Yes Alcohol Intake: former Drug use: Never Substance use type: does not use Caregiver/Support person: No Housing: house Communication Needs: Corrective Lenses Do you need help understanding health information?: Rarely Pets and animals: Yes Pets and animals: dog(s) Sexually active: No Do you think of yourself as: straight/heterosexual Current gender identity: female What is your relationship status?: How often do you talk on the phone with friends or family?: three or more times per week How often do you get together with friends or relatives?: once per week How often do you attend yazdanism or lutheran services?: decline to answer Do you belong to any clubs or organized social groups?: no Panel score (0-1 are the most socially isolated patients): 1 What type of physical activity do you participate in: other Details: active on job Honey/Adventism: No preference Special honey needs: No Seatbelt use: always Helmet use: Yes Helmet use: always Drive 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 Do you feel safe at home: Yes Do you feel safe in your relationship?: Yes Exam Const General: cooperative, healthy appearing and comfortable Resp Effort & Inspection: normal respiratory effort Cardio Rate: regular rate Rhythm: regular rhythm GI Inspection: normal to inspection Skin Lesions: no lesions Rashes: rashes noted (Approximately 5 cm area of erythema to mid anterior right lower extremity) Course Vital Signs Vital signs: Vital Signs Temperature 37.2 C 09/28/22 17:56 Pulse 89 09/28/22 17:56 Respiratory Rate 16 09/28/22 17:56 Blood Pressure 129/76 09/28/22 17:56 Pulse Oximetry 97 09/28/22 17:56 Temperature 37.2 C 09/28/22 17:56 Temperature Source Skin 09/28/22 17:56 Pulse 89 09/28/22 17:56 Respiratory Rate 16 09/28/22 17:56 Blood Pressure 129/76 09/28/22 17:56 Blood Pressure Position Sitting 09/28/22 17:56 Pulse Oximetry 97 09/28/22 17:56 Oxygen Delivery Method Room Air 09/28/22 17:56 Oxygen Flow Rate 0 09/28/22 17:56 Pain Level 3 09/28/22 17:56
[2022-09-28] MEDS: levoFLOXacin 500 MG, levoFLOXacin 250 MG 750 MG PO (19:39)
[2022-09-28] MEDS: Doxycycline Hyclate 100 MG CAP PO (19:39)
[2022-09-28 19:42] VITALS: BP 137/84; PULSE 75; RESP 16; TEMP 36.7; O2SAT 96
== END 2022-09-28 19:44 | disposition home or self-care (01) ==
PROVIDERS: Emergency Provider Nurse Practitioner Acute Care; PCP Nurse Practitioner Family
DX: L03.115 Cellulitis of right lower limb (principal); Z87.891 Personal history of nicotine dependence
CPT/HCPCS: 99283; 99282

== ENCOUNTER 2022-10-02 03:21 | Outpatient (CLI) | payer BC, SELFPAY ==
[2022-10-02 07:36] LABS: Abs Immature Grans 0.01 10^3/uL (0.0-0.06); Absolute Basophil Count 0.05 10^3/uL (0.0-0.2); Absolute Eosinophil Count 0.37 10^3/uL (0.0-0.7); Absolute Lymphocyte Count 1.65 10^3/uL (1.2-3.4); Absolute Monocyte Count 0.65 10^3/uL (0.1-0.8); Absolute Neutrophil Count 3.88 10^3/uL (1.2-6.7); Basophils % 0.8; Eosinophils % 5.6; HCT 44.1 % (40.0-50.0); HGB 14.8 g/dL (13.5-17.5); Immature Grans % 0.2; MCH 27.7 pg (27.0-33.0); MCHC 33.6 % (32.0-36.0); MCV 82 fL (80-95); MPV 9.3 fL (8.0-11.0); Monocytes % 9.8; Neutrophils % 58.6; Platelet Count 226 10^3/uL (130-400); RBC 5.35 10^6/uL (4.36-5.78); RDW-SD 41.5 fL; WBC 6.61 10^3/uL (4.4-10.8)
[2022-10-02 08:18] LABS: ALT 23 U/L (16-63); AST 14 U/L (15-37); Albumin 3.4 g/dL (3.4-5.0); Alkaline Phosphatase 74 U/L (46-116); Anion Gap 10.2 mmol/L (3-11); BUN 21 mg/dL (7-18); Bilirubin, Total 0.5 mg/dL (0.2-1.0); CO2 24.8 mmol/L (21.0-32.0); CREATININE 1.3 mg/dL (0.70-1.30); Chloride 108 mmol/L (98-107); Estimated GFR 61.35 (mL/min/1.73m2); Glucose 117 mg/dL (74-106); Potassium 3.8 mmol/L (3.5-5.1); Sodium 143 mmol/L (136-145); Total Protein 7.4 g/dL (6.4-8.2)
[2022-10-03 16:06] LABS: PSA, Ultrasensitive 0.73 ng/mL (<= 4.5)
[2022-10-06 17:48] LABS: Testosterone, Total 333 ng/dL (240-950)
== END 2022-10-02 03:22 | disposition home or self-care (01) ==
PROVIDERS: PCP Nurse Practitioner Family; Visit Provider Nurse Practitioner Family
DX: C61 Malignant neoplasm of prostate (principal)
CPT/HCPCS: 36415; 80053; 84153; 84403; 85025

== ENCOUNTER → 2022-11-13 01:10 | Outpatient (CLI) | payer BC, SELFPAY ==
--- NOTE | 2022-11-13 07:45 | DI.MRI_ITS ---
Exam(s) MR LOWER JOINT RT WO EXAM: MR LOWER JOINT RT WO CLINICAL HISTORY: pain,Hx of surgery,rt knee pain, [id number]. TECHNIQUE: Multiplanar multisequence MRI was performed. COMPARISON: No exams were available for comparison FINDINGS: BONES: No fractures identified. There is marrow edema seen in the medial tibial plateau without evid ence of a fracture. JOINTS: There is thinning of the articular cartilage and subchondral edema in the medial patellar fac et. There is also mild thinning of the articular cartilage in the medial femoral tibial joint space. There is a small joint effusion. TENDONS: Extensor mechanism: Unremarkable. Medial retinaculum: Unremarkable. Lateral retinaculum: Unremarkable. Popliteus: Unremarkable. MUSCLES: Unremarkable. MENISCI: There is linear hyperintense signal seen in the body and posterior horn of the medial menisc us consistent with a tear. The lateral meniscus is unremarkable. SOFT TISSUES: There is edema seen in the soft tissues particularly medially. LIGAMENTS: Anterior Cruciate: The ACL shows a normal course with some high signal which may represent a sprain o r partial tear. Posterior Cruciate: Unremarkable. Medial Collateral:There is an MCL sprain. No evidence of a tear. Lateral Collateral: Unremarkable. OTHER: IMPRESSION: 1. Tear of the body and posterior horn of the medial meniscus. 2. Sprain/partial tear of the ACL. No evidence of a complete ACL tear. 3. MCL sprain. 4. Joint effusion. 5. Degenerative changes in the knee. 6. Contusion involving the medial tibial plateau. DATA REPOSITORY:
== END ==
PROVIDERS: PCP Nurse Practitioner Family; Visit Provider Nurse Practitioner Family
DX: M23.221 Derangement of posterior horn of medial meniscus due to old tear or injury, right knee (principal); S83.511A Sprain of anterior cruciate ligament of right knee, initial encounter; X58.XXXA Exposure to other specified factors, initial encounter; Z98.890 Other specified postprocedural states
CPT/HCPCS: 73721

== ENCOUNTER 2022-12-09 11:54 | Emergency (ER) | payer BC, SELFPAY ==
[2022-12-09 11:58] VITALS: BP 139/69; PULSE 107; RESP 18; TEMP 36.9; O2SAT 99
--- NOTE | 2022-12-09 13:11 | ED.GENADUL_ITS ---
Discharge Plan Disposition Patient Disposition: Home Discharge Details Clinical Impression: Cellulitis of foot, right, Contusion of foot, left Primary Care Provider: Duglas Burton ED Provider: Andre French Home Meds and New Rx's Prescriptions: New cephalexin 500 mg tablet 500 mg PO QID 14 Days Qty: 56 0RF Continued acetaminophen [Tylenol] 325 mg capsule 325 mg PO DAILY PRN ipratropium-albuterol 0.5 mg-3 mg(2.5 mg base)/3 mL solution for nebulization 3 ml inhalation QID PRN (Reason: wheezing) Qty: 180 12RF Otezla 30 mg tablet 30 mg PO BID albuterol sulfate [ProAir HFA] 90 mcg/actuation HFA aerosol inhaler 2 puff inhalation Q4H PRN (Reason: shortness of breath or wheezing) Qty: 6.7 12RF Breztri Aerosphere 160-9-4.8 mcg/actuation HFA aerosol inhaler 2 inh inhalation BID Qty: 10.7 12RF triamcinolone acetonide 0.1 % cream 1 applic topical BID Qty: 453.6 2RF clotrimazole-betamethasone 1-0.05 % cream 1 applic topical BID Qty: 45 1RF Inhaler, Assist Devices [Pocket Chamber] 1 ea miscellaneous DIRECTED Qty: 0 0RF multivitamin Tablet 1 tab PO DAILY melatonin 5 mg Tablet 10 mg PO HS PRN Discharge Instructions Instructions: Cellulitis (ED), Contusion in Adults (ED) Additional Instructions: Please take antibiotics as prescribed and follow-up with your primary care provider if not improving in the next 24 to 48 hours. Return immediately for any new or significant worsening of symptoms. Otherwise keep foot clean and dry. Referrals: Duglas Burton, JUNIOR SALES REPRESENTATIVE [Primary Care Provider] - 3 days (If not improving) Discharge Data Discharge Date/Time-TO BE ENTERED AT DEPARTURE: 12/09/22 13:23 Medical Decision Making Patient presenting to the emergency department for chief complaint of right foot infection. Patient states that he has chronic ongoing skin condition of feet and takes medication from dermatology for this that is an immunosuppressant. Little more in a week ago he started having an outbreak which was typical and overall unremarkable from previous episodes. Then over the past few days he has noticed increased redness spreading up his foot. Patient denies all other systemic symptoms. He does report that he did drop something on his left foot and feels that he may have bruised it but otherwise denies again all other symptoms. Physical exam is consistent with cellulitis of the right foot with some noted skin breakdown and peeling of the skin of the great toe which patient states is his typical condition. Left foot does have single area of ecchymosis otherwise is unremarkable. Patient is ambulatory and weightbearing, afebrile, otherwise unremarkable exam. We will start patient on antibiotics and have him monitor symptoms and return immediately for any new or worsening condition otherwise to follow-up with primary care provider or manager configuration for reassessment. After discussion of diagnosis and plan of care patient has no further needs, questions, or concerns and states clear understanding to return to the emergency department for any worsening symptoms. This documentation was generated using [employer] system, please disregard any oddities of phrase or misspellings. HPI General Mode of arrival: ambulatory . Date/Time Provider Initiated Documentation: 12/09/22 12:26 . Limitations to Documentation: no limitations . Information obtained by: patient and RN notes reviewed . History of Present Illness 62 year old M presents to the emergency department with the chief c omplaint of Right foot infection, described as moderate, and is localized to the right and lower extremity. Patient started experiencing this day(s) (5) and it has been constant. No relieving factors improve symptom(s), Patient notes no other symptoms.. Patient did receive the following treatments prior to arrival, none Related Data Home Medications Medication Instructions Recorded Confirmed apremilast 30 mg tablet (Otezla) 30 mg PO BID 01/23/19 12/09/22 acetaminophen 325 mg capsule 325 mg PO DAILY PRN 09/13/20 12/09/22 (Tylenol) Inhaler, Assist Devices [Pocket 1 ea miscellaneous DIRECTED ##0 10/08/20 12/09/22 Chamber] multivitamin 1 tab PO DAILY 11/23/20 12/09/22 albuterol sulfate 90 mcg/actuation 2 puff inhalation Q4H PRN 09/25/21 12/09/22 aerosol inhaler (ProAir HFA) shortness of breath or wheezing #6.7 grams melatonin 5 mg tablet 10 mg PO HS PRN 10/04/21 12/09/22 ipratropium 0.5 mg-albuterol 3 mg 3 ml inhalation QID PRN wheezing 05/28/22 12/09/22 (2.5 mg base)/3 mL nebulization #180 mL soln budesonide 160 mcg-glycopyr 9 2 inh inhalation BID #10.7 grams 07/11/22 12/09/22 mcg-formot 4.8 mcg/actuation HFA inhaler (Breztri Aerosphere) triamcinolone acetonide 0.1 % 1 applic topical BID #453.6 grams 10/05/22 12/09/22 topical cream clotrimazole-betamethasone 1 1 applic topical BID #45 grams 10/19/22 12/09/22 %-0.05 % topical cream cephalexin 500 mg tablet 500 mg PO QID 14 days #56 tabs 12/09/22 Previous Rx's Medication Instructions Recorded Inhaler, Assist Devices [Pocket 1 ea miscellaneous DIRECTED ##0 10/08/20 Chamber] albuterol sulfate 90 mcg/actuation 2 puff inhalation Q4H PRN 09/25/21 aerosol inhaler (ProAir HFA) shortness of breath or wheezing #6.7 grams ipratropium 0.5 mg-albuterol 3 mg 3 ml inhalation QID PRN wheezing 05/28/22 (2.5 mg base)/3 mL nebulization #180 mL soln budesonide 160 mcg-glycopyr 9 2 inh inhalation BID #10.7 grams 07/11/22 mcg-formot 4.8 mcg/actuation HFA inhaler (Breztri Aerosphere) triamcinolone acetonide 0.1 % 1 applic topical BID #453.6 grams 10/05/22 topical cream clotrimazole-betamethasone 1 1 applic topical BID #45 grams 10/19/22 %-0.05 % topical cream cephalexin 500 mg tablet 500 mg PO QID 14 days #56 tabs 12/09/22 Allergies Allergy/AdvReac Type Severity Reaction Status Date / Time Iodinated Contrast Media Allergy Severe Anaphylaxsi Verified 12/09/22 12:03 [Iodinated Contrast Media - s IV Dye] shellfish derived Allergy Severe Anaphylaxsi Verified 12/09/22 12:03 s Sulfa (Sulfonamide Allergy Intermediate Skin Rash Verified 12/09/22 12:03 Antibiotics) General Stated Complaint: Cellulitis ELISA: 3 Review of Systems Constitutional Constitutional: Denies chills and Denies fever(s) Gastrointestinal Gastrointestinal: Denies nausea Musculoskeletal Musculoskeletal: Reports as per HPI Integumentary/Breasts Skin/Breast: Reports as per HPI and Reports erythema PFSH All Active Problems Contusion of foot, left (Acute) Cellulitis of foot, right (Acute) Knee pain, right (Acute) Asthma (Chronic) Perennial allergic rhinitis (Acute) Impingement syndrome of right shoulder (Acute) Bursitis of right shoulder (Acute) Reflex sympathetic dystrophy (Acute) Forearm pain (Acute) left wrist pain Tendonitis of long head of biceps brachii of right shoulder (Acute) Rotator cuff tear, right (Acute) Right shoulder pain (Acute) Arthralgia (Acute) Pain, joint, shoulder, right (Acute) High blood pressure (Chronic) Malignant neoplasm prostate (Acute 09/20/10) [address] ([facility]) recurrent 03/07 Medical History Psoriasis Malignant neoplasm prostate Sciatica Surgical History History of back surgery 2 broken discs History of surgery on arm History of knee surgery History of surgery on wrist History of hernia repair Testicular Steroid Injection [facility];Lumbar epidural steroid injection;04/04/17 Social History Smoking/Tobacco Use Status: Former Tobacco Use Tobacco: How many years used: 20 Smoking risk assessment performed?: Yes Alcohol Intake: former Drug use: Never Substance use type: does not use Caregiver/Support person: No Housing: house Communication Needs: Corrective Lenses Do you need help understanding health information?: Rarely Pets and animals: Yes Pets and animals: dog(s) Sexually active: No Do you think of yourself as: straight/heterosexual Current gender identity: female What is your relationship status?: How often do you talk on the phone with friends or family?: three or more times per week How often do you get together with friends or relatives?: once per week How often do you attend yarsani or mandaeism services?: decline to answer Do you belong to any clubs or organized social groups?: no Panel score (0-1 are the most socially isolated patients): 1 What type of physical activity do you participate in: other Details: active on job Honey/Confucianist: No preference Special honey needs: No Seatbelt use: always Helmet use: Yes Helmet use: always Drive 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 Do you feel safe at home: Yes Do you feel safe in your relationship?: Yes Exam Const General: cooperative, no acute distress and not ill appearing Orientation: alert, awake and oriented x3 HENMT Mouth: moist mucous membranes Resp Effort & Inspection: normal respiratory effort, able to speak in complete sentences and no respiratory distress Cardio Rate: regular rate Rhythm: regular rhythm Pulses: normal peripheral pulses Neuro General: patient alert, patient awake, patient oriented x3, moves all extremities and no focal motor deficits Sensory Exam: no sensory deficits noted Extrem Right lower extremity: foot Details: abnormal to inspection Details: erythematou s, tenderness Location: of the dorsal foot, toes with normal ROM and vascular exam Details: dorsalis pedis pulse present, posterior tibial pulse present and normal capillary refill Left lower extremity: foot Details: ecchymosis dorsal medial mid Details: single Course Vital Signs Vital signs: Vital Signs Temperature 36.9 C 12/09/22 11:58 Pulse 107 H 12/09/22 11:58 Respiratory Rate 18 12/09/22 11:58 Blood Pressure 139/69 12/09/22 11:58 Pulse Oximetry 99 12/09/22 11:58 Temperature 36.9 C 12/09/22 11:58 Temperature Source Oral 12/09/22 11:58 Pulse 107 H 12/09/22 11:58 Respiratory Rate 18 12/09/22 11:58 Respiratory Effort Normal 12/09/22 12:03 Blood Pressure 139/69 12/09/22 11:58 Pulse Oximetry 99 12/09/22 11:58 Oxygen Delivery Method Room Air 12/09/22 12:15 Oxygen Flow Rate 0 12/09/22 11:58
[2022-12-09] MEDS: Cephalexin 500 MG CAP PO (13:22)
== END 2022-12-09 13:23 | disposition home or self-care (01) ==
PROVIDERS: Emergency Provider Nurse Practitioner Family; PCP Nurse Practitioner Family
DX: M79.672 Pain in left foot (principal); S90.32XA Contusion of left foot, initial encounter; L03.115 Cellulitis of right lower limb
CPT/HCPCS: 99283; 99284

== ENCOUNTER 2022-12-12 08:24 | Emergency (ER) | payer BC, SELFPAY ==
[2022-12-12 08:27] VITALS: BP 136/88; PULSE 74; RESP 18; TEMP 36.7; O2SAT 99
--- NOTE | 2022-12-12 09:04 | ED.GENADUL_ITS ---
Discharge Plan Disposition Patient Disposition: Home Condition: Stable Discharge Details Clinical Impression: Right wrist tendinitis Primary Care Provider: Duglas Burton ED Provider: Edel Leach Home Meds and New Rx's Prescriptions: New diclofenac sodium 3 % gel 1 applic topical BID Qty: 100 0RF cyclobenzaprine 10 mg tablet 10 mg PO TID PRNQty: 10 0RF meloxicam 7.5 mg tablet 7.5 mg PO DAILY Qty: 15 0RF Continued acetaminophen [Tylenol] 325 mg capsule 325 mg PO DAILY PRN ipratropium-albuterol 0.5 mg-3 mg(2.5 mg base)/3 mL solution for nebulization 3 ml inhalation QID PRN (Reason: wheezing) Qty: 180 12RF Otezla 30 mg tablet 30 mg PO BID albuterol sulfate [ProAir HFA] 90 mcg/actuation HFA aerosol inhaler 2 puff inhalation Q4H PRN (Reason: shortness of breath or wheezing) Qty: 6.7 12RF Breztri Aerosphere 160-9-4.8 mcg/actuation HFA aerosol inhaler 2 inh inhalation BID Qty: 10.7 12RF triamcinolone acetonide 0.1 % cream 1 applic topical BID Qty: 453.6 2RF clotrimazole-betamethasone 1-0.05 % cream 1 applic topical BID Qty: 45 1RF cephalexin 500 mg tablet 500 mg PO QID 14 Days Qty: 56 0RF Inhaler, Assist Devices [Pocket Chamber] 1 ea miscellaneous DIRECTED Qty: 0 0RF multivitamin Tablet 1 tab PO DAILY melatonin 5 mg Tablet 10 mg PO HS PRN Discharge Instructions Instructions: Tendinitis (ED) Additional Instructions: take medications as prescribed apply voltaren gel daily take meloxicam take flexeril as needed for musculoskeletal pain, do not drive for 8 hours after taking this medication as it may make you drowsy Stand Alone Forms: Work Release Referrals: Duglas Burton, REGULATORY AFFAIRS PORTFOLIO LEADER [Primary Care Provider] - Discharge Data Discharge Date/Time-TO BE ENTERED AT DEPARTURE: 12/12/22 09:41 Medical Decision Making 62-year-old male here with pain in his right wrist since last night. History and exam consistent with tendinitis. Suspect overuse injury. Plan for volar splint and outpatient follow-up. Usual customary discharge instructions reviewed with patient. Date: 12/12/22 Time: 09:07 Note: Patient seen, examined, and discussed with KIMBERLY Leach. I agree with treatment plan as discussed/documented. HPI General Mode of arrival: ambulatory . Date/Time Provider Initiated Documentation: 12/12/22 08:32 . Limitations to Documentation: no limitations . Information obtained by: patient . HPI Narrative: 62-year-old male here with pain in his right wrist since yesterday. Patient denies trauma. No known injury. Patient has difficulty using his hand and wrist today secondary to discomfort. No associated numbness or tingling. Related Data Home Medications Medication Instructions Recorded Confirmed apremilast 30 mg tablet (Otezla) 30 mg PO BID 01/23/19 12/12/22 acetaminophen 325 mg capsule 325 mg PO DAILY PRN 09/13/20 12/12/22 (Tylenol) Inhaler, Assist Devices [Pocket 1 ea miscellaneous DIRECTED ##0 10/08/20 12/12/22 Chamber] multivitamin 1 tab PO DAILY 11/23/20 12/12/22 albuterol sulfate 90 mcg/actuation 2 puff inhalation Q4H PRN 09/25/21 12/12/22 aerosol inhaler (ProAir HFA) shortness of breath or wheezing #6.7 grams melatonin 5 mg tablet 10 mg PO HS PRN 10/04/21 12/12/22 ipratropium 0.5 mg-albuterol 3 mg 3 ml inhalation QID PRN wheezing 05/28/22 12/12/22 (2.5 mg base)/3 mL nebulization #180 mL soln budesonide 160 mcg-glycopyr 9 2 inh inhalation BID #10.7 grams 07/11/22 12/12/22 mcg-formot 4.8 mcg/actuation HFA inhaler (Breztri Aerosphere) triamcinolone acetonide 0.1 % 1 applic topical BID #453.6 grams 10/05/22 topical cream clotrimazole-betamethasone 1 1 applic topical BID #45 grams 10/19/22 12/12/22 %-0.05 % topical cream cephalexin 500 mg tablet 500 mg PO QID 14 days #56 tabs 12/09/22 12/12/22 cyclobenzaprine 10 mg tablet 10 mg PO TID PRN #10 tabs 12/12/22 diclofenac sodium 3 % topical gel 1 applic topical BID #100 grams 12/12/22 meloxicam 7.5 mg tablet 7.5 mg PO DAILY #15 tabs 12/12/22 Previous Rx's Medication Instructions Recorded Inhaler, Assist Devices [Pocket 1 ea miscellaneous DIRECTED ##0 10/08/20 Chamber] albuterol sulfate 90 mcg/actuation 2 puff inhalation Q4H PRN 09/25/21 aerosol inhaler (ProAir HFA) shortness of breath or wheezing #6.7 grams ipratropium 0.5 mg-albuterol 3 mg 3 ml inhalation QID PRN wheezing 05/28/22 (2.5 mg base)/3 mL nebulization #180 mL soln budesonide 160 mcg-glycopyr 9 2 inh inhalation BID #10.7 grams 07/11/22 mcg-formot 4.8 mcg/actuation HFA inhaler (Breztri Aerosphere) triamcinolone acetonide 0.1 % 1 applic topical BID #453.6 grams 10/05/22 topical cream clotrimazole-betamethasone 1 1 applic topical BID #45 grams 10/19/22 %-0.05 % topical cream cephalexin 500 mg tablet 500 mg PO QID 14 days #56 tabs 12/09/22 cyclobenzaprine 10 mg tablet 10 mg PO TID PRN #10 tabs 12/12/22 diclofenac sodium 3 % topical gel 1 applic topical BID #100 grams 12/12/22 meloxicam 7.5 mg tablet 7.5 mg PO DAILY #15 tabs 12/12/22 Allergies Allergy/AdvReac Type Severity Reaction Status Date / Time Iodinated Contrast Media Allergy Severe Anaphylaxsi Verified 12/12/22 08:31 [Iodinated Contrast Media - s IV Dye] shellfish derived Allergy Severe Anaphylaxsi Verified 12/12/22 08:31 s Sulfa (Sulfonamide Allergy Intermediate Skin Rash Verified 12/12/22 08:31 Antibiotics) General Stated Complaint: GenMedical ELISA: 3 Review of Systems Constitutional Constitutional: Denies fever(s) Musculoskeletal Musculoskeletal: Reports as per HPI PFSH All Active Problems Right wrist tendonitis (Acute) Contusion of foot, left (Acute) Cellulitis of foot, right (Acute) Knee pain, right (Acute) Asthma (Chronic) Perennial allergic rhinitis (Acute) Impingement syndrome of right shoulder (Acute) Bursitis of right shoulder (Acute) Reflex sympathetic dystrophy (Acute) Forearm pain (Acute) left wrist pain Tendonitis of long head of biceps brachii of right shoulder (Acute) Rotator cuff tear, right (Acute) Right shoulder pain (Acute) Arthralgia (Acute) Pain, joint, shoulder, right (Acute) High blood pressure (Chronic) Malignant neoplasm prostate (Acute 09/20/10) [address] ([facility]) recurrent 03/07 Medical History Psoriasis Malignant neoplasm prostate Sciatica Surgical History History of back surgery 2 broken discs History of surgery on arm History of knee surgery History of surgery on wrist History of hernia repair Testicular Steroid Injection [facility];Lumbar epidural steroid injection;04/04/17 Social History Smoking/Tobacco Use Status: Former Tobacco Use Tobacco: How many years used: 20 Smoking risk assessment performed?: Yes Alcohol Intake: former Drug use: Never Substance use type: does not use Caregiver/Support person: No Housing: house Communication Needs: Corrective Lenses Do you need help understanding health information?: Rarely Pets and animals: Yes Pets and animals: dog(s) Sexually active: No Do you think of yourself as: straight/heterosexual Current gender identity: female What is your relationship status?: How often do you talk on the phone with friends or family?: three or more times per week How often do you get together with friends or relatives?: once per week How often do you attend nondenominational or alevism services?: decline to answer Do you belong to any clubs or organized social groups?: no Panel score (0-1 are the most socially isolated patients): 1 What type of physical activity do you participate in: other Details: active on job Honey/Congregation: No preference Special honey needs: No Seatbelt use: always Helmet use: Yes Helmet use: always Drive 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 Do you feel safe at home: Yes Do you feel safe in your relationship?: Yes Exam Extrem Right upper extremity: elbow/forearm Details: normal to inspection, wrist Details: tenderness Location: of the volar wrist, abnormal ROM Details: pain with active ROM during Details: with extension and with flexion and radial pulse present Details: 2+; no swelling, no unusual warmth, no ecchymosis, no crepitus and no deformity and hand Details: normal capillary refill, neuromotor exam normal, neurosensory exam normal and no swelling Course Vital Signs Vital signs: Vital Signs Temperature 36.7 C 12/12/22 08:27 Pulse 74 12/12/22 08:27 Respiratory Rate 18 12/12/22 08:27 Blood Pressure 136/88 12/12/22 08:27 Pulse Oximetry 99 12/12/22 08:27 Temperature 36.7 C 12/12/22 08:27 Temperature Source Skin 12/12/22 08:27 Pulse 74 12/12/22 08:27 Respiratory Rate 18 12/12/22 08:27 Respiratory Effort Normal, Non-Labored 12/12/22 08:31 Blood Pressure 136/88 12/12/22 08:27 Blood Pressure Position Sitting 12/12/22 08:27 Pulse Oximetry 99 12/12/22 08:27 Oxygen Delivery Method Room Air 12/12/22 08:27 Oxygen Flow Rate 0 12/12/22 08:27 Pain Level 8 12/12/22 08:27
[2022-12-12] MEDS: Ketorolac 30 MG/ML VIAL IM (09:09)
== END 2022-12-12 09:41 | disposition home or self-care (01) ==
PROVIDERS: Emergency Provider Physician Assistant; PCP Nurse Practitioner Family
DX: M25.521 Pain in right elbow (principal); M77.8 Other enthesopathies, not elsewhere classified
CPT/HCPCS: 29125; 99284; 99283; J1885

== ENCOUNTER 2023-01-21 14:35 | Emergency (ER) | payer BC, SELFPAY ==
[2023-01-21 14:36] VITALS: BP 130/64; PULSE 92; RESP 15; TEMP 36.6; O2SAT 99
[2023-01-21 14:50] VITALS: BP 130/64; PULSE 92; RESP 15; TEMP 36.6; O2SAT 99
--- NOTE | 2023-01-21 14:50 | ED.GENADUL_ITS ---
Discharge Plan Disposition Patient Disposition: Home Condition: Good Discharge Details Clinical Impression: Cellulitis Primary Care Provider: Duglas Burton ED Provider: Cheyenne Kapadia Home Meds and New Rx's Prescriptions: New cephalexin 500 mg capsule 500 mg PO QID Qty: 40 0RF No Action acetaminophen [Tylenol] 325 mg capsule 325 mg PO DAILY PRN ipratropium-albuterol 0.5 mg-3 mg(2.5 mg base)/3 mL solution for nebulization 3 ml inhalation QID PRN (Reason: wheezing) Qty: 180 12RF Otezla 30 mg tablet 30 mg PO BID albuterol sulfate [ProAir HFA] 90 mcg/actuation HFA aerosol inhaler 2 puff inhalation Q4H PRN (Reason: shortness of breath or wheezing) Qty: 6.7 12RF Breztri Aerosphere 160-9-4.8 mcg/actuation HFA aerosol inhaler 2 inh inhalation BID Qty: 10.7 12RF triamcinolone acetonide 0.1 % cream 1 applic topical BID Qty: 453.6 2RF clotrimazole-betamethasone 1-0.05 % cream 1 applic topical BID Qty: 45 1RF Inhaler, Assist Devices [Pocket Chamber] 1 ea miscellaneous DIRECTED Qty: 0 0RF multivitamin Tablet 1 tab PO DAILY melatonin 5 mg Tablet 10 mg PO HS PRN diclofenac sodium 3 % gel 1 applic topical BID Qty: 100 0RF cyclobenzaprine 10 mg tablet 10 mg PO TID PRNQty: 10 0RF meloxicam 7.5 mg tablet 7.5 mg PO DAILY Qty: 15 0RF Discharge Instructions Instructions: Cellulitis (ED) Additional Instructions: Take the antibiotic four times a day for the next 10 days. Call your primary care doctor today to schedule an appointment to follow up on your visit here. Return to the emergency department for new or worsening symptoms including fever, worsening pain, if your symptoms have not improved after 48 hours, or if you have any other concerns. Referrals: Duglas Burton, [employer] [Primary Care Provider] - Medical Decision Making 62yo M with hx of psoriasis on apremilast, distant history of prostate cancer, frequent bouts of cellulitis presenting with right leg pain and erythema consistent with prior episodes. No recent trauma, no systemic symptoms. Vital signs reassuring on arrival, on exam he does have erythema and warmth to his RLE with no skin breakdown or drainage and no joint involvement. [facility] record review shows joint injection in right knee 2.5 weeks ago. Knee exam benign today. Not concerned for septic joint, necrotizing soft tissue infection, MRSA, or limb ischemia. Would not get arterial imaging/CT or aspirate joint. Most likely cellulitis though DVT possible; RLE US ordered and reviewed, no DVT on my view, agree with radiology read below. Labs reviewed as below, CBC reassuring with no leukocytosis, CMP with no actionable abnormalities, lactic normal. Given dose of IV ceftriaxone and discharged on 10 day course of PO keflex. Discharged home; discharge instructions including return precautions were reviewed with patient who verbalized understanding. All questions were answered and they are in full agreement with the plan. Medical Records Medical records reviewed: Yes I reviewed the patient's medical records. Medical records narrative: orthopedic office visit with joint injection in [facility] Imaging Data Radiologic Study: Imaging: Ultrasound Radiologist's impression: IMPRESSION: 1. No evidence of DVT in the right lower extremity. Lab Data Lab results reviewed: Yes I reviewed the patient's lab results. Labs: Laboratory Tests Range/Units 01/21/23 14:54 WBC (4.4-10.8) 10^3/uL 7.86 RBC (4.36-5.78) 10^6/uL 5.40 Hgb (13.5-17.5) g/dL 15.3 Hct (40.0-50.0) % 45.8 MCV (80-95) fL 85 MCH (27.0-33.0) pg 28.3 MCHC (32.0-36.0) % 33.4 RDW (11.8-14.1) % 13.3 Plt Count (130-400) 10^3/uL 223 MPV (8.0-11.0) fL 9.4 Immature Gran % 0.3 Neutrophils % 67.9 Lymphocytes % 19.5 Monocytes % 7.9 Eosinophils % 3.9 Basophils % 0.5 Nucleated RBC % (0.0-0.3) % 0.0 Absolute Neutrophils (1.2-6.7) 10^3/uL 5.34 Absolute Lymphocytes (1.2-3.4) 10^3/uL 1.53 Absolute Monocytes (0.1-0.8) 10^3/uL 0.62 Absolute Eosinophils (0.0-0.7) 10^3/uL 0.31 Absolute Basophils (0.0-0.2) 10^3/uL 0.04 VBG Lactate (0.6-1.4) mmol/L 1.2 Sodium (136-145) mmol/L 138 Potassium (3.5-5.1) mmol/L 4.0 Chloride (98-107) mmol/L 102 Carbon Dioxide (21.0-32.0) mmol/L 27.8 Anion Gap (3-11) mmol/L 8.2 BUN (7-18) mg/dL 18 Creatinine (0.70-1.30) mg/dL 1.3 Est GFR (CKD-EPI 2020) (mL/min/1.73m2) 61.35 Glucose (74-106) mg/dL 100 Calcium (8.5-10.1) mg/dL 9.9 Total Bilirubin (0.2-1.0) mg/dL 0.4 AST (15-37) U/L 14 L ALT (16-63) U/L 22 Alkaline Phosphatase (46-116) U/L 85 Total Protein (6.4-8.2) g/dL 7.9 Albumin (3.4-5.0) g/dL 3.5 HPI General Mode of arrival: ambulatory . Date/Time Provider Initiated Documentation: 01/21/23 14:37 . Limitations to Documentation: no limitations . Information obtained by: patient and old records reviewed . HPI Narrative: 62yo M with hx of psoriasis on apremilast, distant history of prostate cancer, frequent bouts of cellulitis presenting with right leg pain and erythema consistent with prior episodes. Does not recall any injury to the area. No discharge, drainage, or skin breakdown. No numbness or tingling. No history of diabetes. No fevers or chills. He is otherwise in his usual state of health. Related Data Home Medications Medication Instructions Recorded Confirmed apremilast 30 mg tablet (Otezla) 30 mg PO BID 01/23/19 01/21/23 acetaminophen 325 mg capsule 325 mg PO DAILY PRN 09/13/20 01/21/23 (Tylenol) Inhaler, Assist Devices [Pocket 1 ea miscellaneous DIRECTED ##0 10/08/20 01/21/23 Chamber] multivitamin 1 tab PO DAILY 11/23/20 01/21/23 albuterol sulfate 90 mcg/actuation 2 puff inhalation Q4H PRN 09/25/21 01/21/23 aerosol inhaler (ProAir HFA) shortness of breath or wheezing #6.7 grams melatonin 5 mg tablet 10 mg PO HS PRN 10/04/21 01/21/23 ipratropium 0.5 mg-albuterol 3 mg 3 ml inhalation QID PRN wheezing 05/28/22 01/21/23 (2.5 mg base)/3 mL nebulization #180 mL soln budesonide 160 mcg-glycopyr 9 2 inh inhalation BID #10.7 grams 07/11/22 01/21/23 mcg-formot 4.8 mcg/actuation HFA inhaler (cWyzezNeronotei Ecosiaphere) triamcinolone acetonide 0.1 % 1 applic topical BID #453.6 grams 10/05/22 01/21/23 topical cream clotrimazole-betamethasone 1 1 applic topical BID #45 grams 10/19/22 01/21/23 %-0.05 % topical cream cyclobenzaprine 10 mg tablet 10 mg PO TID PRN #10 tabs 12/12/22 01/21/23 diclofenac sodium 3 % topical gel 1 applic topical BID #100 grams 12/12/22 01/21/23 meloxicam 7.5 mg tablet 7.5 mg PO DAILY #15 tabs 12/12/22 01/21/23 cephalexin 500 mg capsule 500 mg PO QID #40 caps 01/21/23 Previous Rx's Medication Instructions Recorded Inhaler, Assist Devices [Pocket 1 ea miscellaneous DIRECTED ##0 10/08/20 Chamber] albuterol sulfate 90 mcg/actuation 2 puff inhalation Q4H PRN 09/25/21 aerosol inhaler (ProAir HFA) shortness of breath or wheezing #6.7 grams ipratropium 0.5 mg-albuterol 3 mg 3 ml inhalation QID PRN wheezing 05/28/22 (2.5 mg base)/3 mL nebulization #180 mL soln budesonide 160 mcg-glycopyr 9 2 inh inhalation BID #10.7 grams 07/11/22 mcg-formot 4.8 mcg/actuation HFA inhaler (Breztri Aerosphere) triamcinolone acetonide 0.1 % 1 applic topical BID #453.6 grams 10/05/22 topical cream clotrimazole-betamethasone 1 1 applic topical BID #45 grams 10/19/22 %-0.05 % topical cream cyclobenzaprine 10 mg tablet 10 mg PO TID PRN #10 tabs 12/12/22 diclofenac sodium 3 % topical gel 1 applic topical BID #100 grams 12/12/22 meloxicam 7.5 mg tablet 7.5 mg PO DAILY #15 tabs 12/12/22 cephalexin 500 mg capsule 500 mg PO QID #40 caps 01/21/23 Allergies Allergy/AdvReac Type Severity Reaction Status Date / Time Iodinated Contrast Media Allergy Severe Anaphylaxsi Verified 01/21/23 14:41 [Iodinated Contrast Media - s IV Dye] shellfish derived Allergy Severe Anaphylaxsi Verified 01/21/23 14:41 s Sulfa (Sulfonamide Allergy Intermediate Skin Rash Verified 01/21/23 14:41 Antibiotics) General Stated Complaint: Cellulitis ELISA: 3 Review of Systems All systems reviewed & are unremarkable except as noted in HPI and below PFSH All Active Problems (Updated 01/21/23 @ 15:07 by Cheyenne Kapadia MD) Cellulitis (Acute) Complex tear of medial meniscus of right knee (Acute) Knee pain, right (Acute) Asthma (Chronic) Perennial allergic rhinitis (Acute) Impingement syndrome of right shoulder (Acute) Bursitis of right shoulder (Acute) Reflex sympathetic dystrophy (Acute) Forearm pain (Acute) left wrist pain Tendonitis of long head of biceps brachii of right shoulder (Acute) Rotator cuff tear, right (Acute) Right shoulder pain (Acute) Arthralgia (Acute) Pain, joint, shoulder, right (Acute) High blood pressure (Chronic) Malignant neoplasm prostate (Acute 09/20/10) [address] ([facility]) recurrent 03/07 Medical History Psoriasis Malignant neoplasm prostate Sciatica Surgical History History of back surgery 2 broken discs History of surgery on arm History of knee surgery History of surgery on wrist History of hernia repair Testicular Steroid Injection [facility];Lumbar epidural steroid injection;04/04/17 Social History Smoking/Tobacco Use Status: Former Tobacco Use Tobacco: How many years used: 20 Smoking risk assessment performed?: Yes Alcohol Intake: former Drug use: Never Substance use type: does not use Caregiver/Support person: No Housing: house Communication Needs: Corrective Lenses Do you need help understanding health information?: Rarely Pets and animals: Yes Pets and animals: dog(s) Sexually active: No Do you think of yourself as: straight/heterosexual Current gender identity: female What is your relationship status?: How often do you talk on the phone with friends or family?: three or more times per week How often do you get together with friends or relatives?: once per week How often do you attend hinduism or taoism services?: decline to answer Do you belong to any clubs or organized social groups?: no Panel score (0-1 are the most socially isolated patients): 1 What type of physical activity do you participate in: other Details: active on job Honey/Latter Day: No preference Special honey needs: No Seatbelt use: always Helmet use: Yes Helmet use: always Drive 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 haulpak driver: No Do you feel safe at home: Yes Do you feel safe in your relationship?: Yes Exam Narrative Exam Narrative: General: Alert, well appearing, well nourished, in no acute distress. Head: Normocephalic, atraumatic Neck: Trachea midline, Neck supple. Cardiac: No cyanosis. Resp: No respiratory distress. Speaking in full sentences. Abd: Nondistended. Extremities: No deformities. Symmetric 1+ pitting edema BLE. RLE: Warmth and erythema to posterior right calf and anterior johnson with no involvement of ankle or knee. No skin breakdown or drainage. No crepitus. No pain with passive movement at joints, no ankle or knee effusion, warmth, or tenderness. Sensation and capillary refill intact. Palpable DP pulse. Neurologic: GCS 15. Moves all extremities freely against gravity Course Vital Signs Vital signs: Vital Signs Temperature 36.6 C 01/21/23 14:36 Pulse 92 H 01/21/23 14:36 Respiratory Rate 15 01/21/23 14:36 Blood Pressure 130/64 01/21/23 14:36 Pulse Oximetry 99 01/21/23 14:36 Temperature 36.6 C 01/21/23 14:36 Temperature Source Temporal Artery Scan 01/21/23 14:36 Pulse 92 H 01/21/23 14:36 Respiratory Rate 15 01/21/23 14:36 Respiratory Effort Normal 01/21/23 14:40 Blood Pressure 130/64 01/21/23 14:36 Blood Pressure Position Sitting 01/21/23 14:36 Pulse Oximetry 99 01/21/23 14:36 Oxygen Delivery Method Room Air 01/21/23 14:36 Oxygen Flow Rate 0 01/21/23 14:36 Pain Level 4 01/21/23 14:36
[2023-01-21] MEDS: cefTRIAXone 1 GM/50 ML BAG IVPB (14:55)
[2023-01-21 15:00] LABS: Abs Immature Grans 0.02 10^3/uL (0.0-0.06); Absolute Basophil Count 0.04 10^3/uL (0.0-0.2); Absolute Eosinophil Count 0.31 10^3/uL (0.0-0.7); Absolute Lymphocyte Count 1.53 10^3/uL (1.2-3.4); Absolute Monocyte Count 0.62 10^3/uL (0.1-0.8); Absolute Neutrophil Count 5.34 10^3/uL (1.2-6.7); Basophils % 0.5; Eosinophils % 3.9; HCT 45.8 % (40.0-50.0); HGB 15.3 g/dL (13.5-17.5); Immature Grans % 0.3; Lactate 1.2 mmol/L (0.6-1.4); Lymphocytes % 19.5; MCH 28.3 pg (27.0-33.0); MCHC 33.4 % (32.0-36.0); MCV 85 fL (80-95); MPV 9.4 fL (8.0-11.0); Monocytes % 7.9; Neutrophils % 67.9; Platelet Count 223 10^3/uL (130-400); RDW 13.3 % (11.8-14.1); RDW-SD 40.9 fL; WBC 7.86 10^3/uL (4.4-10.8)
--- NOTE | 2023-01-21 15:00 | DI.US_ITS ---
Exam(s) US LOWER EXTREMITY VENOUS RT EXAM: US LOWER EXTREMITY VENOUS RT CLINICAL HISTORY: RLE redness, edema TECHNIQUE: Grayscale, color, and doppler imaging of the deep venous system of the right lower extrem ity was performed. COMPARISON: US US LOWER EXTREMITY VENOUS RT from 09/17/2022 FINDINGS: There is no evidence of intraluminal thrombus and there is normal compression and augmentation demons trated within the common femoral vein, femoral vein, and popliteal vein. In the ipsilateral calf the interrogated veins also exhibit normal compression/ augmentation properti es. The ipsilateral saphenofemoral junction is patent. IMPRESSION: 1. No evidence of DVT in the right lower extremity. DATA REPOSITORY:
[2023-01-21 15:17] LABS: ALT 22 U/L (16-63); AST 14 U/L (15-37); Albumin 3.5 g/dL (3.4-5.0); Alkaline Phosphatase 85 U/L (46-116); Anion Gap 8.2 mmol/L (3-11); BUN 18 mg/dL (7-18); Bilirubin, Total 0.4 mg/dL (0.2-1.0); CO2 27.8 mmol/L (21.0-32.0); CREATININE 1.3 mg/dL (0.70-1.30); Calcium 9.9 mg/dL (8.5-10.1); Chloride 102 mmol/L (98-107); Estimated GFR 61.35 (mL/min/1.73m2); Glucose 100 mg/dL (74-106); Sodium 138 mmol/L (136-145); Total Protein 7.9 g/dL (6.4-8.2)
== END 2023-01-21 16:24 | disposition home or self-care (01) ==
PROVIDERS: Emergency Provider Student in an Organized Health Care Education/Training Program; PCP Nurse Practitioner Family
DX: L03.116 Cellulitis of left lower limb (principal); L03.115 Cellulitis of right lower limb; Z87.891 Personal history of nicotine dependence
CPT/HCPCS: 36415; 80053; 96365; 99284; 83605; 85025; 93971; J0696

== ENCOUNTER 2023-07-02 05:19 | Outpatient (CLI) | payer BC, SELFPAY ==
[2023-07-02] MEDS: Levalbuterol HFA 15 GM INH 4 PUFF IH (16:21)
[2023-07-02] MEDS: Inhaler, Assist Device 1 EACH MC (16:22)
--- NOTE | 2023-07-04 13:02 | W.PFT ---
Date of service: 07/02/23 Time of Service: 15:04 Pulmonary Function Test Result Indications: Asthma Interpretation Spirometry: There is no airflow limitation. No significant bronchodilator response. Lung Volumes: There is air trapping Diffusion Capacity: Normal diffusion Airway Pressure: Normal airways resistance Impression There is some air trapping but otherwise normal pulmonary function. Clinical Correlation therefore is recommended.
== END 2023-07-02 05:20 | disposition home or self-care (01) ==
LOC: RT 05:19
PROVIDERS: PCP Nurse Practitioner Family; Visit Provider Student in an Organized Health Care Education/Training Program
DX: J45.909 Unspecified asthma, uncomplicated (principal)
CPT/HCPCS: 94060; 94726; 94729

== ENCOUNTER 2023-07-04 04:48 | Emergency (ER) | payer OTHER, SELFPAY ==
[2023-07-04 04:51] VITALS: BP 143/75; PULSE 81; RESP 16; TEMP 36.6; O2SAT 96
--- NOTE | 2023-07-04 05:00 | DI.RAD_ITS ---
Exam(s) XR HIP RT COMPLETE AP PELVIS EXAM: XR HIP RT COMPLETE AP PELVIS CLINICAL HISTORY: right hip/groin pain. TECHNIQUE: 2D digital imaging was performed. COMPARISON: No exams were available for comparison FINDINGS: 3 views No evidence of pelvic nor hip fracture. Additional views of the right hip do not reveal evidence of significant degenerative change nor fracture. No osseous lesions. Left hip also appears unremarkable. Disc space narrowing in the visualized lumbar spine noted. There also 2 identical wire like devices on both sides the symphysis pubis. Also evidence of osteitis symphysis pubis. IMPRESSION: As above. DATA REPOSITORY: RADIATION DOSE DELIVERED:
[2023-07-04] MEDS: Acetaminophen 500 MG TAB 1000 MG PO (05:35)
[2023-07-04] MEDS: Lidocaine 5% Patch 1 PATCH TP (05:35)
[2023-07-04] MEDS: Ketorolac 30 MG/ML VIAL IM (05:35)
--- NOTE | 2023-07-04 05:53 | W.ED.GENAD ---
Discharge Plan Disposition Patient Disposition: Home Condition: Good Discharge Details Clinical Impression: Groin strain Primary Care Provider: Duglas Burton ED Provider: Samuel Cuellar Home Meds and New Rx's Prescriptions: New lidocaine [Lidoderm] 5 % adhesive patch,medicated 1 patch Topical Q24H Qty: 15 0RF No Action acetaminophen [Tylenol] 325 mg capsule 325 mg PO DAILY PRN ipratropium-albuterol 0.5 mg-3 mg(2.5 mg base)/3 mL solution for nebulization 3 ml inhalation QID PRN (Reason: wheezing) Qty: 180 12RF albuterol sulfate [ProAir HFA] 90 mcg/actuation HFA aerosol inhaler 2 puff inhalation Q4H PRN (Reason: shortness of breath or wheezing) Qty: 6.7 12RF Otezla 30 mg tablet 30 mg PO BID Breztri Aerosphere 160-9-4.8 mcg/actuation HFA aerosol inhaler 2 inh inhalation BID Qty: 10.7 12RF Nucala 100 mg/mL auto-injector 100 mg subcut Q4W Qty: 1 6RF Inhaler, Assist Devices [Pocket Chamber] 1 ea miscellaneous DIRECTED Qty: 0 0RF multivitamin Tablet 1 tab PO DAILY melatonin 5 mg Tablet 10 mg PO HS PRN Discharge Instructions Instructions: Groin Strain (ED) Additional Instructions: At this time your x-ray shows no evidence of fracture. I suspect you have a mild groin strain which is when you irritate and develop a partial tear/strain of the muscles at the tendon connection points in your groin. Please take Tylenol and Motrin for pain. Apply the Lidoderm patch as needed. Avoid significant activity or use of that area. These usually improve over 2 to 3 weeks. If you notice any worsening of your symptoms, or any new symptoms such as vomiting, diarrhea, fever, chills, shortness of breath, chest pain, numbness, weakness, or fainting , please return immediately to the emergency department for reevaluation. Please follow up with your primary care provider as soon as possible for reassessment and reevaluation. As always, it was a pleasure participating in your medical care today. Stand Alone Forms: Work Release Referrals: Duglas Burton NP [Primary Care Provider] - [facility] General Date/Time Provider Initiated Documentation: 07/04/23 04:51. HPI Narrative: 63-year-old male with a past medical history of arthralgias, ruptured triceps tendon, previous hernia repair, chronic arthralgias, previous knee operations, who presents today for evaluation of right groin and medial thigh pain patient states that he was pravin yesterday, and then this morning when he woke up he had significant pain in his groin radiating down to the medial aspect of the knee. It is worse with movement, specifically adduction. He did take a dose of ibuprofen when he woke up, but denies any other interventions. Pain is made worse with movement, improved by nothing. He denies numbness or tingling. He denies knowledge of any injury. Related Data Home Medications Medication Instructions Recorded Confirmed apremilast 30 mg tablet (Otezla) 30 mg PO BID 01/23/19 07/04/23 acetaminophen 325 mg capsule 325 mg PO DAILY PRN 09/13/20 07/04/23 (Tylenol) Inhaler, Assist Devices [Pocket 1 ea miscellaneous DIRECTED ##0 10/08/20 07/04/23 Chamber] multivitamin 1 tab PO DAILY 11/23/20 07/04/23 melatonin 5 mg tablet 10 mg PO HS PRN 10/04/21 07/04/23 ipratropium 0.5 mg-albuterol 3 mg 3 ml inhalation QID PRN wheezing 05/28/22 07/04/23 (2.5 mg base)/3 mL nebulization #180 mL soln budesonide 160 mcg-glycopyr 9 2 inh inhalation BID #10.7 grams 07/11/22 07/04/23 mcg-formot 4.8 mcg/actuation HFA inhaler (Breztri Aerosphere) albuterol sulfate 90 mcg/actuation 2 puff inhalation Q4H PRN 05/28/23 07/04/23 aerosol inhaler (ProAir HFA) shortness of breath or wheezing #6.7 grams mepolizumab 100 mg/mL subcutaneous 100 mg subcut Q4W #1 mL 07/02/23 07/04/23 auto-injector (Nucala) lidocaine 5 % topical patch 1 patch topical Q24H #15 ea 07/04/23 (Lidoderm) Previous Rx's Medication Instructions Recorded Inhaler, Assist Devices [Pocket 1 ea miscellaneous DIRECTED ##0 10/08/20 Chamber] ipratropium 0.5 mg-albuterol 3 mg 3 ml inhalation QID PRN wheezing 05/28/22 (2.5 mg base)/3 mL nebulization #180 mL soln budesonide 160 mcg-glycopyr 9 2 inh inhalation BID #10.7 grams 07/11/22 mcg-formot 4.8 mcg/actuation HFA inhaler (Breztri Aerosphere) albuterol sulfate 90 mcg/actuation 2 puff inhalation Q4H PRN 05/28/23 aerosol inhaler (ProAir HFA) shortness of breath or wheezing #6.7 grams mepolizumab 100 mg/mL subcutaneous 100 mg subcut Q4W #1 mL 07/02/23 auto-injector (Nucala) lidocaine 5 % topical patch 1 patch topical Q24H #15 ea 07/04/23 (Lidoderm) Allergies Allergy/AdvReac Type Severity Reaction Status Date / Time Iodinated Contrast Media Allergy Severe Anaphylaxsi Verified 07/04/23 04:56 [Iodinated Contrast Media - s IV Dye] shellfish derived Allergy Severe Anaphylaxsi Verified 07/04/23 04:56 s Sulfa (Sulfonamide Allergy Intermediate Skin Rash Verified 07/04/23 04:56 Antibiotics) General Stated Complaint: GenMedical ELISA: 4 Review of Systems All systems reviewed & are unremarkable except as noted in HPI and below Exam Narrative Exam Narrative: 1.Const: Well-nourished, Well-developed, appearing stated age 2.Eyes: PERRL, no conjunctival injection, and symmetrical lids. 3.ENT: Atraumatic external nose and ears. Moist MM. Neck: Symmetric, trachea midline, No thyromegaly. 4.CVS: +S1/S2, No murmurs or gallops. Peripheral pulses 2+ and equal in all extremities. Brisk capillary refill in all extremities. 5.RESP: Unlabored respiratory effort. Clear to auscultation bilaterally. No wheezes rales or rhonchi 6.GI: Soft, Nontender/Nondistended, No hepatosplenomegaly. No guarding or rebound. 7.MSK: Left lower extremity unremarkable, right lower extremity demonstrates tenderness from the pubic symphysis and the muscular insertion points there radiating down to the mid distal thigh. The pain appears to track along the gracilis versus the adductor longus. Pain is made notably worse with adduction, and mildly with abduction, flexion and extension. Dorsalis pedis and posterior tibial pulse +2 bilaterally. Good sensation throughout. Palpation of the groin demonstrates no inguinal hernia, no scrotal hernia. No testicular tenderness. Femoral pulse +2, symmetric, no palpable aneurysm. 8.Skin: Warm, Dry. No rashes or lesions. 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 Sensation grossly intact, no focal neurologic deficits. 10.Psych: (AAO) x3. Appropriate mood and affect Course Vital Signs Vital signs: Vital Signs Temperature 36.6 C 07/04/23 04:51 Pulse 81 07/04/23 04:51 Respiratory Rate 16 07/04/23 04:51 Blood Pressure 143/75 H 07/04/23 04:51 Pulse Oximetry 96 07/04/23 04:51 Temperature 36.6 C 07/04/23 04:51 Temperature Source Temporal Artery Scan 07/04/23 04:51 Pulse 81 07/04/23 04:51 Respiratory Rate 16 07/04/23 04:51 Respiratory Effort Normal 07/04/23 04:58 Respiratory Depth Normal 07/04/23 04:58 Respiratory Pattern Normal 07/04/23 04:58 Blood Pressure 143/75 H 07/04/23 04:51 Pulse Oximetry 96 07/04/23 04:51 Oxygen Delivery Method Room Air 07/04/23 04:51 Oxygen Flow Rate 0 07/04/23 04:51 Pain Level 7 07/04/23 04:51 Medical Decision Making 63-year-old male with a past medical history of arthralgias, ruptured triceps tendon, previous hernia repair, chronic arthralgias, previous knee operations, who presents today for evaluation of right groin and medial thigh pain patient states that he was pravin yesterday, and then this morning when he woke up he had significant pain in his groin radiating down to the medial aspect of the knee. It is worse with movement, specifically adduction. He did take a dose of ibuprofen when he woke up, but denies any other interventions. Pain is made worse with movement, improved by nothing. He denies numbness or tingling. He denies knowledge of any injury. Exam demonstrates well-appearing male, notable tenderness following the muscular track from the pubic symphysis towards the mid to distal thigh along the gracillus or adductor longus muscle. No palpable aneurysm, no vascular deficits. Normal sensation throughout. Otherwise no bony tenderness. Suspect groin strain from activity and work that was being performed previously. No evidence of hernia. Will get x-ray to rule out osseous fracture although this is less likely. Will give Toradol, Tylenol, and Lidoderm patch. X-ray negative for acute process. Patient feels much better. Patient will be discharged home. I have extensively reviewed the treatment plan and discharge instructions with the patient. I have addressed all patient concerns at this time. The patient was made aware of what symptoms to monitor for that would warrant a return to the emergency department. Discussed the plan with the patient, they demonstrate verbal understanding and agreement with our assessment and plan at this time. The documentation in this chart was dictated using [email or web address] dictation software. Please excuse any dictation errors. FINDINGS: Bones/joints: Severe degenerative change of the visualized osseous structures concentrated about the pubic symphysis and lower lumbar spine as well as the sacroiliac joints. Likely chronic degenerative change of the left lesser trochanter. Soft tissues: Unremarkable. Vasculature: Peripheral arterial vascular disease. Other findings: Stable linear densities over the pubic symphysis. IMPRESSION: 1. No acute osseous abnormality. 2. Additional findings as above. Thank you for allowing us to participate in the care of your patient. Dictated and Authenticated by: Jefferson Deluna DO 07/04/2023 7:48 AM Eastern Time ([place] & [place]) Quality:SDOH Health Related Social Needs: No Data to Display PFSH All Active Problems (Updated 07/04/23 @ 07:21 by Samuel Cuellar DO) Groin strain (Acute) Complex tear of medial meniscus of right knee (Acute) Knee pain, right (Acute) Asthma (Chronic) Perennial allergic rhinitis (Acute) Impingement syndrome of right shoulder (Acute) Bursitis of right shoulder (Acute) Reflex sympathetic dystrophy (Acute) Forearm pain (Acute) left wrist pain Tendonitis of long head of biceps brachii of right shoulder (Acute) Rotator cuff tear, right (Acute) Right shoulder pain (Acute) Arthralgia (Acute) Pain, joint, shoulder, right (Acute) High blood pressure (Chronic) Malignant neoplasm prostate (Acute 09/20/10) [address] ([facility]) recurrent 03/07 Medical History Psoriasis Malignant neoplasm prostate Sciatica Surgical History History of back surgery 2 broken discs History of surgery on arm History of knee surgery History of surgery on wrist History of hernia repair Testicular Steroid Injection [facility];Lumbar epidural steroid injection;04/04/17 Social History Smoking/Tobacco Use Status: Former Tobacco Use Tobacco: How many years used: 20 Smoking risk assessment performed?: Yes Alcohol Intake: former Drug use: Never Substance use type: does not use Caregiver/Support person: No Housing: house Communication Needs: Corrective Lenses Do you need help understanding health information?: Rarely Pets and animals: Yes Pets and animals: dog(s) Sexually active: No Do you think of yourself as: straight/heterosexual Current gender identity: female What is your relationship status?: How often do you talk on the phone with friends or family?: three or more times per week How often do you get together with friends or relatives?: once per week How often do you attend buddhist or temple services?: decline to answer Do you belong to any clubs or organized social groups?: no Panel score (0-1 are the most socially isolated patients): 1 What type of physical activity do you participate in: other Details: active on job Honey/Protestant: No preference Special honey needs: No Seatbelt use: always Helmet use: Yes Helmet use: always 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
[2023-07-04 07:11] VITALS: BP 108/57; PULSE 68; RESP 18; O2SAT 98
--- NOTE | 2023-07-04 07:49 | DI.VRAD_ITS ---
PROCEDURE INFORMATION: Exam: XR Right Hip Exam date and time: 07/04/2023 5:42 AM Age: 63 years old Clinical indication: Hip pain; Right hip; Patient HX: R hip/groin pain TECHNIQUE: Imaging protocol: Radiologic exam of the right hip. Views: 2 or 3 views hip with pelvis when performed. COMPARISON: CT CHEST/ABD/PEL WO 10/04/2021 8:51 AM FINDINGS: Bones/joints: Severe degenerative change of the visualized osseous structures concentrated about the pubic symphysis and lower lumbar spine as well as the sacroiliac joints. Likely chronic degenerative change of the left lesser trochanter. Soft tissues: Unremarkable. Vasculature: Peripheral arterial vascular disease. Other findings: Stable linear densities over the pubic symphysis. IMPRESSION: 1. No acute osseous abnormality. 2. Additional findings as above. Dictated and Authenticated by: Jefferson Deluna MD. Ordering:OSCAR Baker MD
== END 2023-07-04 08:04 | disposition home or self-care (01) ==
PROVIDERS: Emergency Provider Student in an Organized Health Care Education/Training Program; PCP Nurse Practitioner Family
DX: S39.011A Strain of muscle, fascia and tendon of abdomen, initial encounter (principal); Z87.891 Personal history of nicotine dependence; X50.9XXA Other and unspecified overexertion or strenuous movements or postures, initial encounter; Y93.H3 Activity, building and construction; Y92.018 Other place in single-family (private) house as the place of occurrence of the external cause
CPT/HCPCS: 96372; 99284; 73502; 99283; J1885

== ENCOUNTER 2023-08-26 21:07 | Emergency (ER) | payer BC, SELFPAY ==
[2023-08-26 21:20] VITALS: BP 122/80; PULSE 109; RESP 18; TEMP 37.2; O2SAT 99
--- NOTE | 2023-08-26 21:43 | W.ED.GENAD ---
Discharge Plan Disposition Patient Disposition: Home Condition: Stable Discharge Details Clinical Impression: Muscle spasms of lower extremity, Sleep difficulties Primary Care Provider: Duglas Burton ED Provider: Pteer Fitzpatrick Home Meds and New Rx's Prescriptions: New cyclobenzaprine 10 mg tablet 10 mg PO TID PRNQty: 20 0RF Continued acetaminophen [Tylenol] 325 mg capsule 325 mg PO DAILY PRN ipratropium-albuterol 0.5 mg-3 mg(2.5 mg base)/3 mL solution for nebulization 3 ml inhalation QID PRN (Reason: wheezing) Qty: 180 12RF albuterol sulfate [ProAir HFA] 90 mcg/actuation HFA aerosol inhaler 2 puff inhalation Q4H PRN (Reason: shortness of breath or wheezing) Qty: 6.7 12RF Otezla 30 mg tablet 30 mg PO BID Nucala 100 mg/mL auto-injector 100 mg subcut Q4W Qty: 1 6RF lidocaine [Lidoderm] 5 % adhesive patch,medicated 1 patch Topical Q24H Qty: 15 0RF Inhaler, Assist Devices [Pocket Chamber] 1 ea miscellaneous DIRECTED Qty: 0 0RF multivitamin Tablet 1 tab PO DAILY melatonin 5 mg Tablet 10 mg PO HS PRN Discharge Instructions Additional Instructions: Your blood work did not show any concerning findings Follow-up with your primary care provider if symptoms continue this week If you feel more ill or have new symptoms such as high fevers return to the emergency department for reevaluation HPI General Mode of arrival: ambulatory. Date/Time Provider Initiated Documentation: 08/26/23 21:08. Limitations to Documentation: no limitations. Information obtained by: patient. History of Present Illness 63 year old M presents to the emergency department with the chief complaint of Trouble sleeping last 3 nights due to spasms in his legs, Patient started experiencing this day(s) (3) and it has been constant. No relieving factors improve symptom(s), No exacerbating factors reported . Patient notes denies chest pain, fever/chills and shortness of breath. Patient did receive the following treatments prior to arrival, none Related Data Home Medications Medication Instructions Recorded Confirmed apremilast 30 mg tablet (Otezla) 30 mg PO BID 01/23/19 08/26/23 acetaminophen 325 mg capsule 325 mg PO DAILY PRN 09/13/20 08/26/23 (Tylenol) Inhaler, Assist Devices [Pocket 1 ea miscellaneous DIRECTED ##0 10/08/20 08/26/23 Chamber] multivitamin 1 tab PO DAILY 11/23/20 08/26/23 melatonin 5 mg tablet 10 mg PO HS PRN 10/04/21 08/26/23 ipratropium 0.5 mg-albuterol 3 mg 3 ml inhalation QID PRN wheezing 05/28/22 08/26/23 (2.5 mg base)/3 mL nebulization #180 mL soln albuterol sulfate 90 mcg/actuation 2 puff inhalation Q4H PRN 05/28/23 08/26/23 aerosol inhaler (ProAir HFA) shortness of breath or wheezing #6.7 grams mepolizumab 100 mg/mL subcutaneous 100 mg subcut Q4W #1 mL 07/02/23 08/26/23 auto-injector (Nucala) lidocaine 5 % topical patch 1 patch topical Q24H #15 ea 07/04/23 08/26/23 (Lidoderm) cyclobenzaprine 10 mg tablet 10 mg PO TID PRN #20 tabs 08/26/23 Previous Rx's Medication Instructions Recorded Inhaler, Assist Devices [Pocket 1 ea miscellaneous DIRECTED ##0 10/08/20 Chamber] ipratropium 0.5 mg-albuterol 3 mg 3 ml inhalation QID PRN wheezing 05/28/22 (2.5 mg base)/3 mL nebulization #180 mL soln albuterol sulfate 90 mcg/actuation 2 puff inhalation Q4H PRN 05/28/23 aerosol inhaler (ProAir HFA) shortness of breath or wheezing #6.7 grams mepolizumab 100 mg/mL subcutaneous 100 mg subcut Q4W #1 mL 07/02/23 auto-injector (Nucala) lidocaine 5 % topical patch 1 patch topical Q24H #15 ea 07/04/23 (Lidoderm) cyclobenzaprine 10 mg tablet 10 mg PO TID PRN #20 tabs 08/26/23 Allergies Allergy/AdvReac Type Severity Reaction Status Date / Time Iodinated Contrast Media Allergy Severe Anaphylaxsi Verified 08/26/23 21:26 [Iodinated Contrast Media - s IV Dye] shellfish derived Allergy Severe Anaphylaxsi Verified 08/26/23 21:26 s Sulfa (Sulfonamide Allergy Intermediate Skin Rash Verified 08/26/23 21:26 Antibiotics) General Stated Complaint: GenMedical ELISA: 3 Review of Systems All systems reviewed & are unremarkable except as noted in HPI and below Constitutional Constitutional: Denies chills, Denies fever(s) and Denies weakness Cardiovascular Cardiovascular: Denies chest pain and Denies dyspnea Respiratory Respiratory: Denies cough and Denies dyspnea Gastrointestinal Gastrointestinal: Denies abdominal pain, Denies nausea and Denies vomiting Integumentary/Breasts Skin/Breast: Denies rash Neurologic Neurologic: Denies weakness Exam Const General: no acute distress Orientation: alert HENMT Head: normal to inspection Ears: external ears normal General nose exam: external nose normal Mouth: moist mucous membranes Eyes General: appearance normal, both eyes and all related structures Neck Neck: normal visual inspection Resp Effort & Inspection: normal respiratory effort and able to speak in complete sentences Cardio Rate: regular rate Skin General skin exam: no rashes or lesions noted Neuro General: patient alert and patient oriented x3 Extrem General: normal to inspection, full ROM and capillary refill normal Psych Mental Status: mental status grossly normal Course Vital Signs Vital signs: Vital Signs Temperature 37.2 C 08/26/23 21:20 Pulse 109 H 08/26/23 21:20 Respiratory Rate 18 08/26/23 21:20 Blood Pressure 122/80 08/26/23 21:20 Pulse Oximetry 99 08/26/23 21:20 Temperature 37.2 C 08/26/23 21:20 Temperature Source Temporal Artery Scan 08/26/23 21:20 Pulse 109 H 08/26/23 21:20 Respiratory Rate 18 08/26/23 21:20 Respiratory Effort Normal, Non-Labored 08/26/23 21:28 Blood Pressure 122/80 08/26/23 21:20 Blood Pressure Position Sitting 08/26/23 21:20 Pulse Oximetry 99 08/26/23 21:20 Oxygen Delivery Method Room Air 08/26/23 21:20 Oxygen Flow Rate 0 08/26/23 21:20 Medical Decision Making 63-year-old male with a history of reflux sympathetic dystrophy, hypertension, comes in with chief complaint of difficulty sleeping the last 3 nights due to spasms in his bilateral posterior legs. He denies any fevers, severe pain, paresthesias or numbness. He is alert and oriented on arrival speaking clearly in no distress. He says when he has spasms in the posterior thigh and calf. He has no leg swelling, intact sensation, he is ambulating with normal gait. Normal peripheral pulses. Symptoms seem typical for either muscle spasms or possibly restless leg syndrome. He has no findings on exam or history to suggest DVT, or arterial occlusion. Do not feel any imaging indicated. Will check to make sure is no electrolyte abnormalities as a potential cause and also check a CPK. If all this is negative we will likely treat with a muscle relaxer. Labs without significant acute findings. He is stable, no concerning findings on exam. He is stable for discharge will provide a short course of muscle relaxer and return precautions given advised to follow-up with his PCP as well Differential Diagnosis Differential Diagnosis: Muscle spasms, electrolyte abnormality Lab Data Lab results reviewed: Yes I reviewed the patient's lab results. Quality:SDOH Health Related Social Needs: No Data to Display [facility] All Active Problems (Updated 08/26/23 @ 22:09 by Peter Fitzpatrick MD) Sleep difficulties (Acute) Muscle spasms of lower extremity (Acute) Complex tear of medial meniscus of right knee (Acute) Knee pain, right (Acute) Asthma (Chronic) Perennial allergic rhinitis (Acute) Impingement syndrome of right shoulder (Acute) Bursitis of right shoulder (Acute) Reflex sympathetic dystrophy (Acute) Forearm pain (Acute) left wrist pain Tendonitis of long head of biceps brachii of right shoulder (Acute) Rotator cuff tear, right (Acute) Right shoulder pain (Acute) Arthralgia (Acute) Pain, joint, shoulder, right (Acute) High blood pressure (Chronic) Malignant neoplasm prostate (Acute 09/20/10) [address] ([facility]) recurrent 03/07 Medical History Psoriasis Malignant neoplasm prostate Sciatica Surgical History History of back surgery 2 broken discs History of surgery on arm History of knee surgery History of surgery on wrist History of hernia repair Testicular Steroid Injection [facility];Lumbar epidural steroid injection;04/04/17 Social History Smoking/Tobacco Use Status: Former Tobacco Use Tobacco: How many years used: 20 Smoking risk assessment performed?: Yes Alcohol Intake: former Drug use: Never Substance use type: does not use Caregiver/Support person: No Housing: house Communication Needs: Corrective Lenses Do you need help understanding health information?: Rarely Pets and animals: Yes Pets and animals: dog(s) Sexually active: No Do you think of yourself as: straight/heterosexual Current gender identity: female What is your relationship status?: How often do you talk on the phone with friends or family?: three or more times per week How often do you get together with friends or relatives?: once per week How often do you attend synagogue or faith services?: decline to answer Do you belong to any clubs or organized social groups?: no Panel score (0-1 are the most socially isolated patients): 1 What type of physical activity do you participate in: other Details: active on job Honey/Mu-Ism: No preference Special honey needs: No Seatbelt use: always Helmet use: Yes Helmet use: always 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
[2023-08-26 22:21] LABS: ALT 50 U/L (16-63); AST 35 U/L (15-37); Alkaline Phosphatase 156 U/L (46-116); Anion Gap 7.7 mmol/L (3-11); BUN 23 mg/dL (7-18); CO2 25.3 mmol/L (21.0-32.0); CREATININE 1.2 mg/dL (0.70-1.30); Calcium 8.4 mg/dL (8.5-10.1); Chloride 102 mmol/L (98-107); Creatine Kinase 41 U/L (39-308); Estimated GFR 67.11 (mL/min/1.73m2); Glucose 173 mg/dL (74-106); Magnesium 1.9 mg/dL (1.8-2.4); Potassium 3.7 mmol/L (3.5-5.1); Sodium 135 mmol/L (136-145); Total Protein 7.4 g/dL (6.4-8.2)
[2023-08-26] MEDS: Cyclobenzaprine 10 MG TAB, 3 TABS/BTL PO (22:47)
== END 2023-08-26 22:48 | disposition home or self-care (01) ==
PROVIDERS: Emergency Provider Emergency Medicine; PCP Nurse Practitioner Family
DX: G47.00 Insomnia, unspecified (principal); M62.831 Muscle spasm of calf; G90.523 Complex regional pain syndrome I of lower limb, bilateral; I10 Essential (primary) hypertension; Z87.891 Personal history of nicotine dependence
CPT/HCPCS: 36415; 80053; 82550; 99283; 83735

== ENCOUNTER 2023-09-26 22:36 | Outpatient (REF) | payer BC, SELFPAY ==
[2023-09-27 17:59] LABS: Rheumatoid Factor 90.6 IU/mL (<12.0)
[2023-09-30 09:50] LABS: Cyclic Citrullinated Peptide >200.0 U/mL (<5.0)
[2023-09-30 11:20] LABS: Lyme Ab w Rflx to Lyme Confirm Negative (Negative)
[2023-09-30 14:22] LABS: Anaplasma phagocytophilum Negative (Negative); B. miyamotoi PCR Negative (Negative); Babesia divergens/MO-1 Negative (Negative); Babesia duncani Negative (Negative); Babesia microti Negative (Negative); Ehrlichia chaffeensis Negative (Negative); Ehrlichia ewingii/canis Negative (Negative); Ehrlichia muris eauclairensis Negative (Negative)
[2023-09-30 15:22] LABS: ANA Interpretation Positive (Negative); ANA Titer Pattern 1:320 Homogeneous
== END 2023-09-26 22:37 | disposition home or self-care (01) ==
LOC: LBN 22:36
PROVIDERS: PCP Nurse Practitioner Family; Visit Provider Physician Assistant Surgical
DX: M25.50 Pain in unspecified joint (principal); M25.441 Effusion, right hand; J45.909 Unspecified asthma, uncomplicated
CPT/HCPCS: 86200; 87798; 86038; 86431; 86618

== ENCOUNTER 2023-10-04 01:14 | Outpatient (CLI) | payer BC, SELFPAY ==
--- NOTE | 2023-10-04 08:25 | DI.RAD_ITS ---
Exam(s) XR ARTHRITIS SERIES EXAM: XR ARTHRITIS SERIES CLINICAL HISTORY: ? rheumatoid arthritis, swelling of joints, arthralgia,M25.551,M25.50. TECHNIQUE: 2D digital imaging was performed. COMPARISON: CR,XR XR WRIST LT COMPLETE from 05/13/2020 FINDINGS: Two views (PA and [place] views) both hands: There is no evidence of fracture nor subluxations. No abnormal soft tissue calcifications. No omino us osseous lesions. No radiopaque foreign bodies. LEFT HAND/WRIST: There is significant degenerative narrowing of the radiocarpal joint. No significan t ulnar variance evident. Minimal degenerative changes distal to this in the carpal bones including 1st carpometacarpal joint. There is significant degenerative narrowing of the metacarpophalangeal bhargav int of the 3rd left finger. There is a small erosion on the lateral aspect of the base of the proxim al phalanx at this level. The metacarpophalangeal joint of the thumb exhibits some osteoarthritic de generative change and mild subluxation. There is a tiny 1 mm soft tissue calcification adjacent to t he head of the thumb metacarpal. Interphalangeal joint of the thumb appears unremarkable as do PIP j oints of all left fingers. There are some degenerative changes at the DIP joint of the 2nd-index fin mary. RIGHT HAND/WRIST: There is no degenerative change in the carpal row bones in the right-side. Small c alcification is noted in the dorsal soft tissues over the wrist. There is degenerative narrowing of the 3rd metacarpophalangeal joint, similar to the opposite side. There is a tiny erosion on the late ral aspect of the base of the proximal phalanx of the 3rd finger. There are mild degenerative change s at the metacarpophalangeal joint of the thumb. No obvious degenerative changes at the 1st carpomet acarpal joint nor at the interphalangeal joint of the thumb. At the PIP joint level there is significant degenerative change and medial subluxation at the level o f the proximal interphalangeal joint of the 4th-ring finger. Degenerative subarticular cysts are see n in the proximal phalanx at this level as well as an erosion on the medial aspect of the head of the proximal phalanx. With regards to the DIP joints, there is significant degenerative findings at the DIP joint of the 2n d-index finger. Also DIP joint of the 4th-ring finger. IMPRESSION: Findings in both hands as above. DATA REPOSITORY: RADIATION DOSE DELIVERED:
== END 2023-10-04 01:34 ==
LOC: DI 01:14
PROVIDERS: PCP Nurse Practitioner Family; Visit Provider Physician Assistant Surgical
DX: M25.441 Effusion, right hand; M25.442 Effusion, left hand
CPT/HCPCS: 73120

== ENCOUNTER 2023-10-06 08:02 | Emergency (ER) | payer BC, SELFPAY ==
[2023-10-06 08:06] VITALS: BP 127/88; PULSE 84; RESP 18; TEMP 36; O2SAT 98
[2023-10-06] MEDS: Ketorolac 10 MG TAB PO (09:19)
[2023-10-06] MEDS: Acetaminophen 500 MG TAB 1000 MG PO (09:19)
--- NOTE | 2023-10-06 09:29 | W.ED.GENAD ---
Discharge Plan Disposition Patient Disposition: Home Condition: Stable Discharge Details Clinical Impression: Arthralgia, Inflammatory arthritis Primary Care Provider: Duglas Burton ED Provider: Kurt Acuna Home Meds and New Rx's Prescriptions: New methylprednisolone [Medrol (Flo)] 4 mg tablets,dose pack See Rx Instructions .ROUTE .COMPLEX Qty: 21 0RF Rx Instructions: for 6 days No Action acetaminophen [Tylenol] 325 mg capsule 325 mg PO DAILY PRN ipratropium-albuterol 0.5 mg-3 mg(2.5 mg base)/3 mL solution for nebulization 3 ml inhalation QID PRN (Reason: wheezing) Qty: 180 12RF albuterol sulfate [ProAir HFA] 90 mcg/actuation HFA aerosol inhaler 2 puff inhalation Q4H PRN (Reason: shortness of breath or wheezing) Qty: 6.7 12RF Otezla 30 mg tablet 30 mg PO BID Nucala 100 mg/mL auto-injector 100 mg subcut Q4W Qty: 1 6RF lidocaine [Lidoderm] 5 % adhesive patch,medicated 1 patch Topical Q24H Qty: 15 0RF Inhaler, Assist Devices [Pocket Chamber] 1 ea miscellaneous DIRECTED Qty: 0 0RF multivitamin Tablet 1 tab PO DAILY melatonin 5 mg Tablet 10 mg PO HS PRN cyclobenzaprine 10 mg tablet 10 mg PO TID PRNQty: 20 0RF Discharge Instructions Instructions: Rheumatoid arthritis Additional Instructions: Take Tylenol for pain, he can take 1 g of Tylenol every 6 hours, not to exceed 4 g in a 24-hour. Medicines like NSAIDs can be helpful with arthritis conditions, but given your age and recent renal function, long-term use of NSAIDs would not be advised We will try steroids to help with the acute right knee pain Your blood test for rheumatoid arthritis are elevated. You have been referred to rheumatology at [facility] [place], but this can take some time to get an appointment. I would follow-up with your primary care provider as they may be able to start some medications while you are waiting for your appointment. Please follow-up with your primary care provider after you complete your steroid course for reevaluation Discharge Data Discharge Date/Time-TO BE ENTERED AT DEPARTURE: 10/06/23 09:21 HPI General Date/Time Provider Initiated Documentation: 10/06/23 08:05. Limitations to Documentation: no limitations. Information obtained by: patient. HPI Narrative: 63-year-old gentleman with past medical history of multiple joint problems presents for evaluation of right knee pain. He reports that he has previously had bursa surgery twice on that knee, but no knee replacement. He states that he was recently told that he has rheumatoid arthritis, but has not seen a retail field supervisor or been started on any medications yet. 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 Denies any falls or trauma. He reports that pain started yesterday morning when he woke up from sleep. He states that he generally always has joint pain, but this is particularly worse. He states that he has had swelling in his right hand for some time which is what prompted the evaluation for rheumatoid arthritis. Related Data Home Medications ?Medication ?Instructions ?Recorded ?Confirmed apremilast 30 mg tablet (Otezla) 30 mg PO BID 01/23/19 10/06/23 acetaminophen 325 mg capsule 325 mg PO DAILY PRN 09/13/20 10/06/23 (Tylenol) Inhaler, Assist Devices [Pocket 1 ea miscellaneous DIRECTED ##0 10/08/20 10/06/23 Chamber] multivitamin 1 tab PO DAILY 11/23/20 10/06/23 melatonin 5 mg tablet 10 mg PO HS PRN 10/04/21 10/06/23 ipratropium 0.5 mg-albuterol 3 mg 3 ml inhalation QID PRN wheezing 05/28/22 10/06/23 (2.5 mg base)/3 mL nebulization #180 mL soln albuterol sulfate 90 mcg/actuation 2 puff inhalation Q4H PRN 05/28/23 10/06/23 aerosol inhaler (ProAir HFA) shortness of breath or wheezing #6.7 grams mepolizumab 100 mg/mL subcutaneous 100 mg subcut Q4W #1 mL 07/02/23 10/06/23 auto-injector (Nucala) lidocaine 5 % topical patch 1 patch topical Q24H #15 ea 07/04/23 10/06/23 (Lidoderm) cyclobenzaprine 10 mg tablet 10 mg PO TID PRN #20 tabs 08/26/23 10/06/23 methylprednisolone 4 mg tablets in See Rx Instructions PO .COMPLEX 10/06/23 a dose pack (Medrol (Flo)) #21 dose pk Previous Rx's ?Medication ?Instructions ?Recorded Inhaler, Assist Devices [Pocket 1 ea miscellaneous DIRECTED ##0 10/08/20 Chamber] ipratropium 0.5 mg-albuterol 3 mg 3 ml inhalation QID PRN wheezing 05/28/22 (2.5 mg base)/3 mL nebulization #180 mL soln albuterol sulfate 90 mcg/actuation 2 puff inhalation Q4H PRN 05/28/23 aerosol inhaler (ProAir HFA) shortness of breath or wheezing #6.7 grams mepolizumab 100 mg/mL subcutaneous 100 mg subcut Q4W #1 mL 07/02/23 auto-injector (Nucala) lidocaine 5 % topical patch 1 patch topical Q24H #15 ea 07/04/23 (Lidoderm) cyclobenzaprine 10 mg tablet 10 mg PO TID PRN #20 tabs 08/26/23 methylprednisolone 4 mg tablets in See Rx Instructions PO .COMPLEX 10/06/23 a dose pack (Medrol (Flo)) #21 dose pk Allergies Allergy/AdvReac Type Severity Reaction Status Date / Time Iodinated Contrast Media Allergy Severe Anaphylaxsi Verified 10/06/23 08:08 (Iodinated Contrast Media - s IV Dye) shellfish derived Allergy Severe Anaphylaxsi Verified 10/06/23 08:08 s Sulfa (Sulfonamide Allergy Intermediate Skin Rash Verified 10/06/23 08:08 Antibiotics) General Stated Complaint: Orthopedic ELISA: 4 Exam Narrative Exam Narrative: Review of Systems: All systems reviewed & are unremarkable except as noted in HPI and below Well-developed, no acute distress NCAT PERRL, normal conjunctiva RRR Unlabored respiratory effort Right knee with effusion, tender to palpation, no instability, able to bear weight Course Vital Signs Vital signs: Vital Signs Temperature 36.0 C L 10/06/23 08:06 Pulse 84 10/06/23 08:06 Respiratory Rate 18 10/06/23 08:06 Blood Pressure 127/88 10/06/23 08:06 Pulse Oximetry 98 10/06/23 08:06 Temperature 36.0 C L 10/06/23 08:06 Temperature Source Skin 10/06/23 08:06 Pulse 84 10/06/23 08:06 Respiratory Rate 18 10/06/23 08:06 Respiratory Effort Normal, Non-Labored 10/06/23 08:32 Blood Pressure 127/88 10/06/23 08:06 Blood Pressure Position Sitting 10/06/23 08:06 Pulse Oximetry 98 10/06/23 08:06 Oxygen Delivery Method Room Air 10/06/23 08:06 Oxygen Flow Rate 0 10/06/23 08:06 Pain Level 5 10/06/23 08:06 Medical Decision Making Emergent evaluation of acute on chronic right knee pain. No trauma associated with worsening of the pain. I did review his medical record and noted that his DORINDA and rheumatoid factor are significantly elevated indicating that this is likely some sort of inflammatory arthritis. The patient does have joint changes in his hands that would be consistent with that as well. I do not feel that there is any evidence of acute infectious etiology there is no joint redness or warmth and he is able to have range of motion and bear weight so I doubt a septic arthritis. X-ray was obtained and this did not reveal an acute etiology. Given that the patient does have an effusion, I suspect an inflammatory arthritis contributing to his symptoms. He has been referred to rheumatology at [facility] [place], but this may take quite some time for his appointment to be scheduled. I will prescribe a Medrol Dosepak for this acute inflammation but the patient would likely benefit from ongoing immunotherapy. I have advised him that he should follow-up with his PCP as he may be able to get started on treatment before he is able to get into rheumatology clinic. Return precautions advised, pain control regimen reviewed with patient. Quality:SDOH Health Related Social Needs: No Data to Display PFSH All Active Problems Inflammatory arthritis (Acute) Elevated result in multi-biomarker disease activity panel for rheumatoid arthritis (Acute) Swelling of joint, hand, right (Acute) Complex tear of medial meniscus of right knee (Acute) Knee pain, right (Acute) Asthma (Chronic) Perennial allergic rhinitis (Acute) Impingement syndrome of right shoulder (Acute) Bursitis of right shoulder (Acute) Reflex sympathetic dystrophy (Acute) Forearm pain (Acute) left wrist pain Tendonitis of long head of biceps brachii of right shoulder (Acute) Rotator cuff tear, right (Acute) Right shoulder pain (Acute) Arthralgia (Acute) Pain, joint, shoulder, right (Acute) High blood pressure (Chronic) Malignant neoplasm prostate (Acute 09/20/10) [facility]ESP[address] ([facility]) recurrent 03/07 Medical History Psoriasis Malignant neoplasm prostate Sciatica Surgical History History of back surgery 2 broken discs History of surgery on arm History of knee surgery History of surgery on wrist History of hernia repair Testicular Steroid Injection Pain [facility];Lumbar epidural steroid injection;04/04/17 Social History Smoking/Tobacco Use Status: Former Tobacco Use Tobacco: How many years used: 20 Smoking risk assessment performed?: Yes Alcohol Intake: former Drug use: Never Substance use type: does not use Caregiver/Support person: No Housing: house Communication Needs: Corrective Lenses Do you need help understanding health information?: Rarely Pets and animals: Yes Pets and animals: dog(s) Sexually active: No Do you think of yourself as: straight/heterosexual Current gender identity: female What is your relationship status?: How often do you talk on the phone with friends or family?: three or more times per week How often do you get together with friends or relatives?: once per week How often do you attend judaism or caodaism services?: decline to answer Do you belong to any clubs or organized social groups?: no Panel score (0-1 are the most socially isolated patients): 1 What type of physical activity do you participate in: other Details: active on job Honey/Orthodoxy: No preference Special honey needs: No Seatbelt use: always Helmet use: Yes Helmet use: always 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
== END 2023-10-06 09:21 | disposition home or self-care (01) ==
LOC: ER 09:11
PROVIDERS: Emergency Provider Emergency Medicine; PCP Nurse Practitioner Family
DX: M17.11 Unilateral primary osteoarthritis, right knee (principal)
CPT/HCPCS: 99283; 99284

== ENCOUNTER 2023-11-08 01:49 | Outpatient (CLI) | payer BC, SELFPAY ==
[2023-11-08 16:33] LABS: Abs Immature Grans 0.01 10^3/uL (0.0-0.06); Absolute Basophil Count 0.03 10^3/uL (0.0-0.2); Absolute Eosinophil Count 0.02 10^3/uL (0.0-0.7); Absolute Monocyte Count 0.49 10^3/uL (0.1-0.8); Basophils % 0.8 %; Eosinophils % 0.5 %; HCT 42.3 % (40.0-50.0); HGB 13.8 g/dL (13.5-17.5); Immature Grans % 0.3 %; Lymphocytes % 25.3 %; MCH 26.8 pg (27.0-33.0); MCHC 32.6 % (32.0-36.0); MCV 82 fL (80-95); Monocytes % 12.4 %; Neutrophils % 60.7 %; Platelet Count 191 10^3/uL (130-400); RBC 5.14 10^6/uL (4.36-5.78); RDW 14.3 % (11.8-14.1); RDW-SD 42.8 fL; WBC 3.95 10^3/uL (4.4-10.8)
[2023-11-08 17:31] LABS: ALT 21 U/L (16-63); AST 14 U/L (15-37); Albumin 3.3 g/dL (3.4-5.0); Alkaline Phosphatase 76 U/L (46-116); Anion Gap 8.6 mmol/L (3-11); BUN 14 mg/dL (7-18); Bilirubin, Total 0.24 mg/dL (0.2-1.0); CO2 25.4 mmol/L (21.0-32.0); CREATININE 1.3 mg/dL (0.70-1.30); Calcium 8.7 mg/dL (8.5-10.1); Chloride 103 mmol/L (98-107); Estimated GFR 60.96 (mL/min/1.73m2); Glucose 106 mg/dL (74-106); Potassium 3.7 mmol/L (3.5-5.1); Sodium 137 mmol/L (136-145); Total Protein 7.5 g/dL (6.4-8.2)
[2023-11-12 15:40] LABS: PSA, Ultrasensitive 0.42 ng/mL (<= 4.5)
== END 2023-11-08 01:50 | disposition home or self-care (01) ==
LOC: LBO 01:49
PROVIDERS: PCP Nurse Practitioner Family; Visit Provider Internal Medicine
DX: C61 Malignant neoplasm of prostate (principal)
CPT/HCPCS: 36415; 80053; 84153; 85025

== ENCOUNTER 2023-11-22 00:54 | Outpatient (CLI) | payer BC, SELFPAY ==
--- NOTE | 2023-11-22 | DI.RAD_ITS ---
Exam(s) XR CHEST 2V PA LATERAL EXAM: XR CHEST 2V PA LATERAL CLINICAL HISTORY: ? HILAR ADENOPATHY,? ILD,RHEUMATOID ARTHRITIS TECHNIQUE: 2D digital imaging was performed of the chest. Two images were obtained. PA and lateral views were obtained. COMPARISON: CR,XR XR PORTABLE CHEST AP from 03/27/2022 FINDINGS: MEDIASTINUM: Normal. HEART: Normal. PULMONARY VASCULATURE: Normal. LUNGS: Clear. No focal consolidating infiltrates. No interstitial disease is seen on this examinati on. If there is continued concern, high-resolution CT scan should be considered. PLEURAL SPACE: No pleural effusion or pneumothorax. BONE:Within normal limits for the patient's age. OTHER FINDINGS:Normal. IMPRESSION: No acute pulmonary findings. DATA REPOSITORY: RADIATION DOSE DELIVERED:
== END 2023-11-22 01:14 ==
LOC: DI 00:54
PROVIDERS: PCP Nurse Practitioner Family; Visit Provider Student in an Organized Health Care Education/Training Program
DX: R91.8 Other nonspecific abnormal finding of lung field (principal)
CPT/HCPCS: 71046

== ENCOUNTER 2024-01-19 17:23 | Inpatient (IN) | payer BC, SELFPAY ==
[2024-01-19] VITALS (36 sets, daily range): BP systolic 108–142; BP diastolic 45–103; PULSE 82–118; RESP 14–29; TEMP 36.7–37.1; O2SAT 89–100
--- NOTE | 2024-01-19 17:29 | W.ED.GENAD ---
Discharge Plan Discharge Details Chief Complaint: Abd Prob Primary Care Provider: Duglas Burton ED Provider: Joséu Shi Home Meds and New Rx's Prescriptions: No Action acetaminophen [Tylenol] 325 mg capsule 650 mg PO DAILY PRN ipratropium-albuterol 0.5 mg-3 mg(2.5 mg base)/3 mL solution for nebulization 3 ml inhalation QID PRN (Reason: wheezing) Qty: 180 12RF Otezla 30 mg tablet 30 mg PO BID albuterol sulfate 90 mcg/actuation HFA aerosol inhaler 2 puff inhalation Q4H PRN (Reason: shortness of breath or wheezing) Qty: 6.7 12RF budesonide-formoterol [Symbicort] 80-4.5 mcg/actuation HFA aerosol inhaler 2 puff inhalation BID Qty: 10.2 6RF Nucala 100 mg/mL auto-injector 100 mg subcut Q4W Qty: 1 6RF lidocaine [Lidoderm] 5 % adhesive patch,medicated 1 patch Topical Q24H Qty: 15 0RF Inhaler, Assist Devices [Pocket Chamber] 1 ea miscellaneous DIRECTED Qty: 0 0RF multivitamin Tablet 1 tab PO DAILY melatonin 5 mg Tablet 10 mg PO HS PRN methotrexate sodium 2.5 mg tablet 2.5 mg PO ONCE Patient Comments: TAKE 4 TABLETS (10MG) ONCE WEEKLY FOR 4 WEEKS. THEN INCREASE TO 6 TABLETS (15MG) ONCE WEEKLY folic acid 1 mg tablet 1 mg PO DAILY Patient Comments: TAKE ONE TABLET BY MOUTH EVERY DAY HPI General Mode of arrival: ambulatory. Date/Time Provider Initiated Documentation: 01/19/24 17:29. Limitations to Documentation: no limitations. Information obtained by: patient, RN notes reviewed and old records reviewed. HPI Narrative: Patient presents to ED with complaint of abdominal pain. Patient reports that he began to experience some abdominal discomfort on . Pain has progressively become worse and is now constant. It is mostly in the upper abdomen. He has pain with attempted movement, cough. He has had some mild nausea but no vomiting. He reports soft stool which he describes as diarrhea but not liquidy and not bloody. No fever that he is aware of. No chest pain or shortness of breath. No real appetite for the last couple of days. No radiation of pain into his back. Related Data Home Medications ?Medication ?Instructions ?Recorded ?Confirmed apremilast 30 mg tablet (Otezla) 30 mg PO BID 01/23/19 01/19/24 acetaminophen 325 mg capsule 650 mg PO DAILY PRN 09/13/20 01/19/24 (Tylenol) Inhaler, Assist Devices [Pocket 1 ea miscellaneous DIRECTED ##0 10/08/20 01/19/24 Chamber] multivitamin 1 tab PO DAILY 11/23/20 01/19/24 melatonin 5 mg tablet 10 mg PO HS PRN 10/04/21 01/19/24 ipratropium 0.5 mg-albuterol 3 mg 3 ml inhalation QID PRN wheezing 05/28/22 01/19/24 (2.5 mg base)/3 mL nebulization #180 mL soln mepolizumab 100 mg/mL subcutaneous 100 mg subcut Q4W #1 mL 07/02/23 01/19/24 auto-injector (Nucala) lidocaine 5 % topical patch 1 patch topical Q24H #15 ea 07/04/23 01/19/24 (Lidoderm) albuterol sulfate 90 mcg/actuation 2 puff inhalation Q4H PRN 01/02/24 01/19/24 aerosol inhaler shortness of breath or wheezing #6.7 grams budesonide-formoterol HFA 80 2 puff inhalation BID #10.2 grams 01/02/24 01/19/24 mcg-4.5 mcg/actuation aerosol inhaler (Symbicort) folic acid 1 mg tablet 1 mg PO DAILY 01/19/24 01/19/24 methotrexate sodium 2.5 mg tablet 2.5 mg PO ONCE 01/19/24 01/19/24 Previous Rx's ?Medication ?Instructions ?Recorded Inhaler, Assist Devices [Pocket 1 ea miscellaneous DIRECTED ##0 10/08/20 Chamber] ipratropium 0.5 mg-albuterol 3 mg 3 ml inhalation QID PRN wheezing 05/28/22 (2.5 mg base)/3 mL nebulization #180 mL soln mepolizumab 100 mg/mL subcutaneous 100 mg subcut Q4W #1 mL 07/02/23 auto-injector (Nucala) lidocaine 5 % topical patch 1 patch topical Q24H #15 ea 05/16/24 (Lidoderm) albuterol sulfate 90 mcg/actuation 2 puff inhalation Q4H PRN 01/02/24 aerosol inhaler shortness of breath or wheezing #6.7 grams budesonide-formoterol HFA 80 2 puff inhalation BID #10.2 grams 01/02/24 mcg-4.5 mcg/actuation aerosol inhaler (Symbicort) Allergies Allergy/AdvReac Type Severity Reaction Status Date / Time Iodinated Contrast Media Allergy Severe Anaphylaxsi Verified 01/19/24 17:43 (Iodinated Contrast Media - s IV Dye) shellfish derived Allergy Severe Anaphylaxsi Verified 01/19/24 17:43 s Sulfa (Sulfonamide Allergy Intermediate Skin Rash Verified 01/19/24 17:43 Antibiotics) General ELISA: 4 Review of Systems Narrative: Per HPI Exam Narrative Exam Narrative: Const: WDWN male appears very uncomfortable. VS per triage. HEENT: NC/AT. Normal facial exam. Neck: Supple. Trachea midline. Lungs: Normal respiratory effort. Lungs are clear. Cor: RRR without murmur. Good radial pulses. GI: Firm tender abdomen, almost rigid in upper abdomen. Neuro: A+O x 3. Normal speech, mentation, gait. Cranial nerves II - XII grossly intact. No gross motor or sensory deficit. Ext: No C/C/E. Medical Decision Making Patient presenting with worsening abdominal pain since [place]. He appears quite uncomfortable. He has a firm tender abdomen throughout and almost rigid in nature in the upper abdomen. Concern for possible perforation, pancreatitis, cholecystitis, choledocholithiasis, other acute abdominal problem. Patient reports allergies to IV contrast. IV established and fluids started. Morphine ordered for pain control. Ondansetron ordered for nausea. Because of my concern for possible perforation he was given ceftriaxone and Flagyl IV. CT scan without contrast ordered. Patient more comfortable with morphine but still in a fair amount of pain. Laboratory studies significant for white count of 10.1 with normal distribution. Chemistries unremarkable. Glucose a little high at 175. Liver function normal. Lipase normal. CT scan shows evidence of acute cholecystitis with gallbladder stones noted, gallbladder wall thickening, pericholecystic fluid, inflammatory changes. Also noted is an enlarged appendix that is fluid-filled and does not appear to have any inflammatory changes. On repeat exam patient is nontender and soft in the lower abdomen. Remains tender and firm in the upper abdomen. Case discussed with surgery Dr. Pop. Patient to be admitted to surgical service, NPO for cholecystectomy tomorrow. Patient aware of diagnosis and plan. Medical Records Medical records reviewed: Yes I reviewed the patient's medical records. Lab Data Lab results reviewed: Yes I reviewed the patient's lab results. Lab results narrative: See MDM ECG Data Attestation: I personally reviewed and interpreted this ECG (s) as follows: Prior ECG tracings: available for review Interpretation: See MDM/EKG PFSH All Active Problems Elevated result in multi-biomarker disease activity panel for rheumatoid arthritis (Acute) Swelling of joint, hand, right (Acute) Complex tear of medial meniscus of right knee (Acute) Knee pain, right (Acute) Perennial allergic rhinitis (Acute) Impingement syndrome of right shoulder (Acute) Bursitis of right shoulder (Acute) Reflex sympathetic dystrophy (Acute) Forearm pain (Acute) left wrist pain Tendonitis of long head of biceps brachii of right shoulder (Acute) Rotator cuff tear, right (Acute) Right shoulder pain (Acute) Arthralgia (Acute) Pain, joint, shoulder, right (Acute) High blood pressure (Chronic) Malignant neoplasm prostate (Acute 09/20/10) [address] ([facility]) recurrent 03/07 Medical History Asthma Rheumatoid arthritis Psoriasis Malignant neoplasm prostate Sciatica Surgical History History of back surgery 2 broken discs History of surgery on arm History of knee surgery History of surgery on wrist History of hernia repair Testicular Steroid Injection [facility];Lumbar epidural steroid injection;04/04/17 Social History Smoking/Tobacco Use Status: Former Tobacco Use Tobacco: How many years used: 20 Smoking risk assessment performed?: Yes Alcohol Intake: former Drug use: Never Substance use type: does not use Caregiver/Support person: No Housing: house Communication Needs: Corrective Lenses Do you need help understanding health information?: Rarely Pets and animals: Yes Pets and animals: dog(s) Sexually active: No Do you think of yourself as: straight/heterosexual Current gender identity: female What is your relationship status?: How often do you talk on the phone with friends or family?: three or more times per week How often do you get together with friends or relatives?: once per week How often do you attend worship or evangelical services?: decline to answer Do you belong to any clubs or organized social groups?: no Panel score (0-1 are the most socially isolated patients): 1 What type of physical activity do you participate in: other Details: active on job Honey/Methodist: No preference Special honey needs: No Seatbelt use: always Helmet use: Yes Helmet use: always Drive 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
--- NOTE | 2024-01-19 17:45 | DI.CT_ITS ---
Exam(s) CT ABDOMEN PELVIS WO EXAM: CT ABDOMEN PELVIS WO CLINICAL HISTORY: abd pain/rigid abdomen. TECHNIQUE: Imaging Protocol: Axial computed tomography images with coronal and sagittal reformatted images were created and reviewed. Oral: no COMPARISON: CT CT CHEST/ABD/PEL WO from 10/04/2021 FINDINGS: Lung Bases: No acute findings. Liver: Normal density. No suspicious mass. Gallbladder and biliary tract: 2 calcified gallstones are noted. Gallbladder wall is thickened and there is mild Jolanta cholecystic fluid as well as edema in the surrounding fat. Findings are consistent with acute cholecystitis. No biliary dilatation. No visible common duct stone. Pancreas: Normal density. No abnormal calcifications or inflammatory process. Spleen: Normal. Kidneys: Normal size, contour and axis. No radiodense stones. No obstructive uropathy. No suspicious masses seen. Adrenal glands: No masses seen. Lymph nodes: Within normal limits. Vasculature: Abdominal aorta non-dilated. Soft tissues: Small fat containing umbilical hernia. Small bilateral fat containing inguinal hernias. Bladder: No wall thickening. No mass or calculi. Bowel: No obstruction or bowel wall thickening. Duodenal diverticula. Colonic diverticula. No eviden ce of diverticulitis. Retrocecal appendix is somewhat dilated however not significantly changed in ap pearance from prior. Peritoneal cavity: No ascites. No focal collection. No mesenteric inflammatory response. Reproductive organs: -metallic densities in prostate. Prostate not enlarged. Bones: Degenerative changes in the lower thoracic and lumbar spine. IMPRESSION: Findings consistent with acute cholecystitis. No biliary dilatation. RADIATION DOSE DELIVERED: 561.87mGy.cm Total DLP DATA REPOSITORY: All CT scans at this facility are submitted to the National Radiology Data Registry (NRDR) Dose Index Registry (DIR) with the [employer] (A[employer]). RADIATION OPTIMIZATION: All CT scans at this facility use at least one of these dose optimization te chniques: automated exposure control; mA and/or kV adjustment per patient size (includes targeted exa ms where dose is matched to clinical indication); or iterative reconstruction.
--- NOTE | 2024-01-19 18:00 | RT.EKG_ITS ---
APPROVED REPORT Exam: Resting ECG Reason for Exam: abd pain Patient Location: E HR:112 bpm ECG Measurements Heart Rate 112 AXIS ND 127 P 59 QRSd 94 QRS 59 QT 310 T -17 QTc 423 Conclusion Sinus tachycardia...rate> 99 Inferior infarct, age indeterminate...Q>35mS, T neg, II III aVF Normal Newton/Interval There are no significant changes compared to prior EKG performed on 03/27/2022 at 16:57.
[2024-01-19] MEDS: MORPHine 10 MG/ML VIAL 4 MG IVP ×4 (18:19→22:48)
[2024-01-19] MEDS: Ondansetron 4 MG/2 ML VIAL IVP (18:19)
[2024-01-19 18:28] LABS: Abs Immature Grans 0.05 10^3/uL (0.0-0.06); Absolute Basophil Count 0.04 10^3/uL (0.0-0.2); Absolute Eosinophil Count 0.02 10^3/uL (0.0-0.7); Absolute Lymphocyte Count 1.27 10^3/uL (1.2-3.4); Absolute Monocyte Count 0.83 10^3/uL (0.1-0.8); Absolute Neutrophil Count 7.89 10^3/uL (1.2-6.7); Basophils % 0.4 %; Eosinophils % 0.2 %; HCT 46.4 % (40.0-50.0); HGB 15.5 g/dL (13.5-17.5); Immature Grans % 0.5 %; Lymphocytes % 12.6 %; MCH 28.4 pg (27.0-33.0); MCHC 33.4 % (32.0-36.0); MCV 85 fL (80-95); MPV 9.4 fL (8.0-11.0); Monocytes % 8.2 %; Neutrophils % 78.1 %; Platelet Count 224 10^3/uL (130-400); RBC 5.46 10^6/uL (4.36-5.78); RDW-SD 45.6 fL
[2024-01-19] MEDS: cefTRIAXone 1 GM/50 ML BAG IVPB (18:28)
[2024-01-19] MEDS: metroNIDAZOLE 500 MG/100 ML BAG 100 MG IVPB (18:35)
[2024-01-19] MEDS: Normal Saline 1,000 ML 1000 ML IV (18:36)
[2024-01-19 18:50] LABS: ALT 35 U/L (16-63); AST 19 U/L (15-37); Albumin 3.3 g/dL (3.4-5.0); Alkaline Phosphatase 92 U/L (46-116); Anion Gap 9.1 mmol/L (3-11); BUN 23 mg/dL (7-18); Bilirubin, Total 0.59 mg/dL (0.2-1.0); CO2 27.9 mmol/L (21.0-32.0); CREATININE 1.3 mg/dL (0.70-1.30); Chloride 102 mmol/L (98-107); Estimated GFR 60.96 (mL/min/1.73m2); Glucose 175 mg/dL (74-106); Lipase 64 U/L (<78); Potassium 3.9 mmol/L (3.5-5.1); Sodium 139 mmol/L (136-145)
--- NOTE | 2024-01-19 20:14 | DI.VRAD_ITS ---
PROCEDURE INFORMATION: Exam: CT Abdomen And Pelvis Without Contrast Exam date and time: 01/19/2024 6:58 PM Age: 63 years old Clinical indication: Abdominal pain; Patient HX: Abd pain/rigid abdomen TECHNIQUE: Imaging protocol: Computed tomography of the abdomen and pelvis without contrast. COMPARISON: CT CHEST/ABD/PEL WO 10/04/2021 8:51 AM FINDINGS: Lungs: Streaky and reticular opacities at the lung bases. Atelectasis suspected primarily given other findings. Diaphragm: Small hiatal hernia. Liver: Grossly unremarkable unenhanced liver. Gallbladder and biliary ducts: Prominent gallbladder distension with peripherally calcified polygonal gallstones, gallbladder wall thickening, and pericholecystic fat stranding in keeping with acute cholecystitis. Within the limits of visualization, no gross intrahepatic or extrahepatic biliary dilatation. Pancreas: Grossly unremarkable unenhanced pancreas. Spleen: Grossly unremarkable unenhanced spleen. Adrenal glands: Normal appearing adrenal glands. Kidneys and ureters: Grossly unremarkable unenhanced kidneys. No radiopaque urinary tract stones, hydronephrosis, or evidence of recent stone passage. Stomach and bowel: Stomach partially decompressed. Duodenal diverticula incidentally noted. No small bowel dilatation to suggest obstruction. Scattered colonic diverticula but no evidence of diverticulitis or colitis. Appendix: Retrocecal appendix, largely fluid-filled and partially dilated to a maximum transverse dimension of 10 mm. No surrounding inflammatory change. Intraperitoneal space: Probable trace fluid in the right upper quadrant. No free air. Vasculature: No abdominal aortic aneurysm. Lymph nodes: No pathologically enlarged mesenteric, retroperitoneal, or pelvic sidewall lymph nodes. Urinary bladder: Normal appearing urinary bladder. Reproductive: Normal-sized prostate gland with metallic density bars, image 36 of series 4, suspicious for brachytherapy material although clinical correlation is recommended. Normal-appearing seminal vesicles. Bones/joints: No acute fracture seen among the bones of the abdomen or pelvis. Spinal degenerative change with discogenic degeneration, Schmorl's nodes, vacuum disc deformities, and marginal osteophytes at multiple levels. Congenital lumbar stenosis. Multilevel central canal narrowing and neural foraminal narrowing. Soft tissues: Small fat containing ventral hernia at the umbilicus. Small fat containing bilateral inguinal region hernias, larger on the left. IMPRESSION: 1. Severe acute cholecystitis. Surgery consultation recommended. 2. Retrocecal appendix partially dilated to 10 mm. No surrounding inflammatory change. Early or mild appendicitis could have this appearance although clinical correlation is recommended as the imaging appearance is borderline. Dictated and Authenticated by: Phani Maloney MD. Ordering:VALENTE Moses MD
--- NOTE | 2024-01-19 21:03 | W.SURGCON ---
Date of service: 01/19/24 Time of Service: 21:04 Assessment and Plan Assessment and plan (1) Acute cholecystitis: Status: Acute Assessment and plan: 63-year-old man with acute cholecystitis by CT scan. Lab work normal and probably tolerating a few days of illness secondary to immunosuppression would be my best guess. Immunosuppression medications to placement somewhat of a higher?risk overall but the management remains the same. Overall plan: Admission N.p.o. IV antibiotics laparoscopic cholecystectomy tomorrow History of Present Illness Narrative: The patient is reportedly a 63-year-old man who has been feeling unwell for about the last 3 days. He is on immunosuppression medications as well as methotrexate. CT scan was done in the ER provider which showed acute cholecystitis. He has had some ER visits this past year for abdominal pain. On at least 1 of those visits his LFTs are somewhat elevated. This time his LFTs are within normal limits. PFSH All Active Problems (Updated 01/19/24 @ 21:38 by Chris Pop MD) Acute cholecystitis (Acute) Elevated result in multi-biomarker disease activity panel for rheumatoid arthritis (Acute) Swelling of joint, hand, right (Acute) Complex tear of medial meniscus of right knee (Acute) Knee pain, right (Acute) Perennial allergic rhinitis (Acute) Impingement syndrome of right shoulder (Acute) Bursitis of right shoulder (Acute) Reflex sympathetic dystrophy (Acute) Forearm pain (Acute) left wrist pain Tendonitis of long head of biceps brachii of right shoulder (Acute) Rotator cuff tear, right (Acute) Right shoulder pain (Acute) Arthralgia (Acute) Pain, joint, shoulder, right (Acute) High blood pressure (Chronic) Malignant neoplasm prostate (Acute 09/20/10) [address] ([facility]) recurrent 03/07 Medical History Asthma Rheumatoid arthritis Psoriasis Malignant neoplasm prostate Sciatica Surgical History History of back surgery 2 broken discs History of surgery on arm History of knee surgery History of surgery on wrist History of hernia repair Testicular Steroid Injection [facility];Lumbar epidural steroid injection;04/04/17 Social History Smoking/Tobacco Use Status: Former Tobacco Use Tobacco: How many years used: 20 Smoking risk assessment performed?: Yes Alcohol Intake: former Drug use: Never Substance use type: does not use Caregiver/Support person: No Housing: house Communication Needs: Corrective Lenses Do you need help understanding health information?: Rarely Pets and animals: Yes Pets and animals: dog(s) Sexually active: No Do you think of yourself as: straight/heterosexual Current gender identity: female What is your relationship status?: How often do you talk on the phone with friends or family?: three or more times per week How often do you get together with friends or relatives?: once per week How often do you attend amish or sikh services?: decline to answer Do you belong to any clubs or organized social groups?: no Panel score (0-1 are the most socially isolated patients): 1 What type of physical activity do you participate in: other Details: active on job Honey/Voodoo: No preference Special honey needs: No Seatbelt use: always Helmet use: Yes Helmet use: always Drive 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 water taxi driver: No Do you feel safe at home: Yes Do you feel safe in your relationship?: Yes Exam Narrative Exam Narrative: Reportedly hemodynamically stable and with a soft, though tender abdominal exam. The tenderness is focused in the upper abdomen. Results Last Vital Signs Temp 98.1 F 01/19/24 17:36 Pulse 82 01/19/24 20:01 Resp 18 01/19/24 20:10 BP 108/55 L 01/19/24 20:01 Pulse Ox 96 01/19/24 20:10 Labs 01/19/24 18:16 01/19/24 18:16 Labs: Laboratory Results - last 24 hr 01/19/24 18:16 WBC 10.10 RBC 5.46 Hgb 15.5 Hct 46.4 MCV 85 MCH 28.4 MCHC 33.4 RDW 15.0 H Plt Count 224 MPV 9.4 Immature Gran % 0.5 Neutrophils % 78.1 Lymphocytes % 12.6 Monocytes % 8.2 Eosinophils % 0.2 Basophils % 0.4 Nucleated RBC % 0.0 Absolute Neutrophils 7.89 H Absolute Lymphocytes 1.27 Absolute Monocytes 0.83 H Absolute Eosinophils 0.02 Absolute Basophils 0.04 Sodium 139 Potassium 3.9 Chloride 102 Carbon Dioxide 27.9 Anion Gap 9.1 BUN 23 H Creatinine 1.3 Est GFR (CKD-EPI 2020) 60.96 Glucose 175 H Calcium 10.0 Total Bilirubin 0.59 AST 19 ALT 35 Alkaline Phosphatase 92 Total Protein 8.0 Albumin 3.3 L Lipase 64
[2024-01-19] MEDS: PIPERACILLIN/TAZO 3.375 GM in Normal Saline 50 ML IVPB (21:33)
[2024-01-19] MEDS: Heparin 5,000 UNITS/ML VIAL 5000 UNITS SC (21:34)
[2024-01-19] MEDS: Ketorolac 15 MG/ML VIAL IVP (21:34)
[2024-01-19] MEDS: ACETAMINOPHEN 1,000 MG/100 ML BAG 400 MG IVPB (21:38)
--- NOTE | 2024-01-19 21:54 | W.PC.ACHO ---
Registration Status: Primary Language: Preferred Language: ED Information & Data Chief Complaint Abd Prob 01/19/24 17:42 Chief Complaint Abd Prob 01/19/24 17:36 Triage Note Pt c/o RUQ/LUQ pain that 01/19/24 17:36 started on . Pt states he was 'just sitting in his chair after having Thanksgiving dinner'. Denies fever, chills, cough, n/v but states he has diarrhea. Denies CP/SOB. Pt unable to elaborate stating 'it hurts to talk'. Pt took 1000mg tylenol at 0900 this morning. Last BM today - diarrhea. Pt states his diarrhea is chronic. Medical / Surgical History (Last Reviewed 01/19/24 @ 20:32 by Josué Shi MD) Asthma Rheumatoid arthritis Psoriasis Malignant neoplasm prostate Sciatica (Last Reviewed 01/19/24 @ 20:32 by Josué Shi MD) History of back surgery History of surgery on arm History of knee surgery History of surgery on wrist History of hernia repair Steroid Injection Most Recent Vital Signs Temperature 36.7 C 01/19/24 17:36 Temperature Source Oral 01/19/24 17:36 Pulse 82 01/19/24 20:01 Pulse 86 01/19/24 20:10 Respiratory Rate 18 01/19/24 20:10 Respiratory Effort Normal 01/19/24 17:42 Blood Pressure 108/55 L 01/19/24 20:01 Blood Pressure Mean 68 01/19/24 20:01 Blood Pressure Position Sitting 01/19/24 17:36 Pulse Oximetry 96 01/19/24 20:10 Oxygen Delivery Method Room Air 01/19/24 17:36 Oxygen Flow Rate 0 01/19/24 17:36 Pain Level 7 01/19/24 21:34 Allergies Iodinated Contrast Media (Iodinated Contrast Media - IV Dye) Allergy (Severe, Verified 01/19/24 17:43) Anaphylaxsis shellfish derived Allergy (Severe, Verified 01/19/24 17:43) Anaphylaxsis Sulfa (Sulfonamide Antibiotics) Allergy (Intermediate, Verified 01/19/24 17:43) Skin Rash Active Medications Generic Name Dose Route Start Last Admin Trade Name Freq PRN Reason Stop Dose Admin Heparin Sodium (Porcine) 5,000 units 01/19/24 21:15 01/19/24 21:34 Heparin 5,000 Units/Ml Vial SC 5,000 units Q8H JABIER Administration Piperacillin Sod/Tazobactam 50 mls @ 100 mls/hr 01/19/24 21:15 01/19/24 21:39 Sod 3.375 gm/ Sodium Chloride IVPB Infused Q6H JABIER Infusion Acetaminophen 1,000 mg in 100 mls @ 400 mls/hr 01/19/24 21:10 01/19/24 21:38 Ofirmev IVPB 400 mls/hr Q6H PRN Administration Ketorolac Tromethamine 15 mg 01/19/24 21:10 01/19/24 21:34 Ketorolac 15 Mg/Ml Vial IVP 01/24/24 21:09 15 mg Q8H PRN PRN Administration Morphine Sulfate 4 mg 01/19/24 17:54 01/19/24 20:21 Morphine 10 Mg/Ml Vial IVP 4 mg Q30M PRN Administration Moderate to Severe Pain IV IV Catheter Type [Left Peripheral IV Antecubital] IV Catheter Gauge [Left 18 Antecubital] Diet Orders Category Date Time Status Nothing Per Oral [DIET] Nutrition 01/19/24 Dinner Active Diagnostics 01/19/24 Range/Units 18:16 WBC 10.10 (4.4-10.8) 10^3/uL RBC 5.46 (4.36-5.78) 10^6/uL Hgb 15.5 (13.5-17.5) g/dL Hct 46.4 (40.0-50.0) % MCV 85 (80-95) fL MCH 28.4 (27.0-33.0) pg MCHC 33.4 (32.0-36.0) % RDW 15.0 H (11.8-14.1) % Plt Count 224 (130-400) 10^3/uL MPV 9.4 (8.0-11.0) fL Immature Gran % 0.5 % Neutrophils % 78.1 % Lymphocytes % 12.6 % Monocytes % 8.2 % Eosinophils % 0.2 % Basophils % 0.4 % Nucleated RBC % 0.0 (0.0-0.3) % Absolute Neutrophils 7.89 H (1.2-6.7) 10^3/uL Absolute Lymphocytes 1.27 (1.2-3.4) 10^3/uL Absolute Monocytes 0.83 H (0.1-0.8) 10^3/uL Absolute Eosinophils 0.02 (0.0-0.7) 10^3/uL Absolute Basophils 0.04 (0.0-0.2) 10^3/uL Sodium 139 (136-145) mmol/L Potassium 3.9 (3.5-5.1) mmol/L Chloride 102 (98-107) mmol/L Carbon Dioxide 27.9 (21.0-32.0) mmol/L Anion Gap 9.1 (3-11) mmol/L BUN 23 H (7-18) mg/dL Creatinine 1.3 (0.70-1.30) mg/dL Est GFR (CKD-EPI 2020) 60.96 (mL/min/1.73m2) Glucose 175 H (74-106) mg/dL Calcium 10.0 (8.5-10.1) mg/dL Total Bilirubin 0.59 (0.2-1.0) mg/dL AST 19 (15-37) U/L ALT 35 (16-63) U/L Alkaline Phosphatase 92 (46-116) U/L Total Protein 8.0 (6.4-8.2) g/dL Albumin 3.3 L (3.4-5.0) g/dL Lipase 64 (<78) U/L Intake and Output - 24 Hour Total 01/19/24 17:23 thru 01/19/24 21:39 Intake Total 1200 Balance 1200 Weight 86.183 kg Intake: IV 1200 Falls Risk Assessment History of Falls No History 01/19/24 17:42 Contributing Factors No Factors 01/19/24 17:42 Ambulatory Aids Independent 01/19/24 17:42 Tubes/Lines None 01/19/24 17:42 Gait Evaluation No gait disturbance 01/19/24 17:42 Cognition No cognitive impairment 01/19/24 17:42 Fall Total Score 0 01/19/24 17:42 Level of Risk Standard/Low Risk 01/19/24 17:42 Problems (Last Reviewed 01/19/24 @ 20:32 by Josué Shi MD) Acute cholecystitis (Acute) v v v v v v v v v Sending and/or Receiving Nurses: Please use comment section below to note any information pertinent to the patient hand-off not included above. Information / Comments: Report received from:Waqar Palacios RN Pt admitted after 4 day history of upper gastric pain. Has had nausea but no vomiting. CT without contrast was given with results showing multiple gallstones. He is being admitted by the surgical service. He will remain NPO for surgery. Pain has been controlled in the ED with morphine.
[2024-01-19] MEDS: Lactated Ringers 1,000 ML 135 ML IV (22:46)
[2024-01-19] MEDS: Normal Saline Flush 10 ML SYR IVP (23:00)
[2024-01-20] VITALS (34 sets, daily range): BP systolic 92–131; BP diastolic 47–75; PULSE 61–93; RESP 8–24; TEMP 36.5–37.2; O2SAT 93–99; BMI 28.2
[2024-01-20] MEDS: PIPERACILLIN/TAZO 3.375 GM in Normal Saline 50 ML IVPB ×4 (03:49→21:27)
[2024-01-20] MEDS: MORPHine 2 MG/ML SYR IVP ×2 (04:12→08:21)
[2024-01-20] MEDS: Normal Saline Flush 10 ML SYR IVP ×7 (04:14→22:05)
[2024-01-20] MEDS: Heparin 5,000 UNITS/ML VIAL 5000 UNITS SC ×2 (04:18→21:30)
[2024-01-20] MEDS: Lactated Ringers 1,000 ML 135 ML IV ×2 (05:51→13:03)
[2024-01-20 06:26] LABS: BUN 25 mg/dL (7-18); CREATININE 1.4 mg/dL (0.70-1.30); Calcium 8.6 mg/dL (8.5-10.1); Chloride 106 mmol/L (98-107); Estimated GFR 55.78 (mL/min/1.73m2); Glucose 99 mg/dL (74-106); Sodium 141 mmol/L (136-145)
--- NOTE | 2024-01-20 08:18 | W.PM.PROGNOT ---
Date of Service Date of service: 01/20/24 Time of Service: 08:18 Assessment and Plan Assessment and plan (1) Acute cholecystitis: Status: Acute Assessment and plan: 63-year-old man with acute cholecystitis in the setting of immunosuppression. He is hemodynamically stable. His abdominal exam seems pretty tender but a lot of this is voluntary guarding. Even with deep breathing he splints and guards. In any event, I recommend cholecystectomy. We had a detailed discussion about gallbladder purpose and surgical removal. We talked about immunosuppression and the role placed both in the pathogenesis of his existing disease as well as the possibility of postop and perioperative complications. In particular he is at increased risk for wound complications, bile leak and other issues related to healing. He understands the risks but also the indications and the likely benefits of the procedure and wishes to proceed. Overall plan: Laparoscopic cholecystectomy I will probably keep him for an additional night of observation to stay on antibiotic therapy because of the immunosuppression. Subjective Subjective Interval history since last seen: No overnight events. At the bedside his abdomen is still his complaint. He endorses 4 days of this since Thanksgi. Since it is not getting better he came in for evaluation. When he takes deep breaths it hurts worse. Exam Narrative Exam Narrative: Gen: Non-toxic, comfortable and interactive. Despite his subjective complaints, he does not appear to be in significant pain. Neuro: Alert and oriented x3 Psych: Good mood and affect. Reasonable insight and understanding into condition. Chest: Non-labored breathing, no wheezing, no visible shortness of breath. Heart: Regular Abdomen: Diffuse tenderness in the epigastric and upper quadrant regions. The bilateral lower quadrants are soft and nontender. No peritoneal signs but guards to any examination. Objective Last Vital Signs Temp 97.7 F 01/20/24 07:53 Pulse 65 01/20/24 07:53 Resp 18 01/20/24 07:53 BP 111/63 01/20/24 07:53 Pulse Ox 97 01/20/24 07:53 Laboratory Results - last 24 hr 01/19/24 01/20/24 18:16 06:03 WBC 10.10 RBC 5.46 Hgb 15.5 Hct 46.4 MCV 85 MCH 28.4 MCHC 33.4 RDW 15.0 H Plt Count 224 MPV 9.4 Immature Gran % 0.5 Neutrophils % 78.1 Lymphocytes % 12.6 Monocytes % 8.2 Eosinophils % 0.2 Basophils % 0.4 Nucleated RBC % 0.0 Absolute Neutrophils 7.89 H Absolute Lymphocytes 1.27 Absolute Monocytes 0.83 H Absolute Eosinophils 0.02 Absolute Basophils 0.04 Sodium 139 141 Potassium 3.9 4.0 Chloride 102 106 Carbon Dioxide 27.9 27.0 Anion Gap 9.1 8.0 BUN 23 H 25 H Creatinine 1.3 1.4 H Est GFR (CKD-EPI 2020) 60.96 55.78 Glucose 175 H 99 Calcium 10.0 8.6 Total Bilirubin 0.59 AST 19 ALT 35 Alkaline Phosphatase 92 Total Protein 8.0 Albumin 3.3 L Lipase 64 Time Spent with Patient Time Spent with Patient: 25-34 minutes Time was spent: preparing to see the patient(eg.review tests), obtaining and/or reviewing separately otained hiistory, ordering medications,tests, procedures, indepentently interpreting results, counseling the patient and care coordination
--- NOTE | 2024-01-20 09:14 | W.ANESPOSTOP ---
Postoperative Evaluation Date, Time and Location Date Performed: 01/20/24 Time Performed: 09:10 Patient Location: Day Surgery Unit Vital Signs Most Recent Imported Vital Signs: Most Recent Vital Signs Temp Pulse Resp BP Pulse Ox 36.5 C 65 18 111/63 97 01/20/24 07:53 01/20/24 07:53 01/20/24 07:53 01/20/24 07:53 01/20/24 07:53 Pain Score Most Recent Pain Score: Most Recent Pain Score Pain Level 8 01/20/24 08:21 Assessment Mental Status: Awake (Alert & Oriented to Patient Baseline) Airway and Respiratory Function: Patent airway with normal (patient baseline) respiratory exam Cardiovascular Function: Hemodynamically Stable Hydration Status: Adequately Hydrated Nausea & Vomiting: No Nausea or Vomiting Pain: Pt. Denies Any Pain Peripheral Nerve Block: Patient did not receive a nerve block
--- NOTE | 2024-01-20 11:08 | ANES.PREOP_ITS ---
General Info Date of Service Date Performed: 01/20/24 Height: 5 ft 9 in Weight: 86.636 kg Body Mass Index (BMI): 28.2 Surgical Procedure: Operation Date: 01/20/24 11:40 Proposed Procedure Side Surgeon p Cholecystectomy Laparoscopic Chris Pop MD Actual Procedure Side Surgeon p Cholecystectomy Laparoscopic Not Applicable Chris Pop MD Pre-Op Diagnosis Post-Op Diagnosis Acute cholecystitis Acute cholecystitis Meds Allergies and Home Medications Allergies Allergy/AdvReac Type Severity Reaction Status Date / Time Iodinated Contrast Media Allergy Severe Anaphylaxsi Verified 01/19/24 17:43 (Iodinated Contrast Media - s IV Dye) shellfish derived Allergy Severe Anaphylaxsi Verified 01/19/24 17:43 s Sulfa (Sulfonamide Allergy Intermediate Skin Rash Verified 01/19/24 17:43 Antibiotics) Home Medication ?Medication ?Instructions ?Recorded apremilast 30 mg tablet (Otezla) 30 mg PO BID 01/23/19 acetaminophen 325 mg capsule 650 mg PO DAILY PRN 09/13/20 (Tylenol) Inhaler, Assist Devices [Pocket 1 ea miscellaneous DIRECTED ##0 10/08/20 Chamber] multivitamin 1 tab PO DAILY 11/23/20 melatonin 5 mg tablet 10 mg PO HS PRN 10/04/21 ipratropium 0.5 mg-albuterol 3 mg 3 ml inhalation QID PRN wheezing 05/28/22 (2.5 mg base)/3 mL nebulization #180 mL soln mepolizumab 100 mg/mL subcutaneous 100 mg subcut Q4W #1 mL 07/02/23 auto-injector (Nucala) lidocaine 5 % topical patch 1 patch topical Q24H #15 ea 07/04/23 (Lidoderm) albuterol sulfate 90 mcg/actuation 2 puff inhalation Q4H PRN 01/02/24 aerosol inhaler shortness of breath or wheezing #6.7 grams budesonide-formoterol HFA 80 2 puff inhalation BID #10.2 grams 01/02/24 mcg-4.5 mcg/actuation aerosol inhaler (Symbicort) folic acid 1 mg tablet 1 mg PO DAILY 01/19/24 methotrexate sodium 2.5 mg tablet 2.5 mg PO ONCE 01/19/24 Current Visit Medications: Current Medications Generic Name Dose Route Start Last Admin Trade Name Freq PRN Reason Stop Dose Admin Heparin Sodium (Porcine) 5,000 units 01/20/24 12:00 Heparin 5,000 Units/Ml Vial SC Q8H [facility] Ringer's Solution 1,000 mls @ 135 mls/hr 01/19/24 21:15 01/20/24 09:42 IV 135 mls/hr INFUSION [facility] Infusion Acetaminophen 1,000 mg in 100 mls @ 400 mls/hr 01/20/24 09:24 Ofirmev IVPB Q6H PRN PRN Piperacillin Sod/Tazobactam 50 mls @ 100 mls/hr 01/20/24 14:00 Sod 3.375 gm/ Sodium Chloride IVPB Q6H [facility] IV Miscellaneous Supplies 1 each 01/19/24 20:30 Iv Access-Emergency Dept IV DIRECTED [facility] Ketorolac Tromethamine 15 mg 01/19/24 21:10 01/19/24 21:34 Ketorolac 15 Mg/Ml Vial IVP 01/24/24 21:09 15 mg Q8H PRN PRN Administration Morphine Sulfate 4 mg 01/19/24 17:54 01/19/24 22:48 Morphine 10 Mg/Ml Vial IVP 4 mg Q30M PRN Administration Moderate to Severe Pain Morphine Sulfate 2 mg 01/19/24 21:03 01/20/24 08:21 Morphine 2 Mg/Ml Syr IVP 2 mg Q2H PRN Administration Ondansetron HCl 4 mg 01/19/24 21:03 Ondansetron 4 Mg/2 Ml Vial IVP Q4H PRN PRN Sodium Chloride 0 ml 01/19/24 20:26 Normal Saline Flush 10 Ml Syr IVP PRN PRN Sodium Chloride 0 ml 01/20/24 08:30 01/20/24 08:22 Normal Saline Flush 10 Ml Syr IVP 10 ml BID [facility] Administration Sodium Chloride 0 ml 01/19/24 20:26 Normal Saline 10 Ml Vial IJ DIRECTED PRN PFSH Active Problems Active Problems: Problem Status Onset Code Acute cholecystitis Acute K81.0 Elevated result in multi-biomarker disease activity panel for rheumatoid arthritis Acute R79.9 Swelling of joint, hand, right Acute M25.441 Complex tear of medial meniscus of right knee Acute S83.231A Knee pain, right Acute M25.561 Perennial allergic rhinitis Acute J30.89 Impingement syndrome of right shoulder Acute M75.41 Bursitis of right shoulder Acute M75.51 Reflex sympathetic dystrophy Acute G90.50 Forearm pain Acute M79.639 Tendonitis of long head of biceps brachii of right shoulder Acute M75.21 Rotator cuff tear, right Acute M75.101 Right shoulder pain Acute M25.511 Arthralgia Acute M25.50 Pain, joint, shoulder, right Acute M25.511 High blood pressure Chronic I10 Malignant neoplasm prostate Acute 09/20/10 C61 Medical History Medical History Asthma Rheumatoid arthritis Psoriasis Malignant neoplasm prostate Sciatica Surgical History Surgical History History of back surgery 2 broken discs History of surgery on arm History of knee surgery History of surgery on wrist History of hernia repair Testicular Steroid Injection [facility];Lumbar epidural steroid injection;04/04/17 Tobacco Smoking/Tobacco Use Status: Former Tobacco Use Passive smoking exposure: Yes Alcohol Alcohol Intake: former Substance Use Substance use: Never Substance use type: does not use Vital Signs and Lab Results Vital Signs Most Recent Vital Signs in EMR: Most Recent Vital Signs Temp Pulse Resp BP Pulse Ox 36.5 C 65 18 111/63 97 01/20/24 07:53 01/20/24 07:53 01/20/24 07:53 01/20/24 07:53 01/20/24 07:53 Point of Care Results Point of Care Results: Finger Stick Blood Glucose 99 01/20/24 10:14 Lab Results 01/19/24 18:16 01/20/24 06:03 Blood Type / Crossmatch: 2 No Data to Display Complete Blood Count: 2 White Blood Count 10.10 10^3/uL (4.4-10.8) 01/19/24 18:16 Red Blood Count 5.46 10^6/uL (4.36-5.78) 01/19/24 18:16 Hemoglobin 15.5 g/dL (13.5-17.5) 01/19/24 18:16 Hematocrit 46.4 % (40.0-50.0) 01/19/24 18:16 Platelet Count 224 10^3/uL (130-400) 01/19/24 18:16 Complete Metabolic Panel: 2 Sodium 141 mmol/L (136-145) 01/20/24 06:03 Potassium 4.0 mmol/L (3.5-5.1) 01/20/24 06:03 Chloride 106 mmol/L (98-107) 01/20/24 06:03 Carbon Dioxide 27.0 mmol/L (21.0-32.0) 01/20/24 06:03 BUN 25 mg/dL (7-18) H 01/20/24 06:03 Creatinine 1.4 mg/dL (0.70-1.30) H 01/20/24 06:03 Est GFR (CKD-EPI 2020) 55.78 (mL/min/1.73m2) 01/20/24 06:03 Calcium 8.6 mg/dL (8.5-10.1) 01/20/24 06:03 Albumin 3.3 g/dL (3.4-5.0) L 01/19/24 18:16 Glucose 99 mg/dL (74-106) 01/20/24 06:03 Liver Function Panel: 2 Alanine Aminotransferase (ALT/SGPT) 35 U/L (16-63) 01/19/24 18: 16 Aspartate Amino Transf (AST/SGOT) 19 U/L (15-37) 01/19/24 18:16 Coagulation Panel: 2 No Data to Display Cardiac Panel: 2 No Data to Display Arterial Blood Gas: 2 No Data to Display Venous Blood Gas: 2 No Data to Display Pancreas Panel: 2 Lipase 64 U/L (<78) 01/19/24 18:16 Thyroid Panel: 2 No Data to Display Infectious Disease: 2 No Data to Display Blood Cultures: 2 No Data to Display Toxicology Panel: 2 No Data to Display Imaging and Studies Imaging and Studies Study information below may be from another EMR and interpreted by another provider. Please see original notes in EMR for more complete details. EKG Summary: 01/19/24: Exam: Resting ECG Reason for Exam: abd pain Patient Location: E HR:112 bpm ECG Measurements Heart Rate 112 AXIS MO 127 P 59 QRSd 94 QRS 59 QT 310 T-17 QTc 423 Conclusion Sinus tachycardia...rate> 99 Inferior infarct, age indeterminate...Q>35mS, T neg, II III aVF Normal [place]/Interval There are no significant changes compared to prior EKG performed on 03/27/2022 at 16:57. Pulmonary Function Summary: 07/04/23: Pulmonary Function Test Result Indications: Asthma Interpretation Spirometry: There is no airflow limitation. No significant bronchodilator response. Lung Volumes: There is air trapping Diffusion Capacity: Normal diffusion Airway Pressure: Normal airways resistance Impression There is some air trapping but otherwise normal pulmonary function. Clinical Correlation therefore is recommended. Anesthesia Assessment and Plan Anesthesia History Personal History: No History of Anesthesia Complications Family History: No Family History of Anesthesia Complications Exercise Tolerance Exercise Tolerance: Metabolic Equivalents>4 Pertinent Negatives Pertinent Negatives: No Symptoms of GERD and No Major Cardiovascular Symptoms or Complaints Cardiac & Pulmonary Exam Cardiac Exam: Normal S1/S2 Heart Sounds Pulmonary Exam: Clear Bilateral Breath Sounds (Diminished) Implantable Cardiac Device Does patient have a Pacemaker or an ICD?: No Airway Exam Known Difficult Airway: No Mallampati Class: 2 Mouth Opening: Normal (> 3cm) Thyromental Distance: Greater than 3 cm Neck Range of Motion: Full ROM Neck Circumference: Normal Teeth Condition: Normal Dentition (Several chipped) ASA Classification ASA Score: ASA 3 Emergency Case?: No NPO Status NPO Status: NPO Clears >2 hours, Solids >8 hours Anesthesia Plan Resuscitation Status: Full Code Anesthesia Technique: General Anesthesia Airway Planned: Endotracheal Tube Monitors Used: Standard Monitors and SedLine
[2024-01-20] MEDS: Bupivacaine LIPOSOME/PF 133 MG/10 ML VIAL IJ (11:50)
[2024-01-20] MEDS: Normal Saline 20 ML VIAL (11:50)
[2024-01-20] MEDS: Bupivacaine 0.25% Pres-Free 30 ML VIAL (11:50)
--- NOTE | 2024-01-20 12:17 | GB_PTH ---
PATIENT: Altaf Payne LOC: U#:[id number] AGE/SX: 63/M ROOM: 230 RE01/19/[address]: Chris Pop : 1960 BED: A DIS: 01/21/2024 SPEC #: [id number] RECD: 01/20/24 16:52 STATUS: BELKIS REGuilherme #: [id number] TAM: 01/20/24 12:[address]: Chris Pop DEPT: Surgical Specimen RECD BY: Edel Amin ENTERED: 01/20/24 16:52 SP TYPE: GB OTHR DR: Duglas Burton, MOLLY Tissues: 1 - GALLBLADDER Procedures: GROSS AND MICRO LEVEL 3 Comments: [id number]
--- NOTE | 2024-01-20 12:43 | W.PM.OP ---
Operative Note Operative Note Refer to Anesthesia Record Procedure Description: Procedures performed: 1. Laparoscopic cholecystectomy 2. 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 Cross-sectional imaging showed acute cholecystitis. FINDINGS: Tensely?distended and inflamed gallbladder covered by omentum. Normal biliary anatomy. Normal appendix Specimens: 1. Gallbladder Complications: None Blood loss: 20 cc Urine output: Not measured Implants/drains: None Procedure in detail: Patient gave written consent and was in agreement with the indications, the likely benefits as well as the potential risks of surgery. He was taken back to the operating room where anesthesia was administered which was tolerated well. He was positioned supine on the operating room table and we then prepped and draped in sterile fashion. We confirmed DVT prophylaxis as well as antibiotics had been administered. When we were all in agreement with our timeout we started the procedure. Local anesthetic was injected at the umbilicus. A small stab incision was made within the umbilicus(he has an existing, small reducible umbilical hernia) and a 5 mm trocar was used to enter the abdominal cavity through this. Insufflation was performed which was tolerated well. 2 more trocars were placed under direct visualization in the right hemiabdomen. Local anesthetic was also given in each of the sites. A 12 mm port was placed in the epigastrium under visualization. Next I performed an TAP block under direct visualization on both sides of the abdominal wall. Omental adhesions were covering the gallbladder and the liver. I was able to dissect these free and uncovered an inflamed and distended gallbladder. The fundus of the gallbladder was unable to be grasped because it was so tense. I punctured it with the laparoscopic suction and decompressed it which enabled me to grasp the fundus and retracted towards the patient's left shoulder cephalad. This nicely exposed the biliary plate and the relevant anatomy. All of this was inflamed and there was pericholecystic fluid. A combination of blunt and electrocautery dissection was performed isolating the cystic duct and the cystic artery. The entire cystic plate was cleared off confirming only 2 structures seen going into the gallbladder. These were clipped and divided. I then removed the rest of the gallbladder off the liver bed using electrocautery. It was placed in an Endo Catch bag and removed from the abdominal cavity. The specimen was passed off the back table and placed in formalin. I turned my attention of the right lower quadrant to ensure that the appendix looked completely normal. (On imaging it had been read as possibly thickened - I had no clinical suspicion for appendicitis). The appendix was easily found and looked completely normal. I then re-checked the gallbladder fossa for any bile leaking or any bleeding. Hemostasis was excellent and there was no evidence of any bile leaking from the bed. The 12 mm port site was then closed with 0 Vicryl in the fascia. I rechecked for hemostasis one last time and it remained excellent. We released pneumoperitoneum. I removed the 5 mm trocars. I also closed the small umbilical defect(which was a pre-existing reducible ventral hernia) with Vicryl. The skin was closed with running Monocryl and Dermabond was placed on top of each site. Patient tolerated the procedure well. The sponge, instruments and sharps counts were correct x3 at the end of the procedure. He was extubated and taken to the PACU in hemodynamically stable condition. Date of Procedure: 01/20/24
--- NOTE | 2024-01-20 13:21 | INITIAL_ITS ---
Date of service: 01/20/24 Time of Service: 13:21 Care Management Initial Assmt Initial Assessment Reason for Hospitalization: Upper abdominal pain, constant. Cholecystitis Functional Status/Living Situation Patient Presentation: Altaf was admitted last evening with abdominal pain that worsened over the course of a few days. He was found to have cholecystitis and underwent laparoscopic cholecystectomy and bilateral TAP block this morning. Altaf was sitting up in the bed when CM met him. He was completing his clear liquid lunch, but was very agreeable to speaking with CM. Altaf stated he felt much better than he had prior to surgery. He stated that the pain was excruciating. 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 Altaf stated that his [id number] will be helping him when he gets home. Town of Residence: [place] Resides with: Alone Significant Other/Family: Local (mother, Shonda, brother Duglas and sister in law Noemi. 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) Instrumental Activities of Daily Living (ADLs): Independent Medications Medication Management: No Issues/Barriers identified Advance Directives Advance Directives: Do you have an Advance Directive: N 10/26/22 10:32 AD On File at [facility]: N 10/26/22 10:32 Date Asked 01/19/24 01/19/24 17:25 AD Date Reviewed COLST On File at [facility] COLST Date Scanned Code Status Resuscitation Status Full Code Portal Pt does not currently have a portal and education provided: No Insurance Coverage/Financial Issues Insurance: [facility] Care Team Visit Care Team Role Provider Type Duglas Burton NP Primary Care Provider NURSE PRACTITIONER Josué Shi MD Emergency Provider [facility] STAFF PHYSICIAN Chris Pop MD Admit Provider [facility] STAFF PHYSICIAN Attending Provider Discharge Potential Discharge Needs: PCP F/U Appt and Surgical F/U Appt Anticipated Barriers to Discharge: None Identified Patient/Family Education Needs: Review discharge instructions, discuss Ask Me Three Plan: Anticipate that Altaf will be discharged home with no new services. He will f/u with the surgeon and his PCP and continue per his plan of care. He will transport home in a private vehicle. CM will continue to follow and update the plan as needed. PFSH All Active Problems (Updated 01/19/24 @ 21:38 by Chrsi Pop MD) Acute cholecystitis (Acute) Elevated result in multi-biomarker disease activity panel for rheumatoid arthritis (Acute) Swelling of joint, hand, right (Acute) Complex tear of medial meniscus of right knee (Acute) Knee pain, right (Acute) Perennial allergic rhinitis (Acute) Impingement syndrome of right shoulder (Acute) Bursitis of right shoulder (Acute) Reflex sympathetic dystrophy (Acute) Forearm pain (Acute) left wrist pain Tendonitis of long head of biceps brachii of right shoulder (Acute) Rotator cuff tear, right (Acute) Right shoulder pain (Acute) Arthralgia (Acute) Pain, joint, shoulder, right (Acute) High blood pressure (Chronic) Malignant neoplasm prostate (Acute 09/20/10) [address] [facility]) recurrent 03/07 Medical History (Updated 01/19/24 @ 21:38 by Chris Pop MD) Asthma Rheumatoid arthritis Psoriasis Malignant neoplasm prostate Sciatica Surgical History (Updated 01/20/24 @ 14:24 by Maria Victoria Howell) Hx laparoscopic cholecystectomy (~01/2024) History of back surgery 2 broken discs History of surgery on arm History of knee surgery History of surgery on wrist History of hernia repair Testicular Steroid Injection [facility];Lumbar epidural steroid injection;04/04/17 Social History Smoking/Tobacco Use Status: Former Tobacco Use Tobacco: How many years used: 20 Smoking risk assessment performed?: Yes Alcohol Intake: former Drug use: Never Substance use type: does not use Caregiver/Support person: No Housing: house Communication Needs: Corrective Lenses Do you need help understanding health information?: Rarely Pets and animals: Yes Pets and animals: dog(s) Sexually active: No Do you think of yourself as: straight/heterosexual Current gender identity: female What is your relationship status?: How often do you talk on the phone with friends or family?: three or more times per week How often do you get together with friends or relatives?: once per week How often do you attend latter-day or religion services?: decline to answer Do you belong to any clubs or organized social groups?: no Panel score (0-1 are the most socially isolated patients): 1 What type of physical activity do you participate in: other Details: active on job Honey/Muslim: No preference Special honey needs: No Seatbelt use: always Helmet use: Yes Helmet use: always Drive 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 bobtail driver: No Do you feel safe at home: Yes Do you feel safe in your relationship?: Yes Readmission Within the Past 30 Days Yes or No: No SDOH(Care Management) Screening Will the Patient Participate in the Screening?: Yes Do you worry about having a steady place to live?: no In the past 12 months, have you had to go without electric, gas, oil or water in your home?: no Have you or anyone in your house had to go without enough food to eat?: no Has lack of transportation kept you from medical appointments or from doing things needed for daily living?: no Has anyone in your support network made you feel unsafe for any reason?: no
[2024-01-20] MEDS: fentaNYL 100 MCG/2 ML VIAL IVP ×2 (13:25→13:36)
--- NOTE | 2024-01-20 13:48 | W.ANESPOSTOP ---
Postoperative Evaluation Date, Time and Location Date Performed: 01/20/24 Time Performed: 13:42 Patient Location: PACU Vital Signs Most Recent Imported Vital Signs: Most Recent Vital Signs Temp Pulse Resp BP Pulse Ox 37.2 C 70 11 L 110/70 95 01/20/24 13:45 01/20/24 13:35 01/20/24 13:36 01/20/24 13:35 01/20/24 13:36 Most Recent Vital Signs Temp Pulse Resp BP Pulse Ox 36.5 C 65 18 111/63 97 01/20/24 07:53 01/20/24 07:53 01/20/24 07:53 01/20/24 07:53 01/20/24 07:53 Pain Score Most Recent Pain Score: Most Recent Pain Score Pain Level [Abdomen] 6 01/20/24 09:26 Pain Level 6 01/20/24 13:45 Assessment Mental Status: Awake (Alert & Oriented to Patient Baseline) Airway and Respiratory Function: Patent airway with normal (patient baseline) respiratory exam Cardiovascular Function: Hemodynamically Stable Hydration Status: Adequately Hydrated Nausea & Vomiting: No Nausea or Vomiting Pain: Pain is Moderate or Severe Postoperative Pain Management: Pain being addressed with medication Peripheral Nerve Block: Patient did not receive a nerve block
[2024-01-20] MEDS: MORPHine 10 MG/ML VIAL 4 MG IVP (16:13)
[2024-01-20] MEDS: Ketorolac 15 MG/ML VIAL IVP (22:04)
[2024-01-20] MEDS: ACETAMINOPHEN 1,000 MG/100 ML BAG 400 MG IVPB (22:04)
[2024-01-21 00:46] VITALS: BP 110/64; PULSE 69; RESP 17; TEMP 36.8; O2SAT 95
[2024-01-21] MEDS: PIPERACILLIN/TAZO 3.375 GM in Normal Saline 50 ML IVPB ×2 (03:07→08:49)
[2024-01-21] MEDS: Normal Saline Flush 10 ML SYR IVP ×2 (03:09→08:50)
[2024-01-21] MEDS: Heparin 5,000 UNITS/ML VIAL 5000 UNITS SC (05:01)
[2024-01-21 06:39] LABS: Anion Gap 10.8 mmol/L (3-11); BUN 23 mg/dL (7-18); CO2 26.2 mmol/L (21.0-32.0); CREATININE 1.4 mg/dL (0.70-1.30); Calcium 8.8 mg/dL (8.5-10.1); Chloride 105 mmol/L (98-107); Estimated GFR 55.78 (mL/min/1.73m2); Glucose 114 mg/dL (74-106); Sodium 142 mmol/L (136-145)
[2024-01-21 07:19] VITALS: BP 111/58; PULSE 81; RESP 20; TEMP 37.4; O2SAT 97
--- NOTE | 2024-01-21 07:49 | DSE_ITS ---
Date of service: 01/21/24 Time of Service: 07:49 DS: Diagnosis Discharge Diagnosis (1) Acute cholecystitis: Status: Acute Asessment and Plan: 63-year-old man postop day 1 from laparoscopic cholecystectomy. He is doing well. He is ready to be discharged home Discharge Plan Disposition Patient Disposition: Home Condition: Good Discharge Details Reason For Visit: Acute Cholecystitis Admit Date/Time: 01/19/24 20:27 Admit Provider: Chris Pop Attending Provider: Chris Pop Primary Care Provider: Duglas Burton Hospital Course Hospital Course: 63-year-old man with immunosuppression medication came to the hospital with abdominal pain. He is found to have acute cholecystitis. He was taken to the operating room for laparoscopic cholecystectomy. He was kept in observation after the procedure to be continued on IV antibiotics because of the immunosuppression and was found to be tolerating a diet on postoperative day 1 and doing well and was set up for discharge home. Home Meds and New Rx's Prescriptions: No Action acetaminophen [Tylenol] 325 mg capsule 650 mg PO DAILY PRN ipratropium-albuterol 0.5 mg-3 mg(2.5 mg base)/3 mL solution for nebulization 3 ml inhalation QID PRN (Reason: wheezing) Qty: 180 12RF Otezla 30 mg tablet 30 mg PO BID albuterol sulfate 90 mcg/actuation HFA aerosol inhaler 2 puff inhalation Q4H PRN (Reason: shortness of breath or wheezing) Qty: 6.7 12RF budesonide-formoterol [Symbicort] 80-4.5 mcg/actuation HFA aerosol inhaler 2 puff inhalation BID Qty: 10.2 6RF Nucala 100 mg/mL auto-injector 100 mg subcut Q4W Qty: 1 6RF lidocaine [Lidoderm] 5 % adhesive patch,medicated 1 patch Topical Q24H Qty: 15 0RF Inhaler, Assist Devices [Pocket Chamber] 1 ea miscellaneous DIRECTED Qty: 0 0RF multivitamin Tablet 1 tab PO DAILY melatonin 5 mg Tablet 10 mg PO HS PRN methotrexate sodium 2.5 mg tablet 2.5 mg PO ONCE Patient Comments: TAKE 4 TABLETS (10MG) ONCE WEEKLY FOR 4 WEEKS. THEN INCREASE TO 6 TABLETS (15MG) ONCE WEEKLY folic acid 1 mg tablet 1 mg PO DAILY Patient Comments: TAKE ONE TABLET BY MOUTH EVERY DAY Discharge Instructions Additional Instructions: Incisions: Keep clean and dry but they do not need to be covered. It is okay to shower but no tub bathing for 1 week. You can peel the glue off after 1 week. Activity: As tolerated. There are no restrictions. Return to work, as tolerated in the next few days. If you need a work note call the surgery office. Diet: Regular diet as tolerated. Avoid fatty and greasy foods for at least a few weeks. Medications: Resume all of your usual/regular home medications Follow-up: Follow-up is optional. If you are having any issues or concerns call the surgery office immediately. If you want to have a routine follow-up that is perfectly fine and you can call and schedule an. If everything is otherwise going well, you do not need to follow-up. Pain control: Take Tylenol, 1000 mg, every 6 hours on a schedule for the next 3 days. You can use ibuprofen in addition to Tylenol and use the narcotic medication only as necessary for pain preventing you from sleeping. Overall: Symptoms should not be worsening. If you have any difficulty breathing or you have return of symptoms of brought you to the hospital or your pain is otherwise worsening each day and you should call the doctor's office or come into the hospital to be checked out. Activity:: Activity as Tolerated Equipment/Supplies:: No Equipment Needed Diet:: Recommend avoiding fatty and greasy foods for about 2 to 4 weeks. DS: Summary Time Spent with Patient providing and/or coordinating discharge services: Less than 30 minutes Status at Discharge Functional status at discharge: independent ambulation Overall status at discharge: patient is progressing back to baseline Mental Status: mental status grossly normal Speech and Movement: speech and movement normal Mood: congruent mood Affect: normal affect Quality:SDOH Health Related Social Needs: No Data to Display Exam Narrative Exam Narrative: Gen: Non-toxic, comfortable and interactive Neuro: Alert and oriented x3 Psych: Good mood and affect. Good insight and understanding into condition. Chest: Non-labored breathing, no wheezing, no visible shortness of breath. Heart: Regular Abdomen: Soft, nondistended and grossly nontender except around incisions which is expected. The incisions themselves the glue is intact and look perfect. Psych Mental Status: mental status grossly normal Speech and Movement: speech and movement normal Mood: congruent mood Affect: normal affect DS: Data Vitals/I&O Vitals and I&O: Vital Signs Temperature 99.3 F 01/21/24 07:19 Temperature Source Temporal Artery Scan 01/21/24 07:19 Pulse 81 01/21/24 07:19 Pulse Rhythm Regular 01/19/24 22:09 Pulse 75 01/20/24 13:36 Respiratory Rate 20 01/21/24 07:19 Respiratory Effort Normal 01/19/24 22:09 Respiratory Depth Normal 01/19/24 22:09 Respiratory Pattern Normal 01/19/24 22:09 Blood Pressure 111/58 L 01/21/24 07:19 Blood Pressure Mean 81 01/20/24 13:35 Blood Pressure Position Sitting 01/19/24 17:36 Pulse Oximetry 97 01/21/24 07:19 Respiratory End-tidal CO2 39 01/20/24 13:45 Oxygen Delivery Method Room Air 01/21/24 07:19 Oxygen Flow Rate 0 01/21/24 07:19 Pain Level 3 01/21/24 07:19 Comment pain in incision 01/20/24 15:06 Intake & Output 01/20/24 01/20/24 01/21/24 11:59 23:59 11:59 Intake Total 1432.00 / 3051.00 1619.00 / 3051.00 70 / 70 Output Total 570 / 570 Balance 1432.00 / 2481.00 1049.00 / 2481.00 70 / 70 Weight 191 lb Intake: IV 1432.00 / 2451.00 1019.00 / 2451.00 70 / 70 Oral 600 / 600 Output: Urine 550 / 550 Estimated Blood Loss Other: Urine Color Yellow Urine Appearance Clear Urine Odor Strong Emesis Description None Data Completed and Pending Labs on day of discharge: Labs from last 24 hours 01/21/24 05:40 Sodium 142 Potassium 4.0 Chloride 105 Carbon Dioxide 26.2 Anion Gap 10.8 BUN 23 H Creatinine 1.4 H Est GFR (CKD-EPI 2020) 55.78 Glucose 114 H Calcium 8.8 PFSH All Active Problems (Updated 01/19/24 @ 21:38 by Chris Pop MD) Acute cholecystitis (Acute) Elevated result in multi-biomarker disease activity panel for rheumatoid arthritis (Acute) Swelling of joint, hand, right (Acute) Complex tear of medial meniscus of right knee (Acute) Knee pain, right (Acute) Perennial allergic rhinitis (Acute) Impingement syndrome of right shoulder (Acute) Bursitis of right shoulder (Acute) Reflex sympathetic dystrophy (Acute) Forearm pain (Acute) left wrist pain Tendonitis of long head of biceps brachii of right shoulder (Acute) Rotator cuff tear, right (Acute) Right shoulder pain (Acute) Arthralgia (Acute) Pain, joint, shoulder, right (Acute) High blood pressure (Chronic) Malignant neoplasm prostate (Acute 09/20/10) [address] ([facility]) recurrent 03/07 Medical History (Updated 01/19/24 @ 21:38 by Chris Pop MD) Asthma Rheumatoid arthritis Psoriasis Malignant neoplasm prostate Sciatica Surgical History (Updated 01/20/24 @ 14:24 by Maria Victoria Howell) Hx laparoscopic cholecystectomy (~01/2024) History of back surgery 2 broken discs History of surgery on arm History of knee surgery History of surgery on wrist History of hernia repair Testicular Steroid Injection [facility];Lumbar epidural steroid injection;04/04/17 Social History Smoking/Tobacco Use Status: Former Tobacco Use Tobacco: How many years used: 20 Smoking risk assessment performed?: Yes Alcohol Intake: former Drug use: Never Substance use type: does not use Caregiver/Support person: No Housing: house Communication Needs: Corrective Lenses Do you need help understanding health information?: Rarely Pets and animals: Yes Pets and animals: dog(s) Sexually active: No Do you think of yourself as: straight/heterosexual Current gender identity: female What is your relationship status?: How often do you talk on the phone with friends or family?: three or more times per week How often do you get together with friends or relatives?: once per week How often do you attend orthodoxy or confucianist services?: decline to answer Do you belong to any clubs or organized social groups?: no Panel score (0-1 are the most socially isolated patients): 1 What type of physical activity do you participate in: other Details: active on job Honey/Worship: No preference Special honey needs: No Seatbelt use: always Helmet use: Yes Helmet use: always Drive 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 courtesy driver: No Do you feel safe at home: Yes Do you feel safe in your relationship?: Yes Time Spent with Patient Time Spent with Patient: <45 minutes Time was spent: preparing to see the patient(eg.review tests), obtaining and/or reviewing separately otained hiistory, ordering medications,tests, procedures, indepentently interpreting results, counseling the patient and care coordination
--- NOTE | 2024-01-21 12:02 | PDOC.CMDIS ---
Date of service: 01/21/24 Time of Service: 12:02 LACE Index Scoring Tool Questions: Length of Stay (in days): 2 Was the patient admitted via the E.D.?: Yes Comorbidities: Chronic Pulmonary Disease and Any Tumor E.D. Visits: 3 Answers: Total Score: 13 Risk of Readmission: High Risk Care Management Discharge Plan Reason for Hospitalization: acute cholecystitis s/p lap choly Discharge Plan: Altaf is discharged home today with no new orders. He will f/u with his PCP on 01/28, and with the surgeon as needed. Altaf will drive himself home today. He stated he feels well enough to do so. Altaf will continue per his plan of care and follow his dietary recommendations. Patient/Family Education Needs: Review of discharge instructions, activity, limitations both physical and dietary, f/u plan and discuss Ask me 3. SDOH Health Related Social Needs: No Data to Display
== END 2024-01-21 12:51 | disposition home or self-care (01) | DRG 418 ==
LOC: ER 17:30 → MS 21:53
PROVIDERS: Admitting Provider Student in an Organized Health Care Education/Training Program; Emergency Provider Emergency Medicine; PCP Nurse Practitioner Family; Visit Provider Student in an Organized Health Care Education/Training Program
PROC: 0FT44ZZ Resection of Gallbladder, Percutaneous Endoscopic Approach (ICD-10-PCS; CPT 47562; principal; 2024-01-20 11:30)
DX: K80.00 Calculus of gallbladder with acute cholecystitis without obstruction (principal); D84.821 Immunodeficiency due to drugs; M05.9 Rheumatoid arthritis with rheumatoid factor, unspecified; Z79.631 Long term (current) use of antimetabolite agent; Z79.69 Long term (current) use of other immunomodulators and immunosuppressants; J30.9 Allergic rhinitis, unspecified; L40.9 Psoriasis, unspecified; I10 Essential (primary) hypertension; C61 Malignant neoplasm of prostate; M54.30 Sciatica, unspecified side; Z87.891 Personal history of nicotine dependence
CPT/HCPCS: 47562; 00123; 36415; 80048; 80053; 83690; 90656; 93005; 96365; 96367; 96372; 96375; 96376; 99285; 74176; 85025; 88304; 93010; C9290; J0131; J0665; J0696; J1100; J1644; J1836; J1885; J2003; J2270; J2371; J2405; J2543; J2704; J3010

== ENCOUNTER 2024-07-21 02:17 | Outpatient (CLI) | payer BC, SELFPAY ==
[2024-07-21 16:44] LABS: Abs Immature Grans 0.01 10^3/uL (0.0-0.06); Absolute Basophil Count 0.02 10^3/uL (0.0-0.2); Absolute Eosinophil Count 0.05 10^3/uL (0.0-0.7); Absolute Lymphocyte Count 2.33 10^3/uL (1.2-3.4); Basophils % 0.3 %; Eosinophils % 0.8 %; HCT 43.1 % (40.0-50.0); HGB 14.4 g/dL (13.5-17.5); Immature Grans % 0.2 %; Lymphocytes % 35.8 %; MCH 28.7 pg (27.0-33.0); MCHC 33.4 % (32.0-36.0); MCV 86 fL (80-95); Monocytes % 9.2 %; Neutrophils % 53.7 %; Platelet Count 234 10^3/uL (130-400); RBC 5.02 10^6/uL (4.36-5.78); RDW 13.5 % (11.8-14.1); WBC 6.51 10^3/uL (4.4-10.8)
[2024-07-21 18:24] LABS: ALT 22 U/L (16-63); AST 15 U/L (15-37); Albumin 3.7 g/dL (3.4-5.0); Alkaline Phosphatase 72 U/L (46-116); Anion Gap 8.5 mmol/L (3-11); BUN 17 mg/dL (7-18); Bilirubin, Total 0.5 mg/dL (0.2-1.0); CO2 27.5 mmol/L (21.0-32.0); Chloride 106 mmol/L (98-107); Estimated GFR 83.01 (mL/min/1.73m2); Glucose 76 mg/dL (74-106); Potassium 3.9 mmol/L (3.5-5.1); Sodium 142 mmol/L (136-145)
== END 2024-07-21 02:18 | disposition home or self-care (01) ==
LOC: LBO 02:17
PROVIDERS: PCP Nurse Practitioner Family; Visit Provider Student in an Organized Health Care Education/Training Program
DX: D50.9 Iron deficiency anemia, unspecified (principal)
CPT/HCPCS: 36415; 80053; 85025

== ENCOUNTER 2024-11-10 04:59 | Outpatient (CLI) | payer BC, SELFPAY ==
[2024-11-10 16:32] LABS: Abs Immature Grans 0.01 10^3/uL (0.0-0.06); HCT 42.8 % (40.0-50.0); HGB 14.6 g/dL (13.5-17.5); Immature Grans % 0.2 %; MCH 29.3 pg (27.0-33.0); MCHC 34.1 % (32.0-36.0); MCV 86 fL (80-95); MPV 9.4 fL (8.0-11.0); Platelet Count 229 10^3/uL (130-400); RBC 4.98 10^6/uL (4.36-5.78); RDW 13.1 % (11.8-14.1); RDW-SD 40.2 fL; WBC 5.83 10^3/uL (4.4-10.8)
[2024-11-10 18:27] LABS: ALT 28 U/L (16-63); AST 17 U/L (15-37); Albumin 3.6 g/dL (3.4-5.0); Alkaline Phosphatase 67 U/L (46-116); Anion Gap 9.0 mmol/L (3-11); BUN 16 mg/dL (7-18); Bilirubin, Total 0.4 mg/dL (0.2-1.0); CO2 27.0 mmol/L (21.0-32.0); Calcium 9.5 mg/dL (8.5-10.1); Chloride 103 mmol/L (98-107); Estimated GFR 74.04 (mL/min/1.73m2); Glucose 112 mg/dL (74-106); Potassium 4.1 mmol/L (3.5-5.1); Sodium 139 mmol/L (136-145); Total Protein 7.1 g/dL (6.4-8.2)
== END 2024-11-10 05:00 ==
LOC: LBO 11-11 05:00
PROVIDERS: PCP Nurse Practitioner Family; Visit Provider Nurse Practitioner
DX: Z85.46 Personal history of malignant neoplasm of prostate (principal)
CPT/HCPCS: 36415; 80053; 84153; 85025